=== PATIENT | female | born 1940 ===

== ENCOUNTER 2016-10-29 18:39 | Inpatient (IN) | payer MEDICARE, OTHER ==
[2016-10-29 19:03] VITALS: BMI 21.7
[2016-10-29] MEDS ORDERED: Morphine 2 mg/ml ISec IVP STA (20:56)
[2016-10-29 21:07] LABS: ADD MANUAL DIFF? NO
[2016-10-29 21:13] LABS: VENOUS BLOOD GAS BASE EXCESS 3.7 mmol/L (0.0-2.0); VENOUS BLOOD PH 7.43 (7.32-7.43)
[2016-10-29 21:19] LABS: BASO # 0.03 K/mm3 (0.0-2.0); BASO % 0.5 % (0.0-3.0); EOS % 0.5 % (1.5-5.0); GRAN # 3.93 (1.4-6.5); GRAN % 63.5 % (50.0-68.0); HEMATOCRIT 35.2 % (36.0-48.0); LYMPH # 1.3 (1.2-3.4); LYMPH % 21.4 % (22.0-35.0); MEAN CELL VOLUME 70.5 fL (80.0-105.0); MEAN CORPUSCULAR HEMOGLOBIN 21.8 pg (25.0-35.0); MONO # 0.9 (0.1-0.6); MONO % 14.1 % (1.0-6.0); PLATELET COUNT 73 10^3/uL (120.0-450.0); RED CELL DISTRIBUTION WIDTH 28.1 % (11.5-14.5); WHITE BLOOD COUNT 6.2 10^3/ul (4.5-11.0)
[2016-10-29 21:24] LABS: ALB/GLOB RATIO 0.6 (1.1-1.8); ALKALINE PHOSPHATASE 106 U/L (38-133); ALT/SGPT 28 U/L (7-56); AST/SGOT 48 U/L (15-39); BILIRUBIN,TOTAL 1.5 mg/dL (0.2-1.3); BLOOD UREA NITROGEN 19 mg/dL (7-21); CALCIUM 8.6 mg/dL (8.4-10.5); CARBON DIOXIDE 26 mmol/L (21-33); CHLORIDE 109 mmol/L (98-107); GFR AFRICAN-AMERICAN > 60; GLUCOSE,RANDOM 197 mg/dL (70-110); POTASSIUM 4.3 mmol/L (3.6-5.0); SODIUM 141 mmol/L (132-148); TOTAL PROTEIN 6.1 g/dL (5.8-8.3)
[2016-10-29 21:28] LABS: INR 1.26 (0.93-1.08)
[2016-10-29 21:39] LABS: TROPONIN I < 0.01 ng/mL
--- NOTE | 2016-10-29 23:31 | CP.PCM.HP ---
<Carey Siegel - Last Filed: 10/30/16 00:50> History of Present Illness - History of Present Illness History of Present Illness: PGY-[address] Brenda Mendoza 76yo female with PMHx of DM 2, hypertension and liver cirrhosis present with the spouse by the bedside for complaint of abdominal pain and AMS. The states she was diagnosed with cirrhosis two weeks ago at [facility] and paricentesis was done at that time. States she went back to [facility] emergency room on Saturday for abdominal pain and was DC home with pain medication. He brought her to [facility] ED today because she started complaining of abdominal pain and decreased appetite. States she was fine, ambulatory yesterday (more than 24 hours ago). According to the she have not seen a Doctor for years prior to 2weeks ago, because she have no insurance. ROS Denies nausea, vomiting, diarrhea, constipation, fever, hematemesis, melena - per family PMH DM2, HTN, Liver cirrhosis PSH Paricentesis, [facility], 2 weeks ago SH Unknown ever smoke. Denies drink/drug All NKDA Med None PMD None Present on Admission - Present on Admission Any Indicators Present on Admission: No Past Patient History - Past Social History Smoking Status: Unknown If Ever Smoked - ENDOCRINE/METABOLIC Hx Diabetes Mellitus Type 2: Yes - GASTROINTESTINAL Other/Comment: Liver Cirrhosis - PSYCHIATRIC Hx Substance Use: No - SURGICAL HISTORY Hx Surgeries: Yes Meds Allergies/Adverse Reactions: Allergies Allergy/AdvReac Type Severity Reaction Status Date / Time No Known Allergies Allergy Verified 10/29/16 19:03 Physical Exam - Constitutional Appears: Chronically Ill Additional comments: Non-communicative, R eye twitching (chronic per ED PA and RN) - Head Exam Head Exam: ATRAUMATIC, NORMOCEPHALIC - Eye Exam Eye Exam: PERRL. absent: Scleral icterus - ENT Exam ENT Exam: Mucous Membranes Moist - Neck Exam Neck exam: Negative for: Meningismus - Respiratory Exam Respiratory Exam: Clear to Auscultation Bilateral, NORMAL BREATHING PATTERN. absent: Rales, Rhonchi, Wheezes - Cardiovascular Exam Cardiovascular Exam: REGULAR RHYTHM, +S1, +S2. absent: Systolic Murmur - GI/Abdominal Exam GI & Abdominal Exam: Distended, Hypoactive Bowel Sounds Additional comments: hpertympanic percussion, fluid wave - Extremities Exam Extremities exam: Positive for: normal capillary refill, pedal pulses present. Negative for: pedal edema - Neurological Exam Additional comments: Non-communicative, open eyes spontanously, grimace to pain, non-responsive to touch or verbal stimuli R eye twitching Deepened R nasal-labial fold - Skin Skin Exam: Dry, Warm Results - Vital Signs Recent Vital Signs: Last Vital Signs Temp 97.6 F 10/29/16 19:16 Pulse 70 10/29/16 21:40 Resp 17 10/29/16 21:40 BP 140/77 10/29/16 21:40 Pulse Ox 100 10/29/16 21:40 - Labs Result Diagrams: 10/29/16 20:00 10/29/16 20:00 Assessment & Plan - Assessment and Plan (Free Text) Plan: 76 years old Nepalese speaking female baseline aaox3 with ability to walk developed a sudden lethargy, only responsive to deep pain stimuli. She was diagnosed with liver cirrhosis at [facility] for 2 weeks but pt refused treatment. Family last seen pt at baseline was more than 24 hours prior to admission. Patient received botox for R facial twitches but not recently due to insurance problem. A deepened nasal-labial fold was appreciated during physical examination. AMS - Infection - ABG lactate 2.3, no leukocytosis - Infarction - trend cardiac enzyme, CT head stat; Deepened R nasal-labial fold - Iatrogenic - blood sugar 197, POx stable - likely hepatic encephalopathy Ammonia 161 - NPO until mentation improves; swallow eval and treat - IVF @ 45 - GI consult - neuro consult - Aspiration precaution - AM ammonia level - o2 as needed Abdominal pain Cirrhosis vs bowel obstruction vs ileus vs peritonitis Liver failure, suspected SBP prophylaxis - cefotaxime 2g q12 - Ammonia 161; Total bili 1.5 - lactulose stat - pt grimace - morphine PRN - CT abdomin and pelvix stat - flat plate stat - A:G 0.6 Hx DM2 - ISSS - A1C microccytic anemia - iron study, b12, folate - stool occult Prophylaxis - protonix - SCD S/r/q/w Dr. Mendoza - Date & Time Date: 10/29/16 Time: 11:40 <Priyank Mendoza - Last Filed: 10/30/16 06:48> Results - Vital Signs Recent Vital Signs: Last Vital Signs Temp 97.6 F 10/29/16 19:16 Pulse 65 10/29/16 23:40 Resp 16 10/29/16 23:40 BP 120/63 10/29/16 23:40 Pulse Ox 99 10/29/16 23:40 - Labs Result Diagrams: 10/29/16 20:00 10/29/16 20:00 Labs: Laboratory Results - last 24 hr 10/30/16 10/30/16 10/30/16 00:44 02:00 02:15 pO2 116 H VBG pH 7.42 VBG pCO2 43.0 VBG HCO3 27.9 VBG Total CO2 29.2 H VBG O2 Sat (Calc) 99.2 H VBG Base Excess 2.9 H VBG Potassium 3.9 Sodium 143.0 Chloride 116.0 H Glucose 183 H Lactate 1.9 FiO2 21.0 Total Bilirubin 1.6 H Direct Bilirubin 0.5 H Lactate Dehydrogenase 462 Total Creatine Kinase 21 L Troponin I < 0.01 Venous Blood Potassium 3.9 Stool Occult Blood Positive H Attending/Attestation - Attestation I have personally seen and examined this patient.: Yes I have fully participated in the care of the patient.: Yes I have reviewed all pertinent clinical information: Yes Notes (Text): 10/30/16 06:46 Patient was seen when she was in [facility] 5 in the ER. Agree with history ,physical examination ,assessment and plan.
[2016-10-30] MEDS ORDERED: Lactulose 10 gm/15 ml (Rectal Use) PR STA (00:10)
--- NOTE | 2016-10-30 00:21 | ED PDOC ---
Arrival/HPI - General Chief Complaint: Altered Mental Status Time Seen by Provider: 10/29/16 19:58 Historian: Spouse - History of Present Illness Narrative History of Present Illness (Text): 10/30/16 00:21 76yo female with PMHx of hypertension and liver cirrhosis present with the spouse by the bedside for complaint of abdominal pain and AMS. The states she was diagnosed with cirrhosis two weeks ago at [facility] and paricentesis was done at that time. States she went back on Saturday and was DC home with pain medication. He brought her to ED today because she started complaining of abdominal pain and decreased appetite. States she was fine , ambulatory yesterday. According to the she have not seen a Doctor for years prior to 2weeks ago, because she have no insurance. Denies nausea, vomiting, diarrhea , constipation, fever, focal neurological weakness, hematemesis, melena, any other complaint. Past Medical History - Provider Review Nursing Documentation Reviewed: Yes - Endocrine/Metabolic Hx Diabetes Mellitus Type 2: Yes - Gastrointestinal Other/Comment: Liver Cirrhosis - Psychiatric Hx Substance Use: No Family/Social History - Physician Review Nursing Documentation Reviewed: Yes Family/Social History: Unknown Family HX Smoking Status: Unknown If Ever Smoked Hx Alcohol Use: No Hx Substance Use: No Allergies/Home Meds Allergies/Adverse Reactions: Allergies No Known Allergies Allergy (Verified 10/29/16 19:03) Review of Systems - Physician Review All systems were reviewed & negative as marked: Yes - Review of Systems Systems not reviewed;Unavailable: Altered Mental Status Constitutional: Normal Eyes: Normal ENT: Normal Respiratory: Normal Cardiovascular: Normal Gastrointestinal: Abdominal Pain. absent: Constipation, Diarrhea, Nausea, Vomiting, Hematochezia, Hematemesis Genitourinary Female: Normal Musculoskeletal: Normal Skin: Normal Neurological: Normal Endocrine: Normal Hemo/Lymphatic: Normal Psychiatric: Normal Physical Exam Vital Signs Reviewed: Yes Vital Signs Temp Pulse Resp BP Pulse Ox 10/29/16 23:40 65 16 120/63 99 10/29/16 21:40 70 17 140/77 100 10/29/16 19:16 97.6 F 65 18 136/66 99 Temperature: Afebrile Blood Pressure: Normal Pulse: Regular Respiratory Rate: Normal Appearance: Positive for: Well-Appearing, Non-Toxic, Comfortable Pain Distress: None Mental Status: Positive for: Lethargic. No: Alert and Oriented X 3 (AA x1) - Systems Exam Head: Present: Atraumatic, Normocephalic Pupils: Present: PERRL Extroacular Muscles: Present: EOMI Conjunctiva: Present: Normal Mouth: Present: Moist Mucous Membranes Neck: Present: Normal Range of Motion Respiratory/Chest: Present: Clear to Auscultation, Good Air Exchange. No: Respiratory Distress, Accessory Muscle Use, Wheezes, Decreased Breath Sounds, Rales, Retracting, Rhonchi Cardiovascular: Present: Regular Rate and Rhythm, Normal S1, S2. No: Murmurs Abdomen: Present: Tenderness (Diffuse tenderness), Distention (Prominent distention), Normal Bowel Sounds, Guarding, Other. No: Peritoneal Signs, Rebound, McBurney's Point Tender, Rovsing's Sign Present Back: Present: Normal Inspection Upper Extremity: Present: Normal Inspection. No: Cyanosis, Edema Lower Extremity: Present: Normal Inspection. No: Edema Neurological: Present: GCS=15, CN II-XII Intact, Speech Normal, Motor Func Grossly Intact, Normal Sensory Function, Normal Cerebellar Funct, Other (No focal neurological deficit ). No: Memory Normal Skin: Present: Warm, Dry, Normal Color. No: Rashes Psychiatric: Present: Alert, Oriented x 3, Normal Insight, Normal Concentration Medical Decision Making ED Course and Treatment: 10/30/16 03:44 PT with history of liver cirrhosis, presented for stated history. She had elevated Ammonia level in ED and was admitted for hepatic encephalograph. Case was DW Dr. Mendoza and pt was admitted. - Lab Interpretations Lab Results: 10/29/16 20:00 10/29/16 20:00 Lab Results 10/29/16 21:53: Ammonia 161 H* 10/29/16 20:00: WBC 6.2, RBC 4.99, Hgb 10.9 L, Hct 35.2 L, MCV 70.5 L, MCH 21.8 L, MCHC 31.0, RDW 28.1 H, Plt Count 73 L, Gran % 63.5, Lymph % (Auto) 21.4 L, [place] % (Auto) 14.1 H, Eos % (Auto) 0.5 L, Baso % (Auto) 0.5, Gran # 3.93, Lymph # 1.3, [place] # 0.9 H, Eos # 0.0, Baso # 0.03, PT 13.6 H, INR 1.26 H, APTT 25.0, pO2 110 H, VBG pH 7.43, VBG pCO2 43.0, VBG HCO3 28.5 H, VBG Total CO2 29.8 H, VBG O2 Sat (Calc) 98.6 H, VBG Base Excess 3.7 H, VBG Potassium 4.5, Glucose 214 H, Lactate 2.3 H, FiO2 21.0, Sodium 142.0, Potassium 4.3, Chloride 116.0 H, Carbon Dioxide 26, Anion Gap 10, BUN 19, Creatinine 0.6, Est GFR ( Amer) > 60, Est GFR (Non-Af Amer) > 60, Random Glucose 197 H, Calcium 8.6, Total Bilirubin 1.5 H, AST 48 H, ALT 28, Alkaline Phosphatase 106, Lactate Dehydrogenase 672, Total Creatine Kinase 41, Troponin I < 0.01, NT-Pro-B Natriuret Pep 400, Total Protein 6.1, Albumin 2.3 L, Globulin 3.8, Albumin/ Globulin Ratio 0.6 L, Venous Blood Potassium 4.5 - RAD Interpretation Radiology Orders: 10/29/16 22:48 CHEST PORTABLE [RAD] Stat - EKG Interpretation Interpreted by ED Physician: Yes (NSR @ 65bpm) - Medication Orders Current Medication Orders: Cefepime HCl (Maxipime 2gm) 100 mls @ 100 mls/hr IVPB Q12 GERALDO PRN Reason: Protocol Stop: 11/04/16 01:16 Last Admin: 10/30/16 01:48 Dose: 100 MLS/HR eMAR Start Stop Document 10/30/16 01:48 STOCP (Rec: 10/30/16 01:48 STOCP [id number]) Intravenous Solution Start Date 10/30/16 Start Time 01:48 End Date 10/30/16 End time 02:48 Total Infusion Time 60 Sodium Chloride (Sodium Chloride 0.9%) 1,000 mls @ 45 mls/hr IV .[id number] GERALDO Last Admin: 10/30/16 01:47 Dose: 45 MLS/HR eMAR Start Stop Document 10/30/16 01:47 STOCP (Rec: 10/30/16 01:47 STOCP [id number]) Intravenous Solution Start Date 10/30/16 Start Time 01:47 Insulin Human Lispro (Humalog Low) 0 units SC ACHS GERALDO PRN Reason: Protocol Pantoprazole Sodium (Protonix Inj) 40 mg IVP DAILY GERALDO Discontinued Medications Lactulose (Generlac) 200 gm MS ONCE STA Stop: 10/30/16 00:11 Last Admin: 10/30/16 01:48 Dose: 200 GM Morphine Sulfate (Morphine) 2 mg IVP STAT STA Stop: 10/29/16 20:57 Last Admin: 10/29/16 21:23 Dose: 2 MG MAR Pain Assessment Document 10/29/16 21:23 (Rec: 10/29/16 21:23 [id number] Pain Reassessment Is this a pain reassessment? Yes Sleep Is patient sleeping during reassessment? No Presence of Pain Presence of Pain Yes Pain Scale Used Pain Scale Used Numeric IVP Administration Document 10/29/16 21:23 (Rec: 10/29/16 21:23 [id number] Charges for Administration # of IVP Administrations 1 Ondansetron HCl (Zofran Inj) 4 mg IVP STAT STA Stop: 10/29/16 21:31 Disposition/Present on Arrival - Present on Arrival Any Indicators Present on Arrival: No History of DVT/PE: No History of Uncontrolled Diabetes: No Urinary Catheter: No History of Decub. Ulcer: No History Surgical Site Infection Following: None - Disposition Have Diagnosis and Disposition been Completed?: Yes Diagnosis: Cirrhosis, Hepatic encephalopathy, Altered mental status Disposition: HOSPITALIZED Disposition Time: 22:20 Patient Problems: Current Active Problems Problem Status Diagnosed Altered mental status Acute Cirrhosis Acute Condition: FAIR
[2016-10-30 01:02] LABS: VENOUS BLOOD GAS BASE EXCESS 2.9 mmol/L (0.0-2.0); VENOUS BLOOD PH 7.42 (7.32-7.43)
[2016-10-30] MEDS ORDERED: Sodium Chloride 0.9% 1,000 ML IV SCH (01:15)
[2016-10-30] MEDS: Cefepime IV 2 gm in NS 100 ML IVPB SCH ×3 (01:48→22:59)
[2016-10-30 02:22] LABS: BILIRUBIN,DIRECT 0.5 mg/dL (0.0-0.4); BILIRUBIN,TOTAL 1.6 mg/dL (0.2-1.3)
[2016-10-30 02:38] LABS: TROPONIN I < 0.01 ng/mL
[2016-10-30 07:55] LABS: ADD MANUAL DIFF? NO
[2016-10-30 08:07] LABS: BASO # 0.02 K/mm3 (0.0-2.0); BASO % 0.2 % (0.0-3.0); EOS % 0.1 % (1.5-5.0); GRAN # 8.69 (1.4-6.5); GRAN % 78.4 % (50.0-68.0); HEMATOCRIT 36.2 % (36.0-48.0); LYMPH # 0.9 (1.2-3.4); MEAN CELL VOLUME 70.4 fL (80.0-105.0); MEAN CORPUSCULAR HEMOGLOBIN 21.6 pg (25.0-35.0); MEAN CORPUSCULAR HGB CONC 30.7 g/dl (31.0-37.0); MONO # 1.5 (0.1-0.6); MONO % 13.3 % (1.0-6.0); PLATELET COUNT 82 10^3/uL (120.0-450.0); RED CELL DISTRIBUTION WIDTH 28.3 % (11.5-14.5); WHITE BLOOD COUNT 11.1 10^3/ul (4.5-11.0)
--- NOTE | 2016-10-30 08:08 | CT ---
PROCEDURE: CT HEAD WITHOUT CONTRAST. HISTORY: AMS COMPARISON: None available. TECHNIQUE: Axial computed tomography images were obtained through the head/brain without intravenous contrast. Radiation dose: Total exam DLP = 689.08 mGy-cm. FINDINGS: HEMORRHAGE: No intracranial hemorrhage. BRAIN: No mass effect or edema. No atrophy or chronic microvascular ischemic changes. VENTRICLES: There are bilateral symmetrical linear foci of high attenuation in the ventricles likely represent calcified choroid plexus. . No hydrocephalus. CALVARIUM: Unremarkable. PARANASAL SINUSES: Unremarkable as visualized. No significant inflammatory changes. MASTOID AIR CELLS: Almost complete opacification of the left sphenoid sinus is noted. OTHER FINDINGS: None. IMPRESSION: No evidence of acute intracranial hemorrhage intracranial collection territorial infarct mass effect or midline shift. Almost complete opacification of the left sphenoid sinus.
--- NOTE | 2016-10-30 08:16 | CT ---
PROCEDURE: CT Abdomen and Pelvis without intravenous contrast HISTORY: abdomen distention COMPARISON: None. TECHNIQUE: Axial and reformatted coronal and sagittal CT images of the abdomen and pelvis were obtained without IV or oral contrast administration.. Contrast Dose: 0 Radiation dose: Total exam DLP = 1063.55 mGy-cm. FINDINGS: LOWER THORAX: No evidence of acute pathology at the lung bases. LIVER: Advanced cirrhotic changes are noted in the liver. There is well defined low-attenuation lesion seen at the central portion of the right liver lobe measures 2 centimeter of uncertain etiology. The assessment of the liver and upper abdomen solid organs is limited without IV contrast administration. GALLBLADDER AND BILE DUCTS: Large gallstones seen at the gallbladder neck measures 1 centimeter. No evidence of significant biliary tree obstruction. PANCREAS: Unremarkable. No gross lesion or ductal dilatation. SPLEEN: Splenomegaly is noted measures up to 13.5 centimeter. ADRENALS: Mild enlargement of the adrenal glands noted left more than right. KIDNEYS AND URETERS: No evidence of nephrolithiasis or hydronephrosis. VASCULATURE: Unremarkable. No aortic aneurysm. BOWEL: No evidence of small bowel obstruction. Colonic diverticulosis are seen without evidence of diverticulitis. APPENDIX: No evidence of appendicitis. PERITONEUM: Moderate to large ascites in the abdomen and pelvis. No evidence of free air. LYMPH NODES: No evidence of significant retroperitoneal lymphadenopathy. BLADDER: Mildly to moderately distended urinary bladder REPRODUCTIVE: . Foci of calcification in the uterus likely represent calcified fibroid. BONES: No acute fracture. OTHER FINDINGS: None. IMPRESSION: Findings suggestive of advanced cirrhosis associated with portal hypertension. Moderate to large ascites and splenomegaly due to portal hypertension. Collateral dilated vessels in the mid and upper abdomen suggestive of portal systemic shunt/varices. Gallstone without definite CT evidence of acute cholecystitis. If clinically warranted further assessment by ultrasound or hepatobiliary scan may be obtained. Distended urinary bladder. Mild to moderate anasarca.
[2016-10-30 08:21] LABS: IRON 98 ug/dL (45-180)
[2016-10-30 08:29] LABS: ALB/GLOB RATIO 0.6 (1.1-1.8); ALKALINE PHOSPHATASE 108 U/L (38-133); ALT/SGPT 30 U/L (7-56); AST/SGOT 41 U/L (15-39); BILIRUBIN,TOTAL 1.8 mg/dL (0.2-1.3); BLOOD UREA NITROGEN 21 mg/dL (7-21); CALCIUM 8.6 mg/dL (8.4-10.5); CARBON DIOXIDE 24 mmol/L (21-33); CHLORIDE 111 mmol/L (98-107); GFR AFRICAN-AMERICAN > 60; GLUCOSE,RANDOM 167 mg/dL (70-110); POTASSIUM 4.2 mmol/L (3.6-5.0); SODIUM 144 mmol/L (132-148); TOTAL PROTEIN 5.9 g/dL (5.8-8.3)
[2016-10-30 08:38] LABS: TROPONIN I 0.01 ng/mL
[2016-10-30] MEDS: Insulin Lispro (humaLOG) LOW Coverage SC SCH ×4 (08:48→23:25)
[2016-10-30] MEDS ORDERED: Lactulose 10 gm/15 ml (Rectal Use) PR ONE (09:28)
--- NOTE | 2016-10-30 11:09 | RAD ---
HISTORY: admission COMPARISON: No prior. FINDINGS: LUNGS: No evidence of focal infiltrate or consolidation in the lungs. PLEURA: No significant pleural effusion identified, no pneumothorax apparent. CARDIOVASCULAR: Normal. OSSEOUS STRUCTURES: No significant abnormalities. VISUALIZED UPPER ABDOMEN: Normal. OTHER FINDINGS: None. IMPRESSION: No active disease.
[2016-10-30] MEDS ORDERED: Lactulose 10 gm/15 ml (Rectal Use) PR SCH ×2 (12:15→16:00)
[2016-10-30 12:44] LABS: FOLATE 12.3 ng/mL
--- NOTE | 2016-10-30 13:10 | CP.PCM.PN ---
<Darío Garcia - Last Filed: 10/30/16 13:06> Subjective - Date & Time of Evaluation Date of Evaluation: 10/30/16 Time of Evaluation: 13:07 - Subjective Subjective: Pt seen and examined at bedside. Pt unable to appropriately communicate as she is still altered at this time. Ammonia levels elevated in ED. Pt's at bedside. Pt is macedonian speaking and has not been speaking since last night. Objective - Vital Signs/Intake and Output Vital Signs (last 24 hours): Temp Pulse Resp BP Pulse Ox 97.6 F 82 18 114/50 L 100 10/30/16 07:30 10/30/16 07:30 10/30/16 07:30 10/30/16 07:30 10/30/16 07:30 Intake and Output: 10/30/16 10/30/16 06:59 18:59 Intake Total 0 Balance 0 - Medications Medications: Current Medications Cefepime HCl (Maxipime 2gm) 100 mls @ 100 mls/hr IVPB Q12 GERALDO PRN Reason: Protocol Stop: 11/04/16 01:16 Last Admin: 10/30/16 11:09 Dose: 100 mls/hr Sodium Chloride (Sodium Chloride 0.9%) 1,000 mls @ 45 mls/hr IV .[id number] GERALDO Last Admin: 10/30/16 01:47 Dose: 45 mls/hr Insulin Human Lispro (Humalog Low) 0 units SC ACHS GERALDO PRN Reason: Protocol Last Admin: 10/30/16 08:48 Dose: Not Given Lactulose (Generlac) 200 gm WI Q6H GERALDO Neomycin Sulfate (Neomycin Tab) 1,000 mg PO Q6 GERALDO Stop: 10/31/16 06:01 Pantoprazole Sodium (Protonix Inj) 40 mg IVP DAILY GERALDO Last Admin: 10/30/16 11:18 Dose: 40 mg - Labs Labs: 10/30/16 07:54 10/30/16 07:54 PT 13.6 Seconds (9.9-11.8) H 10/29/16 20:00 INR 1.26 (0.93-1.08) H 10/29/16 20:00 APTT 25.0 Seconds (23.7-30.8) 10/29/16 20:00 - Constitutional Appears: Toxic, Confused - Head Exam Head Exam: ATRAUMATIC, NORMAL INSPECTION, NORMOCEPHALIC - ENT Exam ENT Exam: Mucous Membranes Moist, Normal Exam - Respiratory Exam Respiratory Exam: Clear to Ausculation Bilateral, NORMAL BREATHING PATTERN. absent: Rhonchi, Wheezes - Cardiovascular Exam Cardiovascular Exam: RRR, +S1, +S2 - GI/Abdominal Exam GI & Abdominal Exam: Distended, Soft, Normal Bowel Sounds. absent: Guarding, Tenderness, Organomegaly - Extremities Exam Extremities Exam: Normal Inspection. absent: Calf Tenderness, Pedal Edema - Neurological Exam Neurological Exam: Awake. absent: Alert, Oriented x3 - Psychiatric Exam Additional comments: Altered. - Skin Skin Exam: Intact, Normal Color, Warm Assessment and Plan - Assessment and Plan (Free Text) Plan: 76 y/o Liberian speaking female with PMH of DM2, HTN, microcytic anemia and recently diagnosed liver cirrhosis presents with hepatic encephalopathy. Pt found to have elevated ammonia on admission and placed on rectal lactulose scheduled at this time. Pt was at baseline yesterday, but became altered last night. Abdomen CT shows advanced cirrhosis with portal HTN, moderate to large ascites, and gallstones without cholecystitis. Pt will likely have paracentesis by IR today. Pt also will go for Liver CT today. AMS - Secondary to hepatic encephalopathy - Ammonia levels elevated - Lactulose rectal at this time, pending swallow eval - Will reevaluate in afternoon - Consider adding rifaximin once able to tolerate PO - Trend Ammonia Abdominal pain - Liver cirrhosis as evident on CT - Contributing to AMS - Liver CT pending - Continue morphine for pain management Hx DM2 - ISSS - A1C microccytic anemia - Transferrin low, iron and TIBC within normal limits - Stool occult blood positive Prophylaxis - protonix - SCD Seen, reviewed, and discussed with attending. Jose, PGY-1 <Linh GÓMEZ,Jimmie - Last Filed: 10/30/16 17:13> Objective - Vital Signs/Intake and Output Vital Signs (last 24 hours): Temp Pulse Resp BP Pulse Ox 97.6 F 82 18 114/50 L 100 10/30/16 07:30 10/30/16 07:30 10/30/16 07:30 10/30/16 07:30 10/30/16 07:30 Intake and Output: 10/30/16 10/30/16 06:59 18:59 Intake Total 0 Balance 0 - Medications Medications: Current Medications Cefepime HCl (Maxipime 2gm) 100 mls @ 100 mls/hr IVPB Q12 GERALDO PRN Reason: Protocol Stop: 11/04/16 01:16 Last Admin: 10/30/16 11:09 Dose: 100 mls/hr Sodium Chloride (Sodium Chloride 0.9%) 1,000 mls @ 45 mls/hr IV .[id number] GERALDO Last Admin: 10/30/16 01:47 Dose: 45 mls/hr Insulin Human Lispro (Humalog Low) 0 units SC ACHS GERALDO PRN Reason: Protocol Last Admin: 10/30/16 16:57 Dose: 2 units Lactulose (Enulose) 30 gm PO BID GERALDO Last Admin: 10/30/16 16:56 Dose: 30 gm Neomycin Sulfate (Neomycin Tab) 1,000 mg PO Q6 GERALDO Stop: 10/31/16 06:01 Last Admin: 10/30/16 16:57 Dose: 1,000 mg - Labs Labs: 10/30/16 07:54 10/30/16 07:54 PT 13.6 Seconds (9.9-11.8) H 10/29/16 20:00 INR 1.26 (0.93-1.08) H 10/29/16 20:00 APTT 25.0 Seconds (23.7-30.8) 10/29/16 20:00 Attending/Attestation - Attestation I have personally seen and examined this patient.: Yes I have fully participated in the care of the patient.: Yes I have reviewed all pertinent clinical information, including history, physical exam and plan: Yes Notes (Text): Patient was seen and examined with coroner/medical examiner , was at bed side..Agreed with resident assessment and plan. 76 yrs old Female with change of mental status due to hepatic encephlopathy.CT head is negative. We will continue lactulose and Neomycin.We will hold Narcotic.Patient has Paracentesis today, no SBP. CT liver showed possible cecal mass, GI is following, will need Colonoscopy once stable. Patient has stool guiac positive, but no active bleeding, will continue monitoring. Prognosis is poor. Management plan was discussed in detail with patient Education was provided.
--- NOTE | 2016-10-30 13:28 | CT ---
PROCEDURE: CT Abdomen with and without intravenous contrast HISTORY: characterize liver lesion, r/o hcc COMPARISON: Comparison is made to the previous same-day noncontrast study of the abdomen and pelvis. TECHNIQUE: Axial images of the abdomen from lung bases to iliac crest with and without intravenous contrast enhancement. Coronal and sagittal reformats generated. Oral contrast also administered. Intravenous contrast Dose: 150 mL of Omnipaque 350 Radiation dose: Total exam DLP = 1900.84. MGy-cm. FINDINGS: LOWER THORAX: No evidence of acute pathology or suspicious mass in the lung bases. LIVER: Again seen is 20 pole 1 x 21 millimeter low-attenuation lesion in the central portion of of the liver. There is no significant postcontrast enhancement in this lesion. The possibility of hepatocellular carcinoma is unlikely. No CT evidence of enhancing mass lesion in the liver. Advanced cirrhotic changes are again seen associated with findings suggestive of portal hypertension. GALLBLADDER AND BILE DUCTS: Gallstone is again seen at or adjacent to gallbladder neck. Mild gallbladder wall thickening. PANCREAS: Unremarkable. No gross lesion or ductal dilatation. SPLEEN: Mild splenomegaly is also again noted. ADRENALS: No evidence of suspicious mass in the adrenal glands. KIDNEYS AND URETERS: Unremarkable. No hydronephrosis. No solid mass. VASCULATURE: . No aortic aneurysm. Again seen are large collateral vessels in the mid and upper abdomen and are around the distal esophagus suggestive of portal systemic shunt and esophageal varices. BOWEL: There is suspicious for mass lesion or focal wall thickening at the cecum demonstrate homogeneous enhancement. The possibility of cecal/ proximal ascending colon neoplasm should be excluded. APPENDIX: The appendix is not visualized in PERITONEUM: Large ascites is again noted. LYMPH NODES: Slightly prominent upper abdomen lymph nodes P BLADDER: The bladder is not included this study. REPRODUCTIVE: Not included in this study. BONES: No acute fracture. OTHER FINDINGS: None. IMPRESSION: Well defined low-attenuation lesion in the right liver lobe demonstrates no significant enhancement. No evidence of arterial enhancing mass lesion in the liver to suggest hepatocellular carcinoma. Advanced cirrhosis associated with splenomegaly and large ascites suggestive of portal hypertension. Suspicious for enhancing mass lesion at the cecum. Further assessment of the large bowel is suggested. Large collateral vessels in the mid and upper abdomen suggestive of portal systemic shunts.
--- NOTE | 2016-10-30 13:35 | RAD ---
HISTORY: abdomen distention r/o ileus COMPARISON: October 30, 2016. CT abdomen and pelvis. FINDINGS: BOWEL: Normal. No obstruction. No free air. BONES: Normal. OTHER FINDINGS: None. IMPRESSION: No acute findings related to/accounting for the clinical presentation.
--- NOTE | 2016-10-30 14:18 | CP.PCM.CON ---
<Dylan Millan - Last Filed: 10/30/16 14:18> History of Present Illness - History of Present Illness History of Present Illness: PGY4 GI Fellow Consult Note Patient is a 76yo female with PMHx significant for HTN, DM and recently diagnosed decompensated cirrhosis (2 weeks [facility]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 The patient is currently unable to provide any medical history given her mentation. A call to the patient's was unanswered and no family has been at bedside today. The patient is awake and makes eye contact, but does not speak. 24 hours prior to admission patient was in normal state of health but developed abdominal distention, pain and decrased appetite. As mentation declined, she was brought to the ED for further evaluation. Initial evaluation in the ED showed labs c/w cirrhosis and CT A/P shows large abdominal ascites and a 2cm liver lesion. PMHx: See HPI PSHx: Denied FHx: Denied Social: No prior EtOH or drug abuse, unknown tobacco status Endo: Unknown Review of Systems - Review of Systems Systems not reviewed;Unavailable: Acuity of Condition, Altered Mental Status Past Patient History - Past Social History Smoking Status: Never Smoked - CARDIAC Hx Hypertension: Yes - PULMONARY Hx Respiratory Disorders: No - NEUROLOGICAL Hx Neurological Disorder: No - HEENT Hx HEENT Problems: No - RENAL Hx Chronic Kidney Disease: No - ENDOCRINE/METABOLIC Hx Diabetes Mellitus Type 2: Yes - HEMATOLOGICAL/ONCOLOGICAL Hx Blood Disorders: No - INTEGUMENTARY Hx Dermatological Problems: No - MUSCULOSKELETAL/RHEUMATOLOGICAL Hx Falls: No - GASTROINTESTINAL Hx Gastrointestinal Disorders: No Hx Liver Failure: Yes Other/Comment: Liver Cirrhosis - GENITOURINARY/GYNECOLOGICAL Hx Genitourinary Disorders: No - PSYCHIATRIC Hx Substance Use: No - SURGICAL HISTORY Hx Surgeries: No Meds Allergies/Adverse Reactions: Allergies Allergy/AdvReac Type Severity Reaction Status Date / Time No Known Allergies Allergy Verified 10/29/16 19:03 - Medications Medications: Current Medications Cefepime HCl (Maxipime 2gm) 100 mls @ 100 mls/hr IVPB Q12 GERALDO PRN Reason: Protocol Stop: 11/04/16 01:16 Last Admin: 10/30/16 11:09 Dose: 100 mls/hr Sodium Chloride (Sodium Chloride 0.9%) 1,000 mls @ 45 mls/hr IV .[id number] [facility] Last Admin: 10/30/16 01:47 Dose: 45 mls/hr Insulin Human Lispro (Humalog Low) 0 units SC ACHS [facility] PRN Reason: Protocol Last Admin: 10/30/16 13:06 Dose: Not Given Lactulose (Generlac) 200 gm AL Q6H [facility] Lactulose (Enulose) 30 gm PO BID [facility] Neomycin Sulfate (Neomycin Tab) 1,000 mg PO Q6 [facility] Stop: 10/31/16 06:01 Pantoprazole Sodium (Protonix Inj) 40 mg IVP DAILY [facility] Last Admin: 10/30/16 11:18 Dose: 40 mg Physical Exam - Constitutional Appears: Chronically Ill Additional comments: awake, nonverbal - Eye Exam Eye Exam: PERRL - ENT Exam ENT Exam: Mucous Membranes Dry - Respiratory Exam Respiratory Exam: Clear to Auscultation Bilateral. absent: Rales, Rhonchi, Wheezes - Cardiovascular Exam Cardiovascular Exam: RRR, +S1, +S2, Systolic Murmur - GI/Abdominal Exam GI & Abdominal Exam: Distended, Firm, Normal Bowel Sounds. absent: Guarding, Organomegaly, Rigid, Soft, Tenderness - Extremities Exam Additional comments: 2+ B/L LE edema - Neurological Exam Neurological exam: Altered - Psychiatric Exam Psychiatric exam: Anxious - Skin Skin Exam: Dry, Warm Results - Vital Signs Recent Vital Signs: Last Vital Signs Temp 97.6 F 10/30/16 07:30 Pulse 82 10/30/16 07:30 Resp 18 10/30/16 07:30 BP 114/50 L 10/30/16 07:30 Pulse Ox 100 10/30/16 07:30 - Labs Result Diagrams: 10/30/16 07:54 10/30/16 07:54 Labs: Laboratory Results - last 24 hr 10/30/16 10/30/16 10/30/16 00:44 02:00 02:15 WBC RBC Hgb Hct MCV MCH MCHC RDW Plt Count Gran % Lymph % (Auto) [place] % (Auto) Eos % (Auto) Baso % (Auto) Gran # Lymph # [place] # Eos # Baso # pO2 116 H VBG pH 7.42 VBG pCO2 43.0 VBG HCO3 27.9 VBG Total CO2 29.2 H VBG O2 Sat (Calc) 99.2 H VBG Base Excess 2.9 H VBG Potassium 3.9 Sodium 143.0 Chloride 116.0 H Glucose 183 H Lactate 1.9 FiO2 21.0 Potassium Carbon Dioxide Anion Gap BUN Creatinine Est GFR ( Amer) Est GFR (Non-Af Amer) POC Glucose (mg/dL) Random Glucose Hemoglobin A1c Calcium Iron TIBC % Saturation Transferrin Total Bilirubin 1.6 H Direct Bilirubin 0.5 H AST ALT Alkaline Phosphatase Ammonia Lactate Dehydrogenase 462 Total Creatine Kinase 21 L Troponin I < 0.01 Total Protein Albumin Globulin Albumin/Globulin Ratio Vitamin B12 875 Folate 12.3 Venous Blood Potassium 3.9 Stool Occult Blood Positive H 10/30/16 10/30/16 10/30/16 05:00 07:33 07:54 WBC 11.1 H D RBC 5.14 Hgb 11.1 L Hct 36.2 MCV 70.4 L MCH 21.6 L MCHC 30.7 L RDW 28.3 H Plt Count 82 L Gran % 78.4 H Lymph % (Auto) 8.0 L [place] % (Auto) 13.3 H Eos % (Auto) 0.1 L Baso % (Auto) 0.2 Gran # 8.69 H Lymph # 0.9 L [place] # 1.5 H Eos # 0.0 Baso # 0.02 pO2 VBG pH VBG pCO2 VBG HCO3 VBG Total CO2 VBG O2 Sat (Calc) VBG Base Excess VBG Potassium Sodium 144 Chloride 111 H Glucose Lactate FiO2 Potassium 4.2 Carbon Dioxide 24 Anion Gap 13 BUN 21 Creatinine 0.6 Est GFR ( Amer) > 60 Est GFR (Non-Af Amer) > 60 POC Glucose (mg/dL) 173 H Random Glucose 167 H Hemoglobin A1c 6.7 H Calcium 8.6 Iron 98 TIBC 278 % Saturation 35 Transferrin 205.57 L Total Bilirubin 1.8 H Direct Bilirubin AST 41 H ALT 30 Alkaline Phosphatase 108 Ammonia 97 H Lactate Dehydrogenase 578 Total Creatine Kinase 21 L Troponin I 0.01 Total Protein 5.9 Albumin 2.3 L Globulin 3.7 Albumin/Globulin Ratio 0.6 L Vitamin B12 Folate Venous Blood Potassium Stool Occult Blood 10/30/16 11:18 WBC RBC Hgb Hct MCV MCH MCHC RDW Plt Count Gran % Lymph % (Auto) [place] % (Auto) Eos % (Auto) Baso % (Auto) Gran # Lymph # [place] # Eos # Baso # pO2 VBG pH VBG pCO2 VBG HCO3 VBG Total CO2 VBG O2 Sat (Calc) VBG Base Excess VBG Potassium Sodium Chloride Glucose Lactate FiO2 Potassium Carbon Dioxide Anion Gap BUN Creatinine Est GFR ( Amer) Est GFR (Non-Af Amer) POC Glucose (mg/dL) 211 H Random Glucose Hemoglobin A1c Calcium Iron TIBC % Saturation Transferrin Total Bilirubin Direct Bilirubin AST ALT Alkaline Phosphatase Ammonia Lactate Dehydrogenase Total Creatine Kinase Troponin I Total Protein Albumin Globulin Albumin/Globulin Ratio Vitamin B12 Folate Venous Blood Potassium Stool Occult Blood Assessment & Plan - Assessment and Plan (Free Text) Assessment: Patient is a 76yo female with PMHx significant for HTN, DM and recently diagnosed decompensated cirrhosis (2 weeks [facility]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 -Decompensated cirrhosis with ascites and hepatic encephalopathy -AMS 2/2 HE -Abdominal ascites -2cm liver lesion -Cecal mass noted on CT scan Plan: -Lactulose 30gm PO BID, titrate to 2-3 BM/day -If patient not tolerating PO, continue with AL Lactulose -Recommend U/S guided paracentesis; please send fluid for cell count, C&S, albumin, total protein -Will consider initiation of Lasix/Aldactone following paracentesis -No need to trend ammonia, order discontinued -Check Hepatitis panel -Check autoimmune w/u: FELICIA, AMA, SMA -Check blood and urine cx -Triple phase CT reviewed; lesion not c/w HCC -Will ultimately need EGD to screen for varices when more stable if not already performed elsewhere; colonoscopy to eval cecal mass *MELD-Na: 11 - Date & Time Date: 10/30/16 Time: 09:00 <Edgar Santiago - Last Filed: 10/30/16 21:26> Meds - Medications Medications: Current Medications Cefepime HCl (Maxipime 2gm) 100 mls @ 100 mls/hr IVPB Q12 GERALDO PRN Reason: Protocol Stop: 11/04/16 01:16 Last Admin: 10/30/16 11:09 Dose: 100 mls/hr Sodium Chloride (Sodium Chloride 0.9%) 1,000 mls @ 45 mls/hr IV .[id number] [facility]ER[facility] Last Admin: 10/30/16 01:47 Dose: 45 mls/hr Insulin Human Lispro (Humalog Low) 0 units SC ACHS [facility] PRN Reason: Protocol Last Admin: 10/30/16 16:57 Dose: 2 units Lactulose (Enulose) 30 gm PO BID [facility] Last Admin: 10/30/16 19:05 Dose: Not Given Neomycin Sulfate (Neomycin Tab) 1,000 mg PO Q6 GERALDO Stop: 10/31/16 06:01 Last Admin: 10/30/16 19:05 Dose: Not Given Results - Vital Signs Recent Vital Signs: Last Vital Signs Temp 97.8 F 10/30/16 16:30 Pulse 83 10/30/16 16:30 Resp 18 10/30/16 16:30 BP 144/75 10/30/16 16:30 Pulse Ox 97 10/30/16 16:30 - Labs Result Diagrams: 10/30/16 07:54 10/30/16 07:54 Labs: Laboratory Results - last 24 hr 10/30/16 10/30/16 10/30/16 00:44 02:00 02:15 WBC RBC Hgb Hct MCV MCH MCHC RDW Plt Count Gran % Lymph % (Auto) [place] % (Auto) Eos % (Auto) Baso % (Auto) Gran # Lymph # [place] # Eos # Baso # pO2 116 H VBG pH 7.42 VBG pCO2 43.0 VBG HCO3 27.9 VBG Total CO2 29.2 H VBG O2 Sat (Calc) 99.2 H VBG Base Excess 2.9 H VBG Potassium 3.9 Sodium 143.0 Chloride 116.0 H Glucose 183 H Lactate 1.9 FiO2 21.0 Potassium Carbon Dioxide Anion Gap BUN Creatinine Est GFR ( Amer) Est GFR (Non-Af Amer) POC Glucose (mg/dL) Random Glucose Hemoglobin A1c Calcium Iron TIBC % Saturation Transferrin Total Bilirubin 1.6 H Direct Bilirubin 0.5 H AST ALT Alkaline Phosphatase Ammonia Lactate Dehydrogenase 462 Total Creatine Kinase 21 L Troponin I < 0.01 Total Protein Albumin Globulin Albumin/Globulin Ratio Alpha Fetoprotein Vitamin B12 875 Folate 12.3 Venous Blood Potassium 3.9 Fluid Source Fluid Appearance Fluid WBC Fluid RBC Fluid Tot Cell Count Fluid Neutrophils Fluid Lymphocytes Fld Monocyte/Macrophag Fluid Comment Stool Occult Blood Positive H Hepatitis A IgM Ab Hep Bs Antigen Hep B Core IgM Ab Hepatitis C Antibody 10/30/16 10/30/16 10/30/16 05:00 07:30 07:33 WBC RBC Hgb Hct MCV MCH MCHC RDW Plt Count Gran % Lymph % (Auto) [place] % (Auto) Eos % (Auto) Baso % (Auto) Gran # Lymph # [place] # Eos # Baso # pO2 VBG pH VBG pCO2 VBG HCO3 VBG Total CO2 VBG O2 Sat (Calc) VBG Base Excess VBG Potassium Sodium Chloride Glucose Lactate FiO2 Potassium Carbon Dioxide Anion Gap BUN Creatinine Est GFR ( Amer) Est GFR (Non-Af Amer) POC Glucose (mg/dL) 173 H Random Glucose Hemoglobin A1c Calcium Iron TIBC % Saturation Transferrin Total Bilirubin Direct Bilirubin AST ALT Alkaline Phosphatase Ammonia 97 H Lactate Dehydrogenase Total Creatine Kinase Troponin I Total Protein Albumin Globulin Albumin/Globulin Ratio Alpha Fetoprotein 1.8 Vitamin B12 Folate Venous Blood Potassium Fluid Source Fluid Appearance Fluid WBC Fluid RBC Fluid Tot Cell Count Fluid Neutrophils Fluid Lymphocytes Fld Monocyte/Macrophag Fluid Comment Stool Occult Blood Hepatitis A IgM Ab Negative Hep Bs Antigen Negative Hep B Core IgM Ab Negative Hepatitis C Antibody Negative 10/30/16 10/30/16 10/30/16 07:54 11:18 14:35 WBC 11.1 H D RBC 5.14 Hgb 11.1 L Hct 36.2 MCV 70.4 L MCH 21.6 L MCHC 30.7 L RDW 28.3 H Plt Count 82 L Gran % 78.4 H Lymph % (Auto) 8.0 L [place] % (Auto) 13.3 H Eos % (Auto) 0.1 L Baso % (Auto) 0.2 Gran # 8.69 H Lymph # 0.9 L [place] # 1.5 H Eos # 0.0 Baso # 0.02 pO2 VBG pH VBG pCO2 VBG HCO3 VBG Total CO2 VBG O2 Sat (Calc) VBG Base Excess VBG Potassium Sodium 144 Chloride 111 H Glucose Lactate FiO2 Potassium 4.2 Carbon Dioxide 24 Anion Gap 13 BUN 21 Creatinine 0.6 Est GFR ( Amer) > 60 Est GFR (Non-Af Amer) > 60 POC Glucose (mg/dL) 211 H Random Glucose 167 H Hemoglobin A1c 6.7 H Calcium 8.6 Iron 98 TIBC 278 % Saturation 35 Transferrin 205.57 L Total Bilirubin 1.8 H Direct Bilirubin AST 41 H ALT 30 Alkaline Phosphatase 108 Ammonia Lactate Dehydrogenase 578 Total Creatine Kinase 21 L Troponin I 0.01 Total Protein 5.9 Albumin 2.3 L Globulin 3.7 Albumin/Globulin Ratio 0.6 L Alpha Fetoprotein Vitamin B12 Folate Venous Blood Potassium Fluid Source Peritoneal/ascites Fluid Appearance Clear Fluid WBC 130.0 Fluid RBC 0.0 Fluid Tot Cell Count 100 H Fluid Neutrophils 23.8 H Fluid Lymphocytes 76.2 H Fld Monocyte/Macrophag 0 Fluid Comment TEST NOT PERFORMED Stool Occult Blood Hepatitis A IgM Ab Hep Bs Antigen Hep B Core IgM Ab Hepatitis C Antibody 10/30/16 10/30/16 10/30/16 15:46 15:52 18:32 WBC RBC Hgb Hct MCV MCH MCHC RDW Plt Count Gran % Lymph % (Auto) [place] % (Auto) Eos % (Auto) Baso % (Auto) Gran # Lymph # [place] # Eos # Baso # pO2 VBG pH VBG pCO2 VBG HCO3 VBG Total CO2 VBG O2 Sat (Calc) VBG Base Excess VBG Potassium Sodium Chloride Glucose Lactate FiO2 Potassium Carbon Dioxide Anion Gap BUN Creatinine Est GFR ( Amer) Est GFR (Non-Af Amer) POC Glucose (mg/dL) 228 H Random Glucose Hemoglobin A1c Calcium Iron TIBC % Saturation Transferrin Total Bilirubin Direct Bilirubin AST ALT Alkaline Phosphatase Ammonia Lactate Dehydrogenase 411 Total Creatine Kinase < 20 L Troponin I < 0.01 Total Protein Albumin Globulin Albumin/Globulin Ratio Alpha Fetoprotein Vitamin B12 Folate Venous Blood Potassium Fluid Source Fluid Appearance Fluid WBC Fluid RBC Fluid Tot Cell Count Fluid Neutrophils Fluid Lymphocytes Fld Monocyte/Macrophag Fluid Comment Stool Occult Blood Positive H Hepatitis A IgM Ab Hep Bs Antigen Hep B Core IgM Ab Hepatitis C Antibody Attending/Attestation - Attestation I have personally seen and examined this patient.: Yes I have fully participated in the care of the patient.: Yes I have reviewed all pertinent clinical information: Yes Notes (Text): 10/30/16 21:22 76 year old female with h/o HTN, DM, Cirrhosis c/b ascites admitted with altered mental status. 1. Hepatic encephalopathy 2. Ascites 3. Cirrhosis 4. Abnormal CT scan of GI tract 5. Liver lesion Plan: -recommend lactulose QID and rifaxamin 550 BID -lactulose can be given by enema if she refuses by mouth -recommend US LVP as above for ascites, replace albumin 8 grams per liter removed, send fluid for analysis as above -start diuretics later after paracentesis -Will consider initiation of Lasix/Aldactone following paracentesis -eval for etiology of cirrhosis with viral/autoimmune serologies -liver lesion not consistent with HCC by CT criteria -however, colonic mass suspected on CT -needs elective EGD/Colonoscopy
[2016-10-30 14:49] LABS: BODY FLUID TYPE PERITONEAL/ASCITES
[2016-10-30 15:04] LABS: BF GROSS APPEARANCE CLEAR (CLEAR); BODY FLUID TOTAL COUNT 100 (0-0)
--- NOTE | 2016-10-30 15:19 | CON ---
DATE: 10/30/2016 REASON FOR CONSULTATION: Altered mental status. HISTORY OF PRESENT ILLNESS: The patient is a 76-year-old female who was brought in the hospital afte r the patient was complaining of abdominal pain and decreased appetite. The patient was noted to be lethargic. That is why a neurology consultation was called. The patient apparently was diagnosed wi th cirrhosis of the liver about 2 weeks ago. She also had some paracentesis done at that time. The patient is unable to give history. History is mainly from the chart. REVIEW OF SYSTEMS: Unable to obtain; however, there is no cough, no sputum production, no pyuria. PAST MEDICAL HISTORY: Includes diabetes mellitus, hypertension, and cirrhosis of the liver. MEDICATIONS AT HOME: None. CURRENT MEDICATIONS: Include lactulose, insulin, cefepime, neomycin, and Protonix. ALLERGIES: No known drug allergies. SOCIAL HISTORY: The patient is a non-smoker and non-alcoholic. FAMILY HISTORY: Noncontributory. PHYSICAL EXAMINATION: GENERAL: The patient is an elderly female lying on the bed in no acute distress. VITAL SIGNS: Her blood pressure is 114/50, heart rate is 82 per minute, breathing at a rate of 16 pe r minute, temperature is 97.6 degrees Fahrenheit. HEENT: Normocephalic, atraumatic. NECK: Supple. There are no carotid bruits. LUNGS: Clear. CARDIOVASCULAR: S1 and S2 audible. No murmurs. ABDOMEN: Soft, nontender, bowel sounds present. NEUROLOGIC EXAMINATION: MENTAL STATUS: The patient is awake and alert. She is not following commands. She is not saying mu ch. CRANIAL NERVE EXAMINATION: Pupils are 3 mm bilaterally reactive to light. Visual herrera are full. Extraocular movements are intact. There is no facial asymmetry. Palate is upgoing bilaterally and t ongue is midline. MOTOR EXAMINATION: Tone is normal. She withdraws all 4 extremities to noxious painful stimuli. REFLEXES: Are 1+ with absent ankle jerk. Plantars are downgoing bilaterally. GAIT: Deferred at the moment. LABORATORY DATA: Labs reviewed and shows WBC of 11.1, hemoglobin 11.1, hematocrit of 36.2 and platel ets of 82,000. Her sodium is 144, potassium 4.2, chloride 111, carbon dioxide of 24, BUN of 21, crea tinine 0.6, and glucose of 167. Her ammonia level on admission was 161 and this morning is 97. She had a CT scan of the head done which showed no evidence of acute intracranial hemorrhage, intracr anial collection, territorial infarct, mass effect or midline shift. IMPRESSION: Altered mental status secondary to hepatic encephalopathy. RECOMMENDATIONS: 1. The patient to have an electroencephalogram. 2. The patient to be continued on lactulose and neomycin. 3. Please continue supportive care and other treatment. 4. No further neurologic recommendations. Please call neurology on an as needed basis. Thank you for allowing us to participate in the care of this patient. Fermín Anderson MD cc: [id number] TT: 10/30/2016 15:18:48 Confirmation # [id number] Dictation # [id number]
[2016-10-30 16:26] LABS: TROPONIN I < 0.01 ng/mL
--- NOTE | 2016-10-30 18:08 | CARD ---
APPROVED REPORT EKG Measurement Heart [id number] <Conclusion> Normal sinus rhythm Normal ECG
--- NOTE | 2016-10-30 22:11 | US ---
PROCEDURE: Ultrasound guided paracentesis. HISTORY: Cirrhosis. Recurrent ascites with abdominal pain and distension. Needs paracentesis. PHYSICIAN(S): Brendon Gutierrez MD. TECHNIQUE: The relative risks and indications for the procedure were explained to the patient and her daughter and informed written consent obtained. Sonography of the abdomen was performed in a supine position. This revealed a small to moderate amount of non-loculated ascites, greatest in the right lower quadrant. A puncture site was selected and the area was prepped and draped in the usual sterile fashion. 1% Xylocaine was used to anesthetize the skin and soft tissues. A 7 [place] paracentesis catheter was trocared into the right lower quadrantand 900 cc of rodger fluid aspirated. The appropriate labs were sent. IMPRESSION: Ultrasound-guided paracentesis in the right lower quadrant. 900 cc of fluid were aspirated. Labs were sent
[2016-10-31 07:52] LABS: ADD MANUAL DIFF? NO
[2016-10-31 07:55] LABS: BASO # 0.03 K/mm3 (0.0-2.0); BASO % 0.4 % (0.0-3.0); EOS % 0.6 % (1.5-5.0); GRAN # 4.56 (1.4-6.5); GRAN % 64.9 % (50.0-68.0); LYMPH # 1.3 (1.2-3.4); LYMPH % 18.9 % (22.0-35.0); MEAN CELL VOLUME 70.4 fL (80.0-105.0); MEAN CORPUSCULAR HEMOGLOBIN 21.3 pg (25.0-35.0); MEAN CORPUSCULAR HGB CONC 30.3 g/dl (31.0-37.0); MONO # 1.1 (0.1-0.6); MONO % 15.2 % (1.0-6.0); PLATELET COUNT 65 10^3/uL (120.0-450.0); RED CELL DISTRIBUTION WIDTH 28.8 % (11.5-14.5)
[2016-10-31] MEDS: Insulin Lispro (humaLOG) LOW Coverage SC SCH ×4 (08:38→23:07)
[2016-10-31 08:40] LABS: ALB/GLOB RATIO 0.6 (1.1-1.8); ALKALINE PHOSPHATASE 107 U/L (38-133); ALT/SGPT 23 U/L (7-56); AST/SGOT 33 U/L (15-39); BILIRUBIN,TOTAL 1.7 mg/dL (0.2-1.3); BLOOD UREA NITROGEN 21 mg/dL (7-21); CALCIUM 8.5 mg/dL (8.4-10.5); CARBON DIOXIDE 24 mmol/L (21-33); CHLORIDE 112 mmol/L (98-107); GFR AFRICAN-AMERICAN > 60; GLUCOSE,RANDOM 184 mg/dL (70-110); POTASSIUM 3.6 mmol/L (3.6-5.0); SODIUM 142 mmol/L (132-148); TOTAL PROTEIN 5.8 g/dL (5.8-8.3)
--- NOTE | 2016-10-31 09:22 | CP.PCM.PN ---
<LolarachelluisDylan - Last Filed: 10/31/16 16:32> Subjective - Date & Time of Evaluation Date of Evaluation: 10/31/16 Time of Evaluation: 07:10 - Subjective Subjective: PGY4 GI Fellow Progress Note Patient seen and examined bedside this morning. The patient is more alert today , able to converse though remains confused about where she is and is unable to provide medical history. No overt signs of bleeding per nursing staff. Passed 3 liquid BM yesterday. No other events overnight. 12 system ROS performed and negative except where stated. Objective - Vital Signs/Intake and Output Vital Signs (last 24 hours): Temp Pulse Resp BP Pulse Ox 97.7 F 70 18 128/63 97 10/31/16 08:00 10/31/16 08:00 10/31/16 08:00 10/31/16 08:00 10/31/16 08:00 Intake and Output: 10/31/16 10/31/16 06:59 18:59 Intake Total 1680 Balance 1680 - Medications Medications: Current Medications Cefepime HCl (Maxipime 2gm) 100 mls @ 100 mls/hr IVPB Q12 [facility] PRN Reason: Protocol Stop: 11/04/16 01:16 Last Admin: 10/30/16 22:59 Dose: 100 mls/hr Sodium Chloride (Sodium Chloride 0.9%) 1,000 mls @ 45 mls/hr IV .[id number] [facility] Last Admin: 10/30/16 01:47 Dose: 45 mls/hr Insulin Human Lispro (Humalog Low) 0 units SC ACHS [facility] PRN Reason: Protocol Last Admin: 10/31/16 08:38 Dose: 1 units Lactulose (Enulose) 30 gm PO QID [facility] Last Admin: 10/30/16 22:57 Dose: 30 gm Rifaximin (Xifaxan) 550 mg PO BID [facility] PRN Reason: Protocol - Labs Labs: 10/31/16 07:30 10/31/16 07:30 PT 13.6 Seconds (9.9-11.8) H 10/29/16 20:00 INR 1.26 (0.93-1.08) H 10/29/16 20:00 APTT 25.0 Seconds (23.7-30.8) 10/29/16 20:00 - Constitutional Appears: Confused, Chronically Ill - Eye Exam Eye Exam: EOMI, PERRL - ENT Exam ENT Exam: Mucous Membranes Dry - Respiratory Exam Respiratory Exam: Clear to Ausculation Bilateral. absent: Rales, Rhonchi, Wheezes - Cardiovascular Exam Cardiovascular Exam: Irregular Rhythm, +S1, +S2 - GI/Abdominal Exam GI & Abdominal Exam: Distended, Soft, Normal Bowel Sounds. absent: Firm, Guarding, Rigid, Tenderness, Organomegaly - Extremities Exam Extremities Exam: Normal Inspection. 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 -Decompensated cirrhosis with ascites and hepatic encephalopathy -AMS 2/2 HE -Abdominal ascites -2cm liver lesion -Cecal mass noted on CT scan Plan: -Continue with lactulose 30gm PO QID; titrate to 2-3 BM/day -Rifaximin 550mg PO BID -S/P paracentesis with 900cc out, no evidence of SBP on cell count; awaiting remainder of analysis -Start Lasix/Aldactone 40/100mg -Hepatitis serologies negative -Autoimmune w/u pending: FELICIA, AMA, SMA -Blood and urine cx pending -Triple phase CT reviewed; lesion not c/w HCC -Will ultimately need EGD to screen for varices when clinically stable if not already performed previously; colonoscopy to eval cecal mass -Send records request to [facility] [place], awaiting reply <Marcio Wells MD - Last Filed: 10/31/16 18:10> Objective - Vital Signs/Intake and Output Vital Signs (last 24 hours): Temp Pulse Resp BP Pulse Ox 97.9 F 80 18 147/65 100 10/31/16 16:00 10/31/16 16:00 10/31/16 16:00 10/31/16 16:00 10/31/16 16:00 Intake and Output: 10/31/16 10/31/16 06:59 18:59 Intake Total 1680 260 Balance 1680 260 - Medications Medications: Current Medications Furosemide (Lasix) 40 mg PO DAILY [facility] Insulin Human Lispro (Humalog Low) 0 units SC ACHS [facility] PRN Reason: Protocol Last Admin: 10/31/16 17:51 Dose: 3 units Lactulose (Enulose) 30 gm PO QID [facility] Last Admin: 10/31/16 17:52 Dose: 30 gm Rifaximin (Xifaxan) 550 mg PO BID [facility] PRN Reason: Protocol Last Admin: 10/31/16 10:48 Dose: 550 mg Spironolactone (Aldactone) 100 mg PO DAILY [facility] - Labs Labs: 10/31/16 17:45 10/31/16 07:30 PT 13.6 Seconds (9.9-11.8) H 10/29/16 20:00 INR 1.26 (0.93-1.08) H 10/29/16 20:00 APTT 25.0 Seconds (23.7-30.8) 10/29/16 20:00 Attending/Attestation - Attestation I have personally seen and examined this patient.: Yes I have fully participated in the care of the patient.: Yes I have reviewed all pertinent clinical information, including history, physical exam and plan: Yes Notes (Text): 10/31/16 18:08 76 yo female with PMHx significant for HTN, DM and recently diagnosed decompensated cirrhosis (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 On lactulose with 2 BM/day. Needs diuretics and discontinue antibiotics as there is no SBP. Hepatitis serologies negative. Autoimmune pending. Liver leison - likley hemangioma. Needs EGd for varices screening when not encephalopathic. Cecal mass on CT scan. Obtain records from [facility] [place]. Will follow closely
[2016-10-31] MEDS ORDERED: Enoxaparin 40 mg Syringe SC SCH (10:00)
--- NOTE | 2016-10-31 14:36 | CP.PCM.PN ---
<Darío Garcia - Last Filed: 10/31/16 14:44> Subjective - Date & Time of Evaluation Date of Evaluation: 10/31/16 Time of Evaluation: 14:33 - Subjective Subjective: Pt seen and examined at bedside. Pt is more alert and able to appropriately answer questions today. Pt states she felt very confused yesterday, but feels better today. Pt states she has had multiple bowel movements and is tolerating her diet. No acute events overnight. Denies CP, SOB, N/V/D. Objective - Vital Signs/Intake and Output Vital Signs (last 24 hours): Temp Pulse Resp BP Pulse Ox 97.7 F 70 18 128/63 97 10/31/16 08:00 10/31/16 08:00 10/31/16 08:00 10/31/16 08:00 10/31/16 08:00 Intake and Output: 10/31/16 10/31/16 06:59 18:59 Intake Total 1680 260 Balance 1680 260 - Medications Medications: Current Medications Furosemide (Lasix) 20 mg IVP DAILY [facility] Insulin Human Lispro (Humalog Low) 0 units SC ACHS [facility] PRN Reason: Protocol Last Admin: 10/31/16 12:05 Dose: 3 units Lactulose (Enulose) 30 gm PO QID [facility] Last Admin: 10/31/16 10:48 Dose: 30 gm Rifaximin (Xifaxan) 550 mg PO BID [facility] PRN Reason: Protocol Last Admin: 10/31/16 10:48 Dose: 550 mg Spironolactone (Aldactone) 50 mg PO DAILY [facility] Last Admin: 10/31/16 10:51 Dose: 50 mg - Labs Labs: 10/31/16 07:30 10/31/16 07:30 PT 13.6 Seconds (9.9-11.8) H 10/29/16 20:00 INR 1.26 (0.93-1.08) H 10/29/16 20:00 APTT 25.0 Seconds (23.7-30.8) 10/29/16 20:00 - Constitutional Appears: Non-toxic, No Acute Distress - Head Exam Head Exam: ATRAUMATIC, NORMAL INSPECTION, NORMOCEPHALIC - ENT Exam ENT Exam: Mucous Membranes Moist, Normal Exam - Respiratory Exam Respiratory Exam: Clear to Ausculation Bilateral, NORMAL BREATHING PATTERN. absent: Rhonchi, Wheezes - Cardiovascular Exam Cardiovascular Exam: Irregular Rhythm, +S1, +S2 - GI/Abdominal Exam GI & Abdominal Exam: Distended, Soft, Normal Bowel Sounds. absent: Guarding, Tenderness - Extremities Exam Extremities Exam: Pedal Edema (+2 pitting edema to knees). absent: Calf Tenderness - Neurological Exam Neurological Exam: Alert, Awake, Oriented x3 - Psychiatric Exam Psychiatric exam: Normal Affect, Normal Mood - Skin Skin Exam: Intact, Normal Color, Warm Assessment and Plan - Assessment and Plan (Free Text) Plan: 76 y/o Syriac speaking female with PMH of DM2, HTN, microcytic anemia and recently diagnosed liver cirrhosis presents with hepatic encephalopathy. Pt is more alert today. Pt underwent paracentesis yesterday which yielded 900 cc of fluids. Fluid cell count does not indicate SBP. Fluid culture pending. Liver CT demonstrated well defined lesion in right liver lobe, along with advanced cirrhosis associated with splenomegaly and large ascites. There was also a suspicious enhancing mass lesion at the cecum. Pt with irregular rhythm on exam , will order EKG to assess. AMS - Secondary to hepatic encephalopathy - Ammonia levels remain elevated, will continue to trend. - Medications changed to oral, Lactulose and rifaximin as per GI. - Trend Ammonia - GI following Ascites - Liver cirrhosis as evident on CT - Lasix and aldactone added - Liver CT results as described above - Continue morphine for pain management Hx DM2 - ISSS - A1C Microccytic anemia - Hg stable, 10.3 - Transferrin low, iron and TIBC within normal limits - Stool occult blood positive Irregular rhythm - EKG ordered Prophylaxis - protonix - SCD Seen, reviewed, and discussed with attending. Jose, PGY-1 <Linh GÓMEZ,Jimmie - Last Filed: 10/31/16 16:47> Objective - Vital Signs/Intake and Output Vital Signs (last 24 hours): Temp Pulse Resp BP Pulse Ox 97.7 F 70 18 128/63 97 10/31/16 08:00 10/31/16 08:00 10/31/16 08:00 10/31/16 08:00 10/31/16 08:00 Intake and Output: 10/31/16 10/31/16 06:59 18:59 Intake Total 1680 260 Balance 1680 260 - Medications Medications: Current Medications Furosemide (Lasix) 40 mg PO DAILY [facility] Insulin Human Lispro (Humalog Low) 0 units SC ACHS [facility] PRN Reason: Protocol Last Admin: 10/31/16 12:05 Dose: 3 units Lactulose (Enulose) 30 gm PO QID [facility] Last Admin: 10/31/16 10:48 Dose: 30 gm Rifaximin (Xifaxan) 550 mg PO BID [facility] PRN Reason: Protocol Last Admin: 10/31/16 10:48 Dose: 550 mg Spironolactone (Aldactone) 100 mg PO DAILY [facility] - Labs Labs: 10/31/16 07:30 10/31/16 07:30 PT 13.6 Seconds (9.9-11.8) H 10/29/16 20:00 INR 1.26 (0.93-1.08) H 10/29/16 20:00 APTT 25.0 Seconds (23.7-30.8) 10/29/16 20:00 Attending/Attestation - Attestation I have personally seen and examined this patient.: Yes I have fully participated in the care of the patient.: Yes I have reviewed all pertinent clinical information, including history, physical exam and plan: Yes Notes (Text): Patient was seen and examined with medical detail representative .Agreed with resident assessment and plan. Patient mental status has improved, ammonia has come down to 45.There is no evidence of SBP on Ascitic fluid, antibiotics has been discontinued. Patient has significant ascites and leg edema, will start on lasix and aldactone.Patient CT showed suspicious findng in Cecum, GI is on case, will need Colonoscopy ,[place] [facility] [place]. Prognosis is guarded. Management plan was discussed in detail with patient Education was provided.
[2016-10-31 17:57] LABS: HEMATOCRIT 35.4 % (36.0-48.0)
--- NOTE | 2016-10-31 19:50 | CARD ---
APPROVED REPORT EKG Measurement Heart [id number] DC [id number] <Conclusion> Sinus rhythm with occasional premature ventricular complexes and fusion complexes Otherwise normal ECG
[2016-11-01 08:00] LABS: ADD MANUAL DIFF? NO
[2016-11-01 08:10] LABS: BASO # 0.05 K/mm3 (0.0-2.0); BASO % 0.8 % (0.0-3.0); EOS # 0.1 (0.0-0.7); EOS % 1.4 % (1.5-5.0); GRAN # 3.86 (1.4-6.5); GRAN % 60.9 % (50.0-68.0); HEMATOCRIT 33.3 % (36.0-48.0); LYMPH # 1.4 (1.2-3.4); LYMPH % 22.2 % (22.0-35.0); MEAN CELL VOLUME 71.3 fL (80.0-105.0); MEAN CORPUSCULAR HEMOGLOBIN 21.6 pg (25.0-35.0); MEAN CORPUSCULAR HGB CONC 30.3 g/dl (31.0-37.0); MONO # 0.9 (0.1-0.6); MONO % 14.7 % (1.0-6.0); PLATELET COUNT 65 10^3/uL (120.0-450.0); RED CELL DISTRIBUTION WIDTH 28.8 % (11.5-14.5); WHITE BLOOD COUNT 6.3 10^3/ul (4.5-11.0)
[2016-11-01] MEDS: Insulin Lispro (humaLOG) LOW Coverage SC SCH ×4 (08:32→22:00)
[2016-11-01 09:04] LABS: ALB/GLOB RATIO 0.6 (1.1-1.8); ALKALINE PHOSPHATASE 100 U/L (38-133); ALT/SGPT 27 U/L (7-56); AST/SGOT 42 U/L (15-39); BILIRUBIN,TOTAL 1.3 mg/dL (0.2-1.3); BLOOD UREA NITROGEN 18 mg/dL (7-21); CALCIUM 8.3 mg/dL (8.4-10.5); CARBON DIOXIDE 24 mmol/L (21-33); CHLORIDE 112 mmol/L (98-107); GFR AFRICAN-AMERICAN > 60; GLUCOSE,RANDOM 145 mg/dL (70-110); POTASSIUM 3.6 mmol/L (3.6-5.0); SODIUM 141 mmol/L (132-148); TOTAL PROTEIN 5.5 g/dL (5.8-8.3)
[2016-11-01 10:01] LABS: INR 1.36 (0.93-1.08)
[2016-11-01] MEDS ORDERED: Bisacodyl 5mg EC Tab PO ONE (13:00)
--- NOTE | 2016-11-01 13:02 | CP.PCM.PN ---
<JuanluisDylan - Last Filed: 11/01/16 13:02> Subjective - Date & Time of Evaluation Date of Evaluation: 11/01/16 Time of Evaluation: 07:35 - Subjective Subjective: PGY4 GI Fellow Progress Note Patient seen and examined bedside this morning. The patient is much more alert and denies any complaints at present. She is tolerating diet and passing BM without issue. No further episodes of bloody stool. Records from [facility] [place] reveal: EGD performed on 10/22/16 showing small superficial nonbleeding gastric ulcer, small varices and distal esophagitits; pathology showed only chronic inflammation without metaplasia noted in the esophagus. A paracentesis was performed with 4.5L removed as well, no analysis noted. 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 12 system ROS performed and negative except where stated. Objective - Vital Signs/Intake and Output Vital Signs (last 24 hours): Temp Pulse Resp BP Pulse Ox 97.9 F 84 20 137/68 99 11/01/16 09:24 11/01/16 09:24 11/01/16 09:24 11/01/16 10:16 11/01/16 09:24 Intake and Output: 11/01/16 11/01/16 06:59 18:59 Intake Total 660 160 Balance 660 160 - Medications Medications: Current Medications Bisacodyl (Dulcolax) 20 mg PO ONCE ONE Stop: 11/01/16 13:01 Furosemide (Lasix) 40 mg PO DAILY [facility] Last Admin: 11/01/16 10:16 Dose: 40 mg Insulin Human Lispro (Humalog Low) 0 units SC ACHS [facility] PRN Reason: Protocol Last Admin: 11/01/16 11:54 Dose: 3 units Lactulose (Enulose) 30 gm PO QID [facility] Last Admin: 11/01/16 10:16 Dose: 30 gm Polyethylene Glycol/Electrolytes (Golytely) 4,000 ml PO ONCE ONE Stop: 11/01/16 14:01 Rifaximin (Xifaxan) 550 mg PO BID [facility] PRN Reason: Protocol Last Admin: 11/01/16 10:16 Dose: 550 mg Spironolactone (Aldactone) 100 mg PO DAILY [facility] Last Admin: 11/01/16 10:15 Dose: 100 mg - Labs Labs: 11/01/16 07:50 11/01/16 07:50 PT 14.7 Seconds (9.9-11.8) H 11/01/16 08:46 INR 1.36 (0.93-1.08) H 11/01/16 08:46 APTT 25.0 Seconds (23.7-30.8) 10/29/16 20:00 - Constitutional Appears: Non-toxic, No Acute Distress - Eye Exam Eye Exam: EOMI, PERRL - ENT Exam ENT Exam: Mucous Membranes Moist - Respiratory Exam Respiratory Exam: Clear to Ausculation Bilateral. absent: Rales, Rhonchi, Wheezes - Cardiovascular Exam Cardiovascular Exam: RRR, +S1, +S2 - GI/Abdominal Exam GI & Abdominal Exam: Distended, Soft, Normal Bowel Sounds. 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 -Decompensated cirrhosis with ascites and hepatic encephalopathy -PUD -Small nonbleeding esophageal varices -AMS 2/2 HE -Abdominal ascites -2cm liver lesion, not c/w HCC on triple phase -Cecal mass noted on CT scan Plan: -Lactulose 30gm PO QID; titrate to 2-3 BM/day - encephalopathy improved -Rifaximin 550mg PO BID -S/P paracentesis with 900cc out, no evidence of SBP on cell count; awaiting remainder of analysis -Lasix/Aldactone 40/100mg -Hepatitis serologies negative -Autoimmune w/u pending: FELICIA, AMA, SMA -Blood and urine cx with NGTD -Triple phase CT reviewed; lesion not c/w HCC - however did reveal cecal mass -Plan for colonoscopy tomorrow; clear liquid diet today, Dulcolax 20mg PO once and GoLytely prep to be given this afternoon -Add protonix 40mg PO BIDAC given PUD and esophagitis as benefit outweigh risk currently in patient with ascites *Records from [facility] [place] reveal: EGD performed on 10/22/16 showing small superficial nonbleeding gastric ulcer, small varices and distal esophagitits; pathology showed only chronic inflammation without metaplasia noted in the esophagus. A paracentesis was performed with 4.5L removed as well, no analysis noted. 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 <Srinivasan Hirsch - Last Filed: 11/01/16 15:43> Objective - Vital Signs/Intake and Output Vital Signs (last 24 hours): Temp Pulse Resp BP Pulse Ox 97.9 F 84 20 137/68 99 11/01/16 09:24 11/01/16 09:24 11/01/16 09:24 11/01/16 10:16 11/01/16 09:24 Intake and Output: 11/01/16 11/01/16 06:59 18:59 Intake Total 660 220 Output Total 1 Balance 660 219 - Medications Medications: Current Medications Furosemide (Lasix) 40 mg PO DAILY [facility] Last Admin: 11/01/16 10:16 Dose: 40 mg Insulin Human Lispro (Humalog Low) 0 units SC ACHS [facility] PRN Reason: Protocol Last Admin: 11/01/16 11:54 Dose: 3 units Lactulose (Enulose) 30 gm PO QID [facility] Last Admin: 11/01/16 14:33 Dose: 30 gm Pantoprazole Sodium (Protonix Ec Tab) 40 mg PO 0730,1630 [facility] Rifaximin (Xifaxan) 550 mg PO BID [facility] PRN Reason: Protocol Last Admin: 11/01/16 10:16 Dose: 550 mg Spironolactone (Aldactone) 100 mg PO DAILY [facility] Last Admin: 11/01/16 10:15 Dose: 100 mg - Labs Labs: 11/01/16 07:50 11/01/16 07:50 PT 14.7 Seconds (9.9-11.8) H 11/01/16 08:46 INR 1.36 (0.93-1.08) H 11/01/16 08:46 APTT 25.0 Seconds (23.7-30.8) 10/29/16 20:00 Attending/Attestation - Attestation I have personally seen and examined this patient.: Yes I have fully participated in the care of the patient.: Yes I have reviewed all pertinent clinical information, including history, physical exam and plan: Yes Notes (Text): Patient seen and examined with GI fellow. Agree with his note as documented above with the following additions/exceptions. This is a 76yo female with PMHx significant for HTN, DM, recently diagnosed decompensated cirrhosis (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 She is currently being treated with lactulose/rifaximin with improvement in her mentation. She reportedly had a self limited episode of rectal bleeding yesterday. Ascitic fluid tap without evidence of SBP. Triple phase liver CT shows no evidence of HCC, possible cecal mass. She has recent hospitalization (records obtained from [facility] [place]) with EGD showing small varices. Continue supportive care. Monitor LFTs, follow up autoimmune serologies. Will plan for colonoscopy for further evaluation of abnormal CT and episode of rectal bleeding. Prep with Golytely, clear liquid diet today and NPO p MN. 11/01/16 15:40
--- NOTE | 2016-11-01 13:59 | CP.PCM.PN ---
<Darío Garcia - Last Filed: 11/01/16 13:47> Subjective - Date & Time of Evaluation Date of Evaluation: 11/01/16 Time of Evaluation: 13:47 - Subjective Subjective: Pt seen and examined at bedside. Pt is sitting up resting comfortably. Pt did have an episode of dark colored/ bloody bowel movement yesterday evening. Pt is tolerating diet well. Pt did not have anymore bloody bowel movements after last night. Denies CP, SOB, N/V/D, fevers. Objective - Vital Signs/Intake and Output Vital Signs (last 24 hours): Temp Pulse Resp BP Pulse Ox 97.9 F 84 20 137/68 99 11/01/16 09:24 11/01/16 09:24 11/01/16 09:24 11/01/16 10:16 11/01/16 09:24 Intake and Output: 11/01/16 11/01/16 06:59 18:59 Intake Total 660 220 Output Total 1 Balance 660 219 - Medications Medications: Current Medications Furosemide (Lasix) 40 mg PO DAILY [facility] Last Admin: 11/01/16 10:16 Dose: 40 mg Insulin Human Lispro (Humalog Low) 0 units SC ACHS [facility] PRN Reason: Protocol Last Admin: 11/01/16 11:54 Dose: 3 units Lactulose (Enulose) 30 gm PO QID [facility] Last Admin: 11/01/16 10:16 Dose: 30 gm Pantoprazole Sodium (Protonix Ec Tab) 40 mg PO 0730,1630 [facility] Polyethylene Glycol/Electrolytes (Golytely) 4,000 ml PO ONCE ONE Stop: 11/01/16 14:01 Rifaximin (Xifaxan) 550 mg PO BID [facility] PRN Reason: Protocol Last Admin: 11/01/16 10:16 Dose: 550 mg Spironolactone (Aldactone) 100 mg PO DAILY [facility] Last Admin: 11/01/16 10:15 Dose: 100 mg - Labs Labs: 11/01/16 07:50 11/01/16 07:50 PT 14.7 Seconds (9.9-11.8) H 11/01/16 08:46 INR 1.36 (0.93-1.08) H 11/01/16 08:46 APTT 25.0 Seconds (23.7-30.8) 10/29/16 20:00 - Constitutional Appears: Well, No Acute Distress - Head Exam Head Exam: ATRAUMATIC, NORMAL INSPECTION, NORMOCEPHALIC - ENT Exam ENT Exam: Mucous Membranes Moist, Normal Exam - Respiratory Exam Respiratory Exam: Clear to Ausculation Bilateral, NORMAL BREATHING PATTERN. absent: Rales, Rhonchi, Wheezes - Cardiovascular Exam Cardiovascular Exam: RRR, +S1, +S2 - GI/Abdominal Exam GI & Abdominal Exam: Distended, Soft, Normal Bowel Sounds. absent: Guarding, Tenderness - Extremities Exam Extremities Exam: Pedal Edema. absent: Calf Tenderness - Neurological Exam Neurological Exam: Alert, Awake, Oriented x3 - Psychiatric Exam Psychiatric exam: Normal Affect, Normal Mood - Skin Skin Exam: Intact, Normal Color, Warm Assessment and Plan - Assessment and Plan (Free Text) Plan: 76 y/o Ukrainian speaking female with PMH of DM2, HTN, microcytic anemia and recently diagnosed liver cirrhosis presents with hepatic encephalopathy. Pt is alert and oriented x3 today. Received medical records indicating the patient had an endoscopy which showed varices and gastritis. Pt will undergo a colonoscopy tomorrow to evaluate cecum mass. EKG from yesterday showed sinus rhythm with occasional PVC's. AMS secondary to liver cirrhosis - Resolved - Secondary to hepatic encephalopathy - Ammonia within normal limits. - Continue rifaximin and lactulose - GI following Ascites - Liver cirrhosis as evident on CT - Lasix and aldactone dosages increased. - Continue morphine for pain management Hx DM2 - ISSS - A1C Microccytic anemia - Hg stable, 10.1 - Transferrin low, iron and TIBC within normal limits - Stool occult blood positive Irregular rhythm - EKG showed sinus rhythm with occasional PVCs Prophylaxis - protonix - SCD Seen, reviewed, and discussed with attending. Jose, PGY-1 <Linh GÓMEZ,Jimmie - Last Filed: 11/01/16 15:52> Objective - Vital Signs/Intake and Output Vital Signs (last 24 hours): Temp Pulse Resp BP Pulse Ox 97.9 F 84 20 137/68 99 11/01/16 09:24 11/01/16 09:24 11/01/16 09:24 11/01/16 10:16 11/01/16 09:24 Intake and Output: 11/01/16 11/01/16 06:59 18:59 Intake Total 660 220 Output Total 1 Balance 660 219 - Medications Medications: Current Medications Furosemide (Lasix) 40 mg PO DAILY [facility] Last Admin: 11/01/16 10:16 Dose: 40 mg Insulin Human Lispro (Humalog Low) 0 units SC ACHS [facility] PRN Reason: Protocol Last Admin: 11/01/16 11:54 Dose: 3 units Lactulose (Enulose) 30 gm PO QID [facility] Last Admin: 11/01/16 14:33 Dose: 30 gm Pantoprazole Sodium (Protonix Ec Tab) 40 mg PO 0730,1630 [facility] Rifaximin (Xifaxan) 550 mg PO BID [facility] PRN Reason: Protocol Last Admin: 11/01/16 10:16 Dose: 550 mg Spironolactone (Aldactone) 100 mg PO DAILY [facility] Last Admin: 11/01/16 10:15 Dose: 100 mg - Labs Labs: 11/01/16 07:50 11/01/16 07:50 PT 14.7 Seconds (9.9-11.8) H 11/01/16 08:46 INR 1.36 (0.93-1.08) H 11/01/16 08:46 APTT 25.0 Seconds (23.7-30.8) 10/29/16 20:00 Attending/Attestation - Attestation I have personally seen and examined this patient.: Yes I have fully participated in the care of the patient.: Yes I have reviewed all pertinent clinical information, including history, physical exam and plan: Yes Notes (Text): Patient was seen and examined with medical tech .Agreed with resident assessment and plan. 76 Yrs old Female with Chronic liver disease, ascites was admitted with hepatic encephlopathy, improved with lactulose, amonia level is back to normal. Patient is found to have Cecal mass on CT abdomen and Pelvis,and is going for Colonoscopy tomorrow She has been started on Spironolactone and lasix for Ascites.. Management plan was discussed in detail with patient Education was provided.
[2016-11-01] MEDS ORDERED: Peg-Electrolyte Oral Soln 4L (Golytely) PO ONE (14:00)
[2016-11-01] MEDS: Pantoprazole 40 mg EC Tab PO SCH (16:59)
[2016-11-02 07:29] LABS: ADD MANUAL DIFF? NO
[2016-11-02 07:32] LABS: BASO # 0.04 K/mm3 (0.0-2.0); BASO % 0.7 % (0.0-3.0); EOS # 0.2 (0.0-0.7); EOS % 2.7 % (1.5-5.0); GRAN # 3.35 (1.4-6.5); GRAN % 57.2 % (50.0-68.0); HEMATOCRIT 33.6 % (36.0-48.0); LYMPH # 1.4 (1.2-3.4); LYMPH % 23.4 % (22.0-35.0); MEAN CELL VOLUME 71.3 fL (80.0-105.0); MEAN CORPUSCULAR HEMOGLOBIN 21.9 pg (25.0-35.0); MEAN CORPUSCULAR HGB CONC 30.7 g/dl (31.0-37.0); MONO # 0.9 (0.1-0.6); PLATELET COUNT 79 10^3/uL (120.0-450.0); RED CELL DISTRIBUTION WIDTH 28.3 % (11.5-14.5); WHITE BLOOD COUNT 5.9 10^3/ul (4.5-11.0)
[2016-11-02 07:43] LABS: INR 1.43 (0.93-1.08)
[2016-11-02 08:33] LABS: ALB/GLOB RATIO 0.6 (1.1-1.8); ALKALINE PHOSPHATASE 121 U/L (38-133); ALT/SGPT 30 U/L (7-56); AST/SGOT 44 U/L (15-39); BILIRUBIN,TOTAL 1.3 mg/dL (0.2-1.3); BLOOD UREA NITROGEN 15 mg/dL (7-21); CALCIUM 8.5 mg/dL (8.4-10.5); CARBON DIOXIDE 25 mmol/L (21-33); CHLORIDE 109 mmol/L (98-107); GFR AFRICAN-AMERICAN > 60; GLUCOSE,RANDOM 168 mg/dL (70-110); POTASSIUM 3.7 mmol/L (3.6-5.0); SODIUM 140 mmol/L (132-148); TOTAL PROTEIN 5.9 g/dL (5.8-8.3)
[2016-11-02] MEDS: Insulin Lispro (humaLOG) LOW Coverage SC SCH ×4 (08:48→22:30)
[2016-11-02] MEDS: Pantoprazole 40 mg EC Tab PO SCH ×2 (11:57→17:57)
[2016-11-02] MEDS ORDERED: Propofol 10 mg/ml Inj (20 ML) ONE ×2 (14:19→14:43)
[2016-11-02] MEDS ORDERED: Lactated Ringer's 1,000 ML IV SCH (15:00)
--- NOTE | 2016-11-02 15:59 | CP.PCM.PN ---
<Darío Garcia - Last Filed: 11/02/16 15:51> Subjective - Date & Time of Evaluation Date of Evaluation: 11/02/16 Time of Evaluation: 15:51 - Subjective Subjective: Pt seen and examined at bedside. Pt doing well overnight. Pt tolerated bowel prep for colonoscopy today. Pt NPO after midnight. No complaints at this time. Denies CP, SOB, N/V/D. Objective - Vital Signs/Intake and Output Vital Signs (last 24 hours): Temp Pulse Resp BP Pulse Ox 97.7 F 72 13 117/57 L 97 11/02/16 15:41 11/02/16 15:41 11/02/16 15:41 11/02/16 15:41 11/02/16 15:41 Intake and Output: 11/02/16 11/02/16 06:59 18:59 Intake Total 540 Balance 540 - Medications Medications: Current Medications Furosemide (Lasix) 40 mg PO DAILY [facility] Last Admin: 11/02/16 11:57 Dose: Not Given Lactated Ringer's (Lactated Ringer's) 1,000 mls @ 75 mls/hr IV .[id number] [facility] Stop: 11/02/16 17:01 Insulin Human Lispro (Humalog Low) 0 units SC ACHS [facility] PRN Reason: Protocol Last Admin: 11/02/16 11:57 Dose: Not Given Lactulose (Enulose) 30 gm PO QID [facility] Last Admin: 11/02/16 11:56 Dose: Not Given Pantoprazole Sodium (Protonix Ec Tab) 40 mg PO 0730,1630 [facility] Last Admin: 11/02/16 11:57 Dose: Not Given Rifaximin (Xifaxan) 550 mg PO BID [facility] PRN Reason: Protocol Last Admin: 11/02/16 11:57 Dose: Not Given Spironolactone (Aldactone) 100 mg PO DAILY [facility] Last Admin: 11/02/16 11:56 Dose: Not Given - Labs Labs: 11/02/16 07:00 11/02/16 07:00 PT 15.4 Seconds (9.9-11.8) H 11/02/16 07:00 INR 1.43 (0.93-1.08) H 11/02/16 07:00 APTT 25.0 Seconds (23.7-30.8) 10/29/16 20:00 - Constitutional Appears: Well, No Acute Distress - Head Exam Head Exam: ATRAUMATIC, NORMAL INSPECTION, NORMOCEPHALIC - ENT Exam ENT Exam: Mucous Membranes Moist, Normal Exam - Respiratory Exam Respiratory Exam: Clear to Ausculation Bilateral, NORMAL BREATHING PATTERN. absent: Rhonchi, Wheezes - Cardiovascular Exam Cardiovascular Exam: RRR, +S1, +S2 - GI/Abdominal Exam GI & Abdominal Exam: Soft, Normal Bowel Sounds. absent: Tenderness Additional comments: Surgical dressing from paracentesis soaked, not leaking. No erythema or edema. - Extremities Exam Extremities Exam: Normal Inspection, Pedal Edema. absent: Calf Tenderness - Neurological Exam Neurological Exam: Alert, Awake, Oriented x3 - Psychiatric Exam Psychiatric exam: Normal Affect, Normal Mood - Skin Skin Exam: Intact, Normal Color, Warm Assessment and Plan - Assessment and Plan (Free Text) Plan: 76 y/o Kiswahili speaking female with PMH of DM2, HTN, microcytic anemia and recently diagnosed liver cirrhosis presents with hepatic encephalopathy. Pt is alert and oriented x3 today. Pt undergoing colonoscopy today to evaluate cecal mass, awaiting results. If outpt follow up warranted, pt will be d/c today or tomorrow. AMS secondary to liver cirrhosis - Resolved - Secondary to hepatic encephalopathy - Continue rifaximin and lactulose - GI following Ascites - Liver cirrhosis as evident on CT (see report) - Lasix and aldactone dosages increased. - Continue morphine for pain management Hx DM2 - ISSS - A1C Microccytic anemia - Hg stable, 10.3 - Transferrin low, iron and TIBC within normal limits - Stool occult blood positive Irregular rhythm - EKG showed sinus rhythm with occasional PVCs Prophylaxis - protonix - SCD Seen, reviewed, and discussed with attending. Jose, PGY-1 <Linh GÓMEZ,Jimmie - Last Filed: 11/02/16 16:51> Objective - Vital Signs/Intake and Output Vital Signs (last 24 hours): Temp Pulse Resp BP Pulse Ox 97.7 F 73 13 118/60 99 11/02/16 15:56 11/02/16 15:56 11/02/16 15:56 11/02/16 15:56 11/02/16 15:56 Intake and Output: 11/02/16 11/02/16 06:59 18:59 Intake Total 540 Balance 540 - Medications Medications: Current Medications Acetaminophen (Tylenol 325mg Tab) 650 mg PO Q4H PRN PRN Reason: Fever >100.4 F Furosemide (Lasix) 40 mg PO DAILY [facility] Last Admin: 11/02/16 11:57 Dose: Not Given Lactated Ringer's (Lactated Ringer's) 1,000 mls @ 75 mls/hr IV .[id number] [facility] Stop: 11/02/16 17:01 Insulin Human Lispro (Humalog Low) 0 units SC ACHS [facility] PRN Reason: Protocol Last Admin: 11/02/16 11:57 Dose: Not Given Lactulose (Enulose) 30 gm PO QID [facility] Last Admin: 11/02/16 11:56 Dose: Not Given Pantoprazole Sodium (Protonix Ec Tab) 40 mg PO 0730,1630 [facility] Last Admin: 11/02/16 11:57 Dose: Not Given Rifaximin (Xifaxan) 550 mg PO BID [facility] PRN Reason: Protocol Last Admin: 11/02/16 11:57 Dose: Not Given Spironolactone (Aldactone) 100 mg PO DAILY [facility] Last Admin: 11/02/16 11:56 Dose: Not Given - Labs Labs: 11/02/16 07:00 11/02/16 07:00 PT 15.4 Seconds (9.9-11.8) H 11/02/16 07:00 INR 1.43 (0.93-1.08) H 11/02/16 07:00 APTT 25.0 Seconds (23.7-30.8) 10/29/16 20:00 Attending/Attestation - Attestation I have personally seen and examined this patient.: Yes I have fully participated in the care of the patient.: Yes I have reviewed all pertinent clinical information, including history, physical exam and plan: Yes Notes (Text): Patient was seen and examined with medical office coordinator .Agreed with resident assessment and plan. Patient underwent Colonoscopy today that showed fungating non obstructive mass, biopsies were taken, we will get Surgery consult. Patient is SP paracentesis, on aldactone and lasix. Patient mental status is resolved.She is back to her base line. Prognosis is guarded.
--- NOTE | 2016-11-02 20:15 | CP.PCM.CON ---
History of Present Illness - History of Present Illness History of Present Illness: General Surgery progress note for Dr. Mahmood Consult reason: Cecal mass, abdominal pain Patient is a pleasant 76 y/o F with PMH fo DM2, HTN, and newly diagnosed cirrhosis and PSH of tubal ligation and recent paracenteses for ascites presented to the ER 4 days ago with abdominal pain, decreased appetite, and altered mental status. Decreased appetite and LLQ abdominal pain worse with eating food has been present for 2-3 months and developed abdominal distention over the past few weeks. Patient also reports numerous bouts of diarrhea daily for past 2-3 months with occasional very dark stools. Went to [facility] and was diagnosed with cirrhosis and had a paracentesis performed. Patient was discharged home. She returned to the ER at [facility] 6 days ago with abdominal pain and nausea, was treated for hyperglycemia and sent home. Pain, nausea persisted and was accompanied by increasing lethargy and confusion, so she came to [facility] ER. Was found to have hyperammonemia, CT of the abdomen and pelvis revealed ascites, a hypodense central liver lesion, gall bladder stone in the neck of the gallbladder, and a mass in the cecum. Patient underwent colonoscopy today and a fungating, infiltrative, ulcerated, circumferential but non-obstructing mass was found in the cecum. Patient denies history of alcohol abuse or illicit drugs. Family reports weight loss for 20 pounds over past 4 months. Does have a long standing history of abdominal pain/nausea with fatty foods for a several years. Previous diagnosis of cholelithiasis. Currently patient and patient's family reports improvement in mental status-- she is AA&Ox3. Patient reports persistent intermittent LLQ pain and an episode of diarrhea this AM. Patient denies nausea, vomiting, fevers, dysuria, hematuria , increased urinary urgency, chest pain, SOB, headache, numbness, tingling. PMH: DM2, HTN, cirrhosis PSH: tubal ligation, R ankle surgery, paracentesis ALL: NKDA Review of Systems - Review of Systems All systems: reviewed and no additional remarkable complaints except (as per HPI ) - Constitutional Constitutional: As Per HPI - Cardiovascular Cardiovascular: As Per HPI, Edema - Respiratory Respiratory: absent: Cough, Dyspnea - Gastrointestinal Gastrointestinal: As Per HPI. absent: Constipation, Vomiting - Genitourinary Genitourinary: As Per HPI - Musculoskeletal Musculoskeletal: As Per HPI - Neurological Neurological: As Per HPI - Psychiatric Psychiatric: As Per HPI - Endocrine Endocrine: Cold Intolorance, Fatigue. absent: Palpitations Past Patient History - Past Medical History & Family History Past Medical History?: Yes Pertinent Family History: Maternal grandmother stomach cancer - Past Social History Smoking Status: Never Smoked Alcohol: Occasional Drugs: Denies Home Situation {Lives}: With Family - CARDIAC Hx Hypertension: Yes - PULMONARY Hx Respiratory Disorders: No - NEUROLOGICAL Hx Neurological Disorder: No - HEENT Hx HEENT Problems: No - RENAL Hx Chronic Kidney Disease: No - ENDOCRINE/METABOLIC Hx Diabetes Mellitus Type 2: Yes - HEMATOLOGICAL/ONCOLOGICAL Hx Anemia: Yes Hx Blood Transfusions: No Hx Blood Transfusion Reaction: No - INTEGUMENTARY Hx Dermatological Problems: No - MUSCULOSKELETAL/RHEUMATOLOGICAL Hx Falls: No - GASTROINTESTINAL Hx Gastrointestinal Disorders: No Hx Diarrhea: Yes Hx Gall Bladder Disease: Yes (cholelithiasis) Hx Liver Failure: Yes Other/Comment: Liver Cirrhosis - GENITOURINARY/GYNECOLOGICAL Hx Genitourinary Disorders: No - PSYCHIATRIC Hx Substance Use: No - SURGICAL HISTORY Hx Surgeries: Yes Hx Orthopedic Surgery: Yes Hx Tubal Ligation: Yes - ANESTHESIA Hx Anesthesia: Yes Hx Anesthesia Reactions: No Hx Malignant Hyperthermia: No Meds Allergies/Adverse Reactions: Allergies Allergy/AdvReac Type Severity Reaction Status Date / Time No Known Allergies Allergy Verified 10/29/16 19:03 - Medications Medications: Current Medications Acetaminophen (Tylenol 325mg Tab) 650 mg PO Q4H PRN PRN Reason: Fever >100.4 F Furosemide (Lasix) 40 mg PO DAILY [facility] Last Admin: 11/02/16 11:57 Dose: Not Given Insulin Human Lispro (Humalog Low) 0 units SC ACHS [facility] PRN Reason: Protocol Last Admin: 11/02/16 16:00 Dose: Not Given Lactulose (Enulose) 30 gm PO QID [facility] Last Admin: 11/02/16 17:57 Dose: 30 gm Pantoprazole Sodium (Protonix Ec Tab) 40 mg PO 0730,1630 [facility] Last Admin: 11/02/16 17:57 Dose: 40 mg Rifaximin (Xifaxan) 550 mg PO BID [facility] PRN Reason: Protocol Last Admin: 11/02/16 17:59 Dose: 550 mg Spironolactone (Aldactone) 100 mg PO DAILY [facility] Last Admin: 11/02/16 11:56 Dose: Not Given Physical Exam - Constitutional Appears: Well, Non-toxic, No Acute Distress - Head Exam Head Exam: ATRAUMATIC, NORMOCEPHALIC - Eye Exam Eye Exam: EOMI, Normal appearance. absent: Conjunctival injection, Scleral icterus Pupil Exam: PERRL - ENT Exam ENT Exam: Mucous Membranes Moist, Normal Oropharynx - Respiratory Exam Respiratory Exam: Clear to Auscultation Bilateral, NORMAL BREATHING PATTERN. absent: Accessory Muscle Use, Respiratory Distress - Cardiovascular Exam Cardiovascular Exam: RRR, +S1, +S2 - GI/Abdominal Exam GI & Abdominal Exam: Distended, Soft, Tenderness (Moderate tenderness to deep palpation LUQ>LLQ). absent: Rebound Additional comments: negative timmons's sign - Extremities Exam Extremities exam: Positive for: pedal edema (1+ pitting edema up to the distal thigh), tenderness, pedal pulses present - Neurological Exam Neurological exam: Alert, CN II-XII Intact, Oriented x3 - Psychiatric Exam Psychiatric exam: Normal Affect, Normal Mood - Skin Skin Exam: Dry, Intact, Normal Color, Warm Results - Vital Signs Recent Vital Signs: Last Vital Signs Temp 97.7 F 11/02/16 15:56 Pulse 73 11/02/16 15:56 Resp 13 11/02/16 15:56 BP 118/60 11/02/16 15:56 Pulse Ox 99 11/02/16 15:56 - Labs Result Diagrams: 11/02/16 07:00 11/02/16 07:00 Labs: Laboratory Results - last 24 hr 10/30/16 10/31/16 11/01/16 14:35 07:30 21:31 WBC RBC Hgb Hct MCV MCH MCHC RDW Plt Count Gran % Lymph % (Auto) [place] % (Auto) Eos % (Auto) Baso % (Auto) Gran # Lymph # [place] # Eos # Baso # PT INR Sodium Potassium Chloride Carbon Dioxide Anion Gap BUN Creatinine Est GFR ( Amer) Est GFR (Non-Af Amer) POC Glucose (mg/dL) 342 H Random Glucose Calcium Total Bilirubin AST ALT Alkaline Phosphatase Ammonia Total Protein Albumin Globulin Albumin/Globulin Ratio Fluid Albumin 0.6 FELICIA Screen Positive H FELICIA Titer 1:40 H FELICIA Titer 2 TEST NOT PERFORMED FELICIA Pattern Nucleolar H FELICIA Pattern 2 TEST NOT PERFORMED 11/02/16 11/02/16 11/02/16 06:30 07:00 07:28 WBC 5.9 RBC 4.71 Hgb 10.3 L Hct 33.6 L MCV 71.3 L MCH 21.9 L MCHC 30.7 L RDW 28.3 H Plt Count 79 L Gran % 57.2 Lymph % (Auto) 23.4 [place] % (Auto) 16.0 H Eos % (Auto) 2.7 Baso % (Auto) 0.7 Gran # 3.35 Lymph # 1.4 [place] # 0.9 H Eos # 0.2 Baso # 0.04 PT 15.4 H INR 1.43 H Sodium 140 Potassium 3.7 Chloride 109 H Carbon Dioxide 25 Anion Gap 10 BUN 15 Creatinine 0.6 Est GFR ( Amer) > 60 Est GFR (Non-Af Amer) > 60 POC Glucose (mg/dL) 173 H Random Glucose 168 H Calcium 8.5 Total Bilirubin 1.3 AST 44 H ALT 30 Alkaline Phosphatase 121 Ammonia 16 Total Protein 5.9 Albumin 2.1 L Globulin 3.8 Albumin/Globulin Ratio 0.6 L Fluid Albumin FELICIA Screen FELICIA Titer FELICIA Titer 2 FELICIA Pattern FELICIA Pattern 2 11/02/16 11/02/16 11:35 16:24 WBC RBC Hgb Hct MCV MCH MCHC RDW Plt Count Gran % Lymph % (Auto) [place] % (Auto) Eos % (Auto) Baso % (Auto) Gran # Lymph # [place] # Eos # Baso # PT INR Sodium Potassium Chloride Carbon Dioxide Anion Gap BUN Creatinine Est GFR ( Amer) Est GFR (Non-Af Amer) POC Glucose (mg/dL) 184 H 148 H Random Glucose Calcium Total Bilirubin AST ALT Alkaline Phosphatase Ammonia Total Protein Albumin Globulin Albumin/Globulin Ratio Fluid Albumin FELICIA Screen FELICIA Titer FELICIA Titer 2 FELICIA Pattern FELICIA Pattern 2 - Imaging and Cardiology CT scan - abdomen Status: Image reviewed by me, Report reviewed by me Assessment & Plan - Assessment and Plan (Free Text) Assessment: 76F with LLQ abdominal pain with recent diagnosis of cirrhosis with ascites found to have a cecal mass and cholelithiasis WBC: 5.9, LFTs: wnl CT of the abdomen and pelvis revealed ascites, a hypodense central liver lesion , gall bladder stone in the neck of the gallbladder, a 5cm long mass in the cecum. Colonoscopy:fungating, infiltrative, ulcerated, circumferential but non- obstructing mass in the cecum, multiple polyps, diverticulosis of the sigmoid colon PLAN: - No emergent surgical intervention necessary - serial abdominal exams - F/U labs - f/u GI recs - f/u colonoscopy pathology results - May consider repeat CT with PO contrast to evaluate mass further - continue low sodium diet - continue medical management per primary team - Further recs per Dr. Mahmood Discussed with Dr. Timoteo Campa, PGY1
--- NOTE | 2016-11-03 00:50 | CP.PCM.PN ---
Subjective - Date & Time of Evaluation Date of Evaluation: 11/03/16 Time of Evaluation: 06:45 - Subjective Subjective: General Surgery progress note for Dr. Mahmood Pt s/e at bedside this AM. NAEO. Pt complains of diarrhea but denies pain, nausea, vomiting, and is tolerating low sodium diet. Also complaining of left calf pain and swelling slightly worse than yesterday. Objective - Vital Signs/Intake and Output Vital Signs (last 24 hours): Temp Pulse Resp BP Pulse Ox 97.7 F 73 13 118/60 99 11/02/16 15:56 11/02/16 15:56 11/02/16 15:56 11/02/16 15:56 11/02/16 15:56 Intake and Output: 11/02/16 11/03/16 18:59 06:59 Intake Total 480 Balance 480 - Medications Medications: Current Medications Acetaminophen (Tylenol 325mg Tab) 650 mg PO Q4H PRN PRN Reason: Fever >100.4 F Furosemide (Lasix) 40 mg PO DAILY [facility] Last Admin: 11/02/16 11:57 Dose: Not Given Insulin Human Lispro (Humalog Low) 0 units SC ACHS [facility] PRN Reason: Protocol Last Admin: 11/02/16 16:00 Dose: Not Given Lactulose (Enulose) 30 gm PO QID [facility] Last Admin: 11/02/16 22:03 Dose: 30 gm Pantoprazole Sodium (Protonix Ec Tab) 40 mg PO 0730,1630 [facility] Last Admin: 11/02/16 17:57 Dose: 40 mg Rifaximin (Xifaxan) 550 mg PO BID [facility] PRN Reason: Protocol Last Admin: 11/02/16 17:59 Dose: 550 mg Spironolactone (Aldactone) 100 mg PO DAILY [facility] Last Admin: 11/02/16 11:56 Dose: Not Given - Labs Labs: 11/02/16 07:00 11/02/16 07:00 PT 15.4 Seconds (9.9-11.8) H 11/02/16 07:00 INR 1.43 (0.93-1.08) H 11/02/16 07:00 APTT 25.0 Seconds (23.7-30.8) 10/29/16 20:00 - Constitutional Appears: Well, Non-toxic, No Acute Distress - Head Exam Head Exam: ATRAUMATIC, NORMOCEPHALIC - Eye Exam Eye Exam: Normal appearance. absent: Conjunctival injection, Scleral icterus - ENT Exam ENT Exam: Mucous Membranes Moist, Normal Oropharynx - Respiratory Exam Respiratory Exam: NORMAL BREATHING PATTERN. absent: Accessory Muscle Use, Respiratory Distress - GI/Abdominal Exam GI & Abdominal Exam: Distended, Soft, Tenderness (mild TTP in the LUQ) - Extremities Exam Extremities Exam: Calf Tenderness (L>R), Pedal Edema, Tenderness - Neurological Exam Neurological Exam: Alert, Awake, Oriented x3 - Psychiatric Exam Psychiatric exam: Normal Affect, Normal Mood - Skin Skin Exam: Dry, Intact, Normal Color, Warm Assessment and Plan - Assessment and Plan (Free Text) Assessment: 76F with LLQ abdominal pain with recent diagnosis of cirrhosis with ascites found to have a cecal mass and cholelithiasis PLAN: - No emergent surgical intervention necessary at this time - serial abdominal exams - US BL LE to rule out DVT - F/U labs - f/u GI recs - f/u colonoscopy pathology results - continue low sodium diet - continue medical management per primary team - Further recs per Dr. Mahmood Discussed with Dr. Timoteo Campa, PGY1
[2016-11-03] MEDS: Pantoprazole 40 mg EC Tab PO SCH ×2 (07:10→17:42)
[2016-11-03] MEDS: Insulin Lispro (humaLOG) LOW Coverage SC SCH ×4 (08:34→22:31)
[2016-11-03 08:36] LABS: ADD MANUAL DIFF? NO
[2016-11-03 08:39] LABS: BASO # 0.03 K/mm3 (0.0-2.0); BASO % 0.4 % (0.0-3.0); EOS # 0.1 (0.0-0.7); EOS % 1.3 % (1.5-5.0); GRAN # 4.62 (1.4-6.5); GRAN % 66.7 % (50.0-68.0); HEMATOCRIT 30.1 % (36.0-48.0); LYMPH # 1.2 (1.2-3.4); LYMPH % 17.9 % (22.0-35.0); MEAN CELL VOLUME 72.2 fL (80.0-105.0); MEAN CORPUSCULAR HEMOGLOBIN 22.3 pg (25.0-35.0); MEAN CORPUSCULAR HGB CONC 30.9 g/dl (31.0-37.0); MONO % 13.7 % (1.0-6.0); PLATELET COUNT 81 10^3/uL (120.0-450.0); RED CELL DISTRIBUTION WIDTH 28.6 % (11.5-14.5); WHITE BLOOD COUNT 6.9 10^3/ul (4.5-11.0)
[2016-11-03 08:50] LABS: ALB/GLOB RATIO 0.6 (1.1-1.8); ALKALINE PHOSPHATASE 130 U/L (38-133); ALT/SGPT 26 U/L (7-56); AST/SGOT 46 U/L (15-39); BILIRUBIN,TOTAL 1.3 mg/dL (0.2-1.3); BLOOD UREA NITROGEN 16 mg/dL (7-21); CALCIUM 7.9 mg/dL (8.4-10.5); CARBON DIOXIDE 22 mmol/L (21-33); CHLORIDE 108 mmol/L (98-107); GFR AFRICAN-AMERICAN > 60; GLUCOSE,RANDOM 234 mg/dL (70-110); POTASSIUM 3.5 mmol/L (3.6-5.0); SODIUM 137 mmol/L (132-148); TOTAL PROTEIN 5.4 g/dL (5.8-8.3)
[2016-11-03] MEDS ORDERED: Potassium Chloride 40 mEq/30 ml LIQ UD PO ONE (09:42)
--- NOTE | 2016-11-03 13:11 | CP.PCM.PN ---
Subjective - Date & Time of Evaluation Date of Evaluation: 11/03/16 Time of Evaluation: 09:00 - Subjective Subjective: Patient is feeling better, denies chest pain , palpitation or dyspnea Objective - Vital Signs/Intake and Output Vital Signs (last 24 hours): Temp Pulse Resp BP Pulse Ox 98.7 F 86 20 143/63 98 11/03/16 07:54 11/03/16 07:54 11/03/16 07:54 11/03/16 07:54 11/03/16 07:54 Intake and Output: 11/03/16 11/03/16 06:59 18:59 Intake Total 830 Balance 830 - Medications Medications: Current Medications Acetaminophen (Tylenol 325mg Tab) 650 mg PO Q4H PRN PRN Reason: Fever >100.4 F Furosemide (Lasix) 40 mg PO DAILY [facility] Last Admin: 11/02/16 11:57 Dose: Not Given Heparin Sodium/Sodium Chloride (Heparin 34370 Units/250ml 1/2 Normal Saline) 250 mls @ 9.389 mls/hr IV .Q24H PRN; Protocol; 18 UNITS/KG/HR PRN Reason: ADJUST RATE PER PROTOCOL Insulin Human Lispro (Humalog Low) 0 units SC ACHS [facility] PRN Reason: Protocol Last Admin: 11/03/16 08:34 Dose: 1 units Lactulose (Enulose) 30 gm PO QID [facility] Last Admin: 11/02/16 22:03 Dose: 30 gm Pantoprazole Sodium (Protonix Ec Tab) 40 mg PO 0730,1630 [facility] Last Admin: 11/02/16 17:57 Dose: 40 mg Rifaximin (Xifaxan) 550 mg PO BID [facility] PRN Reason: Protocol Last Admin: 11/02/16 17:59 Dose: 550 mg Spironolactone (Aldactone) 100 mg PO DAILY [facility] Last Admin: 11/02/16 11:56 Dose: Not Given - Labs Labs: 11/03/16 08:30 11/03/16 08:30 PT 15.4 Seconds (9.9-11.8) H 11/02/16 07:00 INR 1.43 (0.93-1.08) H 11/02/16 07:00 APTT 25.0 Seconds (23.7-30.8) 10/29/16 20:00 - Constitutional Appears: Non-toxic, No Acute Distress - Eye Exam Eye Exam: Normal appearance, PERRL Pupil Exam: NORMAL ACCOMODATION - Neck Exam Neck Exam: Normal Inspection - Respiratory Exam Respiratory Exam: Clear to Ausculation Bilateral - Cardiovascular Exam Cardiovascular Exam: REGULAR RHYTHM - GI/Abdominal Exam Additional comments: Distended, no tenderness, - Exam Additional comments: Edema positive - Neurological Exam Neurological Exam: Alert, Awake, CN II-XII Intact Additional comments: no focal deficit Assessment and Plan - Assessment and Plan (Free Text) Plan: 76 y/o Mauritanian speaking female with PMH of DM2, HTN, microcytic anemia and recently diagnosed liver cirrhosis presents with hepatic encephalopathy. Patient was treated with Lactulose.Mental status is back to normal. Patient was found to have Cecal mass, underwent Colonoscopy 11/02/16 showed fungated non obstructing mass, biopsies were taken, Venous Doppler today showed left Popliteal and Posterior tibial DVT. Change of Mental status secondary to Hepatic Encephalopathy -back to base line, - Continue rifaximin and lactulose - GI following Ascites - due to chronic liver disease,SP Paracentesis, no SBP - continue Lasix and aldactone Colon Mass, SP colonoscopy and biopsies of cecal mass, Likely malignant, will order CT chest for staging, Does not has any PCP, surgery is on case, will get hematology Oncology consult DVT of leg Will start on IV heparin Poor candidate for oral anticoagulation due to history of chronic liver disease and esophageal varices ? We will monitor hemoglobin and hematocrit, Prophylaxis GI Prophylaxis with PPI Prognosis is guarded. Management plan was discussed in detail with patient, need reinforcement. Education was provided.
--- NOTE | 2016-11-03 15:32 | CP.PCM.PN ---
Subjective - Date & Time of Evaluation Date of Evaluation: 11/03/16 Time of Evaluation: 09:30 - Subjective Subjective: Patient seen and examined this AM. No new complaints. She is tolerating diet. More oriented. s/p colonoscopy yesterday with numerous polyps removed, colon mass biopsied and tattooed. ROS otherwise negative in detail Objective - Vital Signs/Intake and Output Vital Signs (last 24 hours): Temp Pulse Resp BP Pulse Ox 98.7 F 86 20 143/63 98 11/03/16 07:54 11/03/16 07:54 11/03/16 07:54 11/03/16 07:54 11/03/16 07:54 Intake and Output: 11/03/16 11/03/16 06:59 18:59 Intake Total 830 Balance 830 - Medications Medications: Current Medications Acetaminophen (Tylenol 325mg Tab) 650 mg PO Q4H PRN PRN Reason: Fever >100.4 F Furosemide (Lasix) 40 mg PO DAILY [facility] Last Admin: 11/02/16 11:57 Dose: Not Given Heparin Sodium/Sodium Chloride (Heparin 61440 Units/250ml 1/2 Normal Saline) 250 mls @ 9.389 mls/hr IV .Q24H PRN; Protocol; 18 UNITS/KG/HR PRN Reason: ADJUST RATE PER PROTOCOL Insulin Human Lispro (Humalog Low) 0 units SC ACHS [facility] PRN Reason: Protocol Last Admin: 11/03/16 08:34 Dose: 1 units Lactulose (Enulose) 30 gm PO QID [facility] Last Admin: 11/02/16 22:03 Dose: 30 gm Pantoprazole Sodium (Protonix Ec Tab) 40 mg PO 0730,1630 [facility] Last Admin: 11/02/16 17:57 Dose: 40 mg Rifaximin (Xifaxan) 550 mg PO BID [facility] PRN Reason: Protocol Last Admin: 11/02/16 17:59 Dose: 550 mg Spironolactone (Aldactone) 100 mg PO DAILY [facility] Last Admin: 11/02/16 11:56 Dose: Not Given - Labs Labs: 11/03/16 08:30 11/03/16 08:30 PT 15.4 Seconds (9.9-11.8) H 11/02/16 07:00 INR 1.43 (0.93-1.08) H 11/02/16 07:00 APTT 25.0 Seconds (23.7-30.8) 10/29/16 20:00 - Constitutional Appears: No Acute Distress - Eye Exam Eye Exam: Scleral icterus - ENT Exam ENT Exam: Mucous Membranes Dry - Respiratory Exam Respiratory Exam: Clear to Ausculation Bilateral - Cardiovascular Exam Cardiovascular Exam: +S1, +S2 - GI/Abdominal Exam Additional comments: abdomen soft, non tender to palpation, no rebound or guarding, bowel sounds present - Neurological Exam Neurological Exam: Alert Additional comments: no asterixis - Skin Skin Exam: Dry Assessment and Plan - Assessment and Plan (Free Text) Assessment: This is a 76yo female with PMHx significant for HTN, DM, recently diagnosed decompensated cirrhosis (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 She underwent colonoscopy yesterday and was found to have cecal mass and numerous colon polyps. Plan: Continue supportive care Await biopsies from colonoscopy Continue xifaxin/lactulose for HE; titrate lactulose to 2-3BM/day, mental status currently improved Continue aldactone/lasix for ascites; s/p paracentesis no SBP Follow up surgery/oncology recommendations Obtain CT chest for staging Low salt diet as tolerated Daily MELD labs Discussed with primary team
[2016-11-03] MEDS: Heparin25000 units/250ml 1/2NS 250 ML IV PRN (15:42)
[2016-11-03 15:49] LABS: INR 1.45 (0.93-1.08); PARTIAL THROMBOPLASTIN TIME 30.9 Seconds (23.7-30.8)
--- NOTE | 2016-11-03 16:40 | US ---
HISTORY: Leg pain and swelling. Evaluate for DVT PHYSICIAN(S): Brendon Gutierrez MD. TECHNIQUE: Duplex sonography and color-flow Doppler with graded compression were used to evaluate the deep venous systems of both lower extremities. FINDINGS: The exam is limited by body habitus and edema. There is acute occlusive thrombus in the left popliteal and tibial veins. There is no sonographic evidence of DVT in the right LE. IMPRESSION: Acute left popliteal and tibial DVT.
[2016-11-03 22:32] LABS: HEMATOCRIT 32.3 % (36.0-48.0)
[2016-11-04] MEDS: Heparin25000 units/250ml 1/2NS 250 ML IV PRN ×2 (00:32→20:52)
[2016-11-04 02:24] LABS: BLOOD UREA NITROGEN 13 mg/dL (7-21); CALCIUM 7.9 mg/dL (8.4-10.5); CARBON DIOXIDE 23 mmol/L (21-33); CHLORIDE 105 mmol/L (98-107); GFR AFRICAN-AMERICAN > 60; GLUCOSE,RANDOM 240 mg/dL (70-110); POTASSIUM 4.1 mmol/L (3.6-5.0); SODIUM 134 mmol/L (132-148)
[2016-11-04 07:00] LABS: HEMATOCRIT 29.8 % (36.0-48.0); MEAN CELL VOLUME 71.5 fL (80.0-105.0); MEAN CORPUSCULAR HEMOGLOBIN 21.8 pg (25.0-35.0); MEAN CORPUSCULAR HGB CONC 30.5 g/dl (31.0-37.0); PLATELET COUNT 87 10^3/uL (120.0-450.0); RED CELL DISTRIBUTION WIDTH 29.1 % (11.5-14.5); WHITE BLOOD COUNT 10.1 10^3/ul (4.5-11.0)
[2016-11-04 07:22] LABS: ALB/GLOB RATIO 0.5 (1.1-1.8); ALKALINE PHOSPHATASE 136 U/L (38-133); ALT/SGPT 32 U/L (7-56); AST/SGOT 48 U/L (15-39); BILIRUBIN,TOTAL 1.4 mg/dL (0.2-1.3); BLOOD UREA NITROGEN 13 mg/dL (7-21); CALCIUM 7.9 mg/dL (8.4-10.5); CARBON DIOXIDE 23 mmol/L (21-33); CHLORIDE 105 mmol/L (98-107); GFR AFRICAN-AMERICAN > 60; GLUCOSE,RANDOM 216 mg/dL (70-110); POTASSIUM 3.9 mmol/L (3.6-5.0); SODIUM 134 mmol/L (132-148); TOTAL PROTEIN 5.4 g/dL (5.8-8.3)
[2016-11-04 07:41] LABS: ADD MANUAL DIFF? NO; BASO % 0.3 % (0.0-3.0); EOS % 0.3 % (1.5-5.0); GRAN # 7.04 (1.4-6.5); GRAN % 70.1 % (50.0-68.0); LYMPH # 1.5 (1.2-3.4); LYMPH % 14.4 % (22.0-35.0); MONO % 14.9 % (1.0-6.0)
[2016-11-04 07:42] LABS: BASO # 0.03 K/mm3 (0.0-2.0); MONO # 1.5 (0.1-0.6)
[2016-11-04] MEDS: Insulin Lispro (humaLOG) LOW Coverage SC SCH ×4 (08:59→21:57)
[2016-11-04] MEDS: Pantoprazole 40 mg EC Tab PO SCH ×2 (09:01→17:25)
--- NOTE | 2016-11-04 13:34 | CP.PCM.PN ---
<Darío Garcia - Last Filed: 11/04/16 13:26> Subjective - Date & Time of Evaluation Date of Evaluation: 11/04/16 Time of Evaluation: 13:27 - Subjective Subjective: Pt seen and examined at bedside. Pt with no complaints at this time. Pt had 1 BM with small amount of pain in it earlier this morning. Pt is on heparin drip for left leg DVT. Pt tolerating diet well. Denies CP, SON, nausea, vomiting, fever. Objective - Vital Signs/Intake and Output Vital Signs (last 24 hours): Temp Pulse Resp BP Pulse Ox 98.6 F 98 H 20 141/67 98 11/04/16 07:54 11/04/16 07:54 11/04/16 07:54 11/04/16 09:00 11/04/16 07:54 Intake and Output: 11/04/16 11/04/16 06:59 18:59 Intake Total 600 Balance 600 - Medications Medications: Current Medications Acetaminophen (Tylenol 325mg Tab) 650 mg PO Q4H PRN PRN Reason: Fever >100.4 F Furosemide (Lasix) 40 mg PO DAILY [facility] Last Admin: 11/04/16 09:00 Dose: 40 mg Heparin Sodium/Sodium Chloride (Heparin 95559 Units/250ml 1/2 Normal Saline) 250 mls @ 9.389 mls/hr IV .Q24H PRN; Protocol; 18 UNITS/KG/HR PRN Reason: ADJUST RATE PER PROTOCOL Last Titration: 11/04/16 07:41 Dose: 13.22 units/kg/hr Insulin Human Lispro (Humalog Low) 0 units SC ACHS [facility] PRN Reason: Protocol Last Admin: 11/04/16 12:48 Dose: 2 units Lactulose (Enulose) 30 gm PO QID [facility] Last Admin: 11/04/16 13:02 Dose: 30 gm Pantoprazole Sodium (Protonix Ec Tab) 40 mg PO 0730,1630 [facility] Last Admin: 11/04/16 09:01 Dose: 40 mg Rifaximin (Xifaxan) 550 mg PO BID [facility] PRN Reason: Protocol Last Admin: 11/04/16 09:00 Dose: 550 mg Spironolactone (Aldactone) 100 mg PO DAILY [facility] Last Admin: 11/04/16 09:00 Dose: 100 mg - Labs Labs: 11/04/16 06:30 11/04/16 06:30 PT 15.7 Seconds (9.9-11.8) H 11/03/16 15:20 INR 1.45 (0.93-1.08) H 11/03/16 15:20 APTT 64.7 Seconds (23.7-30.8) H 11/04/16 12:00 - Constitutional Appears: Well, No Acute Distress - Head Exam Head Exam: ATRAUMATIC, NORMAL INSPECTION, NORMOCEPHALIC - ENT Exam ENT Exam: Mucous Membranes Moist, Normal Exam - Respiratory Exam Respiratory Exam: Clear to Ausculation Bilateral, NORMAL BREATHING PATTERN. absent: Rhonchi, Wheezes - Cardiovascular Exam Cardiovascular Exam: RRR, +S1, +S2 - GI/Abdominal Exam GI & Abdominal Exam: Soft, Normal Bowel Sounds. absent: Tenderness - Extremities Exam Extremities Exam: absent: Calf Tenderness Additional comments: Left leg 2+ edema - Neurological Exam Neurological Exam: Alert, Awake, Oriented x3 - Psychiatric Exam Psychiatric exam: Normal Affect, Normal Mood - Skin Skin Exam: Intact, Normal Color, Warm Assessment and Plan - Assessment and Plan (Free Text) Plan: 76 y/o Prydeinig speaking female with PMH of DM2, HTN, microcytic anemia and recently diagnosed liver cirrhosis presents with hepatic encephalopathy. Pt is alert and oriented x3. Pt underwent colonoscopy which showed fungating, nonobstructive mass in the cecum, biopsies were taken. Pt also found to have left popliteal and tibial DVT, heparing drip started. Pt not a good candidate for anticoagulation due to extensive liver disease and esophageal varices. Pt also a poor surgical candidate at this time. Will obtain vascular and oncology consult. Liver cirrhosis - Continue rifaximin and lactulose - GI following Left leg DVT - Continue heparin drip - Vascular consulted Cecal Mass - Surgery consulted, no emergent surgery necessary - Oncology consulted - Will obtain CT chest for staging Ascites - Liver cirrhosis as evident on CT (see report) - Lasix and aldactone dosages increased. - Continue morphine for pain management Hx DM2 - ISS - A1C Microccytic anemia - Hg stable Prophylaxis - protonix - SCD Seen, reviewed, and discussed with attending. Jose, PGY-1 <Linh GÓMEZ,Jimmie - Last Filed: 11/04/16 16:10> Objective - Vital Signs/Intake and Output Vital Signs (last 24 hours): Temp Pulse Resp BP Pulse Ox 98.6 F 98 H 20 141/67 98 11/04/16 07:54 11/04/16 07:54 11/04/16 07:54 11/04/16 09:00 11/04/16 07:54 Intake and Output: 11/04/16 11/04/16 06:59 18:59 Intake Total 600 Balance 600 - Medications Medications: Current Medications Acetaminophen (Tylenol 325mg Tab) 650 mg PO Q4H PRN PRN Reason: Fever >100.4 F Furosemide (Lasix) 40 mg PO DAILY [facility] Last Admin: 11/04/16 09:00 Dose: 40 mg Heparin Sodium/Sodium Chloride (Heparin 29510 Units/250ml 1/2 Normal Saline) 250 mls @ 9.389 mls/hr IV .Q24H PRN; Protocol; 18 UNITS/KG/HR PRN Reason: ADJUST RATE PER PROTOCOL Last Titration: 11/04/16 07:41 Dose: 13.22 units/kg/hr Insulin Human Lispro (Humalog Low) 0 units SC ACHS [facility] PRN Reason: Protocol Last Admin: 11/04/16 12:48 Dose: 2 units Lactulose (Enulose) 30 gm PO QID [facility] Last Admin: 11/04/16 13:02 Dose: 30 gm Pantoprazole Sodium (Protonix Ec Tab) 40 mg PO 0730,1630 [facility] Last Admin: 11/04/16 09:01 Dose: 40 mg Rifaximin (Xifaxan) 550 mg PO BID [facility] PRN Reason: Protocol Last Admin: 11/04/16 09:00 Dose: 550 mg Spironolactone (Aldactone) 100 mg PO DAILY [facility] Last Admin: 11/04/16 09:00 Dose: 100 mg - Labs Labs: 11/04/16 06:30 11/04/16 06:30 PT 15.7 Seconds (9.9-11.8) H 11/03/16 15:20 INR 1.45 (0.93-1.08) H 11/03/16 15:20 APTT 64.7 Seconds (23.7-30.8) H 11/04/16 12:00 Attending/Attestation - Attestation I have personally seen and examined this patient.: Yes I have fully participated in the care of the patient.: Yes I have reviewed all pertinent clinical information, including history, physical exam and plan: Yes Notes (Text): Patient was seen and examined with medical transcription supervisor .Agreed with resident assessment and plan. 76 y/o Prydeinig speaking female with PMH of DM2, HTN, microcytic anemia and recently diagnosed liver cirrhosis presents with hepatic encephalopathy. Patient was treated with Lactulose.Mental status is back to normal. Patient was found to have Cecal mass, underwent Colonoscopy 11/02/16 showed fungated non obstructing mass, biopsies were taken,result pending Venous Doppler today showed left Popliteal and Posterior tibial DVT on IV heparin drip, not candidate for terminal system operator anticoagulation, will consult IR/Vascular in the morning for IVC filter, CT chest pending to complete staging, oncology consulted,GI and surgery on case. Management plan was discussed in detail with patient and family. Prognosis is guarded. Education was provided.
--- NOTE | 2016-11-04 13:55 | CP.PCM.PN ---
<Dylan Millan - Last Filed: 11/04/16 13:55> Subjective - Date & Time of Evaluation Date of Evaluation: 11/04/16 Time of Evaluation: 07:45 - Subjective Subjective: PGY4 GI Fellow Progress Note Patient seen and examined bedside this morning. The patient denies any complaints today but does admit that her appetite is poor today. Denies any issues overnight. 12 system ROS performed and negative except where stated. Objective - Vital Signs/Intake and Output Vital Signs (last 24 hours): Temp Pulse Resp BP Pulse Ox 98.6 F 98 H 20 141/67 98 11/04/16 07:54 11/04/16 07:54 11/04/16 07:54 11/04/16 09:00 11/04/16 07:54 Intake and Output: 11/04/16 11/04/16 06:59 18:59 Intake Total 600 Balance 600 - Medications Medications: Current Medications Acetaminophen (Tylenol 325mg Tab) 650 mg PO Q4H PRN PRN Reason: Fever >100.4 F Furosemide (Lasix) 40 mg PO DAILY [facility] Last Admin: 11/04/16 09:00 Dose: 40 mg Heparin Sodium/Sodium Chloride (Heparin 59318 Units/250ml 1/2 Normal Saline) 250 mls @ 9.389 mls/hr IV .Q24H PRN; Protocol; 18 UNITS/KG/HR PRN Reason: ADJUST RATE PER PROTOCOL Last Titration: 11/04/16 07:41 Dose: 13.22 units/kg/hr Insulin Human Lispro (Humalog Low) 0 units SC ACHS [facility] PRN Reason: Protocol Last Admin: 11/04/16 12:48 Dose: 2 units Lactulose (Enulose) 30 gm PO QID [facility] Last Admin: 11/04/16 13:02 Dose: 30 gm Pantoprazole Sodium (Protonix Ec Tab) 40 mg PO 0730,1630 [facility] Last Admin: 11/04/16 09:01 Dose: 40 mg Rifaximin (Xifaxan) 550 mg PO BID [facility] PRN Reason: Protocol Last Admin: 11/04/16 09:00 Dose: 550 mg Spironolactone (Aldactone) 100 mg PO DAILY [facility] Last Admin: 11/04/16 09:00 Dose: 100 mg - Labs Labs: 11/04/16 06:30 11/04/16 06:30 PT 15.7 Seconds (9.9-11.8) H 11/03/16 15:20 INR 1.45 (0.93-1.08) H 11/03/16 15:20 APTT 64.7 Seconds (23.7-30.8) H 11/04/16 12:00 - Constitutional Appears: Non-toxic, No Acute Distress - Eye Exam Eye Exam: EOMI, PERRL - ENT Exam ENT Exam: Mucous Membranes Moist - Respiratory Exam Respiratory Exam: Clear to Ausculation Bilateral. absent: Rales, Rhonchi, Wheezes - Cardiovascular Exam Cardiovascular Exam: RRR, +S1, +S2 - GI/Abdominal Exam GI & Abdominal Exam: Distended, Firm, Guarding, Rigid, Soft, Normal Bowel Sounds. absent: Tenderness, Organomegaly - Extremities Exam Additional comments: LE edema, L>R - Neurological Exam Neurological Exam: Alert, Awake, Oriented x3 - Psychiatric Exam Psychiatric exam: Normal Affect, Normal Mood - Skin Skin Exam: Dry, Warm Assessment and Plan - Assessment and Plan (Free Text) Assessment: Patient is a 76yo female with PMHx significant for HTN, DM and recently diagnosed decompensated cirrhosis (2 weeks [employer] at [facility]) who presented to the ED , brought in by her , for abdominal pain and altered mentation. -Decompensated cirrhosis with ascites and hepatic encephalopathy -Cecal mass -LLE DVT -PUD -Small nonbleeding esophageal varices -AMS 2/2 HE, resolved -Abdominal ascites -2cm liver lesion, not c/w HCC on triple phase Plan: -Lactulose 30gm PO QID; titrate to 2-3 BM/day - encephalopathy improved -Rifaximin 550mg PO BID -Lasix/Aldactone 40/100mg, can consider increasing dose if needed -Cecal mass noted on colonoscopy/CT - awaiting pathology results -Surgical/Oncology consults -On heparin for LE DVT, primary service considering IVC filter placement -Hepatitis serologies negative -Autoimmune w/u: FELICAI+ 1:40; AMA, SMA negative - unclear significance -Protonix 40mg PO BIDAC given PUD and esophagitis as benefit outweigh risk currently in patient with ascites *Records from [facility] reveal: EGD performed on 10/22/16 showing small superficial nonbleeding gastric ulcer, small varices and distal esophagitits; pathology showed only chronic inflammation without metaplasia noted in the esophagus. A paracentesis was performed with 4.5L removed as well, no analysis noted. 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 <Srinivasan Hirsch - Last Filed: 11/04/16 14:12> Objective - Vital Signs/Intake and Output Vital Signs (last 24 hours): Temp Pulse Resp BP Pulse Ox 98.6 F 98 H 20 141/67 98 11/04/16 07:54 11/04/16 07:54 11/04/16 07:54 11/04/16 09:00 11/04/16 07:54 Intake and Output: 11/04/16 11/04/16 06:59 18:59 Intake Total 600 Balance 600 - Medications Medications: Current Medications Acetaminophen (Tylenol 325mg Tab) 650 mg PO Q4H PRN PRN Reason: Fever >100.4 F Furosemide (Lasix) 40 mg PO DAILY [facility] Last Admin: 11/04/16 09:00 Dose: 40 mg Heparin Sodium/Sodium Chloride (Heparin 90111 Units/250ml 1/2 Normal Saline) 250 mls @ 9.389 mls/hr IV .Q24H PRN; Protocol; 18 UNITS/KG/HR PRN Reason: ADJUST RATE PER PROTOCOL Last Titration: 11/04/16 07:41 Dose: 13.22 units/kg/hr Insulin Human Lispro (Humalog Low) 0 units SC ACHS [facility] PRN Reason: Protocol Last Admin: 11/04/16 12:48 Dose: 2 units Lactulose (Enulose) 30 gm PO QID [facility] Last Admin: 11/04/16 13:02 Dose: 30 gm Pantoprazole Sodium (Protonix Ec Tab) 40 mg PO 0730,1630 [facility] Last Admin: 11/04/16 09:01 Dose: 40 mg Rifaximin (Xifaxan) 550 mg PO BID [facility] PRN Reason: Protocol Last Admin: 11/04/16 09:00 Dose: 550 mg Spironolactone (Aldactone) 100 mg PO DAILY [facility] Last Admin: 11/04/16 09:00 Dose: 100 mg - Labs Labs: 11/04/16 06:30 11/04/16 06:30 PT 15.7 Seconds (9.9-11.8) H 11/03/16 15:20 INR 1.45 (0.93-1.08) H 11/03/16 15:20 APTT 64.7 Seconds (23.7-30.8) H 11/04/16 12:00 Attending/Attestation - Attestation I have personally seen and examined this patient.: Yes I have fully participated in the care of the patient.: Yes I have reviewed all pertinent clinical information, including history, physical exam and plan: Yes Notes (Text): Patient seen and examined with GI fellow. Agree with his note as documented above with the following additions/exceptions. This is a 76yo female with PMHx significant for HTN, DM, recently diagnosed decompensated cirrhosis (possibly GANDHI/NAFLD related, Child's B/MELD=15) who presents with abdominal pain and hepatic encephalopathy. Colonoscopy showed cecal mass. She was found to have LE DVT, started on heparin gtt. Low appetite today. No nausea or vomiting. No rectal bleeding. Continue supportive care. Follow up colonoscopy pathology. Complete staging evaluation. Follow up surgery/oncology recommendations. Continue rifaximin/ lactulose. Continue lasix/aldactone. 11/04/16 14:06
--- NOTE | 2016-11-04 15:44 | CP.PCM.PN ---
Subjective - Date & Time of Evaluation Date of Evaluation: 11/04/16 Time of Evaluation: 15:43 - Subjective Subjective: Surgery: Dr. Mahmood Pt seen and examined. Family at bedside. Pt is resting comfortably in bed. No complaints of pain. Tolerating diet. No N/V. +Flatus/BM. Objective - Vital Signs/Intake and Output Vital Signs (last 24 hours): Temp Pulse Resp BP Pulse Ox 98.6 F 98 H 20 141/67 98 11/04/16 07:54 11/04/16 07:54 11/04/16 07:54 11/04/16 09:00 11/04/16 07:54 Intake and Output: 11/04/16 11/04/16 06:59 18:59 Intake Total 600 Balance 600 - Medications Medications: Current Medications Acetaminophen (Tylenol 325mg Tab) 650 mg PO Q4H PRN PRN Reason: Fever >100.4 F Furosemide (Lasix) 40 mg PO DAILY [facility] Last Admin: 11/04/16 09:00 Dose: 40 mg Heparin Sodium/Sodium Chloride (Heparin 11897 Units/250ml 1/2 Normal Saline) 250 mls @ 9.389 mls/hr IV .Q24H PRN; Protocol; 18 UNITS/KG/HR PRN Reason: ADJUST RATE PER PROTOCOL Last Titration: 11/04/16 07:41 Dose: 13.22 units/kg/hr Insulin Human Lispro (Humalog Low) 0 units SC ACHS [facility] PRN Reason: Protocol Last Admin: 11/04/16 12:48 Dose: 2 units Lactulose (Enulose) 30 gm PO QID [facility] Last Admin: 11/04/16 13:02 Dose: 30 gm Pantoprazole Sodium (Protonix Ec Tab) 40 mg PO 0730,1630 [facility] Last Admin: 11/04/16 09:01 Dose: 40 mg Rifaximin (Xifaxan) 550 mg PO BID [facility] PRN Reason: Protocol Last Admin: 11/04/16 09:00 Dose: 550 mg Spironolactone (Aldactone) 100 mg PO DAILY [facility] Last Admin: 11/04/16 09:00 Dose: 100 mg - Labs Labs: 11/04/16 06:30 11/04/16 06:30 PT 15.7 Seconds (9.9-11.8) H 11/03/16 15:20 INR 1.45 (0.93-1.08) H 11/03/16 15:20 APTT 64.7 Seconds (23.7-30.8) H 11/04/16 12:00 - Constitutional Appears: Non-toxic, No Acute Distress - Head Exam Head Exam: ATRAUMATIC, NORMOCEPHALIC - Eye Exam Eye Exam: EOMI - ENT Exam ENT Exam: Mucous Membranes Moist - Neck Exam Neck Exam: Full ROM - Respiratory Exam Respiratory Exam: NORMAL BREATHING PATTERN. absent: Accessory Muscle Use, Respiratory Distress - GI/Abdominal Exam GI & Abdominal Exam: Soft. absent: Distended, Firm, Guarding, Rigid, Tenderness , Rebound - Neurological Exam Neurological Exam: Alert, Awake Assessment and Plan - Assessment and Plan (Free Text) Assessment: 76F w. cecal mass and LLE DVT -s/p colonoscopy w. bx, f/u path results -heparin for DVT, possible IVC filter placement -c/w current medical management -will d/w attending Zemaitis PGY2
[2016-11-05] MEDS ORDERED: Insulin Lispro 1 UNITS/0.01 ML SC STA (02:04)
--- NOTE | 2016-11-05 07:27 | CP.PCM.PN ---
<JuanluisDylan - Last Filed: 11/05/16 08:57> Subjective - Date & Time of Evaluation Date of Evaluation: 11/05/16 Time of Evaluation: 07:45 - Subjective Subjective: PGY4 GI Fellow Progress Note Patient seen and examined bedside this morning. She is eating breakfast without issue. Does admit to some discomfort in the LLE where she has a DVT. No other issues at present. 12 system ROS performed and negative except where stated. Objective - Vital Signs/Intake and Output Vital Signs (last 24 hours): Temp Pulse Resp BP Pulse Ox 98 F 101 H 20 138/54 L 98 11/04/16 16:42 11/04/16 16:42 11/04/16 16:42 11/04/16 16:42 11/04/16 16:42 Intake and Output: 11/05/16 11/05/16 06:59 18:59 Intake Total 408 Balance 408 - Medications Medications: Current Medications Acetaminophen (Tylenol 325mg Tab) 650 mg PO Q4H PRN PRN Reason: Fever >100.4 F Furosemide (Lasix) 40 mg PO DAILY [facility] Last Admin: 11/04/16 09:00 Dose: 40 mg Heparin Sodium/Sodium Chloride (Heparin 50861 Units/250ml 1/2 Normal Saline) 250 mls @ 9.389 mls/hr IV .Q24H PRN; Protocol; 18 UNITS/KG/HR PRN Reason: ADJUST RATE PER PROTOCOL Last Admin: 11/04/16 20:52 Dose: 6.9 mls/hr Insulin Human Lispro (Humalog Low) 0 units SC ACHS [facility] PRN Reason: Protocol Last Admin: 11/04/16 21:57 Dose: 2 units Lactulose (Enulose) 30 gm PO QID [facility] Last Admin: 11/04/16 21:40 Dose: 30 gm Pantoprazole Sodium (Protonix Ec Tab) 40 mg PO 0730,1630 [facility] Last Admin: 11/04/16 17:25 Dose: 40 mg Rifaximin (Xifaxan) 550 mg PO BID [facility] PRN Reason: Protocol Last Admin: 11/04/16 17:25 Dose: 550 mg Spironolactone (Aldactone) 100 mg PO DAILY [facility] Last Admin: 11/04/16 09:00 Dose: 100 mg - Labs Labs: 11/04/16 06:30 11/04/16 06:30 PT 15.7 Seconds (9.9-11.8) H 11/03/16 15:20 INR 1.45 (0.93-1.08) H 11/03/16 15:20 APTT 69.5 Seconds (23.7-30.8) H 11/04/16 18:30 - Constitutional Appears: Non-toxic, No Acute Distress - Eye Exam Eye Exam: EOMI, PERRL - ENT Exam ENT Exam: Mucous Membranes Moist - Respiratory Exam Respiratory Exam: Clear to Ausculation Bilateral. absent: Rales, Rhonchi, Wheezes - Cardiovascular Exam Cardiovascular Exam: RRR, +S1, +S2 - GI/Abdominal Exam GI & Abdominal Exam: Soft, Normal Bowel Sounds. absent: Distended, Firm, Guarding, Rigid, Tenderness, Organomegaly - Extremities Exam Additional comments: LLE edematous - Neurological Exam Neurological Exam: Alert, Awake, Oriented x3 - Psychiatric Exam Psychiatric exam: Normal Affect, Normal Mood - Skin Skin Exam: Dry, Warm Assessment and Plan - Assessment and Plan (Free Text) Assessment: Patient is a 76yo female with PMHx significant for HTN, DM and recently diagnosed decompensated cirrhosis (2 weeks [employer] at [facility] [place]) who presented to the ED , brought in by her , for abdominal pain and altered mentation. -Decompensated cirrhosis with ascites and hepatic encephalopathy -Cecal mass -LLE DVT -PUD -Small nonbleeding esophageal varices -AMS 2/2 HE, resolved -Abdominal ascites -2cm liver lesion, not c/w HCC on triple phase Plan: -Lactulose 30gm PO QID; titrate to 2-3 BM/day - encephalopathy improved -Rifaximin 550mg PO BID -Lasix/Aldactone 40/100mg -Cecal mass noted on colonoscopy/CT - awaiting pathology results -Recommend IR guided biopsy of the patient's liver lesion -Surgical/Oncology consults appreciated -On heparin for LE DVT, primary service considering IVC filter placement -Hepatitis serologies negative -Autoimmune w/u: FELICIA+ 1:40; AMA, SMA negative - unclear significance -Protonix 40mg PO BIDAC given PUD and esophagitis as benefit outweigh risk currently in patient with ascites -CT chest was cancelled yesterday, unclear reason - discussed with nursing; need for staging purposes *Records from [facility] [place] reveal: EGD performed on 10/22/16 showing small superficial nonbleeding gastric ulcer, small varices and distal esophagitits; pathology showed only chronic inflammation without metaplasia noted in the esophagus. A paracentesis was performed with 4.5L removed as well, no analysis noted. 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 <JonyJuan Shaniqua - Last Filed: 11/05/16 10:04> Objective - Vital Signs/Intake and Output Vital Signs (last 24 hours): Temp Pulse Resp BP Pulse Ox 98.8 F 83 20 111/61 98 11/05/16 07:30 11/05/16 07:30 11/05/16 07:30 11/05/16 07:30 11/05/16 07:30 Intake and Output: 11/05/16 11/05/16 06:59 18:59 Intake Total 408 Balance 408 - Medications Medications: Current Medications Acetaminophen (Tylenol 325mg Tab) 650 mg PO Q4H PRN PRN Reason: Fever >100.4 F Furosemide (Lasix) 40 mg PO DAILY [facility] Last Admin: 11/04/16 09:00 Dose: 40 mg Heparin Sodium/Sodium Chloride (Heparin 02006 Units/250ml 1/2 Normal Saline) 250 mls @ 9.389 mls/hr IV .Q24H PRN; Protocol; 18 UNITS/KG/HR PRN Reason: ADJUST RATE PER PROTOCOL Last Admin: 11/04/16 20:52 Dose: 6.9 mls/hr Insulin Human Lispro (Humalog Low) 0 units SC ACHS [facility] PRN Reason: Protocol Last Admin: 11/04/16 21:57 Dose: 2 units Lactulose (Enulose) 30 gm PO QID [facility] Last Admin: 11/04/16 21:40 Dose: 30 gm Pantoprazole Sodium (Protonix Ec Tab) 40 mg PO 0730,1630 [facility] Last Admin: 11/04/16 17:25 Dose: 40 mg Rifaximin (Xifaxan) 550 mg PO BID [facility] PRN Reason: Protocol Last Admin: 11/04/16 17:25 Dose: 550 mg Spironolactone (Aldactone) 100 mg PO DAILY [facility] Last Admin: 11/04/16 09:00 Dose: 100 mg - Labs Labs: 11/05/16 07:30 11/05/16 07:30 PT 14.8 Seconds (9.9-11.8) H 11/05/16 07:30 INR 1.37 (0.93-1.08) H 11/05/16 07:30 APTT 76.5 Seconds (23.7-30.8) H* 11/05/16 07:30 Attending/Attestation - Attestation I have personally seen and examined this patient.: Yes I have fully participated in the care of the patient.: Yes I have reviewed all pertinent clinical information, including history, physical exam and plan: Yes Notes (Text): 11/05/16 09:50 I have seen and examined patient with GI fellow. She is seen sitting in bed eating breakfast, appears quite comfortable. No acute events overnight, she mainly complains of left lower extremity pain but otherwise denies abdominal pain, nausea, vomiting, fever/chills. Having adequate bowel movements on lactulose and tolerating PO diet without difficulty. Decompensated cirrhosis, etiology unclear Liver lesion - HCC vs metastatic disease, AFP is normal and no typical HCC enhancement on triple phase imaging Cecal mass suggestive of malignancy LLE DVT - Continue with lactulose, titrated so that patient has 2-3 bowel movements daily - Follow up colonoscopy biopsy results - Low sodium diet as tolerated - Continue with diuretic therapy, monitor electrolytes - Follow up oncology and surgical recommendations - Awaiting chest CT for complete staging workup - Suggest possible IR guided biopsy of liver lesion given non HCC characteristic appearance on imaging. Also, patient with +FELICIA, liver biopsy will also help clarify etiology of cirrhosis. - No further planned GI intervention, will sign off case. Patient should be referred for ongoing outpatient management, please reconsult as necessary, thank you.
[2016-11-05 07:56] LABS: ADD MANUAL DIFF? NO
[2016-11-05 07:57] LABS: BASO # 0.04 K/mm3 (0.0-2.0); BASO % 0.3 % (0.0-3.0); EOS # 0.1 (0.0-0.7); EOS % 0.8 % (1.5-5.0); GRAN # 7.31 (1.4-6.5); GRAN % 63.7 % (50.0-68.0); HEMATOCRIT 27.4 % (36.0-48.0); LYMPH # 1.9 (1.2-3.4); LYMPH % 16.6 % (22.0-35.0); MEAN CELL VOLUME 71.2 fL (80.0-105.0); MEAN CORPUSCULAR HEMOGLOBIN 22.6 pg (25.0-35.0); MEAN CORPUSCULAR HGB CONC 31.8 g/dl (31.0-37.0); MONO # 2.1 (0.1-0.6); MONO % 18.6 % (1.0-6.0); PLATELET COUNT 108 10^3/uL (120.0-450.0); RED CELL DISTRIBUTION WIDTH 29.2 % (11.5-14.5); WHITE BLOOD COUNT 11.5 10^3/ul (4.5-11.0)
[2016-11-05] MEDS: Insulin Lispro (humaLOG) LOW Coverage SC SCH ×4 (08:17→22:11)
[2016-11-05 08:29] LABS: INR 1.37 (0.93-1.08)
[2016-11-05 08:33] LABS: PARTIAL THROMBOPLASTIN TIME 76.5 Seconds (23.7-30.8)
[2016-11-05 08:49] LABS: ALB/GLOB RATIO 0.5 (1.1-1.8); ALKALINE PHOSPHATASE 127 U/L (38-133); ALT/SGPT 29 U/L (7-56); AST/SGOT 44 U/L (15-39); BILIRUBIN,TOTAL 1.2 mg/dL (0.2-1.3); BLOOD UREA NITROGEN 14 mg/dL (7-21); CALCIUM 7.8 mg/dL (8.4-10.5); CARBON DIOXIDE 24 mmol/L (21-33); CHLORIDE 104 mmol/L (95-110); GFR AFRICAN-AMERICAN > 60; GLUCOSE,RANDOM 137 mg/dL (70-110); POTASSIUM 3.7 mmol/L (3.6-5.0); SODIUM 132 mmol/L (132-148); TOTAL PROTEIN 5.1 g/dL (5.8-8.3)
--- NOTE | 2016-11-05 09:16 | CP.PCM.PN ---
Subjective - Date & Time of Evaluation Date of Evaluation: 11/05/16 Time of Evaluation: 09:09 - Subjective Subjective: SURGICAL PROGRESS NOTE FOR DR. BUTLER Patient is seen and examined at bedside. No acute events overnight. Pt states pain is improving. Patient is tolerating a liquid diet. She denies having any N/V, fevers, chills. Patient had one loose BM yesterday. Objective - Vital Signs/Intake and Output Vital Signs (last 24 hours): Temp Pulse Resp BP Pulse Ox 98.8 F 83 20 111/61 98 11/05/16 07:30 11/05/16 07:30 11/05/16 07:30 11/05/16 07:30 11/05/16 07:30 Intake and Output: 11/05/16 11/05/16 06:59 18:59 Intake Total 408 Balance 408 - Medications Medications: Current Medications Acetaminophen (Tylenol 325mg Tab) 650 mg PO Q4H PRN PRN Reason: Fever >100.4 F Furosemide (Lasix) 40 mg PO DAILY [facility] Last Admin: 11/04/16 09:00 Dose: 40 mg Heparin Sodium/Sodium Chloride (Heparin 05175 Units/250ml 1/2 Normal Saline) 250 mls @ 9.389 mls/hr IV .Q24H PRN; Protocol; 18 UNITS/KG/HR PRN Reason: ADJUST RATE PER PROTOCOL Last Admin: 11/04/16 20:52 Dose: 6.9 mls/hr Insulin Human Lispro (Humalog Low) 0 units SC ACHS [facility] PRN Reason: Protocol Last Admin: 11/04/16 21:57 Dose: 2 units Lactulose (Enulose) 30 gm PO QID [facility] Last Admin: 11/04/16 21:40 Dose: 30 gm Pantoprazole Sodium (Protonix Ec Tab) 40 mg PO 0730,1630 [facility] Last Admin: 11/04/16 17:25 Dose: 40 mg Rifaximin (Xifaxan) 550 mg PO BID [facility] PRN Reason: Protocol Last Admin: 11/04/16 17:25 Dose: 550 mg Spironolactone (Aldactone) 100 mg PO DAILY [facility] Last Admin: 11/04/16 09:00 Dose: 100 mg - Labs Labs: 11/05/16 07:30 11/05/16 07:30 PT 14.8 Seconds (9.9-11.8) H 11/05/16 07:30 INR 1.37 (0.93-1.08) H 11/05/16 07:30 APTT 76.5 Seconds (23.7-30.8) H* 11/05/16 07:30 - Constitutional Appears: Non-toxic, No Acute Distress - Head Exam Head Exam: ATRAUMATIC - ENT Exam ENT Exam: Mucous Membranes Moist - Respiratory Exam Respiratory Exam: absent: Accessory Muscle Use, Respiratory Distress - GI/Abdominal Exam GI & Abdominal Exam: Soft. absent: Firm, Guarding, Rigid, Tenderness - Neurological Exam Neurological Exam: Alert, Awake, Oriented x3 - Psychiatric Exam Psychiatric exam: Normal Affect, Normal Mood - Skin Skin Exam: Dry, Intact, Normal Color, Warm Assessment and Plan - Assessment and Plan (Free Text) Assessment: 76F w. cecal mass and LLE DVT -s/p colonoscopy w. bx, f/u path results -heparin for DVT, possible IVC filter placement -c/w current medical management -Plan to take pt to OR for right hemicolectomy. -Will need cardiac clearance. - Will check AFP and CEA Will d/w attending Dr. Timoteo Garay PGY1
[2016-11-05] MEDS: Pantoprazole 40 mg EC Tab PO SCH ×2 (10:28→18:06)
--- NOTE | 2016-11-05 10:29 | CT ---
PROCEDURE: CT Chest without contrast HISTORY: Cecal mass, staging COMPARISON: CT of the abdomen 10/30/2016 TECHNIQUE: Contiguous axial images were obtained through the chest without intravenous contrast enhancement. Sagittal and coronal reconstructions were performed. Radiation dose (DLP): 291 mGy-cm. FINDINGS: LUNGS: Clear lungs. Visualized airway clear. MEDIASTINUM: Unremarkable thoracic aorta. No aneurysm. Normal sized heart. Main pulmonary artery unremarkable. No vascular congestion. No lymphadenopathy. PLEURA: No pleural fluid. No pneumothorax. BONES: No fracture. No destructive lesion. UPPER ABDOMEN: As noted previously the liver has an irregular contour consistent with cirrhosis. There is a cyst in the liver measuring 5 Hounsfield units. There is moderate to severe ascites. Gallstone OTHER FINDINGS: None. IMPRESSION: Unremarkable non-contrast enhanced CT of the chest.
--- NOTE | 2016-11-05 11:59 | CP.PCM.PN ---
<Darío Garcia - Last Filed: 11/05/16 11:52> Subjective - Date & Time of Evaluation Date of Evaluation: 11/05/16 Time of Evaluation: 11:52 - Subjective Subjective: Pt seen and examined at bedside. Pt states she is doing well today with her only complaint of left leg pain, which is tolerable. No acute events overnight. Pt tolerating diet and no recent bloody bowel movements. Denies CP, SOB, N/V/D, fevers. Objective - Vital Signs/Intake and Output Vital Signs (last 24 hours): Temp Pulse Resp BP Pulse Ox 98.8 F 83 20 111/61 98 11/05/16 07:30 11/05/16 07:30 11/05/16 07:30 11/05/16 10:23 11/05/16 07:30 Intake and Output: 11/05/16 11/05/16 06:59 18:59 Intake Total 408 Balance 408 - Medications Medications: Current Medications Acetaminophen (Tylenol 325mg Tab) 650 mg PO Q4H PRN PRN Reason: Fever >100.4 F Furosemide (Lasix) 40 mg PO DAILY [facility] Last Admin: 11/05/16 10:23 Dose: 40 mg Heparin Sodium/Sodium Chloride (Heparin 11267 Units/250ml 1/2 Normal Saline) 250 mls @ 9.389 mls/hr IV .Q24H PRN; Protocol; 18 UNITS/KG/HR PRN Reason: ADJUST RATE PER PROTOCOL Last Admin: 11/04/16 20:52 Dose: 6.9 mls/hr Insulin Human Lispro (Humalog Low) 0 units SC ACHS [facility] PRN Reason: Protocol Last Admin: 11/05/16 08:17 Dose: Not Given Lactulose (Enulose) 30 gm PO QID [facility] Last Admin: 11/05/16 10:23 Dose: 30 gm Pantoprazole Sodium (Protonix Ec Tab) 40 mg PO 0730,1630 [facility] Last Admin: 11/05/16 10:28 Dose: 40 mg Rifaximin (Xifaxan) 550 mg PO BID [facility] PRN Reason: Protocol Last Admin: 11/05/16 10:23 Dose: 550 mg Spironolactone (Aldactone) 100 mg PO DAILY [facility] Last Admin: 11/05/16 10:28 Dose: 100 mg - Labs Labs: 11/05/16 07:30 11/05/16 07:30 PT 14.8 Seconds (9.9-11.8) H 11/05/16 07:30 INR 1.37 (0.93-1.08) H 11/05/16 07:30 APTT 76.5 Seconds (23.7-30.8) H* 11/05/16 07:30 - Constitutional Appears: Well, No Acute Distress - Head Exam Head Exam: ATRAUMATIC, NORMOCEPHALIC - ENT Exam ENT Exam: Mucous Membranes Moist, Normal Exam - Respiratory Exam Respiratory Exam: Clear to Ausculation Bilateral, NORMAL BREATHING PATTERN. absent: Rhonchi, Wheezes - Cardiovascular Exam Cardiovascular Exam: +S1, +S2 - GI/Abdominal Exam GI & Abdominal Exam: Distended, Soft, Normal Bowel Sounds. absent: Guarding, Tenderness - Extremities Exam Additional comments: Left leg edema +2. - Neurological Exam Neurological Exam: Alert, Awake, Oriented x3 - Psychiatric Exam Psychiatric exam: Normal Affect, Normal Mood - Skin Skin Exam: Intact, Normal Color, Warm Assessment and Plan - Assessment and Plan (Free Text) Plan: 76 y/o Latvian speaking female with PMH of DM2, HTN, microcytic anemia and recently diagnosed liver cirrhosis presents with hepatic encephalopathy, now resolved and found to have a cecal mass on CT. Pt underwent follow up CT to evaluate cecal mass, which showed fungating, nonobstructive mass in the cecum, biopsies were taken. Pt also found to have left popliteal and tibial DVT, heparing drip started. Pt not a good candidate for anticoagulation due to extensive liver disease and esophageal varices. Pt will have IVC filter placed by IR. Pt is also scheduled to have right hemicolectomy to remove cecal mass on 11/08. Liver cirrhosis - Continue rifaximin and lactulose - Liver lesion to be biopsied during IVC filter placement - GI following Left leg DVT - Continue heparin drip - IVC filter to be placed - Vascular consulted Cecal Mass - Surgery consulted, surgery scheduled for 11/08 - Oncology consulted - Will obtain CT chest for staging Ascites - Liver cirrhosis as evident on CT (see report) - Lasix and aldactone dosages increased. - Continue morphine for pain management Hx DM2 - ISS - A1C Microccytic anemia - Hg stable Prophylaxis - protonix - SCD Seen, reviewed, and discussed with attending. Jose, PGY-1 <Seema Yanez - Last Filed: 11/05/16 12:32> Objective - Vital Signs/Intake and Output Vital Signs (last 24 hours): Temp Pulse Resp BP Pulse Ox 98.8 F 83 20 111/61 98 11/05/16 07:30 11/05/16 07:30 11/05/16 07:30 11/05/16 10:23 11/05/16 07:30 Intake and Output: 11/05/16 11/05/16 06:59 18:59 Intake Total 408 Balance 408 - Medications Medications: Current Medications Acetaminophen (Tylenol 325mg Tab) 650 mg PO Q4H PRN PRN Reason: Fever >100.4 F Furosemide (Lasix) 40 mg PO DAILY [facility] Last Admin: 11/05/16 10:23 Dose: 40 mg Heparin Sodium/Sodium Chloride (Heparin 55332 Units/250ml 1/2 Normal Saline) 250 mls @ 9.389 mls/hr IV .Q24H PRN; Protocol; 18 UNITS/KG/HR PRN Reason: ADJUST RATE PER PROTOCOL Last Admin: 11/04/16 20:52 Dose: 6.9 mls/hr Insulin Human Lispro (Humalog Low) 0 units SC ACHS [facility] PRN Reason: Protocol Last Admin: 11/05/16 08:17 Dose: Not Given Lactulose (Enulose) 30 gm PO QID [facility] Last Admin: 11/05/16 10:23 Dose: 30 gm Pantoprazole Sodium (Protonix Ec Tab) 40 mg PO 0730,1630 [facility] Last Admin: 11/05/16 10:28 Dose: 40 mg Rifaximin (Xifaxan) 550 mg PO BID [facility] PRN Reason: Protocol Last Admin: 11/05/16 10:23 Dose: 550 mg Spironolactone (Aldactone) 100 mg PO DAILY [facility] Last Admin: 11/05/16 10:28 Dose: 100 mg - Labs Labs: 11/05/16 07:30 11/05/16 07:30 PT 14.8 Seconds (9.9-11.8) H 11/05/16 07:30 INR 1.37 (0.93-1.08) H 11/05/16 07:30 APTT 76.5 Seconds (23.7-30.8) H* 11/05/16 07:30 Attending/Attestation - Attestation I have personally seen and examined this patient.: Yes I have fully participated in the care of the patient.: Yes I have reviewed all pertinent clinical information, including history, physical exam and plan: Yes Notes (Text): 11/05/16 12:24 76 year old female with past medical history of diabetes, hypertension, anemia and recently diagnosed liver cirrhosis presented with altered mental status secondary to hepatic encephalopathy which improved. She is on lactulose and rifaximin. She is also on lasix and spironalactone. She is being followed by GI for recommended for possible liver biopsy. She was also found to have cecal mass. S/p colonoscopy showed the mass which biopsy taken. Surgery is following and plans to do surgery later this week. CT chest was ordered for staging. Oncology evaluation is pending. LE dopplers showed left popliteal and posterior tibial DVT and is on iv heparin for anticoagulation. IR evaluation was requested for IVC filter evaluation. Seema Yanez MD Hospitalist.
[2016-11-05] MEDS ORDERED: Gadodiamide 287 MG/ML VIAL (15ML) IV ONE (15:28)
--- NOTE | 2016-11-05 15:40 | CON ---
DATE: 11/05/2016 HISTORY OF PRESENT ILLNESS: The patient is a 76-year-old female who has a history of liver cirrhosis with history of abdominal paracenteses in the past. The patient also was found to have a c ecal mass; carcinoma had to be ruled out. The patient also was recently diagnosed with acute DVT of the left popliteal and tibial veins. Surgical clearance was requested. The patient denies any chest pain and is unaware of any history of heart attack in the past. MEDICATIONS: Aldactone 100 mg once a day, heparin infusion in a therapeutic regimen, Lasix 40 mg p.o . once a day, Protonix 40 mg p.o. twice a day. PHYSICAL EXAMINATION: GENERAL: The patient is an elderly female who does not appear to be in any acute distress. VITAL SIGNS: Blood pressure 111/61, heart rate 83, temperature 98.8, respiration 20. HEENT: Pale conjunctivae. NECK: No JVD. CHEST: Absent breath sounds over the bases. HEART: S1, S2 irregular. ABDOMEN: Mild ascites. EXTREMITIES: Trace pedal edema. EKG reveals sinus rhythm with PVCs. Chest x-ray revealed no active disease. LABORATORY DATA: Hemoglobin and hematocrit 8.7 and 27.4, white count 11.5, platelet count 108,000. Today's SMA-7 is within normal limits except for glucose of 137 and BUN of 8. PTT 76.5 on intravenou s heparin. FELICIA screen is positive and FELICIA titer is 1:40; the pattern is nucleolar. Chest CT scan without contrast done today was unremarkable except for the findings of cirrhosis and m oderate to severe ascites and gallstones. ASSESSMENT: 1. Acute deep venous thrombosis. 2. Liver cirrhosis. 3. Cecal mass. 4. Anemia. RECOMMENDATIONS: Continue current Aldactone, intravenous heparin infusion and oral Lasix. Obtain an echocardiogram. Alex Garcia MD cc: [id number] TT: 11/05/2016 15:39:45 Confirmation # [id number] Dictation # [id number] mn
[2016-11-06 07:49] LABS: MEAN CELL VOLUME 71.6 fL (80.0-105.0); MEAN CORPUSCULAR HEMOGLOBIN 22.5 pg (25.0-35.0); MEAN CORPUSCULAR HGB CONC 31.5 g/dl (31.0-37.0); PLATELET COUNT 105 10^3/uL (120.0-450.0); WHITE BLOOD COUNT 8.4 10^3/ul (4.5-11.0)
[2016-11-06 07:59] LABS: INR 1.28 (0.93-1.08); PARTIAL THROMBOPLASTIN TIME 33.6 Seconds (23.7-30.8)
[2016-11-06] MEDS: Pantoprazole 40 mg EC Tab PO SCH ×2 (08:00→17:22)
[2016-11-06] MEDS: Insulin Lispro (humaLOG) LOW Coverage SC SCH ×4 (08:00→22:45)
[2016-11-06 08:02] LABS: ALB/GLOB RATIO 0.5 (1.1-1.8); ALKALINE PHOSPHATASE 116 U/L (38-133); ALT/SGPT 27 U/L (7-56); AST/SGOT 40 U/L (15-39); BILIRUBIN,TOTAL 1.2 mg/dL (0.2-1.3); BLOOD UREA NITROGEN 15 mg/dL (7-21); CARBON DIOXIDE 25 mmol/L (21-33); CHLORIDE 103 mmol/L (95-110); GFR AFRICAN-AMERICAN > 60; GLUCOSE,RANDOM 182 mg/dL (70-110); POTASSIUM 4.1 mmol/L (3.6-5.0); SODIUM 132 mmol/L (132-148); TOTAL PROTEIN 5.1 g/dL (5.8-8.3)
--- NOTE | 2016-11-06 10:19 | MRI ---
PROCEDURE: MRI Abdomen with and without contrast HISTORY: Cecal mass. Evaluate solitary liver lesion COMPARISON: CT 10/30/2016. TECHNIQUE: Multisequence, multiplanar MR images of the abdomen with and without gadolinium contrast enhancement. FINDINGS: LIVER: As seen on the CT study there is a 8 cystic lesion in the anterior segment of the right lobe of the liver. This measures 2 cm in diameter. This does not show any enhancement. There are no septations. This is a simple cyst. There are no other lesions in the liver to suggest metastatic disease or primary neoplasm. The liver has an irregular contour consistent with cirrhosis. There is also atrophy. There is a large amount of ascites surrounding the liver. GALLBLADDER: A stone is seen in the region of the neck of the gallbladder. There is no evidence of cholecystitis. The stone measures 6 mm as seen on axial image 15 series 3. SPLEEN: Unremarkable. PANCREAS: Unremarkable. ADRENALS: Unremarkable. KIDNEYS: Unremarkable. AORTA: No aneurysm. ASCITES: None. PERITONEUM: Unremarkable. LYMPH NODES: Unremarkable. OTHER FINDINGS: None. IMPRESSION: Cirrhosis with severe ascites. 2 cm simple cyst in the liver. Gallstone
--- NOTE | 2016-11-06 11:55 | PN ---
DATE: 11/06/2016 The patient denies any chest pain or abdominal pain. PHYSICAL EXAMINATION: VITAL SIGNS: Blood pressure 101/____4, heart rate 87, temperature 97.9, respirations 18. HEENT: Pale conjunctivae. CHEST: Diminished breath sounds over the bases. HEART: S1, S2 regular. ABDOMEN: Mild sinus. EXTREMITIES: 1+ pitting edema. LABORATORIES: Hemoglobin and hematocrit 8.5 and 27.0. White count and platelet count are 8.4 and 10 5,000. Today's SMA-7 is within normal limits except for glucose of 182 and anion gap of 8. ASSESSMENT: 1. Acute deep venous thrombosis, status post inferior vena cava filter placement. 2. Cecal mass. 3. Liver cirrhosis. 4. Anemia. RECOMMENDATIONS: Continue current Aldactone, intravenous heparin infusion, and oral Lasix. I discus sed the case with Dr. Yanez, and I am awaiting echocardiograph study to be performed. Alex Garcia MD cc: [id number] TT: 11/06/2016 11:54:24 Confirmation # [id number] Dictation # [id number] shakira
[2016-11-06] MEDS ORDERED: Lidocaine 2% Inj (20ml) ONE (13:35)
[2016-11-06] MEDS ORDERED: Iodixanol 320 mg/ml 150 ml Bottle IV ONE (13:36)
--- NOTE | 2016-11-06 13:51 | CP.PCM.PN ---
<Darío Garcia - Last Filed: 11/06/16 13:48> Subjective - Date & Time of Evaluation Date of Evaluation: 11/06/16 Time of Evaluation: 13:48 - Subjective Subjective: Pt seen and examined at bedside. Pt doing well with no complaints. No acute events overnight. Pt states she no longer has pain in her left leg. Pt tolerating diet well. No bloody bowel movements. Denies CP, SOB, N/V/D. Objective - Vital Signs/Intake and Output Vital Signs (last 24 hours): Temp Pulse Resp BP Pulse Ox 97.9 F 87 18 101/54 L 97 11/06/16 07:30 11/06/16 07:30 11/06/16 07:30 11/06/16 09:24 11/06/16 07:30 Intake and Output: 11/06/16 11/06/16 06:59 18:59 Intake Total 241 Balance 241 - Medications Medications: Current Medications Acetaminophen (Tylenol 325mg Tab) 650 mg PO Q4H PRN PRN Reason: Fever >100.4 F Furosemide (Lasix) 40 mg PO DAILY [facility] Last Admin: 11/06/16 09:24 Dose: Not Given Heparin Sodium/Sodium Chloride (Heparin 63197 Units/250ml 1/2 Normal Saline) 250 mls @ 9.389 mls/hr IV .Q24H PRN; Protocol; 18 UNITS/KG/HR PRN Reason: ADJUST RATE PER PROTOCOL Last Admin: 11/04/16 20:52 Dose: 6.9 mls/hr Insulin Human Lispro (Humalog Low) 0 units SC ACHS [facility] PRN Reason: Protocol Last Admin: 11/06/16 11:30 Dose: Not Given Lactulose (Enulose) 30 gm PO QID [facility] Last Admin: 11/06/16 13:39 Dose: Not Given Pantoprazole Sodium (Protonix Ec Tab) 40 mg PO 0730,1630 [facility] Last Admin: 11/06/16 08:00 Dose: 40 mg Rifaximin (Xifaxan) 550 mg PO BID [facility] PRN Reason: Protocol Last Admin: 11/06/16 09:22 Dose: 550 mg Spironolactone (Aldactone) 100 mg PO DAILY [facility] Last Admin: 11/06/16 09:22 Dose: 100 mg - Labs Labs: 11/06/16 06:45 11/06/16 06:45 PT 13.8 Seconds (9.9-11.8) H 11/06/16 06:45 INR 1.28 (0.93-1.08) H 11/06/16 06:45 APTT 33.6 Seconds (23.7-30.8) H 11/06/16 06:45 - Constitutional Appears: Well, No Acute Distress - Head Exam Head Exam: ATRAUMATIC, NORMAL INSPECTION, NORMOCEPHALIC - ENT Exam ENT Exam: Mucous Membranes Moist, Normal Exam - Respiratory Exam Respiratory Exam: Clear to Ausculation Bilateral, NORMAL BREATHING PATTERN. absent: Rhonchi, Wheezes - Cardiovascular Exam Cardiovascular Exam: RRR, +S1, +S2 - GI/Abdominal Exam GI & Abdominal Exam: Soft, Normal Bowel Sounds. absent: Tenderness - Extremities Exam Extremities Exam: Normal Inspection. absent: Calf Tenderness Additional comments: Left leg edema, 2+ - Neurological Exam Neurological Exam: Alert, Awake, Oriented x3 - Psychiatric Exam Psychiatric exam: Normal Affect, Normal Mood - Skin Skin Exam: Intact, Normal Color, Warm Assessment and Plan - Assessment and Plan (Free Text) Plan: 76 y/o Armenian speaking female with PMH of DM2, HTN, microcytic anemia and recently diagnosed liver cirrhosis presents with hepatic encephalopathy, now resolved and found to have a cecal mass on CT. Pt underwent follow up CT to evaluate cecal mass, which showed fungating, nonobstructive mass in the cecum, biopsies were taken. Pt also found to have left popliteal and tibial DVT, heparing drip started. Pt underwent Abdomen MRI which showed a liver lesion, will be biopsied by IR today. In addition, pt will have IVC filter placed. Pt scheduled for right hemicholectomy on 11/08. Liver cirrhosis - Continue rifaximin and lactulose - Liver lesion to be biopsied during IVC filter placement - GI signed off at this time Left leg DVT - Heparin stopped for IVC filter placement - IVC filter to be placed today Cecal Mass - Surgery consulted, surgery scheduled for 11/08 - Oncology consulted, Dr. Ray - Chest CT unremarkable Ascites - Liver cirrhosis as evident on CT (see report) - Continue Lasix and aldactone - Continue morphine for pain management Hx of DM2 - ISS - A1C Prophylaxis - protonix - SCD Seen, reviewed, and discussed with attending. Jose, PGY-1 <Seema Yanez - Last Filed: 11/06/16 14:46> Objective - Vital Signs/Intake and Output Vital Signs (last 24 hours): Temp Pulse Resp BP Pulse Ox 97.9 F 87 18 101/54 L 97 11/06/16 07:30 11/06/16 07:30 11/06/16 07:30 11/06/16 09:24 11/06/16 07:30 Intake and Output: 11/06/16 11/06/16 06:59 18:59 Intake Total 241 Balance 241 - Medications Medications: Current Medications Acetaminophen (Tylenol 325mg Tab) 650 mg PO Q4H PRN PRN Reason: Fever >100.4 F Furosemide (Lasix) 40 mg PO DAILY [facility] Last Admin: 11/06/16 09:24 Dose: Not Given Heparin Sodium/Sodium Chloride (Heparin 80341 Units/250ml 1/2 Normal Saline) 250 mls @ 9.389 mls/hr IV .Q24H PRN; Protocol; 18 UNITS/KG/HR PRN Reason: ADJUST RATE PER PROTOCOL Last Admin: 11/04/16 20:52 Dose: 6.9 mls/hr Insulin Human Lispro (Humalog Low) 0 units SC ACHS [facility] PRN Reason: Protocol Last Admin: 11/06/16 11:30 Dose: Not Given Lactulose (Enulose) 30 gm PO QID [facility] Last Admin: 11/06/16 13:39 Dose: Not Given Pantoprazole Sodium (Protonix Ec Tab) 40 mg PO 0730,1630 [facility] Last Admin: 11/06/16 08:00 Dose: 40 mg Rifaximin (Xifaxan) 550 mg PO BID [facility] PRN Reason: Protocol Last Admin: 11/06/16 09:22 Dose: 550 mg Spironolactone (Aldactone) 100 mg PO DAILY [facility] Last Admin: 11/06/16 09:22 Dose: 100 mg - Labs Labs: 11/06/16 06:45 11/06/16 06:45 PT 13.8 Seconds (9.9-11.8) H 11/06/16 06:45 INR 1.28 (0.93-1.08) H 11/06/16 06:45 APTT 33.6 Seconds (23.7-30.8) H 11/06/16 06:45 Attending/Attestation - Attestation I have personally seen and examined this patient.: Yes I have fully participated in the care of the patient.: Yes I have reviewed all pertinent clinical information, including history, physical exam and plan: Yes Notes (Text): 11/06/16 14:42 76 year old female with past medical history of diabetes, hypertension, anemia and recently diagnosed liver cirrhosis presented with altered mental status secondary to hepatic encephalopathy which has resolved. She is on lactulose, rifaximin, lasix and spironalactone. She was also found to have liver lesion for which she is going for liver biopsy today. She was also found to have cecal mass. She is s/p colonoscopy showed the mass which biopsy taken. 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 CEA is elevated. AFP is pending. Surgery is following and plans to do surgery early next week. CT chest was done for staging which was unremarkable. Cardiology is following for cardiac clearance and is awaiting echocardiogram. Oncology evaluations is pending. LE dopplers showed left popliteal and posterior tibial DVT and is on iv heparin for anticoagulation. Plan is for IVC filter insertion today. Hematology evaluation is pending. Seema Yanez MD Hospitalist.
--- NOTE | 2016-11-06 14:16 | CP.PCM.PN ---
Subjective - Date & Time of Evaluation Date of Evaluation: 11/06/16 Time of Evaluation: 14:13 - Subjective Subjective: Surgery: Dr. Mahmood Pt seen and examined. Resting comfortably in bed. No complaints of pain. Pt states that they are tolerating diet. No N/V. +Flatus / BM. Objective - Vital Signs/Intake and Output Vital Signs (last 24 hours): Temp Pulse Resp BP Pulse Ox 97.9 F 87 18 101/54 L 97 11/06/16 07:30 11/06/16 07:30 11/06/16 07:30 11/06/16 09:24 11/06/16 07:30 Intake and Output: 11/06/16 11/06/16 06:59 18:59 Intake Total 241 Balance 241 - Medications Medications: Current Medications Acetaminophen (Tylenol 325mg Tab) 650 mg PO Q4H PRN PRN Reason: Fever >100.4 F Furosemide (Lasix) 40 mg PO DAILY [facility] Last Admin: 11/06/16 09:24 Dose: Not Given Heparin Sodium/Sodium Chloride (Heparin 40150 Units/250ml 1/2 Normal Saline) 250 mls @ 9.389 mls/hr IV .Q24H PRN; Protocol; 18 UNITS/KG/HR PRN Reason: ADJUST RATE PER PROTOCOL Last Admin: 11/04/16 20:52 Dose: 6.9 mls/hr Insulin Human Lispro (Humalog Low) 0 units SC ACHS [facility] PRN Reason: Protocol Last Admin: 11/06/16 11:30 Dose: Not Given Lactulose (Enulose) 30 gm PO QID [facility] Last Admin: 11/06/16 13:39 Dose: Not Given Pantoprazole Sodium (Protonix Ec Tab) 40 mg PO 0730,1630 [facility] Last Admin: 11/06/16 08:00 Dose: 40 mg Rifaximin (Xifaxan) 550 mg PO BID [facility] PRN Reason: Protocol Last Admin: 11/06/16 09:22 Dose: 550 mg Spironolactone (Aldactone) 100 mg PO DAILY [facility] Last Admin: 11/06/16 09:22 Dose: 100 mg - Labs Labs: 11/06/16 06:45 11/06/16 06:45 PT 13.8 Seconds (9.9-11.8) H 11/06/16 06:45 INR 1.28 (0.93-1.08) H 11/06/16 06:45 APTT 33.6 Seconds (23.7-30.8) H 11/06/16 06:45 - Constitutional Appears: Non-toxic, No Acute Distress - Head Exam Head Exam: ATRAUMATIC, NORMOCEPHALIC - Eye Exam Eye Exam: EOMI. absent: Scleral icterus - ENT Exam ENT Exam: Mucous Membranes Moist - Neck Exam Neck Exam: Full ROM - Respiratory Exam Respiratory Exam: NORMAL BREATHING PATTERN. absent: Accessory Muscle Use, Respiratory Distress - GI/Abdominal Exam GI & Abdominal Exam: Soft. absent: Distended, Firm, Guarding, Rigid, Tenderness , Rebound - Extremities Exam Extremities Exam: Calf Tenderness (Left), Pedal Edema (Left) - Neurological Exam Neurological Exam: Alert, Awake - Psychiatric Exam Psychiatric exam: Normal Affect, Normal Mood Assessment and Plan - Assessment and Plan (Free Text) Assessment: 76F w. cecal mass and LLE DVT -For IR bx of liver today -F/u path results from colonoscopy -will tentatively plan for OR on Saturday for colectomy -will continue to follow -d/w attending Sofía PGY2
[2016-11-06] MEDS ORDERED: Midazolam 2 MG/2 ML VIAL ONE (14:44)
[2016-11-06] MEDS ORDERED: Sodium Chloride 0.45% 1,000 ML IV SCH (15:30)
--- NOTE | 2016-11-06 15:40 | CARD ---
APPROVED REPORT EXAM: Two-dimensional and M-mode echocardiogram with Doppler and color Doppler. INDICATION Pre-Op 2D DIMENSIONS Left Atrium (2D)3.3 (1.6-4.0cm)IVSd1.0 (0.7-1.1cm) LVDd4.4 (3.9-5.9cm)PWd0.9 (0.7-1.1cm) LVDs2.5 (2.5-4.0cm)FS (%) 42.2 % LVEF (%)73.4 (>50%) M-Mode DIMENSIONS Aortic Root2.40 (2.2-3.7cm)Aortic Cusp Exc.1.40 (1.5-2.0cm) Aortic Valve AoV Peak Quqptgly111.0cm/Sparkle Peak GR.18mmHg Mitral Valve MV E Nwmvflgq68.5cm/sMV A Vtywakoj243.0cm/sE/A ratio0.6 TDI E/Lateral E'0.0E/Medial E'0.0 Tricuspid Valve TR Peak Pivhpzaj881am/sRAP [id number] Peak Gr.23mmHg [id number] LEFT VENTRICLE The left ventricle is normal size. There is normal left ventricular wall thickness. The left ventricular function is normal. The left ventricular ejection fraction is within the normal range. Transmitral Doppler flow pattern is Grade I-abnormal relaxation pattern. RIGHT VENTRICLE The right ventricle is normal size. There is normal right ventricular wall thickness. The right ventricular systolic function is normal. ATRIA The left atrium size is normal. The right atrium size is normal. AORTIC VALVE The aortic valve is mildly sclerotic. MITRAL VALVE The mitral valve is mildly thickened. There is no mitral valve regurgitation noted. TRICUSPID VALVE There is trace tricuspid regurgitation. GREAT VESSELS The aortic root is normal in size. PERICARDIAL EFFUSION There is a trace loculated anterior pericardial effusion. <Conclusion> The left ventricle is normal size. There is normal left ventricular wall thickness. The left ventricular function is normal. The left ventricular ejection fraction is within the normal range. Transmitral Doppler flow pattern is Grade I-abnormal relaxation pattern.
--- NOTE | 2016-11-06 17:11 | VASCULAR ---
PROCEDURE: IVC Filter placement HISTORY: DVT. Cecal carcinoma. Needs surgery. Cirrhosis. Poor candidate for anticoagulation. PHYSICIAN(S): Brendon Gutierrez MD. TECHNIQUE: The relative risks and indications of the procedure were explained to the patient and her and consent obtained. The patient was placed supine on the arteriogram table the right groin prepped and draped usual sterile fashion. Conscious sedation and monitoring were provided throughout the procedure by a nurse. Via a right common femoral vein approach, a 5 Kazakh sheath was placed. The guidewire and flush catheter were advanced over the IVC bifurcation and placed in the left iliac venous system. A PA DSA IVC gram was performed with emphasis on the renal veins. Exchange was made for a support wire placed in the right atrium. The 6.5 Kazakh sheath was advanced to the level of the renal veins. Next a argon retrievable filter was deployed in the infrarenal IVC at the level of L1-L2. A post deployment cavagram was performed through the introducer sheath. The sheath was removed and hemostasis obtained. Patient tolerated the procedure well. FINDINGS: The visualized iliac veins and IVC are normal. No evidence of IVC thrombus or anomaly is seen. The renal veins are easily identified. The argon retrievable filter was deployed and is in good position at the level of L1-L2. IMPRESSION: 1. No evidence of IVC anomaly or thrombus. 2. Successful deployment of a argon retrievable filter in the infrarenal IVC at the level of L1-L2.
[2016-11-06] MEDS: Heparin25000 units/250ml 1/2NS 250 ML IV PRN (20:33)
[2016-11-07 07:42] LABS: HEMATOCRIT 27.5 % (36.0-48.0); MEAN CORPUSCULAR HEMOGLOBIN 22.5 pg (25.0-35.0); MEAN CORPUSCULAR HGB CONC 31.3 g/dl (31.0-37.0); PLATELET COUNT 120 10^3/uL (120.0-450.0); RED CELL DISTRIBUTION WIDTH 30.2 % (11.5-14.5); WHITE BLOOD COUNT 6.6 10^3/ul (4.5-11.0)
[2016-11-07 07:53] LABS: INR 1.25 (0.93-1.08); PARTIAL THROMBOPLASTIN TIME 62.8 Seconds (23.7-30.8)
[2016-11-07 08:03] LABS: ALB/GLOB RATIO 0.5 (1.1-1.8); ALKALINE PHOSPHATASE 122 U/L (38-133); ALT/SGPT 25 U/L (7-56); AST/SGOT 31 U/L (15-39); BILIRUBIN,TOTAL 1.3 mg/dL (0.2-1.3); BLOOD UREA NITROGEN 15 mg/dL (7-21); CALCIUM 8.1 mg/dL (8.4-10.5); CARBON DIOXIDE 25 mmol/L (21-33); CHLORIDE 102 mmol/L (95-110); GFR AFRICAN-AMERICAN > 60; GLUCOSE,RANDOM 144 mg/dL (70-110); POTASSIUM 4.3 mmol/L (3.6-5.0); SODIUM 132 mmol/L (132-148); TOTAL PROTEIN 5.1 g/dL (5.8-8.3)
[2016-11-07] MEDS: Pantoprazole 40 mg EC Tab PO SCH ×2 (09:18→17:25)
[2016-11-07] MEDS: Insulin Lispro (humaLOG) LOW Coverage SC SCH ×4 (09:19→22:09)
--- NOTE | 2016-11-07 12:27 | CP.PCM.PN ---
Subjective - Date & Time of Evaluation Date of Evaluation: 11/07/16 Time of Evaluation: 12:25 - Subjective Subjective: Surgery: Dr. Mahmood Pt seen and examined. Resting comfortably in bed. No complaints of pain. Tolerating diet. No N/V. +Flatus/BM Objective - Vital Signs/Intake and Output Vital Signs (last 24 hours): Temp Pulse Resp BP Pulse Ox 98.1 F 87 20 129/71 98 11/07/16 07:30 11/07/16 07:30 11/07/16 07:30 11/07/16 09:18 11/07/16 07:30 Intake and Output: 11/07/16 11/07/16 06:59 18:59 Intake Total 240 Balance 240 - Medications Medications: Current Medications Acetaminophen (Tylenol 325mg Tab) 650 mg PO Q4H PRN PRN Reason: Fever >100.4 F Furosemide (Lasix) 40 mg PO DAILY [facility] Last Admin: 11/07/16 09:18 Dose: 40 mg Heparin Sodium/Sodium Chloride (Heparin 71273 Units/250ml 1/2 Normal Saline) 250 mls @ 9.389 mls/hr IV .Q24H PRN; Protocol; 18 UNITS/KG/HR PRN Reason: ADJUST RATE PER PROTOCOL Last Admin: 11/06/16 20:33 Dose: 6.9 mls/hr Insulin Human Lispro (Humalog Low) 0 units SC ACHS [facility] PRN Reason: Protocol Last Admin: 11/07/16 12:01 Dose: 1 units Lactulose (Enulose) 30 gm PO QID [facility] Last Admin: 11/07/16 09:12 Dose: 30 gm Pantoprazole Sodium (Protonix Ec Tab) 40 mg PO 0730,1630 [facility] Last Admin: 11/07/16 09:18 Dose: 40 mg Rifaximin (Xifaxan) 550 mg PO BID [facility] PRN Reason: Protocol Last Admin: 11/07/16 09:18 Dose: 550 mg Spironolactone (Aldactone) 100 mg PO DAILY [facility] Last Admin: 11/07/16 09:18 Dose: 100 mg - Labs Labs: 11/07/16 07:20 11/07/16 07:20 PT 13.5 Seconds (9.9-11.8) H 11/07/16 07:20 INR 1.25 (0.93-1.08) H 11/07/16 07:20 APTT 62.8 Seconds (23.7-30.8) H 11/07/16 07:20 - Constitutional Appears: Non-toxic, No Acute Distress - Head Exam Head Exam: ATRAUMATIC, NORMOCEPHALIC - Eye Exam Eye Exam: EOMI. absent: Scleral icterus - ENT Exam ENT Exam: Mucous Membranes Moist, Normal External Ear Exam - Respiratory Exam Respiratory Exam: NORMAL BREATHING PATTERN. absent: Accessory Muscle Use, Respiratory Distress - GI/Abdominal Exam GI & Abdominal Exam: Soft. absent: Distended, Firm, Guarding, Rigid, Tenderness , Rebound - Extremities Exam Extremities Exam: Calf Tenderness (Left), Pedal Edema (Left) - Neurological Exam Neurological Exam: Alert, Awake Assessment and Plan - Assessment and Plan (Free Text) Plan: 76F w. cecal mass and LLE DVT s/p IVC -Path from colonoscopy: +adenocarcinoma -IR bx of liver? -will tentatively plan for OR on Saturday for colectomy -will continue to follow -d/w attending Sofía PGY2
--- NOTE | 2016-11-07 14:45 | CON ---
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 In my mind, it is unclear why s he came to the hospital, was it weakness or was it pain or a change in bowel habits. I am not clear. ____ complaint of any change in bowel habits now. She basically said she was weak for the last 2-3 months, [facility] was [facility] and came to [facility]. PHYSICAL EXAMINATION: SKIN: No petechiae, no bruises. HEENT: Anicteric. NODES: None palpable in the axillary, cervical, supraclavicular or inguinal regions. LUNGS: Clear at present. No vertebral tenderness. The patient is able to lie flat in bed. HEART: S1, S2. BREAST: No mass, discharge. ABDOMEN: Shows ascites and this is after she had the paracentesis. I cannot feel an omental lesion, omental masses. There is no tenderness, no rebound, no liver, no spleen. EXTREMITIES: Show bilateral edema, but the left leg has increased edema as opposed to the right. My understanding she has a DVT found in that area. So she has, on MRI, cirrhotic liver with ascites. She has a DVT that is new for which she was placed a filter and she has a colon cancer. On x-ray, there is a cystic lesion about 2 cm in the liver. No actual masses. The first question is what are the risks of doing a colon cancer operation. This lady has a recent DVT and cirrhosis, but clearly h er medical risks are much greater than average. Second issue is when is the best time to do the surg estefania, is it now or is it later and let her go home as an outpatient, see how she does nutritionally, s ee how she does with the leg and how quickly she builds up with the ascites. Ultimate prognosis of h er situation is markedly improved by operating on her cancer and having the liver deteriorate. We do not really know the timeline of that liver. She really has not been to a doctor in a long time. IN SUMMARY: Therefore: 1. To help assess the liver abnormalities, I ordered a fibrinogen, haptoglobin and an ammonia level to get some kind of a better picture of the liver function. 2. I will try to give a call to Dr. Mahmood and go over the case with him in terms of what kind of o peration timing and whether doing a liver biopsy will be of any help in terms of making decisions wha t kind of surgery to be done. Ronny Jane GÓMEZ cc: [id number] TT: 11/07/2016 14:44:08 Confirmation # [id number] Dictation # [id number]
--- NOTE | 2016-11-07 15:06 | CP.PCM.PN ---
<Darío Garcia - Last Filed: 11/07/16 15:03> Subjective - Date & Time of Evaluation Date of Evaluation: 11/07/16 Time of Evaluation: 15:03 - Subjective Subjective: Pt seen and examined at bedside. Pt had IVC filter placed yesterday with no complications. Pt has no complaints this morning. No acute events overnight. Denies CP, SOB, N/V/D. Objective - Vital Signs/Intake and Output Vital Signs (last 24 hours): Temp Pulse Resp BP Pulse Ox 98.1 F 87 20 129/71 98 11/07/16 07:30 11/07/16 07:30 11/07/16 07:30 11/07/16 09:18 11/07/16 07:30 Intake and Output: 11/07/16 11/07/16 06:59 18:59 Intake Total 240 Balance 240 - Medications Medications: Current Medications Acetaminophen (Tylenol 325mg Tab) 650 mg PO Q4H PRN PRN Reason: Fever >100.4 F Furosemide (Lasix) 40 mg PO DAILY [facility] Last Admin: 11/07/16 09:18 Dose: 40 mg Heparin Sodium/Sodium Chloride (Heparin 53305 Units/250ml 1/2 Normal Saline) 250 mls @ 9.389 mls/hr IV .Q24H PRN; Protocol; 18 UNITS/KG/HR PRN Reason: ADJUST RATE PER PROTOCOL Last Admin: 11/06/16 20:33 Dose: 6.9 mls/hr Insulin Human Lispro (Humalog Low) 0 units SC ACHS [facility] PRN Reason: Protocol Last Admin: 11/07/16 12:01 Dose: 1 units Lactulose (Enulose) 30 gm PO QID [facility] Last Admin: 11/07/16 13:58 Dose: 30 gm Pantoprazole Sodium (Protonix Ec Tab) 40 mg PO 0730,1630 [facility] Last Admin: 11/07/16 09:18 Dose: 40 mg Rifaximin (Xifaxan) 550 mg PO BID [facility] PRN Reason: Protocol Last Admin: 11/07/16 09:18 Dose: 550 mg Spironolactone (Aldactone) 100 mg PO DAILY [facility] Last Admin: 11/07/16 09:18 Dose: 100 mg - Labs Labs: 11/07/16 07:20 11/07/16 07:20 PT 13.5 Seconds (9.9-11.8) H 11/07/16 07:20 INR 1.25 (0.93-1.08) H 11/07/16 07:20 APTT 62.8 Seconds (23.7-30.8) H 11/07/16 07:20 - Constitutional Appears: Well, No Acute Distress - Head Exam Head Exam: ATRAUMATIC, NORMAL INSPECTION, NORMOCEPHALIC - ENT Exam ENT Exam: Mucous Membranes Moist, Normal Exam - Respiratory Exam Respiratory Exam: Clear to Ausculation Bilateral, NORMAL BREATHING PATTERN. absent: Rhonchi, Wheezes - Cardiovascular Exam Cardiovascular Exam: RRR, +S1, +S2 - GI/Abdominal Exam GI & Abdominal Exam: Distended, Soft, Normal Bowel Sounds. absent: Tenderness - Extremities Exam Extremities Exam: Normal Inspection, Pedal Edema. absent: Calf Tenderness - Neurological Exam Neurological Exam: Alert, Awake, Oriented x3 - Psychiatric Exam Psychiatric exam: Normal Affect, Normal Mood - Skin Skin Exam: Intact, Normal Color, Warm Assessment and Plan - Assessment and Plan (Free Text) Plan: 76 y/o Turkmen speaking female with PMH of DM2, HTN, microcytic anemia and recently diagnosed liver cirrhosis presents with hepatic encephalopathy, now resolved and found to have a cecal mass on CT. Pt underwent follow up CT to evaluate cecal mass, which showed fungating, nonobstructive mass in the cecum, biopsies were taken. Pt also found to have left popliteal and tibial DVT, heparing drip started. Pt had IVC filter placed yesterday by IR. Pt is tentatively scheduled for 11/12/16. Surgery is weighing risks and benefits of surgery at this time and will make definitive decision on timetable of hemicholectomy. Liver cirrhosis - Continue rifaximin and lactulose - Liver lesion noted to be simple cyst on MRI, no biopsy Left leg DVT - Heparin restarted s/p IVC filter placement - Continue to monitor Cecal Mass - Surgery consulted, surgery scheduled for 11/12 - Oncology ordered fibrinogen, haptoglobin, and ammonia to assess liver function. They will also discuss best options with surgery. - Oncology consulted, Dr. Lara - Chest CT unremarkable Ascites - Liver cirrhosis as evident on CT (see report) - Continue Lasix and aldactone - Continue morphine for pain management Hx of DM2 - ISS - A1C Prophylaxis - protonix - SCD Seen, reviewed, and discussed with attending. Jose, PGY-1 <Seema Yanez - Last Filed: 11/07/16 15:41> Objective - Vital Signs/Intake and Output Vital Signs (last 24 hours): Temp Pulse Resp BP Pulse Ox 98.1 F 87 20 129/71 98 11/07/16 07:30 11/07/16 07:30 11/07/16 07:30 11/07/16 09:18 11/07/16 07:30 Intake and Output: 11/07/16 11/07/16 06:59 18:59 Intake Total 240 Balance 240 - Medications Medications: Current Medications Acetaminophen (Tylenol 325mg Tab) 650 mg PO Q4H PRN PRN Reason: Fever >100.4 F Furosemide (Lasix) 40 mg PO DAILY [facility] Last Admin: 11/07/16 09:18 Dose: 40 mg Heparin Sodium/Sodium Chloride (Heparin 53023 Units/250ml 1/2 Normal Saline) 250 mls @ 9.389 mls/hr IV .Q24H PRN; Protocol; 18 UNITS/KG/HR PRN Reason: ADJUST RATE PER PROTOCOL Last Admin: 11/06/16 20:33 Dose: 6.9 mls/hr Insulin Human Lispro (Humalog Low) 0 units SC ACHS [facility] PRN Reason: Protocol Last Admin: 11/07/16 12:01 Dose: 1 units Lactulose (Enulose) 30 gm PO QID [facility] Last Admin: 11/07/16 13:58 Dose: 30 gm Pantoprazole Sodium (Protonix Ec Tab) 40 mg PO 0730,1630 [facility] Last Admin: 11/07/16 09:18 Dose: 40 mg Rifaximin (Xifaxan) 550 mg PO BID [facility] PRN Reason: Protocol Last Admin: 11/07/16 09:18 Dose: 550 mg Spironolactone (Aldactone) 100 mg PO DAILY [facility] Last Admin: 11/07/16 09:18 Dose: 100 mg - Labs Labs: 11/07/16 07:20 11/07/16 07:20 PT 13.5 Seconds (9.9-11.8) H 11/07/16 07:20 INR 1.25 (0.93-1.08) H 11/07/16 07:20 APTT 62.8 Seconds (23.7-30.8) H 11/07/16 07:20 Attending/Attestation - Attestation I have personally seen and examined this patient.: Yes I have fully participated in the care of the patient.: Yes I have reviewed all pertinent clinical information, including history, physical exam and plan: Yes Notes (Text): 11/07/16 15:36 76 year old female with past medical history of diabetes, hypertension, anemia and recently diagnosed liver cirrhosis presented with altered mental status secondary to hepatic encephalopathy which has resolved. She is on lactulose, rifaximin, lasix and spironalactone. She was also found to have liver lesion. MRI showed simple cyst and liver biopsy was not done. She was also found to have cecal mass. 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 CEA is elevated. AFP is normal. Surgery is following and plan is for possible surgery early next week. Oncology evaluation was also requested; will follow up with recommendations. CT chest was done for staging which was unremarkable. LE dopplers showed left popliteal and posterior tibial DVT and is on iv heparin for anticoagulation. She is s/p IVC filter placement yesterday. Will follow up with hematology recommendations. Seema Yanez MD Hospitalist.
[2016-11-08] MEDS: Heparin25000 units/250ml 1/2NS 250 ML IV PRN (04:14)
[2016-11-08] MEDS: Pantoprazole 40 mg EC Tab PO SCH ×2 (06:44→17:47)
[2016-11-08 07:13] LABS: HEMATOCRIT 25.6 % (36.0-48.0); MEAN CELL VOLUME 72.1 fL (80.0-105.0); MEAN CORPUSCULAR HEMOGLOBIN 22.8 pg (25.0-35.0); MEAN CORPUSCULAR HGB CONC 31.6 g/dl (31.0-37.0); PLATELET COUNT 121 10^3/uL (120.0-450.0); RED CELL DISTRIBUTION WIDTH 30.3 % (11.5-14.5); WHITE BLOOD COUNT 5.2 10^3/ul (4.5-11.0)
[2016-11-08 07:23] LABS: ALB/GLOB RATIO 0.5 (1.1-1.8); ALKALINE PHOSPHATASE 114 U/L (38-133); ALT/SGPT 36 U/L (7-56); AST/SGOT 30 U/L (15-39); BILIRUBIN,TOTAL 1.1 mg/dL (0.2-1.3); BLOOD UREA NITROGEN 16 mg/dL (7-21); CALCIUM 8.3 mg/dL (8.4-10.5); CARBON DIOXIDE 26 mmol/L (21-33); CHLORIDE 104 mmol/L (95-110); GFR AFRICAN-AMERICAN > 60; GLUCOSE,RANDOM 126 mg/dL (70-110); POTASSIUM 4.3 mmol/L (3.6-5.0); SODIUM 134 mmol/L (132-148)
[2016-11-08 07:28] LABS: INR 1.26 (0.93-1.08)
[2016-11-08] MEDS: Insulin Lispro (humaLOG) LOW Coverage SC SCH ×4 (07:55→22:53)
--- NOTE | 2016-11-08 08:14 | CP.PCM.PN ---
Subjective - Date & Time of Evaluation Date of Evaluation: 11/08/16 Time of Evaluation: 08:08 - Subjective Subjective: SURGICAL PROGRESS NOTE FOR DR. BUTLER Patient is seen and examined at bedside. No acute events overnight. Denies having any pain. Patient is having BM and passing gas. Patient is tolerating diet. Objective - Vital Signs/Intake and Output Vital Signs (last 24 hours): Temp Pulse Resp BP Pulse Ox 97.9 F 90 20 119/52 L 98 11/07/16 16:00 11/07/16 16:00 11/07/16 16:00 11/07/16 16:00 11/07/16 16:00 Intake and Output: 11/08/16 11/08/16 06:59 18:59 Intake Total 416 Balance 416 - Medications Medications: Current Medications Acetaminophen (Tylenol 325mg Tab) 650 mg PO Q4H PRN PRN Reason: Fever >100.4 F Ferric Sodium Gluconate Complex (Ferrlecit) 125 mg IVPB DAILY [facility] Stop: 11/16/16 10:01 Furosemide (Lasix) 40 mg PO DAILY [facility] Last Admin: 11/07/16 09:18 Dose: 40 mg Heparin Sodium/Sodium Chloride (Heparin 00311 Units/250ml 1/2 Normal Saline) 250 mls @ 9.389 mls/hr IV .Q24H PRN; Protocol; 18 UNITS/KG/HR PRN Reason: ADJUST RATE PER PROTOCOL Last Admin: 11/08/16 04:14 Dose: 6.9 mls/hr Insulin Human Lispro (Humalog Low) 0 units SC ACHS [facility] PRN Reason: Protocol Last Admin: 11/08/16 07:55 Dose: Not Given Lactulose (Enulose) 30 gm PO QID [facility] Last Admin: 11/07/16 22:11 Dose: 30 gm Pantoprazole Sodium (Protonix Ec Tab) 40 mg PO 0730,1630 [facility] Last Admin: 11/08/16 06:44 Dose: 40 mg Rifaximin (Xifaxan) 550 mg PO BID [facility] PRN Reason: Protocol Last Admin: 11/07/16 17:25 Dose: 550 mg Spironolactone (Aldactone) 100 mg PO DAILY [facility] Last Admin: 11/07/16 09:18 Dose: 100 mg - Labs Labs: 11/08/16 06:40 11/08/16 06:40 PT 13.6 Seconds (9.9-11.8) H 11/08/16 06:40 INR 1.26 (0.93-1.08) H 11/08/16 06:40 APTT 77.0 Seconds (23.7-30.8) H* 11/08/16 06:40 - Constitutional Appears: Non-toxic, No Acute Distress - Head Exam Head Exam: ATRAUMATIC - ENT Exam ENT Exam: Mucous Membranes Moist - Respiratory Exam Respiratory Exam: absent: Accessory Muscle Use, Respiratory Distress - GI/Abdominal Exam GI & Abdominal Exam: Soft. absent: Firm, Guarding, Rigid, Tenderness - Neurological Exam Neurological Exam: Alert, Awake, Oriented x3 - Psychiatric Exam Psychiatric exam: Normal Affect, Normal Mood - Skin Skin Exam: Dry, Intact, Normal Color, Warm Assessment and Plan - Assessment and Plan (Free Text) Assessment: 76F w. cecal mass and LLE DVT s/p IVC -Path from colonoscopy: +adenocarcinoma -simple cyst noted on liver on MRI- no biopsy scheduled - CEA elevated, AFP WNL -will tentatively plan for OR on Saturday for colectomy -will continue to follow Will discuss with attending Dr. Timoteo Garay PG1
--- NOTE | 2016-11-08 08:40 | CON ---
DATE: 11/08/2016 Her hemoglobin is 8.1 with an MCV of 72. I am going to start her on daily Ferrlecit for the next few days to try and bring up her blood counts prior to any surgery. The second issue is her fibrinogen is 184, which again is very low, consistent with severe hepatic insufficiency and confirms our suspic ions that her liver functions are not optimum, even though her AST, ALT and levels are all in t he normal range. It has to be factored into her increased risk of surgery. However, she may still n eed that surgery. There is no liver metastases. The cancer seems to be isolated to the colon at thi s point. Ronny Lara MD cc: [id number] TT: 11/08/2016 08:40:09 Confirmation # [id number] Dictation # [id number]
[2016-11-08] MEDS ORDERED: Ferric Sodium Gluconat Complex 62.5 mg/5 ml Vial IVPB SCH (10:00)
[2016-11-08] MEDS: Ferric Sodium Gluconat Complex 125 MG in Sodium Chloride 0.9% 100 ML IVPB SCH (10:05)
--- NOTE | 2016-11-08 14:05 | CP.PCM.PN ---
<Darío Garcia - Last Filed: 11/08/16 14:11> Subjective - Date & Time of Evaluation Date of Evaluation: 11/08/16 Time of Evaluation: 14:02 - Subjective Subjective: Pt seen and examined at bedside. No acute events overnight as per nursing. The patient has improvement of her left leg pain at this time. Pt tolerating diet well and having BM. Denies CP, SOB, N/V/D. Objective - Vital Signs/Intake and Output Vital Signs (last 24 hours): Temp Pulse Resp BP Pulse Ox 97.6 F 83 18 112/58 L 97 11/08/16 07:30 11/08/16 07:30 11/08/16 07:30 11/08/16 10:04 11/08/16 07:30 Intake and Output: 11/08/16 11/08/16 06:59 18:59 Intake Total 416 Balance 416 - Medications Medications: Current Medications Acetaminophen (Tylenol 325mg Tab) 650 mg PO Q4H PRN PRN Reason: Fever >100.4 F Furosemide (Lasix) 40 mg PO DAILY [facility] Last Admin: 11/08/16 10:04 Dose: 40 mg Heparin Sodium/Sodium Chloride (Heparin 97696 Units/250ml 1/2 Normal Saline) 250 mls @ 9.389 mls/hr IV .Q24H PRN; Protocol; 18 UNITS/KG/HR PRN Reason: ADJUST RATE PER PROTOCOL Last Admin: 11/08/16 04:14 Dose: 6.9 mls/hr Ferric Sodium Gluconate Complex 125 mg/ Sodium Chloride 110 mls @ 110 mls/hr IVPB DAILY [facility] Stop: 11/09/16 10:01 Last Admin: 11/08/16 10:05 Dose: 110 mls/hr Iron Sucrose 200 mg/ Sodium (Chloride) 110 mls @ 110 mls/hr IVPB DAILY [facility] Stop: 11/12/16 10:59 Last Admin: 11/08/16 10:05 Dose: 110 mls/hr Insulin Human Lispro (Humalog Low) 0 units SC ACHS [facility] PRN Reason: Protocol Last Admin: 11/08/16 12:05 Dose: 2 units Lactulose (Enulose) 30 gm PO QID [facility] Last Admin: 11/08/16 10:04 Dose: 30 gm Pantoprazole Sodium (Protonix Ec Tab) 40 mg PO 0730,1630 [facility] Last Admin: 11/08/16 06:44 Dose: 40 mg Rifaximin (Xifaxan) 550 mg PO BID [facility] PRN Reason: Protocol Last Admin: 11/08/16 10:04 Dose: 550 mg Spironolactone (Aldactone) 100 mg PO DAILY [facility] Last Admin: 11/08/16 10:04 Dose: 100 mg - Labs Labs: 11/08/16 06:40 11/08/16 06:40 PT 13.6 Seconds (9.9-11.8) H 11/08/16 06:40 INR 1.26 (0.93-1.08) H 11/08/16 06:40 APTT 77.0 Seconds (23.7-30.8) H* 11/08/16 06:40 - Constitutional Appears: Well, No Acute Distress - Head Exam Head Exam: ATRAUMATIC, NORMAL INSPECTION, NORMOCEPHALIC - Eye Exam Additional comments: Left eyelid spasm - ENT Exam ENT Exam: Mucous Membranes Moist, Normal Exam - Respiratory Exam Respiratory Exam: Clear to Ausculation Bilateral, NORMAL BREATHING PATTERN. absent: Rhonchi, Wheezes - Cardiovascular Exam Cardiovascular Exam: RRR, +S1, +S2 - GI/Abdominal Exam GI & Abdominal Exam: Distended, Soft, Normal Bowel Sounds. absent: Tenderness - Extremities Exam Extremities Exam: Pedal Edema (Left leg). absent: Calf Tenderness - Neurological Exam Neurological Exam: Alert, Awake, Oriented x3 - Psychiatric Exam Psychiatric exam: Normal Affect, Normal Mood - Skin Skin Exam: Intact, Normal Color, Warm Assessment and Plan - Assessment and Plan (Free Text) Plan: 76 y/o Italian speaking female with PMH of DM2, HTN, microcytic anemia and recently diagnosed liver cirrhosis presents with hepatic encephalopathy, now resolved and found to have a cecal mass on CT. 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 Pt on heparin drip for popliteal and tibial DVT. IVC filter placed. Pt is tentatively scheduled for 11/12/16. Pt started on IV iron by heme/onc in an effort to increase hg before surgery. Liver cirrhosis - Continue rifaximin and lactulose - Fibrinogen low, indicating poor liver function. 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 Lara - Chest CT unremarkable Microcytic anemia - IV iron started - Monitor hg in AM Prophylaxis - protonix - SCD Seen, reviewed, and discussed with attending. Jose, PGY-1 <Seema Yanez - Last Filed: 11/08/16 14:27> Objective - Vital Signs/Intake and Output Vital Signs (last 24 hours): Temp Pulse Resp BP Pulse Ox 97.6 F 83 18 112/58 L 97 11/08/16 07:30 11/08/16 07:30 11/08/16 07:30 11/08/16 10:04 11/08/16 07:30 Intake and Output: 11/08/16 11/08/16 06:59 18:59 Intake Total 416 Balance 416 - Medications Medications: Current Medications Acetaminophen (Tylenol 325mg Tab) 650 mg PO Q4H PRN PRN Reason: Fever >100.4 F Furosemide (Lasix) 40 mg PO DAILY [facility] Last Admin: 11/08/16 10:04 Dose: 40 mg Heparin Sodium/Sodium Chloride (Heparin 81227 Units/250ml 1/2 Normal Saline) 250 mls @ 9.389 mls/hr IV .Q24H PRN; Protocol; 18 UNITS/KG/HR PRN Reason: ADJUST RATE PER PROTOCOL Last Admin: 11/08/16 04:14 Dose: 6.9 mls/hr Ferric Sodium Gluconate Complex 125 mg/ Sodium Chloride 110 mls @ 110 mls/hr IVPB DAILY [facility] Stop: 11/09/16 10:01 Last Admin: 11/08/16 10:05 Dose: 110 mls/hr Iron Sucrose 200 mg/ Sodium (Chloride) 110 mls @ 110 mls/hr IVPB DAILY [facility] Stop: 11/12/16 10:59 Last Admin: 11/08/16 10:05 Dose: 110 mls/hr Insulin Human Lispro (Humalog Low) 0 units SC ACHS [facility] PRN Reason: Protocol Last Admin: 11/08/16 12:05 Dose: 2 units Lactulose (Enulose) 30 gm PO QID [facility] Last Admin: 11/08/16 10:04 Dose: 30 gm Pantoprazole Sodium (Protonix Ec Tab) 40 mg PO 0730,1630 [facility] Last Admin: 11/08/16 06:44 Dose: 40 mg Rifaximin (Xifaxan) 550 mg PO BID [facility] PRN Reason: Protocol Last Admin: 11/08/16 10:04 Dose: 550 mg Spironolactone (Aldactone) 100 mg PO DAILY [facility] Last Admin: 11/08/16 10:04 Dose: 100 mg - Labs Labs: 11/08/16 06:40 11/08/16 06:40 PT 13.6 Seconds (9.9-11.8) H 11/08/16 06:40 INR 1.26 (0.93-1.08) H 11/08/16 06:40 APTT 77.0 Seconds (23.7-30.8) H* 11/08/16 06:40 Attending/Attestation - Attestation I have personally seen and examined this patient.: Yes I have fully participated in the care of the patient.: Yes I have reviewed all pertinent clinical information, including history, physical exam and plan: Yes Notes (Text): 11/08/16 14:24 76 year old female with past medical history of diabetes, hypertension, anemia and recently diagnosed liver cirrhosis presented with altered mental status secondary to hepatic encephalopathy which has resolved. She is on lactulose, rifaximin, lasix and spironalactone. She was also found to have liver lesion. MRI showed simple cyst. She was also found to have cecal mass on imaging. She was seen by GI and is s/ p colonoscopy. She had biopsy which showed poorly differentiated adenocarcinoma with fragments of tubulovillous adenoma / tubular adenoma. CEA is elevated. AFP is normal. Surgery and oncology are following the patient. Plan is for possible surgery early next week. She is on iv heparin drip for left popliteal and posterior tibial DVT. She is s /p IVC filter placement earlier this week. Will follow up with hematology recommendations. She is started on iv iron for anemia. Will continue to monitor cbc closely and follow up with hematology recommendations. Seema Yanez MD Hospitalist.
[2016-11-09 07:12] LABS: HEMATOCRIT 25.5 % (36.0-48.0); MEAN CELL VOLUME 72.2 fL (80.0-105.0); MEAN CORPUSCULAR HEMOGLOBIN 22.7 pg (25.0-35.0); MEAN CORPUSCULAR HGB CONC 31.4 g/dl (31.0-37.0); MEAN PLATELET VOLUME 8.7 fl (7.0-11.0); RED CELL DISTRIBUTION WIDTH 30.2 % (11.5-14.5); WHITE BLOOD COUNT 6.6 10^3/ul (4.5-11.0)
[2016-11-09 07:28] LABS: ALB/GLOB RATIO 0.5 (1.1-1.8); ALKALINE PHOSPHATASE 110 U/L (38-133); ALT/SGPT 25 U/L (7-56); AST/SGOT 28 U/L (15-39); BLOOD UREA NITROGEN 14 mg/dL (7-21); CALCIUM 8.1 mg/dL (8.4-10.5); CARBON DIOXIDE 25 mmol/L (21-33); CHLORIDE 104 mmol/L (95-110); GFR AFRICAN-AMERICAN > 60; GLUCOSE,RANDOM 96 mg/dL (70-110); POTASSIUM 3.5 mmol/L (3.6-5.0); SODIUM 135 mmol/L (132-148); TOTAL PROTEIN 4.8 g/dL (5.8-8.3)
[2016-11-09 07:37] LABS: INR 1.32 (0.93-1.08)
[2016-11-09 07:39] LABS: PARTIAL THROMBOPLASTIN TIME 155.7 Seconds (23.7-30.8)
[2016-11-09] MEDS ORDERED: Potassium Chloride 20 mEq ER Tab PO ONE (07:42)
[2016-11-09] MEDS: Insulin Lispro (humaLOG) LOW Coverage SC SCH ×4 (08:00→23:13)
--- NOTE | 2016-11-09 08:40 | CP.PCM.PN ---
Subjective - Date & Time of Evaluation Date of Evaluation: 11/09/16 Time of Evaluation: 08:37 - Subjective Subjective: SURGICAL PROGRESS NOTE FOR DR. BUTLER Patient seen and examined at bedside. No acute events overnight. Denies fevers , chills, N/V/D/C, abd pain. Patient is having regular BMs and is tolerating diet. Objective - Vital Signs/Intake and Output Vital Signs (last 24 hours): Temp Pulse Resp BP Pulse Ox 98.8 F 85 18 110/62 98 11/09/16 08:00 11/09/16 08:00 11/09/16 08:00 11/09/16 08:00 11/09/16 08:00 Intake and Output: 11/09/16 11/09/16 06:59 18:59 Intake Total 780 Balance 780 - Medications Medications: Current Medications Acetaminophen (Tylenol 325mg Tab) 650 mg PO Q4H PRN PRN Reason: Fever >100.4 F Furosemide (Lasix) 40 mg PO DAILY [facility] Last Admin: 11/08/16 10:04 Dose: 40 mg Heparin Sodium/Sodium Chloride (Heparin 84025 Units/250ml 1/2 Normal Saline) 250 mls @ 9.389 mls/hr IV .Q24H PRN; Protocol; 18 UNITS/KG/HR PRN Reason: ADJUST RATE PER PROTOCOL Last Admin: 11/08/16 04:14 Dose: 6.9 mls/hr Ferric Sodium Gluconate Complex 125 mg/ Sodium Chloride 110 mls @ 110 mls/hr IVPB DAILY [facility] Stop: 11/09/16 10:01 Last Admin: 11/08/16 10:05 Dose: 110 mls/hr Iron Sucrose 200 mg/ Sodium (Chloride) 110 mls @ 110 mls/hr IVPB DAILY [facility] Stop: 11/12/16 10:59 Last Admin: 11/08/16 10:05 Dose: 110 mls/hr Insulin Human Lispro (Humalog Low) 0 units SC ACHS [facility] PRN Reason: Protocol Last Admin: 11/08/16 22:53 Dose: Not Given Lactulose (Enulose) 30 gm PO QID [facility] Last Admin: 11/08/16 21:28 Dose: 30 gm Pantoprazole Sodium (Protonix Ec Tab) 40 mg PO 0730,1630 [facility] Last Admin: 11/08/16 17:47 Dose: 40 mg Rifaximin (Xifaxan) 550 mg PO BID [facility] PRN Reason: Protocol Last Admin: 11/08/16 17:48 Dose: 550 mg Spironolactone (Aldactone) 100 mg PO DAILY [facility] Last Admin: 11/08/16 10:04 Dose: 100 mg - Labs Labs: 11/09/16 06:50 11/09/16 06:50 PT 14.3 Seconds (9.9-11.8) H 11/09/16 06:50 INR 1.32 (0.93-1.08) H 11/09/16 06:50 APTT 155.7 Seconds (23.7-30.8) H* 11/09/16 06:50 - Constitutional Appears: Non-toxic, No Acute Distress - Head Exam Head Exam: ATRAUMATIC - ENT Exam ENT Exam: Mucous Membranes Moist - Respiratory Exam Respiratory Exam: absent: Accessory Muscle Use, Respiratory Distress - GI/Abdominal Exam GI & Abdominal Exam: Soft. absent: Distended, Firm, Guarding, Rigid, Tenderness - Neurological Exam Neurological Exam: Alert, Awake, Oriented x3 - Psychiatric Exam Psychiatric exam: Normal Affect, Normal Mood - Skin Skin Exam: Dry, Intact, Normal Color, Warm Assessment and Plan - Assessment and Plan (Free Text) Assessment: 76F w. cecal mass and LLE DVT s/p IVC -Path from colonoscopy: +adenocarcinoma with fragments of tubulovillous adenoma / tubular adenoma -Will take pt to OR tentatively on Saturday for colectomy -will continue to follow - Continue current medical management Will discuss with attending Dr. Timoteo Garay PG1
[2016-11-09] MEDS: Pantoprazole 40 mg EC Tab PO SCH ×2 (10:32→17:19)
[2016-11-09] MEDS: Ferric Sodium Gluconat Complex 125 MG in Sodium Chloride 0.9% 100 ML IVPB SCH (10:32)
--- NOTE | 2016-11-09 15:04 | CP.PCM.PN ---
<Darío Garcia - Last Filed: 11/09/16 15:00> Subjective - Date & Time of Evaluation Date of Evaluation: 11/09/16 Time of Evaluation: 15:00 - Subjective Subjective: Pt seen and examined at bedside. Pt states she is doing well at this time. No acute events overnight. Pt complains of mild left leg pain. Pt tolerating diet well and having 3-4 BM's per day. Denies CP, SOB, N/V/D. Objective - Vital Signs/Intake and Output Vital Signs (last 24 hours): Temp Pulse Resp BP Pulse Ox 98.8 F 85 18 110/62 98 11/09/16 08:00 11/09/16 08:00 11/09/16 08:00 11/09/16 10:33 11/09/16 08:00 Intake and Output: 11/09/16 11/09/16 06:59 18:59 Intake Total 780 Balance 780 - Medications Medications: Current Medications Acetaminophen (Tylenol 325mg Tab) 650 mg PO Q4H PRN PRN Reason: Fever >100.4 F Furosemide (Lasix) 40 mg PO DAILY [facility] Last Admin: 11/09/16 10:33 Dose: 40 mg Heparin Sodium/Sodium Chloride (Heparin 61025 Units/250ml 1/2 Normal Saline) 250 mls @ 9.389 mls/hr IV .Q24H PRN; Protocol; 18 UNITS/KG/HR PRN Reason: ADJUST RATE PER PROTOCOL Last Titration: 11/09/16 09:00 Dose: 11.31 units/kg/hr Iron Sucrose 200 mg/ Sodium (Chloride) 110 mls @ 110 mls/hr IVPB DAILY [facility] Stop: 11/14/16 10:59 Insulin Human Lispro (Humalog Low) 0 units SC ACHS [facility] PRN Reason: Protocol Last Admin: 11/09/16 12:00 Dose: Not Given Lactulose (Enulose) 30 gm PO BID [facility] Pantoprazole Sodium (Protonix Ec Tab) 40 mg PO 0730,1630 [facility] Last Admin: 11/09/16 10:32 Dose: 40 mg Rifaximin (Xifaxan) 550 mg PO BID [facility] PRN Reason: Protocol Last Admin: 11/09/16 10:32 Dose: 550 mg Spironolactone (Aldactone) 100 mg PO DAILY [facility] Last Admin: 11/09/16 10:33 Dose: 100 mg - Labs Labs: 11/09/16 06:50 11/09/16 06:50 PT 14.3 Seconds (9.9-11.8) H 11/09/16 06:50 INR 1.32 (0.93-1.08) H 11/09/16 06:50 APTT 155.7 Seconds (23.7-30.8) H* 11/09/16 06:50 - Constitutional Appears: Well, No Acute Distress - Head Exam Head Exam: ATRAUMATIC, NORMAL INSPECTION, NORMOCEPHALIC - ENT Exam ENT Exam: Mucous Membranes Moist, Normal Exam - Respiratory Exam Respiratory Exam: Clear to Ausculation Bilateral, NORMAL BREATHING PATTERN. absent: Rhonchi, Wheezes - Cardiovascular Exam Cardiovascular Exam: RRR, +S1, +S2 - GI/Abdominal Exam GI & Abdominal Exam: Soft, Normal Bowel Sounds - Extremities Exam Extremities Exam: absent: Tenderness Additional comments: Left leg edema +2 - Neurological Exam Neurological Exam: Alert, Awake, Oriented x3 - Psychiatric Exam Psychiatric exam: Normal Affect, Normal Mood - Skin Skin Exam: Intact, Normal Color, Warm Assessment and Plan - Assessment and Plan (Free Text) Plan: 76 y/o F with PMH of DM, microcytic anemia and recently diagnosed liver cirrhosis presents with hepatic encephalopathy, now resolved and found to have a cecal mass on CT. Pt underwent follow up colonoscopy to evaluate cecal mass which shows fungating, nonobstructive mass in the cecum. 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 Pt on heparin drip for popliteal and tibial DVT, IVC filter in place. Pt scheduled for surgery on 11/12/16. Pt on IV iron by heme/onc for anemia. Liver cirrhosis - Continue rifaximin. 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 Lara Microcytic anemia - IV iron started by Dr. Lara - Monitor hg in AM Prophylaxis - protonix - SCD Bhagwandin, PGY-1 <Seema Yanez A - Last Filed: 11/09/16 15:21> Objective - Vital Signs/Intake and Output Vital Signs (last 24 hours): Temp Pulse Resp BP Pulse Ox 98.8 F 85 18 110/62 98 11/09/16 08:00 11/09/16 08:00 11/09/16 08:00 11/09/16 10:33 11/09/16 08:00 Intake and Output: 11/09/16 11/09/16 06:59 18:59 Intake Total 780 Balance 780 - Medications Medications: Current Medications Acetaminophen (Tylenol 325mg Tab) 650 mg PO Q4H PRN PRN Reason: Fever >100.4 F Furosemide (Lasix) 40 mg PO DAILY [facility] Last Admin: 11/09/16 10:33 Dose: 40 mg Heparin Sodium/Sodium Chloride (Heparin 16252 Units/250ml 1/2 Normal Saline) 250 mls @ 9.389 mls/hr IV .Q24H PRN; Protocol; 18 UNITS/KG/HR PRN Reason: ADJUST RATE PER PROTOCOL Last Titration: 11/09/16 09:00 Dose: 11.31 units/kg/hr Iron Sucrose 200 mg/ Sodium (Chloride) 110 mls @ 110 mls/hr IVPB DAILY [facility] Stop: 11/14/16 10:59 Insulin Human Lispro (Humalog Low) 0 units SC ACHS [facility] PRN Reason: Protocol Last Admin: 11/09/16 12:00 Dose: Not Given Lactulose (Enulose) 30 gm PO BID [facility] Pantoprazole Sodium (Protonix Ec Tab) 40 mg PO 0730,1630 [facility] Last Admin: 11/09/16 10:32 Dose: 40 mg Rifaximin (Xifaxan) 550 mg PO BID [facility] PRN Reason: Protocol Last Admin: 11/09/16 10:32 Dose: 550 mg Spironolactone (Aldactone) 100 mg PO DAILY [facility] Last Admin: 11/09/16 10:33 Dose: 100 mg - Labs Labs: 11/09/16 06:50 11/09/16 06:50 PT 14.3 Seconds (9.9-11.8) H 11/09/16 06:50 INR 1.32 (0.93-1.08) H 11/09/16 06:50 APTT 155.7 Seconds (23.7-30.8) H* 11/09/16 06:50 Attending/Attestation - Attestation I have personally seen and examined this patient.: Yes I have fully participated in the care of the patient.: Yes I have reviewed all pertinent clinical information, including history, physical exam and plan: Yes Notes (Text): 11/09/16 15:19 76 year old female with past medical history of diabetes, hypertension, anemia and recently diagnosed liver cirrhosis presented with altered mental status secondary to hepatic encephalopathy which has resolved. She is on lactulose, rifaximin, lasix and spironalactone. Will titrate lactulose as per BMs. She was also found to have liver lesion. MRI showed simple cyst. She was also found to have cecal mass on imaging. This was biopsied during colonoscopy which showed poorly differentiated adenocarcinoma with fragments of tubulovillous adenoma / tubular adenoma. CEA is elevated and AFP is normal. Surgery and oncology are following the patient. She is tentatively planned for surgery early next week. She is on iv heparin drip for left popliteal and posterior tibial DVT. She is s /p IVC filter placement earlier this week. She is also on IV iron for anemia. Will continue to monitor her cbc closely and follow up with hematology/oncology recommendations. Seema Yanez MD Hospitalist.
[2016-11-09] MEDS: Heparin25000 units/250ml 1/2NS 250 ML IV PRN (18:20)
[2016-11-10] MEDS: Heparin25000 units/250ml 1/2NS 250 ML IV PRN ×2 (01:45→09:29)
[2016-11-10] MEDS: Insulin Lispro (humaLOG) LOW Coverage SC SCH ×4 (07:57→22:36)
[2016-11-10 08:04] LABS: HEMATOCRIT 26.5 % (36.0-48.0); MEAN CELL VOLUME 73.4 fL (80.0-105.0); MEAN CORPUSCULAR HEMOGLOBIN 22.4 pg (25.0-35.0); MEAN CORPUSCULAR HGB CONC 30.6 g/dl (31.0-37.0); MEAN PLATELET VOLUME 9.1 fl (7.0-11.0); RED CELL DISTRIBUTION WIDTH 30.6 % (11.5-14.5); WHITE BLOOD COUNT 5.2 10^3/ul (4.5-11.0)
[2016-11-10 08:07] LABS: INR 1.33 (0.93-1.08); PARTIAL THROMBOPLASTIN TIME 59.4 Seconds (23.7-30.8)
[2016-11-10 08:08] LABS: ALB/GLOB RATIO 0.5 (1.1-1.8); ALKALINE PHOSPHATASE 111 U/L (38-133); ALT/SGPT 21 U/L (7-56); AST/SGOT 28 U/L (15-39); BLOOD UREA NITROGEN 13 mg/dL (7-21); CALCIUM 7.9 mg/dL (8.4-10.5); CARBON DIOXIDE 26 mmol/L (21-33); CHLORIDE 105 mmol/L (98-107); GFR AFRICAN-AMERICAN > 60; GLUCOSE,RANDOM 92 mg/dL (70-110); POTASSIUM 3.8 mmol/L (3.6-5.0); SODIUM 135 mmol/L (132-148)
[2016-11-10] MEDS: Pantoprazole 40 mg EC Tab PO SCH ×2 (09:31→17:35)
--- NOTE | 2016-11-10 13:14 | CP.PCM.PN ---
Subjective - Date & Time of Evaluation Date of Evaluation: 11/10/16 Time of Evaluation: 08:50 - Subjective Subjective: General Surgery Dr. Mahmood Pt S&E @bedside. NAEO. no complaints. denies F/C, N/V, abd pain. tolerating diet. Objective - Vital Signs/Intake and Output Vital Signs (last 24 hours): Temp Pulse Resp BP Pulse Ox 98.4 F 64 18 112/62 96 11/10/16 07:30 11/10/16 07:30 11/10/16 07:30 11/10/16 09:31 11/10/16 07:30 Intake and Output: 11/10/16 11/10/16 06:59 18:59 Intake Total 720 Balance 720 - Medications Medications: Current Medications Acetaminophen (Tylenol 325mg Tab) 650 mg PO Q4H PRN PRN Reason: Fever >100.4 F Furosemide (Lasix) 40 mg PO DAILY [facility] Last Admin: 11/10/16 09:31 Dose: 40 mg Heparin Sodium/Sodium Chloride (Heparin 03882 Units/250ml 1/2 Normal Saline) 250 mls @ 9.389 mls/hr IV .Q24H PRN; Protocol; 18 UNITS/KG/HR PRN Reason: ADJUST RATE PER PROTOCOL Last Admin: 11/10/16 09:29 Dose: 3.9 mls/hr Iron Sucrose 200 mg/ Sodium (Chloride) 110 mls @ 110 mls/hr IVPB DAILY [facility] Stop: 11/14/16 10:59 Last Admin: 11/10/16 09:28 Dose: 110 mls/hr Insulin Human Lispro (Humalog Low) 0 units SC ACHS [facility] PRN Reason: Protocol Last Admin: 11/10/16 11:44 Dose: Not Given Lactulose (Enulose) 30 gm PO BID [facility] Last Admin: 11/10/16 09:28 Dose: 30 gm Pantoprazole Sodium (Protonix Ec Tab) 40 mg PO 0730,1630 [facility] Last Admin: 11/10/16 09:31 Dose: Not Given Rifaximin (Xifaxan) 550 mg PO BID [facility] PRN Reason: Protocol Last Admin: 11/10/16 09:28 Dose: 550 mg Spironolactone (Aldactone) 100 mg PO DAILY [facility] Last Admin: 11/10/16 09:28 Dose: 100 mg - Labs Labs: 11/10/16 07:35 11/10/16 07:20 PT 14.4 Seconds (9.9-11.8) H 11/10/16 07:35 INR 1.33 (0.93-1.08) H 11/10/16 07:35 APTT 59.4 Seconds (23.7-30.8) H 11/10/16 07:35 Laboratory Tests 11/10/16 07:20 Calcium 7.9 L Total Bilirubin 1.0 AST 28 ALT 21 Alkaline Phosphatase 111 Total Protein 5.0 L Albumin 1.7 L - Constitutional Appears: Non-toxic, No Acute Distress - Head Exam Head Exam: NORMAL INSPECTION - Eye Exam Eye Exam: Normal appearance - ENT Exam ENT Exam: Mucous Membranes Moist - Respiratory Exam Respiratory Exam: NORMAL BREATHING PATTERN. absent: Accessory Muscle Use, Respiratory Distress - GI/Abdominal Exam GI & Abdominal Exam: Soft. absent: Distended, Guarding, Tenderness, Rebound - Neurological Exam Neurological Exam: Alert, Awake, Oriented x3 - Psychiatric Exam Psychiatric exam: Normal Affect, Normal Mood - Skin Skin Exam: Dry, Intact, Normal Color, Warm Assessment and Plan - Assessment and Plan (Free Text) Assessment: 76 y/o F w/ cecal mass and LLE DVT s/p IVC Path: +adenocarcinoma w/ fragments of tubulovillous adenoma/ tubular adenoma - Cont current medical management - spoke w/ Dr. Johnston, recommend against surgical intervention considering pt' s liver disease w/ cirrhosis and ascitic risk. will only operate in emergency setting. - please reconsult if needed. Pt discussed w/ Dr. Timoteo Ha DO PGy1
--- NOTE | 2016-11-10 17:10 | CP.PCM.PN ---
<Laura Hartley - Last Filed: 11/11/16 00:35> Subjective - Date & Time of Evaluation Date of Evaluation: 11/10/16 Time of Evaluation: 08:40 - Subjective Subjective: Patient was seen and examined at bedside. No acute events overnight. Patient was resting comfortably in bed at the time of examination. Tolerating diet well. Denies headache, fever, chills, shortness of breath, chest pain, nausea, vomiting, abdominal pain. Objective - Vital Signs/Intake and Output Vital Signs (last 24 hours): Temp Pulse Resp BP Pulse Ox 98.4 F 64 18 112/62 96 11/10/16 07:30 11/10/16 07:30 11/10/16 07:30 11/10/16 09:31 11/10/16 07:30 Intake and Output: 11/10/16 11/10/16 06:59 18:59 Intake Total 720 660 Balance 720 660 - Medications Medications: Current Medications Acetaminophen (Tylenol 325mg Tab) 650 mg PO Q4H PRN PRN Reason: Fever >100.4 F Furosemide (Lasix) 40 mg PO DAILY [facility] Last Admin: 11/10/16 09:31 Dose: 40 mg Heparin Sodium/Sodium Chloride (Heparin 09032 Units/250ml 1/2 Normal Saline) 250 mls @ 9.389 mls/hr IV .Q24H PRN; Protocol; 18 UNITS/KG/HR PRN Reason: ADJUST RATE PER PROTOCOL Last Admin: 11/10/16 09:29 Dose: 3.9 mls/hr Iron Sucrose 200 mg/ Sodium (Chloride) 110 mls @ 110 mls/hr IVPB DAILY [facility] Stop: 11/14/16 10:59 Last Admin: 11/10/16 09:28 Dose: 110 mls/hr Insulin Human Lispro (Humalog Low) 0 units SC ACHS [facility] PRN Reason: Protocol Last Admin: 11/10/16 16:15 Dose: Not Given Lactulose (Enulose) 30 gm PO BID [facility] Last Admin: 11/10/16 09:28 Dose: 30 gm Pantoprazole Sodium (Protonix Ec Tab) 40 mg PO 0730,1630 [facility] Last Admin: 11/10/16 09:31 Dose: Not Given Rifaximin (Xifaxan) 550 mg PO BID [facility] PRN Reason: Protocol Last Admin: 11/10/16 09:28 Dose: 550 mg Spironolactone (Aldactone) 100 mg PO DAILY [facility] Last Admin: 11/10/16 09:28 Dose: 100 mg - Labs Labs: 11/10/16 07:35 11/10/16 07:20 PT 14.4 Seconds (9.9-11.8) H 11/10/16 07:35 INR 1.33 (0.93-1.08) H 11/10/16 07:35 APTT 70.7 Seconds (23.7-30.8) H* 11/10/16 13:20 - Constitutional Appears: Non-toxic, No Acute Distress - Head Exam Head Exam: ATRAUMATIC, NORMOCEPHALIC - ENT Exam ENT Exam: Mucous Membranes Moist - Neck Exam Neck Exam: Normal Inspection - Respiratory Exam Respiratory Exam: Clear to Ausculation Bilateral, NORMAL BREATHING PATTERN. absent: Respiratory Distress - Cardiovascular Exam Cardiovascular Exam: REGULAR RHYTHM, +S1, +S2. absent: Murmur - GI/Abdominal Exam GI & Abdominal Exam: Soft, Normal Bowel Sounds. absent: Tenderness - Extremities Exam Extremities Exam: Pedal Edema (Left LE edema) - Neurological Exam Neurological Exam: Alert, Awake, Oriented x3 - Psychiatric Exam Psychiatric exam: Normal Affect, Normal Mood - Skin Skin Exam: Intact, Normal Color, Warm Assessment and Plan - Assessment and Plan (Free Text) Assessment: 76 year old female with past medical history of DM, microcytic anemia and recently diagnosed liver cirrhosis presents with hepatic encephalopathy, now resolved and found to have a cecal mass on CT. Pt underwent follow up colonoscopy to evaluate cecal mass which shows fungating, nonobstructive mass in the cecum. 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 Pt on heparin drip for popliteal and tibial DVT, IVC filter in place. Pt on IV iron by heme/onc for anemia. Liver cirrhosis - Continue rifaximin. - Lactulose changed to BID Left leg DVT - Heparin drip - s/p IVC filter placement Cecal Mass - Surgery consulted, surgery Dr. Johnston, recommend against surgical intervention considering pt's liver disease - Advanced diet - Pathology shows poorly differentiated adenocarcinoma and tubulovillous adenoma - Oncology consulted, Dr. Lara Microcytic anemia - hgb 8.1 today - Continue IV iron started by Dr. Lara - Monitor hg in AM Prophylaxis - protonix - SCD <Beau,Anwar A - Last Filed: 11/11/16 06:47> Objective - Vital Signs/Intake and Output Vital Signs (last 24 hours): Temp Pulse Resp BP Pulse Ox 98.4 F 60 18 106/49 L 96 11/10/16 16:00 11/10/16 16:00 11/10/16 16:00 11/10/16 16:00 11/10/16 16:00 Intake and Output: 11/10/16 11/11/16 18:59 06:59 Intake Total 660 300 Balance 660 300 - Medications Medications: Current Medications Acetaminophen (Tylenol 325mg Tab) 650 mg PO Q4H PRN PRN Reason: Fever >100.4 F Furosemide (Lasix) 40 mg PO DAILY [facility] Last Admin: 11/10/16 09:31 Dose: 40 mg Heparin Sodium/Sodium Chloride (Heparin 33787 Units/250ml 1/2 Normal Saline) 250 mls @ 9.389 mls/hr IV .Q24H PRN; Protocol; 18 UNITS/KG/HR PRN Reason: ADJUST RATE PER PROTOCOL Last Admin: 11/10/16 09:29 Dose: 3.9 mls/hr Iron Sucrose 200 mg/ Sodium (Chloride) 110 mls @ 110 mls/hr IVPB DAILY [facility] Stop: 11/14/16 10:59 Last Admin: 11/10/16 09:28 Dose: 110 mls/hr Insulin Human Lispro (Humalog Low) 0 units SC ACHS [facility] PRN Reason: Protocol Last Admin: 11/10/16 22:36 Dose: Not Given Lactulose (Enulose) 30 gm PO BID [facility] Last Admin: 11/10/16 17:35 Dose: 30 gm Pantoprazole Sodium (Protonix Ec Tab) 40 mg PO 0730,1630 [facility] Last Admin: 11/10/16 17:35 Dose: 40 mg Rifaximin (Xifaxan) 550 mg PO BID [facility] PRN Reason: Protocol Last Admin: 11/10/16 17:35 Dose: 550 mg Spironolactone (Aldactone) 100 mg PO DAILY [facility] Last Admin: 11/10/16 09:28 Dose: 100 mg - Labs Labs: 11/10/16 07:35 11/10/16 07:20 PT 14.4 Seconds (9.9-11.8) H 11/10/16 07:35 INR 1.33 (0.93-1.08) H 11/10/16 07:35 APTT 70.7 Seconds (23.7-30.8) H* 11/10/16 13:20 Attending/Attestation - Attestation I have personally seen and examined this patient.: Yes I have fully participated in the care of the patient.: Yes I have reviewed all pertinent clinical information, including history, physical exam and plan: Yes Notes (Text): 11/10/16 76 year old female with past medical history of diabetes, hypertension, anemia and recently diagnosed liver cirrhosis presented with altered mental status secondary to hepatic encephalopathy which has resolved. She is on lactulose, rifaximin, lasix and spironalactone. She also has a simple cyst liver lesion on MRI. She was also found to have cecal mass on imaging which was biopsy during colonoscopy. This showed poorly differentiated adenocarcinoma with fragments of tubulovillous adenoma / tubular adenoma. CEA is elevated and AFP is normal. Surgery and oncology are following the patient. Surgery has decided against any surgical intervention at this point given her liver disease with cirrhosis and ascites. Will discuss with family and oncologist. She is on iv heparin drip for left popliteal and posterior tibial DVT. She is s /p IVC filter placement earlier this week. She is also on IV iron for anemia. Will continue to monitor her cbc closely and follow up with hematology/oncology recommendations. Seema Yanez MD Hospitalist.
[2016-11-11] MEDS: Insulin Lispro (humaLOG) LOW Coverage SC SCH ×4 (07:58→23:40)
[2016-11-11 08:06] LABS: ADD MANUAL DIFF? NO
[2016-11-11 08:18] LABS: BASO # 0.02 K/mm3 (0.0-2.0); BASO % 0.3 % (0.0-3.0); EOS # 0.1 (0.0-0.7); EOS % 1.2 % (1.5-5.0); GRAN # 4.09 (1.4-6.5); HEMATOCRIT 26.4 % (36.0-48.0); LYMPH # 1.1 (1.2-3.4); MEAN CELL VOLUME 73.9 fL (80.0-105.0); MEAN CORPUSCULAR HEMOGLOBIN 22.7 pg (25.0-35.0); MEAN CORPUSCULAR HGB CONC 30.7 g/dl (31.0-37.0); MEAN PLATELET VOLUME 9.1 fl (7.0-11.0); MONO # 0.7 (0.1-0.6); MONO % 11.5 % (1.0-6.0); PLATELET COUNT 105 10^3/uL (120.0-450.0); RED CELL DISTRIBUTION WIDTH 30.6 % (11.5-14.5)
[2016-11-11 08:24] LABS: ALB/GLOB RATIO 0.5 (1.1-1.8); ALKALINE PHOSPHATASE 121 U/L (38-133); ALT/SGPT 19 U/L (7-56); AST/SGOT 29 U/L (15-39); BILIRUBIN,TOTAL 0.8 mg/dL (0.2-1.3); BLOOD UREA NITROGEN 13 mg/dL (7-21); CARBON DIOXIDE 25 mmol/L (21-33); CHLORIDE 103 mmol/L (95-110); GFR AFRICAN-AMERICAN > 60; GLUCOSE,RANDOM 127 mg/dL (70-110); POTASSIUM 3.6 mmol/L (3.6-5.0); SODIUM 136 mmol/L (132-148)
[2016-11-11] MEDS: Pantoprazole 40 mg EC Tab PO SCH ×2 (09:42→17:12)
[2016-11-11] MEDS: Heparin25000 units/250ml 1/2NS 250 ML IV PRN (14:40)
--- NOTE | 2016-11-11 16:45 | CP.PCM.PN ---
<Darío Garcia - Last Filed: 11/11/16 16:40> Subjective - Date & Time of Evaluation Date of Evaluation: 11/11/16 Time of Evaluation: 16:40 - Subjective Subjective: Pt seen and examined at bedside. Pt with no new complaints at this time. Pt complaining of mild left leg pain. Pt tolerating diet well. Pt with 2-3 BM per day. No acute events overnight. Denies CP, SOB, N/V/D. Objective - Vital Signs/Intake and Output Vital Signs (last 24 hours): Temp Pulse Resp BP Pulse Ox 98.9 F 93 H 16 121/65 98 11/11/16 16:00 11/11/16 16:00 11/11/16 16:00 11/11/16 16:00 11/11/16 16:00 Intake and Output: 11/11/16 11/11/16 06:59 18:59 Intake Total 394 600 Balance 394 600 - Medications Medications: Current Medications Acetaminophen (Tylenol 325mg Tab) 650 mg PO Q4H PRN PRN Reason: Fever >100.4 F Furosemide (Lasix) 40 mg PO DAILY [facility] Last Admin: 11/11/16 09:42 Dose: 40 mg Heparin Sodium/Sodium Chloride (Heparin 16769 Units/250ml 1/2 Normal Saline) 250 mls @ 9.389 mls/hr IV .Q24H PRN; Protocol; 18 UNITS/KG/HR PRN Reason: ADJUST RATE PER PROTOCOL Last Admin: 11/11/16 14:40 Dose: 2.9 mls/hr Iron Sucrose 200 mg/ Sodium (Chloride) 110 mls @ 110 mls/hr IVPB DAILY [facility] Stop: 11/14/16 10:59 Last Admin: 11/11/16 09:41 Dose: 110 mls/hr Insulin Human Lispro (Humalog Low) 0 units SC ACHS [facility] PRN Reason: Protocol Last Admin: 11/11/16 11:42 Dose: Not Given Lactulose (Enulose) 30 gm PO BID [facility] Last Admin: 11/11/16 09:41 Dose: 30 gm Pantoprazole Sodium (Protonix Ec Tab) 40 mg PO 0730,1630 [facility] Last Admin: 11/11/16 09:42 Dose: 40 mg Rifaximin (Xifaxan) 550 mg PO BID [facility] PRN Reason: Protocol Last Admin: 11/11/16 09:41 Dose: 550 mg Spironolactone (Aldactone) 100 mg PO DAILY [facility] Last Admin: 11/11/16 09:42 Dose: 100 mg - Labs Labs: 11/11/16 08:03 11/11/16 08:03 PT 14.4 Seconds (9.9-11.8) H 11/10/16 07:35 INR 1.33 (0.93-1.08) H 11/10/16 07:35 APTT 90.5 Seconds (23.7-30.8) H* 11/11/16 13:56 - Constitutional Appears: Well, No Acute Distress - Head Exam Head Exam: ATRAUMATIC, NORMAL INSPECTION, NORMOCEPHALIC - ENT Exam ENT Exam: Mucous Membranes Moist, Normal Exam - Respiratory Exam Respiratory Exam: Clear to Ausculation Bilateral, NORMAL BREATHING PATTERN. absent: Rales, Rhonchi, Wheezes - Cardiovascular Exam Cardiovascular Exam: RRR, +S1, +S2 - GI/Abdominal Exam GI & Abdominal Exam: Soft, Normal Bowel Sounds. absent: Tenderness - Extremities Exam Additional comments: Left leg edema, +2 - Neurological Exam Neurological Exam: Alert, Awake, Oriented x3 - Psychiatric Exam Psychiatric exam: Normal Affect, Normal Mood - Skin Skin Exam: Intact, Normal Color, Warm Assessment and Plan - Assessment and Plan (Free Text) Plan: 76 y/o F with PMH of DM, microcytic anemia and recently diagnosed liver cirrhosis presents with hepatic encephalopathy, now resolved and found to have a cecal mass on CT. Pt underwent follow up colonoscopy to evaluate cecal mass which shows fungating, nonobstructive mass in the cecum. 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 Pt on heparin drip for popliteal and tibial DVT, IVC filter in place. Pt is no longer being considered for right colectomy due to increased surgical risk. Pt will possibly be transitioned to oral anticoagulant and prepared for discharge. 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 Lara Microcytic anemia - hgb stable at 8.1 - Continue IV iron - Monitor hg Prophylaxis - protonix - SCD Seen, reviewed, and discussed with attending. Jose, PGY-1 <Seema Yanez - Last Filed: 11/11/16 17:00> Objective - Vital Signs/Intake and Output Vital Signs (last 24 hours): Temp Pulse Resp BP Pulse Ox 98.9 F 93 H 16 121/65 98 11/11/16 16:00 11/11/16 16:00 11/11/16 16:00 11/11/16 16:00 11/11/16 16:00 Intake and Output: 11/11/16 11/11/16 06:59 18:59 Intake Total 394 600 Balance 394 600 - Medications Medications: Current Medications Acetaminophen (Tylenol 325mg Tab) 650 mg PO Q4H PRN PRN Reason: Fever >100.4 F Furosemide (Lasix) 40 mg PO DAILY [facility] Last Admin: 11/11/16 09:42 Dose: 40 mg Heparin Sodium/Sodium Chloride (Heparin 29187 Units/250ml 1/2 Normal Saline) 250 mls @ 9.389 mls/hr IV .Q24H PRN; Protocol; 18 UNITS/KG/HR PRN Reason: ADJUST RATE PER PROTOCOL Last Admin: 11/11/16 14:40 Dose: 2.9 mls/hr Iron Sucrose 200 mg/ Sodium (Chloride) 110 mls @ 110 mls/hr IVPB DAILY [facility] Stop: 11/14/16 10:59 Last Admin: 11/11/16 09:41 Dose: 110 mls/hr Insulin Human Lispro (Humalog Low) 0 units SC ACHS [facility] PRN Reason: Protocol Last Admin: 11/11/16 11:42 Dose: Not Given Lactulose (Enulose) 30 gm PO BID [facility] Last Admin: 11/11/16 09:41 Dose: 30 gm Pantoprazole Sodium (Protonix Ec Tab) 40 mg PO 0730,1630 [facility] Last Admin: 11/11/16 09:42 Dose: 40 mg Rifaximin (Xifaxan) 550 mg PO BID [facility] PRN Reason: Protocol Last Admin: 11/11/16 09:41 Dose: 550 mg Spironolactone (Aldactone) 100 mg PO DAILY [facility] Last Admin: 11/11/16 09:42 Dose: 100 mg - Labs Labs: 11/11/16 08:03 11/11/16 08:03 PT 14.4 Seconds (9.9-11.8) H 11/10/16 07:35 INR 1.33 (0.93-1.08) H 11/10/16 07:35 APTT 90.5 Seconds (23.7-30.8) H* 11/11/16 13:56 Attending/Attestation - Attestation I have personally seen and examined this patient.: Yes I have fully participated in the care of the patient.: Yes I have reviewed all pertinent clinical information, including history, physical exam and plan: Yes Notes (Text): 11/11/16 16:57 76 year old female with past medical history of diabetes, hypertension, anemia and recently diagnosed liver cirrhosis presented with altered mental status secondary to hepatic encephalopathy which has resolved. She is on lactulose, rifaximin, lasix and spironalactone. She also has a simple cyst liver lesion on MRI. She was also found to have cecal mass. She is s/p colonoscopy with biopsy which showed poorly differentiated adenocarcinoma with fragments of tubulovillous adenoma / tubular adenoma. CEA is elevated and AFP is normal. At this time no plan for surgical intervention given her liver disease with cirrhosis and ascites. She is on iv heparin drip for left popliteal and posterior tibial DVT. She is s /p IVC filter placement last week. She is also on IV iron for anemia. Will continue to monitor her cbc closely. Will discuss with straight edger regarding possibly bridging to coumadin vs transition to lovenox for d/c planning if no further plan for procedures. PT initially recommended TCU vs [facility]. Will request PT follow up. Seema Yanez MD Hospitalist.
[2016-11-12 08:00] LABS: HEMATOCRIT 27.9 % (36.0-48.0); MEAN CORPUSCULAR HEMOGLOBIN 22.8 pg (25.0-35.0); MEAN CORPUSCULAR HGB CONC 30.5 g/dl (31.0-37.0); MEAN PLATELET VOLUME 8.5 fl (7.0-11.0); WHITE BLOOD COUNT 6.2 10^3/ul (4.5-11.0)
[2016-11-12 08:20] LABS: BLOOD UREA NITROGEN 10 mg/dL (7-21); CALCIUM 8.1 mg/dL (8.4-10.5); CARBON DIOXIDE 28 mmol/L (21-33); CHLORIDE 104 mmol/L (98-107); GFR AFRICAN-AMERICAN > 60; GLUCOSE,RANDOM 147 mg/dL (70-110); SODIUM 136 mmol/L (132-148)
[2016-11-12] MEDS: Pantoprazole 40 mg EC Tab PO SCH ×2 (08:30→17:30)
[2016-11-12] MEDS: Insulin Lispro (humaLOG) LOW Coverage SC SCH ×4 (08:30→21:47)
--- NOTE | 2016-11-12 12:31 | CP.PCM.PN ---
<Darío Garcia - Last Filed: 11/12/16 12:26> Subjective - Date & Time of Evaluation Date of Evaluation: 11/12/16 Time of Evaluation: 12:26 - Subjective Subjective: Pt seen and examined at bedside. Pt with no acute events overnight. No complaints at this time. Tolerating diet well and pt having 2-3 BM's per day. Denies CP, SOB, N/V/D. Objective - Vital Signs/Intake and Output Vital Signs (last 24 hours): Temp Pulse Resp BP Pulse Ox 98.5 F 87 16 114/54 L 95 11/12/16 08:00 11/12/16 08:00 11/12/16 08:00 11/12/16 10:48 11/12/16 08:00 Intake and Output: 11/12/16 11/12/16 06:59 18:59 Intake Total 309 Output Total 1 Balance 308 - Medications Medications: Current Medications Acetaminophen (Tylenol 325mg Tab) 650 mg PO Q4H PRN PRN Reason: Fever >100.4 F Furosemide (Lasix) 40 mg PO DAILY [facility] Last Admin: 11/12/16 10:48 Dose: 40 mg Heparin Sodium/Sodium Chloride (Heparin 40275 Units/250ml 1/2 Normal Saline) 250 mls @ 9.389 mls/hr IV .Q24H PRN; Protocol; 18 UNITS/KG/HR PRN Reason: ADJUST RATE PER PROTOCOL Last Titration: 11/12/16 08:55 Dose: 6.55 units/kg/hr Iron Sucrose 200 mg/ Sodium (Chloride) 110 mls @ 110 mls/hr IVPB DAILY [facility] Stop: 11/14/16 10:59 Last Admin: 11/12/16 10:50 Dose: 110 mls/hr Insulin Human Lispro (Humalog Low) 0 units SC ACHS [facility] PRN Reason: Protocol Last Admin: 11/12/16 08:30 Dose: Not Given Lactulose (Enulose) 30 gm PO BID [facility] Last Admin: 11/12/16 10:49 Dose: 30 gm Pantoprazole Sodium (Protonix Ec Tab) 40 mg PO 0730,1630 [facility] Last Admin: 11/12/16 08:30 Dose: 40 mg Rifaximin (Xifaxan) 550 mg PO BID [facility] PRN Reason: Protocol Last Admin: 11/12/16 10:49 Dose: 550 mg Spironolactone (Aldactone) 100 mg PO DAILY [facility] Last Admin: 11/12/16 10:49 Dose: 100 mg - Labs Labs: 11/12/16 05:00 11/12/16 05:00 PT 14.4 Seconds (9.9-11.8) H 11/10/16 07:35 INR 1.33 (0.93-1.08) H 11/10/16 07:35 APTT 43.0 Seconds (23.7-30.8) H 11/12/16 08:00 - Constitutional Appears: Well, No Acute Distress - Head Exam Head Exam: ATRAUMATIC, NORMAL INSPECTION, NORMOCEPHALIC - ENT Exam ENT Exam: Mucous Membranes Moist, Normal Exam - Respiratory Exam Respiratory Exam: Clear to Ausculation Bilateral, NORMAL BREATHING PATTERN. absent: Rhonchi, Wheezes - Cardiovascular Exam Cardiovascular Exam: RRR, +S1, +S2 - GI/Abdominal Exam GI & Abdominal Exam: Distended, Soft, Normal Bowel Sounds. absent: Firm, Guarding, Tenderness - Extremities Exam Extremities Exam: Normal Inspection, Pedal Edema (Left leg). absent: Calf Tenderness - Neurological Exam Neurological Exam: Alert, Awake, Oriented x3 - Psychiatric Exam Psychiatric exam: Normal Affect, Normal Mood - Skin Skin Exam: Intact, Normal Color, Warm Assessment and Plan - Assessment and Plan (Free Text) Plan: 76 y/o F with PMH of DM, microcytic anemia and recently diagnosed liver cirrhosis presents with hepatic encephalopathy, now resolved and found to have a cecal mass on CT. Pt underwent follow up colonoscopy to evaluate cecal mass which shows fungating, nonobstructive mass in the cecum. 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 Pt remains on heparin drip for popliteal and tibial DVT, IVC filter in place. Pt is no longer being considered for right colectomy due to increased surgical risk. Pt will possibly be transitioned to oral anticoagulant or taken off anticoagulation all together as pt has IVC filter in place. Liver cirrhosis - Continue rifaximin and lactulose - Will consider paracentesis before DC as abdomen continues to accumulate ascites Left leg DVT - Continue Heparin drip - Will transition to oral anticoagulant or stop anticoagulation, awaiting Heme/ onc recs - s/p IVC filter placement Cecal Mass - No surgery at this time - Advance diet as tolerated - Pathology shows poorly differentiated adenocarcinoma and tubulovillous adenoma - Oncology consulted, Dr. Lara. Awaiting recs Microcytic anemia - hgb stable at 8.51 - Continue IV iron as anemia is improving - Monitor hg Prophylaxis - protonix - SCD Seen, reviewed, and discussed with attending. Jose, PGY-1 <Linh GÓMEZ,Jimmie - Last Filed: 11/12/16 16:12> Objective - Vital Signs/Intake and Output Vital Signs (last 24 hours): Temp Pulse Resp BP Pulse Ox 98.5 F 87 16 114/54 L 95 11/12/16 08:00 11/12/16 08:00 11/12/16 08:00 11/12/16 10:48 11/12/16 08:00 Intake and Output: 11/12/16 11/12/16 06:59 18:59 Intake Total 309 480 Output Total 1 Balance 308 480 - Medications Medications: Current Medications Acetaminophen (Tylenol 325mg Tab) 650 mg PO Q4H PRN PRN Reason: Fever >100.4 F Furosemide (Lasix) 40 mg PO DAILY [facility] Last Admin: 11/12/16 10:48 Dose: 40 mg Heparin Sodium/Sodium Chloride (Heparin 24865 Units/250ml 1/2 Normal Saline) 250 mls @ 9.389 mls/hr IV .Q24H PRN; Protocol; 18 UNITS/KG/HR PRN Reason: ADJUST RATE PER PROTOCOL Last Titration: 11/12/16 08:55 Dose: 6.55 units/kg/hr Iron Sucrose 200 mg/ Sodium (Chloride) 110 mls @ 110 mls/hr IVPB DAILY [facility] Stop: 11/14/16 10:59 Last Admin: 11/12/16 10:50 Dose: 110 mls/hr Insulin Human Lispro (Humalog Low) 0 units SC ACHS [facility] PRN Reason: Protocol Last Admin: 11/12/16 12:50 Dose: 1 units Lactulose (Enulose) 30 gm PO BID [facility] Last Admin: 11/12/16 10:49 Dose: 30 gm Pantoprazole Sodium (Protonix Ec Tab) 40 mg PO 0730,1630 [facility] Last Admin: 11/12/16 08:30 Dose: 40 mg Rifaximin (Xifaxan) 550 mg PO BID [facility] PRN Reason: Protocol Last Admin: 11/12/16 10:49 Dose: 550 mg Spironolactone (Aldactone) 100 mg PO DAILY [facility] Last Admin: 11/12/16 10:49 Dose: 100 mg - Labs Labs: 11/12/16 05:00 11/12/16 05:00 PT 14.4 Seconds (9.9-11.8) H 11/10/16 07:35 INR 1.33 (0.93-1.08) H 11/10/16 07:35 APTT 43.0 Seconds (23.7-30.8) H 11/12/16 08:00 Attending/Attestation - Attestation I have personally seen and examined this patient.: Yes I have fully participated in the care of the patient.: Yes I have reviewed all pertinent clinical information, including history, physical exam and plan: Yes Notes (Text): Patient was seen and examined with medical billing manager .Agreed with resident assessment and plan. 76 year old female with past medical history of diabetes, hypertension, anemia and recently diagnosed liver cirrhosis presented with altered mental status secondary to hepatic encephalopathy which has resolved. She is on lactulose, rifaximin, lasix and spironalactone. She also has a simple cyst liver lesion on MRI.She was also found to have cecal mass. She is s/p colonoscopy with biopsy which showed poorly differentiated adenocarcinoma with fragments of tubulovillous adenoma / tubular adenoma. CEA is elevated and AFP is normal. At this time no plan for surgical intervention given her liver disease with cirrhosis and ascites. She is on iv heparin drip for left popliteal and posterior tibial DVT. She is s/p IVC filter placement last week. She is also on IV iron for anemia.IV heparin can be discontinued after consultation with hematology as risk of anticoagulation is high compared to the benefit due to history of chronic liver disease, guiac positive stools and esophageal varices.We will also get Palliative care consult. Management plan was discussed in detail with patient Education was provided. Prognosis is guarded.
[2016-11-12] MEDS: Heparin25000 units/250ml 1/2NS 250 ML IV PRN (23:50)
[2016-11-13 08:15] LABS: HEMATOCRIT 27.6 % (36.0-48.0); MEAN CELL VOLUME 75.2 fL (80.0-105.0); MEAN CORPUSCULAR HEMOGLOBIN 23.2 pg (25.0-35.0); MEAN CORPUSCULAR HGB CONC 30.8 g/dl (31.0-37.0); MEAN PLATELET VOLUME 8.9 fl (7.0-11.0); RED CELL DISTRIBUTION WIDTH 31.6 % (11.5-14.5); WHITE BLOOD COUNT 6.2 10^3/ul (4.5-11.0)
[2016-11-13 08:27] LABS: ALB/GLOB RATIO 0.5 (1.1-1.8); ALKALINE PHOSPHATASE 131 U/L (38-133); ALT/SGPT 37 U/L (7-56); AST/SGOT 40 U/L (15-39); BILIRUBIN,TOTAL 0.9 mg/dL (0.2-1.3); BLOOD UREA NITROGEN 10 mg/dL (7-21); CALCIUM 7.9 mg/dL (8.4-10.5); CARBON DIOXIDE 26 mmol/L (21-33); CHLORIDE 101 mmol/L (95-110); GFR AFRICAN-AMERICAN > 60; GLUCOSE,RANDOM 144 mg/dL (70-110); POTASSIUM 3.2 mmol/L (3.6-5.0); SODIUM 134 mmol/L (132-148); TOTAL PROTEIN 5.3 g/dL (5.8-8.3)
--- NOTE | 2016-11-13 09:59 | CON ---
DATE: 11/13/2016 The events over the last couple of days are noted. The patient has colon carcinoma. CAT scans do no t show any obvious metastases. However, the patient has underlying severe medical problems attribute d to the cirrhosis with severe liver dysfunction causing ascites, causing decreased fibrinogen and __ ___ of which will possibly make surgery not possible for medical reasons. At this point, therefore, she is not obstructing in terms of the colon cancer and not bleeding from the colon cancer and, if at sometime medically she is improved enough that she can get clearance for surgery, then that would be the approach. Otherwise, the approach has to be symptom control and right now she has no symptoms attributed to the colon cancer. She will be followed by her stockroom supervisor for this as an outpatient. Th ere is no role for chemotherapy and no role for radiation therapy at this point. Ronny Lara MD cc: [id number] TT: 11/13/2016 09:58:44 Confirmation # [id number] Dictation # [id number] catie
[2016-11-13] MEDS: Insulin Lispro (humaLOG) LOW Coverage SC SCH ×4 (10:05→22:00)
[2016-11-13] MEDS: Pantoprazole 40 mg EC Tab PO SCH ×2 (10:05→17:43)
--- NOTE | 2016-11-13 12:41 | CP.PCM.PN ---
Subjective - Date & Time of Evaluation Date of Evaluation: 11/13/16 Time of Evaluation: 07:00 - Subjective Subjective: Pt is seen and evaluated at the bedside. Pt reports passing gas, tolerating food w/o N and V. Afebrile overnight. Objective - Vital Signs/Intake and Output Vital Signs (last 24 hours): Temp Pulse Resp BP Pulse Ox 97.8 F 78 18 111/54 L 97 11/13/16 09:00 11/13/16 09:00 11/13/16 09:00 11/13/16 10:06 11/13/16 09:00 Intake and Output: 11/13/16 11/13/16 06:59 18:59 Intake Total 840 Balance 840 - Medications Medications: Current Medications Acetaminophen (Tylenol 325mg Tab) 650 mg PO Q4H PRN PRN Reason: Fever >100.4 F Furosemide (Lasix) 40 mg PO DAILY [facility] Last Admin: 11/13/16 10:06 Dose: 40 mg Iron Sucrose 200 mg/ Sodium (Chloride) 110 mls @ 110 mls/hr IVPB DAILY [facility] Stop: 11/14/16 10:59 Last Admin: 11/13/16 10:06 Dose: 110 mls/hr Insulin Human Lispro (Humalog Low) 0 units SC ACHS [facility] PRN Reason: Protocol Last Admin: 11/13/16 10:05 Dose: 1 units Lactulose (Enulose) 30 gm PO BID [facility] Last Admin: 11/13/16 10:05 Dose: 30 gm Pantoprazole Sodium (Protonix Ec Tab) 40 mg PO 0730,1630 [facility] Last Admin: 11/13/16 10:05 Dose: 40 mg Rifaximin (Xifaxan) 550 mg PO BID [facility] PRN Reason: Protocol Last Admin: 11/13/16 10:06 Dose: 550 mg Spironolactone (Aldactone) 100 mg PO DAILY [facility] Last Admin: 11/13/16 10:05 Dose: 100 mg - Labs Labs: 11/13/16 08:00 11/13/16 08:00 PT 14.4 Seconds (9.9-11.8) H 11/10/16 07:35 INR 1.33 (0.93-1.08) H 11/10/16 07:35 APTT 51.2 Seconds (23.7-30.8) H 11/13/16 08:00 - Additional Findings Additional findings: - Constitutional Appears: Well, No Acute Distress - Head Exam Head Exam: ATRAUMATIC, NORMAL INSPECTION, NORMOCEPHALIC - ENT Exam ENT Exam: Mucous Membranes Moist - Respiratory Exam Respiratory Exam: NORMAL BREATHING PATTERN - Cardiovascular Exam Cardiovascular Exam: RRR - GI/Abdominal Exam GI & Abdominal Exam: Distended, Soft - Neurological Exam Neurological Exam: Alert, Awake - Skin Skin Exam: Normal Color, Warm Assessment and Plan - Assessment and Plan (Free Text) Plan: 76 y/o F w/ cecal mass and LLE DVT s/p IVC 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 Timoteo Sauer PGY-1
[2016-11-13] MEDS ORDERED: Potassium Chloride 20 mEq ER Tab PO ONE (15:09)
--- NOTE | 2016-11-13 15:25 | PN ---
DATE: 11/13/2016 Case was discussed with the WANDY Villalba regarding the clearance. The patient was already cleared cardi ac dinero for the surgery. However, upon the review of the labs today, the patient was found to have p otassium of 3.2. I do recommend correcting electrolytes, especially potassium prior to any surgical intervention, as well as postoperative telemetry monitoring. Alex Garcia MD cc: [id number] TT: 11/13/2016 15:24:17 Confirmation # [id number] Dictation # [id number] sn
--- NOTE | 2016-11-13 16:02 | CP.PCM.PN ---
<Darío Garcia - Last Filed: 11/13/16 16:03> Subjective - Date & Time of Evaluation Date of Evaluation: 11/13/16 Time of Evaluation: 16:00 - Subjective Subjective: Pt seen and examined at bedside. No acute events overnight. Pt with no complaints at this time. Tolerating diet well, having 2-3 bowel movements per day. Denies CP, SOB, N/V/D. Objective - Vital Signs/Intake and Output Vital Signs (last 24 hours): Temp Pulse Resp BP Pulse Ox 97.8 F 78 18 111/54 L 97 11/13/16 09:00 11/13/16 09:00 11/13/16 09:00 11/13/16 10:06 11/13/16 09:00 Intake and Output: 11/13/16 11/13/16 06:59 18:59 Intake Total 840 400 Balance 840 400 - Medications Medications: Current Medications Acetaminophen (Tylenol 325mg Tab) 650 mg PO Q4H PRN PRN Reason: Fever >100.4 F Furosemide (Lasix) 40 mg PO DAILY [facility] Last Admin: 11/13/16 10:06 Dose: 40 mg Iron Sucrose 200 mg/ Sodium (Chloride) 110 mls @ 110 mls/hr IVPB DAILY [facility] Stop: 11/14/16 10:59 Last Admin: 11/13/16 10:06 Dose: 110 mls/hr Insulin Human Lispro (Humalog Low) 0 units SC ACHS [facility] PRN Reason: Protocol Last Admin: 11/13/16 12:40 Dose: 3 units Lactulose (Enulose) 30 gm PO BID [facility] Last Admin: 11/13/16 10:05 Dose: 30 gm Pantoprazole Sodium (Protonix Ec Tab) 40 mg PO 0730,1630 [facility] Last Admin: 11/13/16 10:05 Dose: 40 mg Rifaximin (Xifaxan) 550 mg PO BID [facility] PRN Reason: Protocol Last Admin: 11/13/16 10:06 Dose: 550 mg Spironolactone (Aldactone) 100 mg PO DAILY [facility] Last Admin: 11/13/16 10:05 Dose: 100 mg - Labs Labs: 11/13/16 08:00 11/13/16 08:00 PT 14.4 Seconds (9.9-11.8) H 11/10/16 07:35 INR 1.33 (0.93-1.08) H 11/10/16 07:35 APTT 51.2 Seconds (23.7-30.8) H 11/13/16 08:00 - Constitutional Appears: Well, No Acute Distress - Head Exam Head Exam: ATRAUMATIC, NORMAL INSPECTION, NORMOCEPHALIC - ENT Exam ENT Exam: Mucous Membranes Moist, Normal Exam - Respiratory Exam Respiratory Exam: Clear to Ausculation Bilateral, NORMAL BREATHING PATTERN. absent: Rhonchi, Wheezes - Cardiovascular Exam Cardiovascular Exam: RRR, +S1, +S2, Murmur - GI/Abdominal Exam GI & Abdominal Exam: Distended, Soft, Normal Bowel Sounds. absent: Guarding, Rigid, Tenderness - Extremities Exam Extremities Exam: Pedal Edema (B/L +2) - Neurological Exam Neurological Exam: Alert, Awake, Oriented x3 - Psychiatric Exam Psychiatric exam: Normal Affect, Normal Mood - Skin Skin Exam: Intact, Normal Color, Warm Assessment and Plan - Assessment and Plan (Free Text) Plan: 76 y/o F with PMH of DM, microcytic anemia and recently diagnosed liver cirrhosis presents with hepatic encephalopathy, now resolved and found to have a cecal mass on CT. Pt underwent follow up colonoscopy to evaluate cecal mass which shows fungating, nonobstructive mass in the cecum. 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 Pt has IVC filter in place, heparin drip stopped today. Although high surgical risk, surgery has asked for anesthesiology evaluation of patient for possible attempt to go to surgery. Pt has localized tumor and would benefit from removal. Liver cirrhosis - Continue rifaximin and lactulose - Will consider paracentesis before DC if no surgery. 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 Lara. Awaiting recs Microcytic anemia - Hg stable at 8.5 - Continue IV iron - Monitor hg Prophylaxis - protonix - SCD Seen, reviewed, and discussed with attending. Jose, PGY-1 <Linh GÓMEZ,Jimmie - Last Filed: 11/13/16 17:16> Objective - Vital Signs/Intake and Output Vital Signs (last 24 hours): Temp Pulse Resp BP Pulse Ox 97.8 F 78 18 111/54 L 97 11/13/16 09:00 11/13/16 09:00 11/13/16 09:00 11/13/16 10:06 11/13/16 09:00 Intake and Output: 11/13/16 11/13/16 06:59 18:59 Intake Total 840 400 Balance 840 400 - Medications Medications: Current Medications Acetaminophen (Tylenol 325mg Tab) 650 mg PO Q4H PRN PRN Reason: Fever >100.4 F Furosemide (Lasix) 40 mg PO DAILY [facility] Last Admin: 11/13/16 10:06 Dose: 40 mg Iron Sucrose 200 mg/ Sodium (Chloride) 110 mls @ 110 mls/hr IVPB DAILY [facility] Stop: 11/14/16 10:59 Last Admin: 11/13/16 10:06 Dose: 110 mls/hr Insulin Human Lispro (Humalog Low) 0 units SC ACHS [facility] PRN Reason: Protocol Last Admin: 11/13/16 12:40 Dose: 3 units Lactulose (Enulose) 30 gm PO BID [facility] Last Admin: 11/13/16 10:05 Dose: 30 gm Pantoprazole Sodium (Protonix Ec Tab) 40 mg PO 0730,1630 [facility] Last Admin: 11/13/16 10:05 Dose: 40 mg Rifaximin (Xifaxan) 550 mg PO BID [facility] PRN Reason: Protocol Last Admin: 11/13/16 10:06 Dose: 550 mg Spironolactone (Aldactone) 100 mg PO DAILY [facility] Last Admin: 11/13/16 10:05 Dose: 100 mg - Labs Labs: 11/13/16 08:00 11/13/16 08:00 PT 14.4 Seconds (9.9-11.8) H 11/10/16 07:35 INR 1.33 (0.93-1.08) H 11/10/16 07:35 APTT 51.2 Seconds (23.7-30.8) H 11/13/16 08:00 Attending/Attestation - Attestation I have personally seen and examined this patient.: Yes I have fully participated in the care of the patient.: Yes I have reviewed all pertinent clinical information, including history, physical exam and plan: Yes Notes (Text): Patient was seen and examined with medical malpractice paralegal .Agreed with resident assessment and plan. Management plan was discussed in detail with patient Education was provided.
[2016-11-14 07:27] LABS: HEMATOCRIT 26.2 % (36.0-48.0); MEAN CELL VOLUME 76.2 fL (80.0-105.0); MEAN CORPUSCULAR HEMOGLOBIN 23.5 pg (25.0-35.0); MEAN CORPUSCULAR HGB CONC 30.9 g/dl (31.0-37.0); PLATELET COUNT 82 10^3/uL (120.0-450.0); RED CELL DISTRIBUTION WIDTH 32.2 % (11.5-14.5); WHITE BLOOD COUNT 6.4 10^3/ul (4.5-11.0)
[2016-11-14 07:51] LABS: ALB/GLOB RATIO 0.5 (1.1-1.8); ALKALINE PHOSPHATASE 131 U/L (38-133); ALT/SGPT 38 U/L (7-56); AST/SGOT 40 U/L (15-39); BLOOD UREA NITROGEN 12 mg/dL (7-21); CALCIUM 7.9 mg/dL (8.4-10.5); CARBON DIOXIDE 27 mmol/L (21-33); CHLORIDE 102 mmol/L (98-107); GFR AFRICAN-AMERICAN > 60; GLUCOSE,RANDOM 142 mg/dL (70-110); MAGNESIUM 1.5 mg/dL (1.7-2.2); POTASSIUM 3.9 mmol/L (3.6-5.0); SODIUM 133 mmol/L (132-148); TOTAL PROTEIN 5.1 g/dL (5.8-8.3)
[2016-11-14] MEDS: Insulin Lispro (humaLOG) LOW Coverage SC SCH ×3 (08:23→17:11)
[2016-11-14] MEDS: Pantoprazole 40 mg EC Tab PO SCH ×2 (08:24→17:12)
[2016-11-14 08:54] VITALS: RESP 20
--- NOTE | 2016-11-14 09:02 | CP.PCM.PN ---
Subjective - Date & Time of Evaluation Date of Evaluation: 11/14/16 Time of Evaluation: 07:40 - Subjective Subjective: SURGERY NOTE FOR DR. BUTLER Pt seen and evaluated at the bedside. Pt is claiming to be eating, and reports liquid BM this AM. Denies abdominal pain and N/V. Objective - Vital Signs/Intake and Output Vital Signs (last 24 hours): Temp Pulse Resp BP Pulse Ox 98 F 90 20 97/48 L 96 11/14/16 08:53 11/14/16 08:53 11/14/16 08:53 11/14/16 08:53 11/14/16 08:53 Intake and Output: 11/14/16 11/14/16 06:59 18:59 Intake Total 780 Balance 780 - Medications Medications: Current Medications Acetaminophen (Tylenol 325mg Tab) 650 mg PO Q4H PRN PRN Reason: Fever >100.4 F Furosemide (Lasix) 40 mg PO DAILY [facility] Last Admin: 11/13/16 10:06 Dose: 40 mg Iron Sucrose 200 mg/ Sodium (Chloride) 110 mls @ 110 mls/hr IVPB DAILY [facility] Stop: 11/14/16 10:59 Last Admin: 11/13/16 10:06 Dose: 110 mls/hr Insulin Human Lispro (Humalog Low) 0 units SC ACHS [facility] PRN Reason: Protocol Last Admin: 11/14/16 08:23 Dose: 1 units Lactulose (Enulose) 30 gm PO BID [facility] Last Admin: 11/13/16 17:42 Dose: 30 gm Pantoprazole Sodium (Protonix Ec Tab) 40 mg PO 0730,1630 [facility] Last Admin: 11/14/16 08:24 Dose: 40 mg Rifaximin (Xifaxan) 550 mg PO BID [facility] PRN Reason: Protocol Last Admin: 11/13/16 17:43 Dose: 550 mg Spironolactone (Aldactone) 100 mg PO DAILY [facility] Last Admin: 11/13/16 10:05 Dose: 100 mg - Labs Labs: 11/14/16 05:30 11/14/16 05:30 PT 14.4 Seconds (9.9-11.8) H 11/10/16 07:35 INR 1.33 (0.93-1.08) H 11/10/16 07:35 APTT 51.2 Seconds (23.7-30.8) H 11/13/16 08:00 - Additional Findings Additional findings: - Constitutional Appears: Well, No Acute Distress - Head Exam Head Exam: ATRAUMATIC, NORMAL INSPECTION, NORMOCEPHALIC - ENT Exam ENT Exam: Mucous Membranes Moist - Respiratory Exam Respiratory Exam: NORMAL BREATHING PATTERN - Cardiovascular Exam Cardiovascular Exam: RRR - GI/Abdominal Exam GI & Abdominal Exam: Soft, non-tender - Neurological Exam Neurological Exam: Alert, Awake - Skin Skin Exam: Normal Color, Warm Assessment and Plan - Assessment and Plan (Free Text) Plan: 76 y/o F w/ cecal mass and LLE DVT s/p IVC 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 Timoteo Sauer PGY-1
--- NOTE | 2016-11-14 13:37 | CP.PCM.PN ---
<Darío Garcia - Last Filed: 11/14/16 13:34> Subjective - Date & Time of Evaluation Date of Evaluation: 11/14/16 Time of Evaluation: 13:34 - Subjective Subjective: Pt seen and examined at bedside. Pt is comfortable with no complaints. No acute events overnight. Pt is tolerating diet well and having 2-3 bowel movements per day. Denies CP, SOB, N/V/D. Objective - Vital Signs/Intake and Output Vital Signs (last 24 hours): Temp Pulse Resp BP Pulse Ox 98 F 90 20 95/47 L 96 11/14/16 08:53 11/14/16 08:53 11/14/16 08:53 11/14/16 10:29 11/14/16 08:53 Intake and Output: 11/14/16 11/14/16 06:59 18:59 Intake Total 780 Balance 780 - Medications Medications: Current Medications Acetaminophen (Tylenol 325mg Tab) 650 mg PO Q4H PRN PRN Reason: Fever >100.4 F Furosemide (Lasix) 40 mg PO DAILY [facility] Last Admin: 11/14/16 10:29 Dose: Not Given Insulin Human Lispro (Humalog Low) 0 units SC ACHS [facility] PRN Reason: Protocol Last Admin: 11/14/16 12:10 Dose: 2 units Lactulose (Enulose) 30 gm PO BID [facility] Last Admin: 11/14/16 10:29 Dose: 30 gm Pantoprazole Sodium (Protonix Ec Tab) 40 mg PO 0730,1630 [facility] Last Admin: 11/14/16 08:24 Dose: 40 mg Rifaximin (Xifaxan) 550 mg PO BID [facility] PRN Reason: Protocol Last Admin: 11/14/16 10:30 Dose: 550 mg Spironolactone (Aldactone) 100 mg PO DAILY [facility] Last Admin: 11/14/16 11:06 Dose: 100 mg - Labs Labs: 11/14/16 05:30 11/14/16 05:30 PT 14.4 Seconds (9.9-11.8) H 11/10/16 07:35 INR 1.33 (0.93-1.08) H 11/10/16 07:35 APTT 51.2 Seconds (23.7-30.8) H 11/13/16 08:00 - Constitutional Appears: Well, No Acute Distress - Head Exam Head Exam: ATRAUMATIC, NORMAL INSPECTION, NORMOCEPHALIC - ENT Exam ENT Exam: Mucous Membranes Moist, Normal Exam - Respiratory Exam Respiratory Exam: Clear to Ausculation Bilateral, NORMAL BREATHING PATTERN. absent: Rhonchi, Wheezes - Cardiovascular Exam Cardiovascular Exam: RRR, +S1, +S2 - GI/Abdominal Exam GI & Abdominal Exam: Distended, Soft, Normal Bowel Sounds. absent: Guarding, Rigid, Tenderness - Extremities Exam Extremities Exam: Normal Inspection, Pedal Edema. absent: Calf Tenderness Additional comments: +2 b/l edema - Neurological Exam Neurological Exam: Alert, Awake, Oriented x3 - Psychiatric Exam Psychiatric exam: Normal Affect, Normal Mood - Skin Skin Exam: Intact, Normal Color, Warm Assessment and Plan - Assessment and Plan (Free Text) Plan: 76 y/o F with PMH of DM, microcytic anemia and recently diagnosed liver cirrhosis presents with hepatic encephalopathy, now resolved and incidentally found to have a cecal mass on CT. Pt underwent follow up colonoscopy to evaluate cecal mass which shows fungating, nonobstructive mass in the cecum. 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 Although high surgical risk, surgery has asked for anesthesiology evaluation of patient. Surgical options will also be discussed with patient's family later today. Liver cirrhosis/Ascites - Continue rifaximin and lactulose for 2-3 BM's per day. - Dr. 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 Lara Microcytic anemia - Hg stable at 8.1 - IV iron stopped - Monitor hg Prophylaxis - protonix - SCD Seen, reviewed, and discussed with attending. Jose, PGY-1 <Linh GÓMEZ,Jimmie - Last Filed: 11/14/16 15:05> Objective - Vital Signs/Intake and Output Vital Signs (last 24 hours): Temp Pulse Resp BP Pulse Ox 98 F 90 20 95/47 L 96 11/14/16 08:53 11/14/16 08:53 11/14/16 08:53 11/14/16 10:29 11/14/16 08:53 Intake and Output: 11/14/16 11/14/16 06:59 18:59 Intake Total 780 Balance 780 - Medications Medications: Current Medications Acetaminophen (Tylenol 325mg Tab) 650 mg PO Q4H PRN PRN Reason: Fever >100.4 F Furosemide (Lasix) 40 mg PO DAILY [facility] Last Admin: 11/14/16 10:29 Dose: Not Given Insulin Human Lispro (Humalog Low) 0 units SC ACHS [facility] PRN Reason: Protocol Last Admin: 11/14/16 12:10 Dose: 2 units Lactulose (Enulose) 30 gm PO BID [facility] Last Admin: 11/14/16 10:29 Dose: 30 gm Pantoprazole Sodium (Protonix Ec Tab) 40 mg PO 0730,1630 [facility] Last Admin: 11/14/16 08:24 Dose: 40 mg Rifaximin (Xifaxan) 550 mg PO BID [facility] PRN Reason: Protocol Last Admin: 11/14/16 10:30 Dose: 550 mg Spironolactone (Aldactone) 100 mg PO DAILY [facility] Last Admin: 11/14/16 11:06 Dose: 100 mg - Labs Labs: 11/14/16 05:30 11/14/16 05:30 PT 14.4 Seconds (9.9-11.8) H 11/10/16 07:35 INR 1.33 (0.93-1.08) H 11/10/16 07:35 APTT 51.2 Seconds (23.7-30.8) H 11/13/16 08:00 Attending/Attestation - Attestation I have personally seen and examined this patient.: Yes I have fully participated in the care of the patient.: Yes I have reviewed all pertinent clinical information, including history, physical exam and plan: Yes Notes (Text): Patient was seen and examined with medical dosimetrist .Agreed with resident assessment and plan. 76 year old female with past medical history of diabetes, hypertension, anemia and recently diagnosed liver cirrhosis presented with altered mental status secondary to hepatic encephalopathy which has resolved. She is on lactulose, rifaximin, lasix and spironolactone. She also has a simple cyst liver lesion on MRI.She was also found to have cecal mass. She is s/p colonoscopy with biopsy which showed poorly differentiated adenocarcinoma with fragments of tubulovillous adenoma / tubular adenoma. CEA is elevated and AFP is normal. She is SP IVC filter for left popliteal and posterior tibial DVT. She is high risk for anticoagulation due to history of chronic liver disease, guiac positive stools and esophageal varices. Patient has not made any decision regarding surgery.His daughter is coming to the hospital today, if no plan for surgery, she could be discharged home with home services. Prognosis is guarded. Management plan was discussed in detail with patient Education was provided.
--- NOTE | 2016-11-14 15:58 | CP.PCM.CON ---
History of Present Illness - History of Present Illness History of Present Illness: Palliative consult requested by Dr Alia Melton Reason: Goals of care HPI:76 year old female presented to ED with lethargy,altered mental status, abdominal pain and decreased appetite. She was recently diagnosed with liver cirrhosis. Work up during this admission revealed acute DVT of the left popliteal and tibial veins. Also, a new cecal mass was found on CT. Cecal mass was biopsy revealed of poorly differentiated adenocarcinoma. PMHx: liver cirrhosis non alcohol related, HTN, anemia,DM. Social History: Non smoker, no alcohol or drug abuse. Lives with spouse. Family History: non contributory. Advance Care Planning: The patient does not have an Advance Directive.. Past Patient History - Past Medical History & Family History Past Medical History?: Yes - Past Social History Smoking Status: Never Smoked Alcohol: Occasional Drugs: Denies Home Situation {Lives}: With Family - CARDIAC Hx Hypertension: Yes - PULMONARY Hx Respiratory Disorders: No - NEUROLOGICAL Hx Neurological Disorder: No - HEENT Hx HEENT Problems: No - RENAL Hx Chronic Kidney Disease: No - ENDOCRINE/METABOLIC Hx Diabetes Mellitus Type 2: Yes - HEMATOLOGICAL/ONCOLOGICAL Hx Anemia: Yes Hx Blood Transfusions: No Hx Blood Transfusion Reaction: No - INTEGUMENTARY Hx Dermatological Problems: No - MUSCULOSKELETAL/RHEUMATOLOGICAL Hx Falls: No - GASTROINTESTINAL Hx Gastrointestinal Disorders: No Hx Diarrhea: Yes Hx Gall Bladder Disease: Yes (cholelithiasis) Hx Liver Failure: Yes Other/Comment: Liver Cirrhosis - GENITOURINARY/GYNECOLOGICAL Hx Genitourinary Disorders: No - PSYCHIATRIC Hx Substance Use: No - SURGICAL HISTORY Hx Surgeries: Yes Hx Orthopedic Surgery: Yes Hx Tubal Ligation: Yes - ANESTHESIA Hx Anesthesia: Yes Hx Anesthesia Reactions: No Hx Malignant Hyperthermia: No Meds Allergies/Adverse Reactions: Allergies Allergy/AdvReac Type Severity Reaction Status Date / Time No Known Allergies Allergy Verified 10/29/16 19:03 - Medications Medications: Current Medications Acetaminophen (Tylenol 325mg Tab) 650 mg PO Q4H PRN PRN Reason: Fever >100.4 F Furosemide (Lasix) 40 mg PO DAILY [facility] Last Admin: 11/14/16 10:29 Dose: Not Given Insulin Human Lispro (Humalog Low) 0 units SC ACHS [facility] PRN Reason: Protocol Last Admin: 11/14/16 12:10 Dose: 2 units Lactulose (Enulose) 30 gm PO BID [facility] Last Admin: 11/14/16 10:29 Dose: 30 gm Pantoprazole Sodium (Protonix Ec Tab) 40 mg PO 0730,1630 [facility] Last Admin: 11/14/16 08:24 Dose: 40 mg Rifaximin (Xifaxan) 550 mg PO BID [facility] PRN Reason: Protocol Last Admin: 11/14/16 10:30 Dose: 550 mg Spironolactone (Aldactone) 100 mg PO DAILY [facility] Last Admin: 11/14/16 11:06 Dose: 100 mg Physical Exam - Constitutional Appears: Chronically Ill - Eye Exam Eye Exam: Normal appearance, PERRL - ENT Exam ENT Exam: Mucous Membranes Moist, Normal Oropharynx - Neck Exam Neck exam: Positive for: Normal Inspection - Respiratory Exam Respiratory Exam: Clear to Auscultation Bilateral, NORMAL BREATHING PATTERN - Cardiovascular Exam Cardiovascular Exam: REGULAR RHYTHM, +S1, +S2 - GI/Abdominal Exam GI & Abdominal Exam: Distended, Normal Bowel Sounds, Soft - Extremities Exam Extremities exam: Positive for: pedal pulses present Additional comments: edema of both lower extremities - Back Exam Back exam: NORMAL INSPECTION - Neurological Exam Neurological exam: Alert, Oriented x3 - Skin Skin Exam: Dry, Pallor - Additional Findings Additional findings: Palliative performance scale rating 50% Results - Vital Signs Recent Vital Signs: Last Vital Signs Temp 98 F 11/14/16 08:53 Pulse 90 11/14/16 08:53 Resp 20 11/14/16 08:53 BP 95/47 L 11/14/16 10:29 Pulse Ox 96 11/14/16 08:53 - Labs Result Diagrams: 11/14/16 05:30 11/14/16 05:30 Labs: Laboratory Results - last 24 hr 11/13/16 11/13/16 11/14/16 16:07 21:28 05:30 WBC 6.4 RBC 3.44 L Hgb 8.1 L Hct 26.2 L MCV 76.2 L MCH 23.5 L MCHC 30.9 L RDW 32.2 H Plt Count 82 L Sodium 133 Potassium 3.9 Chloride 102 Carbon Dioxide 27 Anion Gap 8 L BUN 12 Creatinine 0.7 Est GFR ( Amer) > 60 Est GFR (Non-Af Amer) > 60 POC Glucose (mg/dL) 237 H 316 H Random Glucose 142 H Calcium 7.9 L Magnesium 1.5 L Total Bilirubin 1.0 AST 40 H ALT 38 Alkaline Phosphatase 131 Total Protein 5.1 L Albumin 1.8 L Globulin 3.3 Albumin/Globulin Ratio 0.5 L 11/14/16 11/14/16 07:51 11:30 WBC RBC Hgb Hct MCV MCH MCHC RDW Plt Count Sodium Potassium Chloride Carbon Dioxide Anion Gap BUN Creatinine Est GFR ( Amer) Est GFR (Non-Af Amer) POC Glucose (mg/dL) 170 H 231 H Random Glucose Calcium Magnesium Total Bilirubin AST ALT Alkaline Phosphatase Total Protein Albumin Globulin Albumin/Globulin Ratio Assessment & Plan - Assessment and Plan (Free Text) Assessment: 76 year old female admitted with hepatic encephalopathy, cirrhosis, anemia, DVT, cecal mass. The patient is alert and oriented. She speaks German but prefers to communicate in Swedish. SW, Trudy Baig was present and spoke to her in Swedish. The patient is aware that she has cancer of the colon. She also knows that the liver disorder is unrelated. She understands that while surgery will prevent obstruction of the colon, it will not prevent progression of liver disease. Patient remains undecided as to whether to pursue surgery. When asked if she has discussed with her family she indicates that she has, but does not elaborate on conversation. I asked if she had ever discussed her wishes regarding resuscitation with family. Patient states that she has not. Patient indicated that she talks with her daughter about medical issues. I offered to speak with both her and her daughter to help establish goals of care. Patient states her daughter does not visit until after 5 PM. I left my contact information for her to give to her daughter. Plan: Will follow and assist with advance care planning. - Date & Time Date: 11/14/16 Time: 16:00
[2016-11-14 16:33] VITALS: O2SAT 98
--- NOTE | 2016-11-14 18:25 | US ---
PROCEDURE: Ultrasound guided paracentesis. HISTORY: Cirrhosis. Recurrent ascites with abdominal pain and distension. Needs paracentesis. PHYSICIAN(S): Brendon Gutierrez MD. TECHNIQUE: The relative risks and indications for the procedure were explained to the patient's family and informed written consent obtained. Sonography of the abdomen was performed in a supine position. This revealed a small to moderate amount of non-loculated ascites, greatest in the right lower quadrant. A puncture site was selected and the area was prepped and draped in the usual sterile fashion. 1% Xylocaine was used to anesthetize the skin and soft tissues. A 7 English paracentesis catheter was trocared into the right lower quadrantand 2100 cc of clear, straw-colored fluid aspirated. No labs were sent IMPRESSION: Ultrasound-guided paracentesis in the right lower quadrant. 2100 cc of clear, straw-colored fluid were aspirated.
[2016-11-15 07:22] LABS: HEMATOCRIT 28.5 % (36.0-48.0); MEAN CELL VOLUME 77.4 fL (80.0-105.0); MEAN CORPUSCULAR HEMOGLOBIN 23.6 pg (25.0-35.0); MEAN CORPUSCULAR HGB CONC 30.5 g/dl (31.0-37.0); PLATELET COUNT 79 10^3/uL (120.0-450.0)
[2016-11-15 07:39] LABS: ALB/GLOB RATIO 0.5 (1.1-1.8); ALKALINE PHOSPHATASE 156 U/L (38-133); ALT/SGPT 41 U/L (7-56); AST/SGOT 41 U/L (15-39); BILIRUBIN,TOTAL 1.1 mg/dL (0.2-1.3); BLOOD UREA NITROGEN 12 mg/dL (7-21); CALCIUM 8.1 mg/dL (8.4-10.5); CARBON DIOXIDE 28 mmol/L (21-33); CHLORIDE 104 mmol/L (98-107); GFR AFRICAN-AMERICAN > 60; GLUCOSE,RANDOM 112 mg/dL (70-110); POTASSIUM 3.9 mmol/L (3.6-5.0); SODIUM 134 mmol/L (132-148); TOTAL PROTEIN 5.3 g/dL (5.8-8.3)
[2016-11-15] MEDS: Insulin Lispro (humaLOG) LOW Coverage SC SCH ×3 (08:30→17:09)
[2016-11-15] MEDS: Pantoprazole 40 mg EC Tab PO SCH ×2 (08:30→17:09)
[2016-11-15 08:55] VITALS: PULSE 75; TEMP 98.9
--- NOTE | 2016-11-15 09:45 | CP.PCM.PN ---
Subjective - Date & Time of Evaluation Date of Evaluation: 11/15/16 Time of Evaluation: 09:00 - Subjective Subjective: Alert. Offers no complaints. Objective - Vital Signs/Intake and Output Vital Signs (last 24 hours): Temp Pulse Resp BP Pulse Ox 98.9 F 75 20 101/52 L 98 11/15/16 08:54 11/15/16 08:54 11/15/16 08:54 11/15/16 08:54 11/15/16 08:54 Intake and Output: 11/15/16 11/15/16 06:59 18:59 Intake Total 480 Balance 480 - Medications Medications: Current Medications Acetaminophen (Tylenol 325mg Tab) 650 mg PO Q4H PRN PRN Reason: Fever >100.4 F Furosemide (Lasix) 40 mg PO DAILY [facility] Last Admin: 11/14/16 10:29 Dose: Not Given Insulin Human Lispro (Humalog Low) 0 units SC ACHS [facility] PRN Reason: Protocol Last Admin: 11/15/16 08:30 Dose: Not Given Lactulose (Enulose) 30 gm PO BID [facility] Last Admin: 11/14/16 17:11 Dose: 30 gm Pantoprazole Sodium (Protonix Ec Tab) 40 mg PO 0730,1630 [facility] Last Admin: 11/15/16 08:30 Dose: 40 mg Rifaximin (Xifaxan) 550 mg PO BID [facility] PRN Reason: Protocol Last Admin: 11/14/16 17:12 Dose: 550 mg Spironolactone (Aldactone) 100 mg PO DAILY [facility] Last Admin: 11/14/16 11:06 Dose: 100 mg - Labs Labs: 11/15/16 06:15 11/15/16 06:15 PT 14.4 Seconds (9.9-11.8) H 11/10/16 07:35 INR 1.33 (0.93-1.08) H 11/10/16 07:35 APTT 51.2 Seconds (23.7-30.8) H 11/13/16 08:00 - Constitutional Appears: No Acute Distress, Chronically Ill - Eye Exam Eye Exam: Normal appearance, PERRL - ENT Exam ENT Exam: Mucous Membranes Moist - Respiratory Exam Respiratory Exam: Decreased Breath Sounds, NORMAL BREATHING PATTERN - Cardiovascular Exam Cardiovascular Exam: REGULAR RHYTHM, +S1 - GI/Abdominal Exam GI & Abdominal Exam: Distended, Soft, Normal Bowel Sounds - Extremities Exam Extremities Exam: Full ROM Additional comments: 2+ edema lower extremities - Skin Skin Exam: Dry, Warm Assessment and Plan - Assessment and Plan (Free Text) Assessment: 76 year old female admitted with DVT cirrhosis, ascites, cecal mass. Patient had paracentisis yesterday, 2100cc straw colored fluid removed. Her appetite is good. She is ambulating independently. She has no complaints. Patient states she has talked with her family and has decided that she wants to proceed with surgery to remove cecal mass. Psychosocial support given. Plan: No new recommendations. Will follow and assist with advance care planning
[2016-11-15 10:11] VITALS: BP 113/56
--- NOTE | 2016-11-15 12:40 | CP.PCM.PN ---
Subjective - Date & Time of Evaluation Date of Evaluation: 11/15/16 Time of Evaluation: 10:45 - Subjective Subjective: SURGERY NOTE FOR DR. BUTLER Pt seen and evaluated in pt room. Pt observed sitting comfortably in chair. Pt denies complaints, has good appetite, and denies N/V. Afebrile overnight. Objective - Vital Signs/Intake and Output Vital Signs (last 24 hours): Temp Pulse Resp BP Pulse Ox 98.9 F 75 20 113/56 L 98 11/15/16 08:54 11/15/16 08:54 11/15/16 08:54 11/15/16 10:10 11/15/16 08:54 Intake and Output: 11/15/16 11/15/16 06:59 18:59 Intake Total 480 Balance 480 - Medications Medications: Current Medications Acetaminophen (Tylenol 325mg Tab) 650 mg PO Q4H PRN PRN Reason: Fever >100.4 F Furosemide (Lasix) 40 mg PO DAILY [facility] Last Admin: 11/15/16 10:10 Dose: 40 mg Insulin Human Lispro (Humalog Low) 0 units SC ACHS [facility] PRN Reason: Protocol Last Admin: 11/15/16 11:49 Dose: 3 units Lactulose (Enulose) 30 gm PO BID [facility] Last Admin: 11/15/16 10:09 Dose: 30 gm Pantoprazole Sodium (Protonix Ec Tab) 40 mg PO 0730,1630 [facility] Last Admin: 11/15/16 08:30 Dose: 40 mg Rifaximin (Xifaxan) 550 mg PO BID [facility] PRN Reason: Protocol Last Admin: 11/15/16 10:10 Dose: 550 mg Spironolactone (Aldactone) 100 mg PO DAILY [facility] Last Admin: 11/15/16 10:09 Dose: 100 mg - Labs Labs: 11/15/16 06:15 11/15/16 06:15 PT 14.4 Seconds (9.9-11.8) H 11/10/16 07:35 INR 1.33 (0.93-1.08) H 11/10/16 07:35 APTT 51.2 Seconds (23.7-30.8) H 11/13/16 08:00 - Additional Findings Additional findings: - Constitutional Appears: Well, No Acute Distress - Head Exam Head Exam: ATRAUMATIC, NORMOCEPHALIC - ENT Exam ENT Exam: Mucous Membranes Moist - Respiratory Exam Respiratory Exam: NORMAL BREATHING PATTERN - Cardiovascular Exam Cardiovascular Exam: RRR - GI/Abdominal Exam GI & Abdominal Exam: Soft, non-tender - Neurological Exam Neurological Exam: Alert, Awake - Extremities Exam Extremities Exam: +1 edema of LE B/L - Skin Skin Exam: Normal Color, Warm Assessment and Plan - Assessment and Plan (Free Text) Assessment: 76 y/o F w/ cecal mass and LLE DVT s/p IVC. 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 Surgical procedure has consent, tentatively for Saturday Pt clear for D/C Pt to go home with [facility], and to be NPO the midnight before procedure Pt to return for colectomy on Saturday Pt to be discussed w/ Dr. Timoteo Sauer PGY-1
--- NOTE | 2016-11-15 13:39 | CP.PCM.DIS ---
Provider - Provider Date of Admission: 10/29/16 22:54 Attending physician: Seema Yanez MD Hospital Course - Lab Results Lab Results: Micro Results 10/30/16 14:35 Ascitic Fluid Anaerobic Culture - Final NO ANAEROBES ISOLATED. 10/30/16 14:35 Ascitic Fluid Fungal Culture - Preliminary NO FUNGUS GROWTH IN 1 WEEK. 10/30/16 16:50 Blood-Venous Blood Culture - Final NO GROWTH AFTER 5 DAYS 10/30/16 16:50 Blood-Venous Gram Stain - Final TEST NOT PERFORMED 10/30/16 16:30 Blood-Venous Blood Culture - Final NO GROWTH AFTER 5 DAYS 10/30/16 16:30 Blood-Venous Gram Stain - Final TEST NOT PERFORMED 10/30/16 14:35 Ascitic Fluid Gram Stain - Final 10/30/16 14:35 Ascitic Fluid Body Fluid Culture - Final No growth. Most Recent Lab Values WBC 6.0 10^3/ul (4.5-11.0) 11/15/16 06:15 RBC 3.68 10^6/uL (3.5-6.1) 11/15/16 06:15 Hgb 8.7 gm/dL (12.0-16.0) L 11/15/16 06:15 Hct 28.5 % (36.0-48.0) L 11/15/16 06:15 MCV 77.4 fL (80.0-105.0) L 11/15/16 06:15 MCH 23.6 pg (25.0-35.0) L 11/15/16 06:15 MCHC 30.5 g/dl (31.0-37.0) L 11/15/16 06:15 RDW 33.0 % (11.5-14.5) H 11/15/16 06:15 Plt Count 79 10^3/uL (120.0-450.0) L 11/15/16 06:15 MPV 8.9 fl (7.0-11.0) 11/13/16 08:00 Gran % 68.0 % (50.0-68.0) 11/11/16 08:03 Lymph % (Auto) 19.0 % (22.0-35.0) L 11/11/16 08:03 [place] % (Auto) 11.5 % (1.0-6.0) H 11/11/16 08:03 Eos % (Auto) 1.2 % (1.5-5.0) L 11/11/16 08:03 Baso % (Auto) 0.3 % (0.0-3.0) 11/11/16 08:03 Gran # 4.09 (1.4-6.5) 11/11/16 08:03 Lymph # 1.1 (1.2-3.4) L 11/11/16 08:03 [place] # 0.7 (0.1-0.6) H 11/11/16 08:03 Eos # 0.1 (0.0-0.7) 11/11/16 08:03 Baso # 0.02 K/mm3 (0.0-2.0) 11/11/16 08:03 Neutrophils % (Manual) TEST NOT PERFORMED 11/04/16 06:30 Lymphocytes % (Manual) TEST NOT PERFORMED 11/04/16 06:30 Monocytes % (Manual) TEST NOT PERFORMED 11/04/16 06:30 Haptoglobin 75 mg/dL (43-212) 11/07/16 15:45 PT 14.4 Seconds (9.9-11.8) H 11/10/16 07:35 INR 1.33 (0.93-1.08) H 11/10/16 07:35 APTT 51.2 Seconds (23.7-30.8) H 11/13/16 08:00 Fibrinogen 184.8 mg/dL (187-400) L 11/07/16 15:45 pO2 116 mm/Hg (30-55) H 10/30/16 00:44 VBG pH 7.42 (7.32-7.43) 10/30/16 00:44 VBG pCO2 43.0 (40-60) 10/30/16 00:44 VBG HCO3 27.9 mmol/l (21-28) 10/30/16 00:44 VBG Total CO2 29.2 mmol.L (22-28) H 10/30/16 00:44 VBG O2 Sat (Calc) 99.2 % (40-65) H 10/30/16 00:44 VBG Base Excess 2.9 mmol/L (0.0-2.0) H 10/30/16 00:44 VBG Potassium 3.9 mmol/L (3.6-5.2) 10/30/16 00:44 Sodium 143.0 mmol/L (132-148) 10/30/16 00:44 Chloride 116.0 mmol/L (98-107) H 10/30/16 00:44 Glucose 183 mg/dl (65-105) H 10/30/16 00:44 Lactate 1.9 mmol/L (0.7-2.1) 10/30/16 00:44 FiO2 21.0 % 10/30/16 00:44 Sodium 134 mmol/L (132-148) 11/15/16 06:15 Potassium 3.9 mmol/L (3.6-5.0) 11/15/16 06:15 Chloride 104 mmol/L (98-107) 11/15/16 06:15 Carbon Dioxide 28 mmol/L (21-33) 11/15/16 06:15 Anion Gap 6 (10-20) L 11/15/16 06:15 BUN 12 mg/dL (7-21) 11/15/16 06:15 Creatinine 0.7 mg/dL (0.5-1.4) 11/15/16 06:15 Est GFR ( Amer) > 60 11/15/16 06:15 Est GFR (Non-Af Amer) > 60 11/15/16 06:15 POC Glucose (mg/dL) 278 mg/dL (65-110) H 11/15/16 11:09 Random Glucose 112 mg/dL (70-110) H 11/15/16 06:15 Hemoglobin A1c 6.7 % (4.2-6.5) H 10/30/16 07:54 Calcium 8.1 mg/dL (8.4-10.5) L 11/15/16 06:15 Magnesium 1.5 mg/dL (1.7-2.2) L 11/14/16 05:30 Iron 98 ug/dL (45-180) 10/30/16 07:54 TIBC 278 ug/dL (265-497) 10/30/16 07:54 % Saturation 35 % (20-55) 10/30/16 07:54 Transferrin 205.57 mg/dL (206-381) L 10/30/16 07:54 Total Bilirubin 1.1 mg/dL (0.2-1.3) 11/15/16 06:15 Direct Bilirubin 0.5 mg/dL (0.0-0.4) H 10/30/16 02:00 AST 41 U/L (15-39) H 11/15/16 06:15 ALT 41 U/L (7-56) 11/15/16 06:15 Alkaline Phosphatase 156 U/L (38-133) H 11/15/16 06:15 Ammonia 14 umol/L (9-33) 11/07/16 15:45 Lactate Dehydrogenase 411 U/L (333-699) 10/30/16 15:52 Total Creatine Kinase < 20 U/L (35-230) L 10/30/16 15:52 Troponin I < 0.01 ng/mL 10/30/16 15:52 NT-Pro-B Natriuret Pep 400 pg/mL (0-450) 10/29/16 20:00 Total Protein 5.3 g/dL (5.8-8.3) L 11/15/16 06:15 Albumin 1.8 g/dL (3.0-4.8) L 11/15/16 06:15 Globulin 3.5 gm/dL 11/15/16 06:15 Albumin/Globulin Ratio 0.5 (1.1-1.8) L 11/15/16 06:15 Alpha Fetoprotein 1.1 ng/mL (0.0-7.5) 11/06/16 06:45 Carcinoembryonic Ag 11.9 ng/mL (0.0-3.0) H 11/06/16 08:20 Vitamin B12 875 pg/mL (239-931) 10/30/16 02:00 Folate 12.3 ng/mL 10/30/16 02:00 Venous Blood Potassium 3.9 mmol/L (3.6-5.2) 10/30/16 00:44 Fluid Source Peritoneal/ascites 10/30/16 14:35 Fluid Appearance Clear (CLEAR) 10/30/16 14:35 Fluid WBC 130.0 /uL (0.0-300.0) 10/30/16 14:35 Fluid RBC 0.0 /uL (0.0-0.0) 10/30/16 14:35 Fluid Tot Cell Count 100 (0-0) H 10/30/16 14:35 Fluid Neutrophils 23.8 % (0-0) H 10/30/16 14:35 Fluid Lymphocytes 76.2 % (0-0) H 10/30/16 14:35 Fld Monocyte/Macrophag 0 % (0-0) 10/30/16 14:35 Fluid Albumin 0.6 g/dL (()) 10/30/16 14:35 Fluid Comment TEST NOT PERFORMED 10/30/16 14:35 Peritoneal Lipase 13.0 U/L (<10) H 10/30/16 14:36 Stool Occult Blood Positive (NEGATIVE) H 10/30/16 18:32 FELICIA Screen Positive (Negative) H 10/31/16 07:30 FELICIA Titer 1:40 Titer (<1:40) H 10/31/16 07:30 FELICIA Titer 2 TEST NOT PERFORMED 10/31/16 07:30 FELICIA Pattern Nucleolar (()) H 10/31/16 07:30 FELICIA Pattern 2 TEST NOT PERFORMED 10/31/16 07:30 Anti-Mitochondrial Ab Negative (Negative) 10/31/16 07:30 Anti-Smooth Muscle Ab Negative (Negative) 10/31/16 07:30 Hepatitis A IgM Ab Negative (NEGATIVE) 10/30/16 07:30 Hep Bs Antigen Negative (NEGATIVE) 10/30/16 07:30 Hep B Core IgM Ab Negative (NEGATIVE) 10/30/16 07:30 Hepatitis C Antibody Negative (NEGATIVE) 10/30/16 07:30 Discharge Exam - Head Exam Head Exam: ATRAUMATIC, NORMAL INSPECTION, NORMOCEPHALIC Discharge Plan - Discharge Medications Prescriptions: Spironolactone [Aldactone] 100 mg PO DAILY #7 tab Lactulose [Enulose] 30 gm PO BID #14 udc Furosemide [Lasix] 40 mg PO DAILY #7 tab rifAXIMin [Xifaxan] 550 mg PO BID #14 tab metFORMIN [glucOPHAGE] 500 mg PO DAILY #7 tab - Follow Up Plan Condition: FAIR Disposition: HOME/ ROUTINE Instructions: Cirrhosis (DC), Pneumococcal Vaccine for Adults (DC), Deep Venous Thrombosis (DC), Diabetes Mellitus Type 2 in Adults (DC), Inferior Vena Cava Filter Placement (DC), Anemia (DC), Fall Prevention (DC) Additional Instructions: Return to Hospital on 11/19/16 at 7 a.m for surgery. Patient is to drink half the bottle of GoLytely on 11/18/16. Patient is not to eat anything after midnight prior to surgery. If symptoms worsen by that time, please return to hospital prior to then. Referrals: [facility], [Non-Staff] - Beto Mahmood MD [Staff Provider] -
== END 2016-11-15 19:29 | disposition home or self-care (01) | DRG 357 ==
LOC: ED 18:39 → ERH 22:54 → 5RSO 10-30 01:14
PROVIDERS: ADMIT Internal Medicine; ATTEND Internal Medicine
PROC: 0W9G3ZZ Drainage of Peritoneal Cavity, Percutaneous Approach (ICD-10-PCS; 2016-10-30)
PROC: 0DBM8ZZ Excision of Descending Colon, Via Natural or Artificial Opening Endoscopic (ICD-10-PCS; 2016-11-02)
PROC: 0DBN8ZZ Excision of Sigmoid Colon, Via Natural or Artificial Opening Endoscopic (ICD-10-PCS; 2016-11-02)
PROC: 0DBH8ZX Excision of Cecum, Via Natural or Artificial Opening Endoscopic, Diagnostic (ICD-10-PCS; principal; 2016-11-02 14:30)
PROC: 06H03DZ Insertion of Intraluminal Device into Inferior Vena Cava, Percutaneous Approach (ICD-10-PCS; 2016-11-06)
PROC: 0W9G3ZZ Drainage of Peritoneal Cavity, Percutaneous Approach (ICD-10-PCS; 2016-11-14)
DX: C18.0 Malignant neoplasm of cecum (principal); K74.60 Unspecified cirrhosis of liver; K72.90 Hepatic failure, unspecified without coma; R18.8 Other ascites; I82.432 Acute embolism and thrombosis of left popliteal vein; I82.442 Acute embolism and thrombosis of left tibial vein; I85.00 Esophageal varices without bleeding; I10 Essential (primary) hypertension; E11.9 Type 2 diabetes mellitus without complications; D50.9 Iron deficiency anemia, unspecified; K25.9 Gastric ulcer, unspecified as acute or chronic, without hemorrhage or perforation; D12.5 Benign neoplasm of sigmoid colon; K63.5 Polyp of colon; R60.0 Localized edema; D18.03 Hemangioma of intra-abdominal structures; K80.20 Calculus of gallbladder without cholecystitis without obstruction; K64.8 Other hemorrhoids; Z79.84 Long term (current) use of oral hypoglycemic drugs; Z98.51 Tubal ligation status; Z80.0 Family history of malignant neoplasm of digestive organs

== ENCOUNTER 2016-11-20 06:06 | Inpatient (IN) | payer MEDICARE, OTHER ==
[2016-11-16 11:01] VITALS: BMI 26.0
[2016-11-20] MEDS ORDERED: Albumin Human 5% (12.5 gm/250 ml) IV ONE (07:26)
[2016-11-20] MEDS ORDERED: Propofol 10 mg/ml Inj (20 ML) ONE (07:41)
[2016-11-20] MEDS ORDERED: Succinylcholine 200 mg/10 ml Inj IV ONE (07:41)
[2016-11-20] MEDS ORDERED: ePHEDrine 50 mg/ml Inj ONE (07:42)
[2016-11-20] MEDS ORDERED: Phenylephrine 10 mg/ml Inj ONE (07:42)
[2016-11-20] MEDS ORDERED: Lidocaine 1% Inj (20ml) ONE (07:49)
[2016-11-20] MEDS ORDERED: metroNIDAZOLE IV 500 mg/100 ml 100 ML ONE (08:09)
[2016-11-20] MEDS ORDERED: Sevoflurane - Inhalation Anesthetic Liq (250 ml) ONE (08:35)
[2016-11-20] MEDS ORDERED: Bupivacaine 0.5% Inj(30mL) ONE (10:27)
[2016-11-20] MEDS ORDERED: Neostigmine Methylsulfate 3mg/3ml Syringe IV ONE (10:29)
[2016-11-20] MEDS ORDERED: Esmolol 100 mg/10ml Inj IV ONE (10:39)
--- NOTE | 2016-11-20 11:10 | PCM.SURG1 ---
Surgeon's Initial Post Op Note - Surgeon's Notes Surgeon: Dr. Mahmood Acidity Tester: Dr. Collazo PGY-2, Dr. Lindo PGY-1, Dr. Carpenter PGY-1 Type of Anesthesia: General Endo Anesthesia Administered By: Dr. Penny Pre-Operative Diagnosis: Colon cancer Operative Findings: See operative report Post-Operative Diagnosis: Same Operation Performed: Right hemicolectomy with side to side anastomosis Specimen/Specimens Removed: Right colon & terminal ileum Estimated Blood Loss: EBL {In ML}: 300 Blood Products Given: PRBC (2 units), FFP (2 units) Drains Used: Deny Post-Op Condition: Fair Date of Surgery/Procedure: 11/20/16 Time of Surgery/Procedure: 11:11
[2016-11-20] MEDS ORDERED: metroNIDAZOLE IV 500 mg/100 ml 100 ML IVPB SCH (11:15)
[2016-11-20] MEDS ORDERED: HYDROmorphone 0.5 mg/0.5 ml ISec IVP PRN ×2 (11:21→11:24)
[2016-11-20] MEDS ORDERED: Sodium Chloride 0.9% 500 ML IV STA ×3 (11:27→23:56)
[2016-11-20] MEDS ORDERED: Sodium Chloride 0.9% 1,000 ML IV SCH (11:30)
[2016-11-20 11:36] LABS: ADD MANUAL DIFF? NO
[2016-11-20 11:45] LABS: BASO # 0.01 K/mm3 (0.0-2.0); BASO % 0.1 % (0.0-3.0); EOS % 0.2 % (1.5-5.0); GRAN # 8.27 (1.4-6.5); GRAN % 78.2 % (50.0-68.0); HEMATOCRIT 36.5 % (36.0-48.0); LYMPH # 1.5 (1.2-3.4); LYMPH % 14.5 % (22.0-35.0); MEAN CELL VOLUME 84.3 fL (80.0-105.0); MEAN CORPUSCULAR HEMOGLOBIN 26.3 pg (25.0-35.0); MEAN CORPUSCULAR HGB CONC 31.2 g/dl (31.0-37.0); MONO # 0.7 (0.1-0.6); PLATELET COUNT 72 10^3/uL (120.0-450.0); RED CELL DISTRIBUTION WIDTH 26.5 % (11.5-14.5); WHITE BLOOD COUNT 10.6 10^3/ul (4.5-11.0)
[2016-11-20 11:48] LABS: ALKALINE PHOSPHATASE 109 U/L (38-133); ALT/SGPT 28 U/L (7-56); AST/SGOT 35 U/L (15-39); BLOOD UREA NITROGEN 14 mg/dL (7-21); CALCIUM 8.1 mg/dL (8.4-10.5); CARBON DIOXIDE 24 mmol/L (21-33); CHLORIDE 102 mmol/L (95-110); GFR AFRICAN-AMERICAN > 60; GLUCOSE,RANDOM 138 mg/dL (70-110); POTASSIUM 4.3 mmol/L (3.6-5.0); SODIUM 136 mmol/L (132-148); TOTAL PROTEIN 5.7 g/dL (5.8-8.3)
[2016-11-20 11:49] LABS: ALB/GLOB RATIO 0.8 (1.1-1.8)
[2016-11-20] MEDS ORDERED: HYDROmorphone 1 mg/ml ISec ONE (12:26)
[2016-11-20] MEDS: HYDROmorphone 0.5 mg/0.5 ml ISec IVP PRN ×2 (12:28→12:43)
--- NOTE | 2016-11-20 12:59 | CP.PCM.HP ---
<Glynn Melo - Last Filed: 11/20/16 14:47> History of Present Illness - History of Present Illness History of Present Illness: CC: Abdominal pain s/p surgery HPI: Patient is a 76 y/o F with PMH of DVT, HTN, DM2, and liver cirrhosis who presents s/p right hemicolectomy with side to side anastamosis. Recently she was hospitalized for altered mental status and was admitted for hepatic encephalopathy. 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 Today she was scheduled for an elective right hemicolectomy with side to side anastamosis which was completed. She was seen and evaluated in the PACU. She was somnolent but able to answer some questions. She reported diffuse abdominal pain. A thorough review of systems could not be performed due to somnolence. PMD: None Past Med Hx: DM2, HTN, Liver cirrhosis Past Surg Hx: Paricentesis, IVC filter placement, right hemicolectomy with side to side anastamosis Social Hx: Denies alcohol, tobacco, or drug use Allergies: NKDA Present on Admission - Present on Admission Any Indicators Present on Admission: Yes History of DVT/PE: Yes History of Uncontrolled Diabetes: No Urinary Catheter: Yes Decubitus Ulcer Present: No Review of Systems - Review of Systems Systems not reviewed;Unavailable: Acuity of Condition Past Patient History - Infectious Disease Hx of Infectious Diseases: None - Tetanus Immunizations Tetanus Immunization: Unknown - Past Medical History & Family History Past Medical History?: Yes - Past Social History Smoking Status: Never Smoked Chewing Tobacco Use: No Cigar Use: No Alcohol: None Drugs: Denies Home Situation {Lives}: With Family - CARDIAC Hx Pacemaker: No - PULMONARY Hx Respiratory Disorders: No - NEUROLOGICAL Hx Paralysis: No - HEENT Hx HEENT Problems: No - RENAL Hx Chronic Kidney Disease: No - ENDOCRINE/METABOLIC Hx Diabetes Mellitus Type 2: Yes - HEMATOLOGICAL/ONCOLOGICAL Hx Blood Transfusions: No Hx Blood Transfusion Reaction: No - INTEGUMENTARY Hx Dermatological Problems: No - MUSCULOSKELETAL/RHEUMATOLOGICAL Hx Musculoskeletal Disorders: Yes - GASTROINTESTINAL Hx Gastrointestinal Disorders: No Hx Diarrhea: Yes Hx Gall Bladder Disease: Yes (cholelithiasis) Hx Liver Failure: Yes Other/Comment: Liver Cirrhosis - GENITOURINARY/GYNECOLOGICAL Hx Genitourinary Disorders: No - PSYCHIATRIC Hx Emotional Abuse: No Hx Physical Abuse: No Hx Substance Use: No - SURGICAL HISTORY Hx Surgeries: Yes - ANESTHESIA Hx Anesthesia Reactions: No Hx Malignant Hyperthermia: No Meds Allergies/Adverse Reactions: Allergies Allergy/AdvReac Type Severity Reaction Status Date / Time No Known Allergies Allergy Verified 10/29/16 19:03 Physical Exam - Constitutional Appears: No Acute Distress, Older Than Stated Age - Head Exam Head Exam: ATRAUMATIC, NORMOCEPHALIC - Eye Exam Eye Exam: EOMI, Normal appearance, PERRL, Scleral icterus Pupil Exam: NORMAL ACCOMODATION, PERRL - ENT Exam ENT Exam: Mucous Membranes Moist, Normal Oropharynx. absent: Normal Exam (NG tube in place) - Neck Exam Neck exam: Positive for: Normal Inspection. Negative for: Tenderness, Thyromegaly - Respiratory Exam Respiratory Exam: Clear to Auscultation Bilateral, NORMAL BREATHING PATTERN. absent: Rales, Rhonchi, Wheezes - Cardiovascular Exam Cardiovascular Exam: Tachycardia, +S1, +S2, Systolic Murmur (systolic murmur grade 2 ) - GI/Abdominal Exam GI & Abdominal Exam: Guarding, Tenderness Additional comments: Abdominal binder in place. JEANIE drain with serosanguinous fluid - Extremities Exam Extremities exam: Positive for: normal inspection. Negative for: pedal edema, tenderness - Neurological Exam Neurological exam: Altered (somnolent) - Psychiatric Exam Psychiatric exam: Normal Affect, Normal Mood - Skin Skin Exam: Dry, Intact, Warm Results - Vital Signs Recent Vital Signs: Last Vital Signs Temp 98.1 F 11/20/16 12:40 Pulse 102 H 11/20/16 12:40 Resp 16 11/20/16 12:40 BP 151/70 H 11/20/16 12:40 Pulse Ox 100 11/20/16 12:40 - Labs Result Diagrams: 11/20/16 11:30 11/20/16 11:30 Labs: Laboratory Results - last 24 hr 11/20/16 11/20/16 11/20/16 06:30 06:50 07:31 WBC RBC Hgb Hct MCV MCH MCHC RDW Plt Count Gran % Lymph % (Auto) [place] % (Auto) Eos % (Auto) Baso % (Auto) Gran # Lymph # [place] # Eos # Baso # Sodium Potassium Chloride Carbon Dioxide Anion Gap BUN Creatinine Est GFR ( Amer) Est GFR (Non-Af Amer) POC Glucose (mg/dL) 76 Random Glucose Calcium Total Bilirubin AST ALT Alkaline Phosphatase Total Protein Albumin Globulin Albumin/Globulin Ratio Blood Type O POSITIVE Blood Type Confirm O POSITIVE Antibody Screen Negative Crossmatch See Detail BBK History Checked No verified bt 11/20/16 11:30 WBC 10.6 D RBC 4.33 Hgb 11.4 L Hct 36.5 MCV 84.3 MCH 26.3 MCHC 31.2 RDW 26.5 H Plt Count 72 L Gran % 78.2 H Lymph % (Auto) 14.5 L [place] % (Auto) 7.0 H Eos % (Auto) 0.2 L Baso % (Auto) 0.1 Gran # 8.27 H Lymph # 1.5 [place] # 0.7 H Eos # 0.0 Baso # 0.01 Sodium 136 Potassium 4.3 Chloride 102 Carbon Dioxide 24 Anion Gap 14 BUN 14 Creatinine 0.8 Est GFR ( Amer) > 60 Est GFR (Non-Af Amer) > 60 POC Glucose (mg/dL) Random Glucose 138 H Calcium 8.1 L Total Bilirubin 2.0 H AST 35 ALT 28 Alkaline Phosphatase 109 Total Protein 5.7 L Albumin 2.4 L Globulin 3.2 Albumin/Globulin Ratio 0.8 L Blood Type Blood Type Confirm Antibody Screen Crossmatch BBK History Checked Assessment & Plan - Assessment and Plan (Free Text) Assessment: 76 y/o F with DVT, HTN, DM2, and liver cirrhosis recently diagnosed with adenocarcinoma and tubulovillous adenoma who presents s/p right hemicolectomy with side to side anastamosis. Patient was admitted to ICU for close monitoring. Plan: 1) s/p Hemicolectomy with anastomosis * Surgery consulted * Patient admitted to ICU * Pain management as per surgery recs * Keep NPO * Advance diet as per surgical recs * continue Cefazolin and Flagyl * NG tube in place * JEANIE drain in place * abdominal binder * hold laxatives for bowel rest 2) Liver cirrhosis * Hep panel on previous admission negative * Paracentesis performed prevous admission on 11/14/16 * Hold Lasix and Spironalatone to prevent hypotension * JEANIE drain in place * monitor mental status 3) HTN * BP wnl * monitor for hypotension due to pain medication and volume loss 4) DM * A1C of 6.7 on previous admission * insulin sliding scale * regular accuchecks * hold hypoglycemic medications * target euglycemia 140-180 5) Thrombocytopenia * platelet count of 72 on admission * given 2 units of FFP ordered * recheck in AM 6) PPX * scd's * anticoagulation contraindicated due to abdominal surgery * protonix Assessment and plan discussed with attending physician. <Seema Yanez - Last Filed: 11/20/16 15:30> Results - Vital Signs Recent Vital Signs: Last Vital Signs Temp 97.1 F L 11/20/16 13:08 Pulse 124 H 11/20/16 13:08 Resp 12 11/20/16 13:00 BP 151/70 H 11/20/16 12:40 Pulse Ox 100 11/20/16 13:00 - Labs Result Diagrams: 11/20/16 11:30 11/20/16 11:30 Labs: Laboratory Results - last 24 hr 11/20/16 11/20/16 11/20/16 06:30 06:50 07:31 WBC RBC Hgb Hct MCV MCH MCHC RDW Plt Count Gran % Lymph % (Auto) [place] % (Auto) Eos % (Auto) Baso % (Auto) Gran # Lymph # [place] # Eos # Baso # PT INR APTT Sodium Potassium Chloride Carbon Dioxide Anion Gap BUN Creatinine Est GFR ( Amer) Est GFR (Non-Af Amer) POC Glucose (mg/dL) 76 Random Glucose Calcium Phosphorus Magnesium Total Bilirubin AST ALT Alkaline Phosphatase Total Protein Albumin Globulin Albumin/Globulin Ratio Blood Type O POSITIVE Blood Type Confirm O POSITIVE Antibody Screen Negative Crossmatch See Detail BBK History Checked No verified bt 11/20/16 11/20/16 11:30 14:12 WBC 10.6 D RBC 4.33 Hgb 11.4 L Hct 36.5 MCV 84.3 MCH 26.3 MCHC 31.2 RDW 26.5 H Plt Count 72 L Gran % 78.2 H Lymph % (Auto) 14.5 L [place] % (Auto) 7.0 H Eos % (Auto) 0.2 L Baso % (Auto) 0.1 Gran # 8.27 H Lymph # 1.5 [place] # 0.7 H Eos # 0.0 Baso # 0.01 PT 14.8 H INR 1.37 H APTT 28.2 Sodium 136 Potassium 4.3 Chloride 102 Carbon Dioxide 24 Anion Gap 14 BUN 14 Creatinine 0.8 Est GFR ( Amer) > 60 Est GFR (Non-Af Amer) > 60 POC Glucose (mg/dL) Random Glucose 138 H Calcium 8.1 L Phosphorus 3.1 Magnesium 1.8 Total Bilirubin 2.0 H AST 35 ALT 28 Alkaline Phosphatase 109 Total Protein 5.7 L Albumin 2.4 L Globulin 3.2 Albumin/Globulin Ratio 0.8 L Blood Type Blood Type Confirm Antibody Screen Crossmatch BBK History Checked Attending/Attestation - Attestation I have personally seen and examined this patient.: Yes I have fully participated in the care of the patient.: Yes I have reviewed all pertinent clinical information: Yes Notes (Text): 11/20/16 15:26 76 year old female with past medical history of DVT s/p IVC filter, hypertension , diabetes, liver cirrhosis and recently diagnosed colon adenocarcinoma who is s /p right hemicolectomy with side to side anastamosis. She is NPO on iv fluids and antibiotics. NGT and JEANIE drain are in place. Surgery is following the patient. Will follow up with recommendations. Lasix, spironalactone and metformin are on hold for now. Continue with insulin ss for now. Repeat labs in AM. Seema Yanez MD Hospitalist.
[2016-11-20] MEDS: Sodium Chloride 0.9% 1,000 ML IV SCH (13:12)
--- NOTE | 2016-11-20 13:31 | CP.PCM.CON ---
<Darío Garcia - Last Filed: 11/20/16 15:33> History of Present Illness - History of Present Illness History of Present Illness: ICU Consult Note for Dr. Andreson 76 y/o F with PMH of HTN, DM2, liver cirrhosis, cecal mass, and left lower extremity DVT presents to the hospital for right hemicolectomy. Pt was recently admitted for hepatic encephalopathy and incidentally found to have cecal mass on abdomen/pelvis CT. 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 Surgery was initially withheld due to high surgical risk, but eventually family members and surgery team came to a consensus for surgery. Today, pt returned to the hospital for a scheduled right hemicolectomy. Prior to surgery pt was found to have a hg of 8 and was transfused 2 units of PRBCs and 2 units of FFP during surgery. Pt was given 2.5 liters of fluids during surgery. Post-op patient was noted to be tachycardic with a heart rate in the 110s and BP of 156/72. There was moderate blood loss of 300 ml. Pt was alert after surgery and pain was controlled. Pt denied CP, SOB, N/V/D, headaches, dizziness, fever. PMH: HTN, DM2, liver cirrhosis, cecal mass, and left lower extremity DVT Surgical Hx: Right hemicolectomy, IVC filter placement, Paracentesis Social Hx: Denies alcohol, tobacco, or illicit drug use. Lives at home with family. Medications: Lasix, rifaximin, aldactone, lactulose, metformin Allergies: NKDA Review of Systems - Constitutional Constitutional: Fatigue. absent: Fever - EENT Eyes: absent: Blurred Vision, Change in Vision Nose/Mouth/Throat: absent: Nasal Congestion, Nasal Discharge - Cardiovascular Cardiovascular: absent: Chest Pain, Irregular Heart Rhythm - Respiratory Respiratory: absent: Cough, Dyspnea - Gastrointestinal Gastrointestinal: absent: Abdominal Pain, Constipation, Diarrhea - Genitourinary Genitourinary: absent: Dysuria, Hematuria - Integumentary Integumentary: absent: New Lesions, Skin Ulcer - Neurological Neurological: absent: Numbness, Tingling - Hematologic/Lymphatic Hematologic: absent: Easy Bleeding, Easy Bruising Past Patient History - Past Medical History & Family History Past Medical History?: Yes - Past Social History Smoking Status: Never Smoked - CARDIAC Hx Pacemaker: No - PULMONARY Hx Respiratory Disorders: No - NEUROLOGICAL Hx Paralysis: No - HEENT Hx HEENT Problems: No - RENAL Hx Chronic Kidney Disease: No - ENDOCRINE/METABOLIC Hx Diabetes Mellitus Type 2: Yes - HEMATOLOGICAL/ONCOLOGICAL Hx Blood Transfusions: No Hx Blood Transfusion Reaction: No - INTEGUMENTARY Hx Dermatological Problems: No - MUSCULOSKELETAL/RHEUMATOLOGICAL Hx Musculoskeletal Disorders: Yes - GASTROINTESTINAL Hx Gastrointestinal Disorders: No Hx Diarrhea: Yes Hx Gall Bladder Disease: Yes (cholelithiasis) Hx Liver Failure: Yes Other/Comment: Liver Cirrhosis - GENITOURINARY/GYNECOLOGICAL Hx Genitourinary Disorders: No - PSYCHIATRIC Hx Emotional Abuse: No Hx Physical Abuse: No Hx Substance Use: No - SURGICAL HISTORY Hx Surgeries: Yes - ANESTHESIA Hx Anesthesia Reactions: No Hx Malignant Hyperthermia: No Meds Allergies/Adverse Reactions: Allergies Allergy/AdvReac Type Severity Reaction Status Date / Time No Known Allergies Allergy Verified 10/29/16 19:03 - Medications Medications: Current Medications Hydromorphone HCl (Dilaudid) 0.5 mg IVP Q4H PRN PRN Reason: Pain, severe (8-10) Last Admin: 11/20/16 12:43 Dose: 0.5 mg Cefazolin Sodium 1 gm/ Sodium (Chloride) 50 mls @ 100 mls/hr IVPB Q8 [facility] PRN Reason: Protocol Stop: 11/20/16 22:29 Metronidazole (Flagyl) 100 mls @ 100 mls/hr IVPB Q6H [facility] PRN Reason: Protocol Stop: 11/20/16 18:14 Sodium Chloride (Sodium Chloride 0.9%) 1,000 mls @ 125 mls/hr IV .Q8H [facility] Sodium Chloride (Sodium Chloride 0.9%) 1,000 mls @ 75 mls/hr IV .[id number] [facility] Stop: 11/20/16 13:31 Ondansetron HCl (Zofran Inj) 4 mg IVP Q4H PRN PRN Reason: Nausea/Vomiting Pantoprazole Sodium (Protonix Inj) 40 mg IVP DAILY [facility] Physical Exam - Constitutional Appears: Non-toxic, No Acute Distress - Head Exam Head Exam: ATRAUMATIC, NORMAL INSPECTION, NORMOCEPHALIC - Eye Exam Eye Exam: EOMI, Normal appearance - ENT Exam ENT Exam: Mucous Membranes Dry, Normal Exam - Neck Exam Neck exam: Positive for: Normal Inspection. Negative for: Lymphadenopathy - Respiratory Exam Respiratory Exam: Clear to Auscultation Bilateral, NORMAL BREATHING PATTERN. absent: Rales, Rhonchi, Wheezes - Cardiovascular Exam Cardiovascular Exam: Tachycardia, +S1, +S2, Systolic Murmur - GI/Abdominal Exam GI & Abdominal Exam: Normal Bowel Sounds, Soft Additional comments: In abdominal binder. - Extremities Exam Extremities exam: Negative for: calf tenderness Additional comments: b/l +2 pitting edema - Neurological Exam Neurological exam: Alert, Oriented x3 - Psychiatric Exam Psychiatric exam: Normal Affect, Normal Mood - Skin Skin Exam: Intact, Normal Color, Warm Results - Vital Signs Recent Vital Signs: Last Vital Signs Temp 98.1 F 11/20/16 12:40 Pulse 102 H 11/20/16 12:40 Resp 16 11/20/16 12:40 BP 151/70 H 11/20/16 12:40 Pulse Ox 100 11/20/16 12:40 - Labs Result Diagrams: 11/20/16 11:30 11/20/16 11:30 Labs: Laboratory Results - last 24 hr 11/20/16 11/20/16 11/20/16 06:30 06:50 07:31 WBC RBC Hgb Hct MCV MCH MCHC RDW Plt Count Gran % Lymph % (Auto) [place] % (Auto) Eos % (Auto) Baso % (Auto) Gran # Lymph # [place]duffie # Eos # Baso # Sodium Potassium Chloride Carbon Dioxide Anion Gap BUN Creatinine Est GFR ( Amer) Est GFR (Non-Af Amer) POC Glucose (mg/dL) 76 Random Glucose Calcium Total Bilirubin AST ALT Alkaline Phosphatase Total Protein Albumin Globulin Albumin/Globulin Ratio Blood Type O POSITIVE Blood Type Confirm O POSITIVE Antibody Screen Negative Crossmatch See Detail BBK History Checked No verified bt 11/20/16 11:30 WBC 10.6 D RBC 4.33 Hgb 11.4 L Hct 36.5 MCV 84.3 MCH 26.3 MCHC 31.2 RDW 26.5 H Plt Count 72 L Gran % 78.2 H Lymph % (Auto) 14.5 L [place] % (Auto) 7.0 H Eos % (Auto) 0.2 L Baso % (Auto) 0.1 Gran # 8.27 H Lymph # 1.5 Mcduffie # 0.7 H Eos # 0.0 Baso # 0.01 Sodium 136 Potassium 4.3 Chloride 102 Carbon Dioxide 24 Anion Gap 14 BUN 14 Creatinine 0.8 Est GFR ( Amer) > 60 Est GFR (Non-Af Amer) > 60 POC Glucose (mg/dL) Random Glucose 138 H Calcium 8.1 L Total Bilirubin 2.0 H AST 35 ALT 28 Alkaline Phosphatase 109 Total Protein 5.7 L Albumin 2.4 L Globulin 3.2 Albumin/Globulin Ratio 0.8 L Blood Type Blood Type Confirm Antibody Screen Crossmatch BBK History Checked Assessment & Plan - Assessment and Plan (Free Text) Plan: 76 y/o F with PMH of HTN, DM2, liver cirrhosis, cecal mass, and left lower extremity DVT presents s/p right hemicolectomy. Pt is stable after surgery with no complications at this time. GI will be consulted. Pt will be monitored in the ICU. Neuro: AAOx3 Monitor for acute change in mental status as pt has hx of hepatic encephalopathy Will consider lactulose rectally if mental status deteriorates Cardio: Tachycardic, given fluid bolus after surgery. Will monitor Hemodynamically stable Continue to keep MAP >65 Pulm: Maintain O2 sat >90% Monitor for respiratory distress GI: S/P right hemicolectomy Monitor NG tube and JEANIE drain for output CXR to evaluate NG tube placement NPO diet GI consulted, Dr. Borges Will follow surgery recommendations Nephro: NS @ 125 cc/hr Albumin to assist Replenish electrolytes as needed Decreased urine output after surgery, continue to monitor Maintain euvolemia Heme/Onc: Afebrile, no leukocytosis Maintain normothermia Endo: ISS Hold home metformin PPX: Zofran Protonix SCDs Seen, reviewed, and discussed with attending. Jose, PGY-1 <Justin GÓMEZ,Maddy H - Last Filed: 11/20/16 16:29> Meds - Medications Medications: Current Medications Albumin Human (Albumin Human 5% (12.5 Gm/250 Ml)) 12.5 gm IV Q6H [facility] Hydromorphone HCl (Dilaudid) 0.5 mg IVP Q4H PRN PRN Reason: Pain, severe (8-10) Last Admin: 11/20/16 12:43 Dose: 0.5 mg Sodium Chloride (Sodium Chloride 0.9%) 1,000 mls @ 125 mls/hr IV .Q8H [facility] Last Admin: 11/20/16 13:12 Dose: 125 mls/hr Cefazolin Sodium 1 gm/ Sodium (Chloride) 50 mls @ 100 mls/hr IVPB 0000,1600 [facility] PRN Reason: Protocol Stop: 11/21/16 00:29 Last Admin: 11/20/16 15:52 Dose: 100 mls/hr Metronidazole (Flagyl) 100 mls @ 100 mls/hr IVPB 1420,2020 [facility] PRN Reason: Protocol Stop: 11/20/16 21:19 Last Admin: 11/20/16 14:23 Dose: 100 mls/hr Insulin Human Lispro (Humalog Low) 0 units SC ACHS [facility] PRN Reason: Protocol Ondansetron HCl (Zofran Inj) 4 mg IVP Q4H PRN PRN Reason: Nausea/Vomiting Pantoprazole Sodium (Protonix Inj) 40 mg IVP DAILY [facility] Results - Vital Signs Recent Vital Signs: Last Vital Signs Temp 97.1 F L 11/20/16 13:08 Pulse 124 H 11/20/16 13:08 Resp 12 11/20/16 13:00 BP 151/70 H 11/20/16 12:40 Pulse Ox 100 11/20/16 13:00 - Labs Result Diagrams: 11/20/16 11:30 11/20/16 11:30 Labs: Laboratory Results - last 24 hr 11/20/16 11/20/16 11/20/16 06:30 06:50 07:31 WBC RBC Hgb Hct MCV MCH MCHC RDW Plt Count Gran % Lymph % (Auto) [place] % (Auto) Eos % (Auto) Baso % (Auto) Gran # Lymph # [place]ffie # Eos # Baso # PT INR APTT Sodium Potassium Chloride Carbon Dioxide Anion Gap BUN Creatinine Est GFR ( Amer) Est GFR (Non-Af Amer) POC Glucose (mg/dL) 76 Random Glucose Calcium Phosphorus Magnesium Total Bilirubin AST ALT Alkaline Phosphatase Total Protein Albumin Globulin Albumin/Globulin Ratio Blood Type O POSITIVE Blood Type Confirm O POSITIVE Antibody Screen Negative Crossmatch See Detail BBK History Checked No verified bt 11/20/16 11/20/16 11:30 14:12 WBC 10.6 D RBC 4.33 Hgb 11.4 L Hct 36.5 MCV 84.3 MCH 26.3 MCHC 31.2 RDW 26.5 H Plt Count 72 L Gran % 78.2 H Lymph % (Auto) 14.5 L [place] % (Auto) 7.0 H Eos % (Auto) 0.2 L Baso % (Auto) 0.1 Gran # 8.27 H Lymph # 1.5 [place]duffie # 0.7 H Eos # 0.0 Baso # 0.01 PT 14.8 H INR 1.37 H APTT 28.2 Sodium 136 Potassium 4.3 Chloride 102 Carbon Dioxide 24 Anion Gap 14 BUN 14 Creatinine 0.8 Est GFR ( Amer) > 60 Est GFR (Non-Af Amer) > 60 POC Glucose (mg/dL) Random Glucose 138 H Calcium 8.1 L Phosphorus 3.1 Magnesium 1.8 Total Bilirubin 2.0 H AST 35 ALT 28 Alkaline Phosphatase 109 Total Protein 5.7 L Albumin 2.4 L Globulin 3.2 Albumin/Globulin Ratio 0.8 L Blood Type Blood Type Confirm Antibody Screen Crossmatch BBK History Checked Attending/Attestation - Attestation I have personally seen and examined this patient.: Yes I have fully participated in the care of the patient.: Yes I have reviewed all pertinent clinical information: Yes Notes (Text): 11/20/16 16:21 76 y/o F s/p R Hemicolectomy for adeno CA of the Colon. Intra -op received 2 units prbc and 2 FFP. 350cc EBL Post -op seen to be tachycardic with some pain. aao x 3. Not encephalopathic. Liver Cirrosis cryptogenic ? GI consulted. If encephalopathic can use rectal lactulose if needed. Empiric abx per ID and surgery. No SBP currently. If intravascular volume is low , would use Albumin q4hrs prn. Pain management . JEANIE drain output , surgery f/u. DVT with IVC filter, previous GI bleed in the setting of liver failure, not a candidate for anticoagulation. cc time 65 min
[2016-11-20] MEDS ORDERED: ceFAZolin 1 GM in Sodium Chloride 0.9% 50 ML IVPB SCH (14:00)
[2016-11-20 14:05] LABS: MAGNESIUM 1.8 mg/dL (1.7-2.2); PHOSPHOROUS 3.1 mg/dL (2.5-4.5)
[2016-11-20] MEDS: metroNIDAZOLE IV 500 mg/100 ml 100 ML IVPB SCH ×2 (14:23→19:56)
[2016-11-20 14:26] LABS: INR 1.37 (0.93-1.08); PARTIAL THROMBOPLASTIN TIME 28.2 Seconds (23.7-30.8)
[2016-11-20] MEDS ORDERED: Albumin Human 5% (12.5 gm/250 ml) IV SCH (15:30)
[2016-11-20] MEDS: ceFAZolin 1 GM in Sodium Chloride 0.9% 50 ML IVPB SCH (15:52)
--- NOTE | 2016-11-20 16:04 | RAD ---
HISTORY: NG tube placement COMPARISON: No prior. FINDINGS: LUNGS: No active pulmonary disease. PLEURA: No significant pleural effusion identified, no pneumothorax apparent. CARDIOVASCULAR: Normal. OSSEOUS STRUCTURES: No significant abnormalities. VISUALIZED UPPER ABDOMEN: Nasogastric tube in satisfactory position OTHER FINDINGS: Surgical drain a right upper quadrant IMPRESSION: Nasogastric tube in satisfactory position
[2016-11-20] MEDS: Insulin Lispro (humaLOG) LOW Coverage SC SCH ×2 (16:40→22:00)
[2016-11-20] MEDS: Albumin Human 5% (12.5 gm/250 ml) IV SCH ×2 (16:52→21:16)
--- NOTE | 2016-11-20 17:27 | CP.PCM.CON ---
<Abimbola Potts - Last Filed: 11/20/16 17:20> History of Present Illness - History of Present Illness History of Present Illness: Gastroenterology Fellow/PGY4 Consult Note 76 year old female with history of Hypertension, Diabetes, recently diagnosed recent diagnosis of recurrent decompensated cirrhosis 2/2 hepatic encephalopathy ([facility] [place] 3 weeks prior) and ascites (10/30), poorly differentiated colonic adenocarcinoma, left leg DVT s/p IVC filter presenting for scheduling hemicolectomy. Decision was made with family, patient, and surgery to proceed with hemicolectomy. Patient received 2 units pRBCs and 2FFP today prior to right hemicolectomy with side to side anastamosis. Currently, patient feels okay. Family at beside note she is oriented with appropriate response to questioning. Daughter states no history of alcohol abuse or Hepatitis exposure. Patient recently discharge 11/15/16 after cecal mass showing poorly differentiated adenocarcinoma in background of tubulovillous adenoma on colonoscopy, paracentesis without SBP on fluid analysis 10/30, repeat therapeutic paracentesis 11/14, 2cm simple liver cyst, and IVC filter placement for left leg DVT on 11/06. Family-denies colon cancer Social-denies tobacco, alcohol, illicit drug use Surgery- IVC filter 11/06, paracentesis- 10/30, 11/14, right hemicolectomy 11/20 Review of Systems - Review of Systems Review of Systems: A 12-point review of systems negative except for as above Past Patient History - Infectious Disease Hx of Infectious Diseases: None - Tetanus Immunizations Tetanus Immunization: Unknown - Past Medical History & Family History Past Medical History?: Yes - Past Social History Smoking Status: Never Smoked - CARDIAC Hx Pacemaker: No - PULMONARY Hx Respiratory Disorders: No - NEUROLOGICAL Hx Paralysis: No - HEENT Hx HEENT Problems: No - RENAL Hx Chronic Kidney Disease: No - ENDOCRINE/METABOLIC Hx Diabetes Mellitus Type 2: Yes - HEMATOLOGICAL/ONCOLOGICAL Hx Blood Transfusions: No Hx Blood Transfusion Reaction: No - INTEGUMENTARY Hx Dermatological Problems: No - MUSCULOSKELETAL/RHEUMATOLOGICAL Hx Musculoskeletal Disorders: Yes - GASTROINTESTINAL Hx Gastrointestinal Disorders: No Hx Diarrhea: Yes Hx Gall Bladder Disease: Yes (cholelithiasis) Hx Liver Failure: Yes Other/Comment: Liver Cirrhosis - GENITOURINARY/GYNECOLOGICAL Hx Genitourinary Disorders: No - PSYCHIATRIC Hx Emotional Abuse: No Hx Physical Abuse: No Hx Substance Use: No - SURGICAL HISTORY Hx Surgeries: Yes - ANESTHESIA Hx Anesthesia Reactions: No Hx Malignant Hyperthermia: No Meds Allergies/Adverse Reactions: Allergies Allergy/AdvReac Type Severity Reaction Status Date / Time No Known Allergies Allergy Verified 10/29/16 19:03 - Medications Medications: Current Medications Albumin Human (Albumin Human 5% (12.5 Gm/250 Ml)) 12.5 gm IV Q6H [facility] Last Admin: 11/20/16 16:52 Dose: 12.5 gm Hydromorphone HCl (Dilaudid) 0.5 mg IVP Q4H PRN PRN Reason: Pain, severe (8-10) Last Admin: 11/20/16 12:43 Dose: 0.5 mg Sodium Chloride (Sodium Chloride 0.9%) 1,000 mls @ 125 mls/hr IV .Q8H [facility] Last Admin: 11/20/16 13:12 Dose: 125 mls/hr Cefazolin Sodium 1 gm/ Sodium (Chloride) 50 mls @ 100 mls/hr IVPB 0000,1600 [facility] PRN Reason: Protocol Stop: 11/21/16 00:29 Last Admin: 11/20/16 15:52 Dose: 100 mls/hr Metronidazole (Flagyl) 100 mls @ 100 mls/hr IVPB 1420,2020 [facility] PRN Reason: Protocol Stop: 11/20/16 21:19 Last Admin: 11/20/16 14:23 Dose: 100 mls/hr Insulin Human Lispro (Humalog Low) 0 units SC ACHS [facility] PRN Reason: Protocol Last Admin: 11/20/16 16:40 Dose: Not Given Ondansetron HCl (Zofran Inj) 4 mg IVP Q4H PRN PRN Reason: Nausea/Vomiting Pantoprazole Sodium (Protonix Inj) 40 mg IVP DAILY [facility] Physical Exam - Constitutional Appears: Non-toxic, No Acute Distress - Head Exam Head Exam: ATRAUMATIC, NORMOCEPHALIC - Eye Exam Eye Exam: EOMI, PERRL Pupil Exam: PERRL. absent: Miosis, Mydriatic - ENT Exam ENT Exam: Mucous Membranes Moist, Normal Oropharynx - Neck Exam Neck exam: Positive for: Full Rom, Normal Inspection - Respiratory Exam Respiratory Exam: Clear to Auscultation Bilateral. absent: Rales, Rhonchi, Wheezes - Cardiovascular Exam Cardiovascular Exam: RRR, +S1, +S2. absent: Gallop, Rubs - GI/Abdominal Exam GI & Abdominal Exam: Normal Bowel Sounds, Soft, Tenderness. absent: Distended, Firm, Guarding, Mass, Organomegaly, Rebound, Rigid Additional comments: abdominal binder in place, tenderness to palpation - Extremities Exam Extremities exam: Positive for: normal inspection. Negative for: pedal edema - Neurological Exam Neurological exam: Alert - Psychiatric Exam Psychiatric exam: Normal Affect, Normal Mood - Skin Skin Exam: Dry, Intact, Normal Color, Warm Results - Vital Signs Recent Vital Signs: Last Vital Signs Temp 97.1 F L 11/20/16 13:08 Pulse 124 H 11/20/16 13:08 Resp 12 11/20/16 13:00 BP 151/70 H 11/20/16 12:40 Pulse Ox 100 11/20/16 13:00 - Labs Result Diagrams: 11/20/16 11:30 11/20/16 11:30 Labs: Laboratory Results - last 24 hr 11/20/16 11/20/16 11/20/16 06:30 06:50 07:31 WBC RBC Hgb Hct MCV MCH MCHC RDW Plt Count Gran % Lymph % (Auto) [place] % (Auto) Eos % (Auto) Baso % (Auto) Gran # Lymph # [place] # Eos # Baso # PT INR APTT Sodium Potassium Chloride Carbon Dioxide Anion Gap BUN Creatinine Est GFR ( Amer) Est GFR (Non-Af Amer) POC Glucose (mg/dL) 76 Random Glucose Calcium Phosphorus Magnesium Total Bilirubin AST ALT Alkaline Phosphatase Total Protein Albumin Globulin Albumin/Globulin Ratio Blood Type O POSITIVE Blood Type Confirm O POSITIVE Antibody Screen Negative Crossmatch See Detail BBK History Checked No verified bt 11/20/16 11/20/16 11:30 14:12 WBC 10.6 D RBC 4.33 Hgb 11.4 L Hct 36.5 MCV 84.3 MCH 26.3 MCHC 31.2 RDW 26.5 H Plt Count 72 L Gran % 78.2 H Lymph % (Auto) 14.5 L [place] % (Auto) 7.0 H Eos % (Auto) 0.2 L Baso % (Auto) 0.1 Gran # 8.27 H Lymph # 1.5 [place] # 0.7 H Eos # 0.0 Baso # 0.01 PT 14.8 H INR 1.37 H APTT 28.2 Sodium 136 Potassium 4.3 Chloride 102 Carbon Dioxide 24 Anion Gap 14 BUN 14 Creatinine 0.8 Est GFR ( Amer) > 60 Est GFR (Non-Af Amer) > 60 POC Glucose (mg/dL) Random Glucose 138 H Calcium 8.1 L Phosphorus 3.1 Magnesium 1.8 Total Bilirubin 2.0 H AST 35 ALT 28 Alkaline Phosphatase 109 Total Protein 5.7 L Albumin 2.4 L Globulin 3.2 Albumin/Globulin Ratio 0.8 L Blood Type Blood Type Confirm Antibody Screen Crossmatch BBK History Checked Assessment & Plan - Assessment and Plan (Free Text) Assessment: 76 year old female with history of Hypertension, Diabetes, recently diagnosed recent diagnosis of recurrent decompensated cirrhosis 2/2 hepatic encephalopathy ([facility] [place] 3 weeks prior) and ascites (10/30), 2cm simple liver cyst, left leg DVT s/p IVC filter presenting for scheduling hemicolectomy after cecal mass showing 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 Received 2 units pRBCs and 2FFP prior to right hemicolectomy with side to side anastamosis. Plan: >MELD 13 >strict I&Os >daily PT/INR, LFTs >negative hepatitis panel, AMA, ASMA; FELICIA 1:40 >ordered LKM, lipid panel >diuretics and Lactulose being held >will re-assess tomorrow for timing of restarting medications >follow up hemicolectomy pathology >will require outpatient colonoscopy surveillance in 6-12 months <Edgar Santiago - Last Filed: 11/20/16 18:12> Meds - Medications Medications: Current Medications Albumin Human (Albumin Human 5% (12.5 Gm/250 Ml)) 12.5 gm IV Q6H [facility] Last Admin: 11/20/16 16:52 Dose: 12.5 gm Hydromorphone HCl (Dilaudid) 0.5 mg IVP Q4H PRN PRN Reason: Pain, severe (8-10) Last Admin: 11/20/16 12:43 Dose: 0.5 mg Sodium Chloride (Sodium Chloride 0.9%) 1,000 mls @ 125 mls/hr IV .Q8H [facility] Last Admin: 11/20/16 13:12 Dose: 125 mls/hr Cefazolin Sodium 1 gm/ Sodium (Chloride) 50 mls @ 100 mls/hr IVPB 0000,1600 [facility] PRN Reason: Protocol Stop: 11/21/16 00:29 Last Admin: 11/20/16 15:52 Dose: 100 mls/hr Metronidazole (Flagyl) 100 mls @ 100 mls/hr IVPB 1420,2020 [facility] PRN Reason: Protocol Stop: 11/20/16 21:19 Last Admin: 11/20/16 14:23 Dose: 100 mls/hr Insulin Human Lispro (Humalog Low) 0 units SC ACHS [facility] PRN Reason: Protocol Last Admin: 11/20/16 16:40 Dose: Not Given Ondansetron HCl (Zofran Inj) 4 mg IVP Q4H PRN PRN Reason: Nausea/Vomiting Pantoprazole Sodium (Protonix Inj) 40 mg IVP DAILY [facility] Results - Vital Signs Recent Vital Signs: Last Vital Signs Temp 97.1 F L 11/20/16 13:08 Pulse 124 H 11/20/16 13:08 Resp 12 11/20/16 13:00 BP 151/70 H 11/20/16 12:40 Pulse Ox 100 11/20/16 13:00 - Labs Result Diagrams: 11/20/16 11:30 11/20/16 11:30 Labs: Laboratory Results - last 24 hr 11/20/16 11/20/16 11/20/16 06:30 06:50 07:31 WBC RBC Hgb Hct MCV MCH MCHC RDW Plt Count Gran % Lymph % (Auto) [place] % (Auto) Eos % (Auto) Baso % (Auto) Gran # Lymph # [place] # Eos # Baso # PT INR APTT Sodium Potassium Chloride Carbon Dioxide Anion Gap BUN Creatinine Est GFR ( Amer) Est GFR (Non-Af Amer) POC Glucose (mg/dL) 76 Random Glucose Calcium Phosphorus Magnesium Total Bilirubin AST ALT Alkaline Phosphatase Total Protein Albumin Globulin Albumin/Globulin Ratio Blood Type O POSITIVE Blood Type Confirm O POSITIVE Antibody Screen Negative Crossmatch See Detail BBK History Checked No verified bt 11/20/16 11/20/16 11:30 14:12 WBC 10.6 D RBC 4.33 Hgb 11.4 L Hct 36.5 MCV 84.3 MCH 26.3 MCHC 31.2 RDW 26.5 H Plt Count 72 L Gran % 78.2 H Lymph % (Auto) 14.5 L [place] % (Auto) 7.0 H Eos % (Auto) 0.2 L Baso % (Auto) 0.1 Gran # 8.27 H Lymph # 1.5 [place] # 0.7 H Eos # 0.0 Baso # 0.01 PT 14.8 H INR 1.37 H APTT 28.2 Sodium 136 Potassium 4.3 Chloride 102 Carbon Dioxide 24 Anion Gap 14 BUN 14 Creatinine 0.8 Est GFR ( Amer) > 60 Est GFR (Non-Af Amer) > 60 POC Glucose (mg/dL) Random Glucose 138 H Calcium 8.1 L Phosphorus 3.1 Magnesium 1.8 Total Bilirubin 2.0 H AST 35 ALT 28 Alkaline Phosphatase 109 Total Protein 5.7 L Albumin 2.4 L Globulin 3.2 Albumin/Globulin Ratio 0.8 L Blood Type Blood Type Confirm Antibody Screen Crossmatch BBK History Checked Attending/Attestation - Attestation I have personally seen and examined this patient.: Yes I have fully participated in the care of the patient.: Yes I have reviewed all pertinent clinical information: Yes Notes (Text): 11/20/16 18:09 76 year old female with history of HTN, DM, decompensated cirrhosis c/b hepatic encephalopathy and ascites, left leg DVT s/p IVC filter, colon cancer now s/p R hemicolectomy. 1. Cirrhosis 2. Colon cancer Plan: -previously reported etoh abuse, denied by family -uncertain cause for cirrhosis -hepatitis serologies negative -FELICIA was positive, but rest of autoimmune serologies is negative -DDx includes GANDHI, cryptogenic -consider liver biopsy -s/p R hemicolectomy for CRC -await pathology/final staging -recommend starting lactulose and rifaxamin when able to take PO considering h/ o encephalopathy -patient is high risk for post operative decompensation of liver disease
[2016-11-20] MEDS ORDERED: Pneumococcal 23-Valent Vaccine IM ONE (21:17)
[2016-11-21] MEDS: ceFAZolin 1 GM in Sodium Chloride 0.9% 50 ML IVPB SCH (00:05)
[2016-11-21] MEDS: Sodium Chloride 0.9% 1,000 ML IV SCH ×3 (00:10→23:11)
[2016-11-21] MEDS: HYDROmorphone 0.5 mg/0.5 ml ISec IVP PRN (02:36)
[2016-11-21] MEDS: Albumin Human 5% (12.5 gm/250 ml) IV SCH (04:28)
[2016-11-21 05:23] LABS: MEAN CELL VOLUME 84.1 fL (80.0-105.0); MEAN CORPUSCULAR HEMOGLOBIN 26.8 pg (25.0-35.0); MEAN CORPUSCULAR HGB CONC 31.9 g/dl (31.0-37.0); MEAN PLATELET VOLUME 9.4 fl (7.0-11.0); PLATELET COUNT 61 10^3/uL (120.0-450.0); RED CELL DISTRIBUTION WIDTH 26.9 % (11.5-14.5); WHITE BLOOD COUNT 11.2 10^3/ul (4.5-11.0)
[2016-11-21 05:34] LABS: ADD MANUAL DIFF? YES
[2016-11-21 05:59] LABS: INR 1.56 (0.93-1.08); PARTIAL THROMBOPLASTIN TIME 39.3 Seconds (23.7-30.8)
[2016-11-21 06:20] LABS: BAND 9 % (0-2); NEUTROPHIL 83 % (50.0-70.0)
[2016-11-21 06:21] LABS: ANISOCYTOSIS 1+; HYPOCHROMIA 1+; PLATELET ESTIMATE LOW (NORMAL); POIKILOCYTOSIS SLIGHT
[2016-11-21 06:48] LABS: ALKALINE PHOSPHATASE 75 U/L (38-133); ALT/SGPT 30 U/L (7-56); AST/SGOT 26 U/L (15-39); BILIRUBIN,TOTAL 1.6 mg/dL (0.2-1.3); BLOOD UREA NITROGEN 17 mg/dL (7-21); CALCIUM 7.2 mg/dL (8.4-10.5); CARBON DIOXIDE 24 mmol/L (21-33); CHLORIDE 106 mmol/L (95-110); CHOLESTEROL < 50 mg/dL (130-200); GFR AFRICAN-AMERICAN > 60; GLUCOSE,RANDOM 171 mg/dL (70-110); POTASSIUM 3.8 mmol/L (3.6-5.0); SODIUM 140 mmol/L (132-148)
[2016-11-21 07:00] LABS: ALB/GLOB RATIO 0.9 (1.1-1.8)
[2016-11-21] MEDS: Insulin Lispro (humaLOG) LOW Coverage SC SCH ×4 (07:30→22:06)
--- NOTE | 2016-11-21 09:36 | CP.PCM.PN ---
<Abimbola Potts - Last Filed: 11/21/16 12:02> Subjective - Date & Time of Evaluation Date of Evaluation: 11/21/16 Time of Evaluation: 09:32 - Subjective Subjective: Gastroenterology Fellow/PGY4 Progress Note Patient notes abdominal discomfort. Abdominal binder in place. Nursing notes Lasix given overnight with fluid resuscitation post- procedure due to rales on exam. 200cc of brown NG output. No acute events overnight. A 12-point review of system s negative except for as above. Objective - Vital Signs/Intake and Output Vital Signs (last 24 hours): Temp Pulse Resp BP Pulse Ox 98 F 98 H 15 114/51 L 94 L 11/21/16 04:00 11/21/16 06:00 11/21/16 06:00 11/21/16 06:00 11/21/16 06:00 Intake and Output: 11/21/16 11/21/16 06:59 18:59 Intake Total 3050 Output Total 1310 Balance 1740 - Medications Medications: Current Medications Albumin Human (Albumin Human 5% (12.5 Gm/250 Ml)) 12.5 gm IV Q6H [facility] Last Admin: 11/21/16 04:28 Dose: 12.5 gm Hydromorphone HCl (Dilaudid) 0.5 mg IVP Q4H PRN PRN Reason: Pain, severe (8-10) Last Admin: 11/21/16 02:36 Dose: 0.5 mg Sodium Chloride (Sodium Chloride 0.9%) 1,000 mls @ 125 mls/hr IV .Q8H [facility] Last Admin: 11/21/16 00:10 Dose: 125 mls/hr Insulin Human Lispro (Humalog Low) 0 units SC ACHS [facility] PRN Reason: Protocol Last Admin: 11/21/16 07:30 Dose: Not Given Ondansetron HCl (Zofran Inj) 4 mg IVP Q4H PRN PRN Reason: Nausea/Vomiting Pantoprazole Sodium (Protonix Inj) 40 mg IVP DAILY [facility] Last Admin: 11/21/16 09:29 Dose: 40 mg - Labs Labs: 11/21/16 05:00 11/21/16 05:00 PT 16.9 Seconds (9.9-11.8) H 11/21/16 05:00 INR 1.56 (0.93-1.08) H 11/21/16 05:00 APTT 39.3 Seconds (23.7-30.8) H 11/21/16 05:00 - Constitutional Appears: Non-toxic, No Acute Distress - Head Exam Head Exam: ATRAUMATIC, NORMOCEPHALIC - Eye Exam Eye Exam: EOMI, PERRL Pupil Exam: PERRL. absent: Miosis, Mydriatic - ENT Exam ENT Exam: Mucous Membranes Moist, Normal Oropharynx - Neck Exam Neck Exam: Full ROM, Normal Inspection - Respiratory Exam Respiratory Exam: Clear to Ausculation Bilateral. absent: Rales, Rhonchi, Wheezes - Cardiovascular Exam Cardiovascular Exam: RRR, +S1, +S2. absent: Gallop, Rubs - GI/Abdominal Exam GI & Abdominal Exam: Soft, Tenderness, Normal Bowel Sounds. absent: Distended, Firm, Guarding, Rigid, Organomegaly, Rebound - Extremities Exam Extremities Exam: Normal Inspection. absent: Pedal Edema - Neurological Exam Neurological Exam: Alert, Awake - Psychiatric Exam Psychiatric exam: Normal Affect, Normal Mood - Skin Skin Exam: Dry, Intact, Normal Color, Warm Assessment and Plan - Assessment and Plan (Free Text) Assessment: 76 year old female with history of Hypertension, Diabetes, recently diagnosed recent diagnosis of recurrent decompensated cirrhosis 2/2 hepatic encephalopathy ([facility] 3 weeks prior) and ascites (10/30), 2cm simple liver cyst, left leg DVT s/p IVC filter presenting for scheduling hemicolectomy after cecal mass showing 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 Received 2 units pRBCs and 2FFP prior to right hemicolectomy with side to side anastamosis. Plan: >MELD 13 >strict I&Os >daily PT/INR, LFTs >negative hepatitis panel, AMA, ASMA; FELICIA 1:40 >pending LKM, lipid panel >family denies alcohol abuse >diuretics and Lactulose being held >restart lactulose and rifaximin once tolerate PO >follow up hemicolectomy pathology >monitor NG output >monitor H/H >continue PPI >will require outpatient colonoscopy surveillance in 6-12 months <Marcio Wells MD - Last Filed: 11/21/16 12:20> Objective - Vital Signs/Intake and Output Vital Signs (last 24 hours): Temp Pulse Resp BP Pulse Ox 98 F 94 H 15 114/51 L 94 L 11/21/16 04:00 11/21/16 08:00 11/21/16 06:00 11/21/16 06:00 11/21/16 06:00 Intake and Output: 11/21/16 11/21/16 06:59 18:59 Intake Total 3050 Output Total 1310 Balance 1740 - Medications Medications: Current Medications Hydromorphone HCl (Dilaudid) 0.5 mg IVP Q4H PRN PRN Reason: Pain, severe (8-10) Last Admin: 11/21/16 02:36 Dose: 0.5 mg Sodium Chloride (Sodium Chloride 0.9%) 1,000 mls @ 125 mls/hr IV .Q8H [facility] Last Admin: 11/21/16 10:43 Dose: 125 mls/hr Albumin Human (Albumin Human 25% (12.5 Gm/50 Ml)) 50 mls @ 1 mls/min IVPB Q6H [facility] Last Admin: 11/21/16 10:41 Dose: 1 mls/min Insulin Human Lispro (Humalog Low) 0 units SC ACHS [facility] PRN Reason: Protocol Last Admin: 11/21/16 07:30 Dose: Not Given Ondansetron HCl (Zofran Inj) 4 mg IVP Q4H PRN PRN Reason: Nausea/Vomiting Pantoprazole Sodium (Protonix Inj) 40 mg IVP DAILY [facility] Last Admin: 11/21/16 09:29 Dose: 40 mg - Labs Labs: 11/21/16 05:00 11/21/16 05:00 PT 16.9 Seconds (9.9-11.8) H 11/21/16 05:00 INR 1.56 (0.93-1.08) H 11/21/16 05:00 APTT 39.3 Seconds (23.7-30.8) H 11/21/16 05:00 Attending/Attestation - Attestation I have personally seen and examined this patient.: Yes I have fully participated in the care of the patient.: Yes I have reviewed all pertinent clinical information, including history, physical exam and plan: Yes Notes (Text): 11/21/16 12:12 This is a 76 year old female with history of HTN, DM, decompensated cirrhosis c/ b hepatic encephalopathy and ascites, left leg DVT s/p IVC filter, colon cancer now s/p R hemicolectomy. Cirrhosis likely GANDHI. Hepatitis and autoimmune serologies negative. Follow final pathology. Continue lactulose and rifaxamin when able to take PO considering h/o encephalopathy. 13%-27% mortality risk in cirrhosis patients who undergo abdominal surgery in setting of portal hypertension. Please keep close watch for HE, coagulopathy, ascites and worsening jaundice or renal decompenstaion. Will follow. Daily labs
[2016-11-21] MEDS ORDERED: Albumin Human 25% (12.5gm/50 ML) IVPB SCH (10:00)
--- NOTE | 2016-11-21 10:49 | OP ---
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 The patient was in the hospital for a long time to maximize the liver function as much as possible. Consultation was made with hepatobiliary surgeon, Dr. Johnston. Quite frankly, his advice was not to operate. However, clearly this is an obstructing lesion that will soon obstruct. The family, after a long discussion over many days, discussion was to go forward with this operation with the markedly increased risk. ESTIMATED BLOOD LOSS: About 500 mL. DESCRIPTION OF PROCEDURE: In the operating room, the patient was identified by name, number, procedu re, laterality, my frances, the consent. I had interviewed the family immediately prior myself. The ab domen was prepped and draped, with a Blanton and NG tube. Perioperative FFP and blood was given. A mi dline incision was made through the skin and subcutaneous tissue and the abdomen entered. There was a considerable amount of free peritoneal fluid. The abdomen was explored. The liver was hobnail, cl early cirrhotic without a mass. The mass was easily palpable in the cecum. Appendix was dilated. T he line of Toldt was taken down, and the mass which was very vascular was rolled forward. The line o f Toldt was taken down. This was taken up towards the liver which was hypervascular. It could have been from the cirrhosis, but I really think it is from the tumor. The transverse colon was identifie d. The omentum was pulled up and the LigaSure was used to separate the omentum from the colon. The colon was rolled anteriorly, pushing back on the posterior structures. There was a considerable amou nt of bleeding. The area was packed. Duodenum was identified clearly several times and the transver se colon rolled up inferiorly; the dissection was a little bit more difficult. The appendix was brou ght up and the mass was rolled forward. Distal ileum was freed up and at a point of election, the di stal ileum was divided as was the proximal transverse colon. The mesentery was taken out serially wi th the LigaSure. No attempt was made to make a wide radical dissection. This was a segmental resect ion because of her cirrhosis. Eventually, the tumor was removed, opened, and it was an obstructing l esion. The mesentery was lined up, closed with Vicryl, silks were placed. Nips were taken out of th e colon and distal ileum. After re-resection of the transverse colon because it looked a little isch emic on the edge, the result was excellent. GARY was run in and fired. It was closed with a TA-60 us ing Allis clamps, protected with a silk and covered with the omentum. The packs were removed. There was some bleeding; some in the right upper quadrant that was cauterized easily. In the right lower quadrant, there was a pumping artery. The lateral wall was closed with Vicryl to good effect without occluding the lumen. Hemostasis in the end was excellent. A Deny was placed. The abdomen was irr igated and dried. The wounds were injected with Marcaine 30 mL 0.5. Deny was placed in the right u pper quadrant. Incision was closed with running #1 PDS above and below, tied in the middle. Subcuta neous tissue was closed with Vicryl and carmita. The patient taken to recovery room in good conditio n after sponge and needle counts were declared correct. Beto Mahmood MD cc: [id number] TT: 11/21/2016 10:48:32 catie
--- NOTE | 2016-11-21 15:50 | CP.CCUPN ---
<Darío Garcia - Last Filed: 11/21/16 15:46> CCU Subjective - Physician Review Subjective (Free Text): Pt seen and examined at bedside. Pt is POD #1 right hemicolectomy. Pt is doing well at this time with no complaints. Pt is NPO at this time with NG tube in place. NG tube had an output of 100 cc of brown liquid. JEANIE drained 800 cc of serosanguinous fluid. Denies CP, SOB, N/V/D, fever, chills. CCU Objective - Vital Signs / Intake & Output Intake and Output (Last 8hrs): Intake & Output 11/21/16 11/21/16 11/21/16 06:59 14:59 22:59 Intake Total 2825 Output Total 1160 Balance 1665 Weight 129 lb 8 oz Intake: IV 2325 Left External Jugular 2325 Albumin 500 Output: Gastric Amount 100 Right Nares 100 Drainage 730 Lower Abdomen 730 Urine 330 Urethral (Blanton) 330 - Physical Exam Head: Positive for: Atraumatic, Normocephalic Mouth: Positive for: Moist Mucous Membranes Respiratory/Chest: Positive for: Clear to Auscultation, Good Air Exchange, Rhonchi (Mild rhonchi b/l ). Negative for: Respiratory Distress, Wheezes Cardiovascular: Positive for: Regular Rate and Rhythm, Normal S1, S2 Abdomen: Positive for: Normal Bowel Sounds, Other (Abdominal binder and JEANIE drain in place). Negative for: Tenderness, Distention Upper Extremity: Positive for: Normal Inspection, NORMAL PULSES. Negative for: Cyanosis, Edema Lower Extremity: Positive for: Normal Inspection. Negative for: Edema, CALF TENDERNESS Neurological: Positive for: CN II-XII Intact, Speech Normal, Motor Func Grossly Intact Skin: Positive for: Warm, Normal Color Psychiatric: Positive for: Alert, Oriented x 3, Normal Concentration, Normal Affect - Medications Active Medications: Active Medications Generic Name Dose Route Start Last Admin Trade Name Freq PRN Reason Stop Dose Admin Hydromorphone HCl 0.5 mg 11/20/16 11:17 11/21/16 02:36 Dilaudid IVP 0.5 mg Q4H PRN Administration Pain, severe (8-10) Sodium Chloride 1,000 mls @ 125 mls/hr 11/20/16 11:15 11/21/16 10:43 Sodium Chloride 0.9% IV 125 mls/hr .Q8H [facility] Administration Insulin Human Lispro 0 units 11/20/16 16:30 11/21/16 07:30 Humalog Low SC Not Given ACHS [facility] Protocol Ondansetron HCl 4 mg 11/20/16 11:17 Zofran Inj IVP Q4H PRN Nausea/Vomiting Pantoprazole Sodium 40 mg 11/21/16 10:00 11/21/16 09:29 Protonix Inj IVP 40 mg DAILY [facility] Administration - Patient Studies Lab Studies: Lab Studies 11/21/16 11/20/16 Range/Units 05:00 21:36 WBC 11.2 H (4.5-11.0) 10^3/ul RBC 3.21 L (3.5-6.1) 10^6/uL Hgb 8.6 L (12.0-16.0) gm/dL Hct 27.0 L (36.0-48.0) % MCV 84.1 (80.0-105.0) fL MCH 26.8 (25.0-35.0) pg MCHC 31.9 (31.0-37.0) g/dl RDW 26.9 H (11.5-14.5) % Plt Count 61 L (120.0-450.0) 10^3/uL MPV 9.4 (7.0-11.0) fl Neutrophils % (Manual) 83 H (50.0-70.0) % Band Neutrophils % 9 H (0-2) % Lymphocytes % (Manual) 3 L (22.0-35.0) % Monocytes % (Manual) 5 (1.0-6.0) % Platelet Evaluation Low (NORMAL) Hypochromasia 1+ Poikilocytosis (manual Slight Anisocytosis (manual) 1+ PT 16.9 H (9.9-11.8) Seconds INR 1.56 H (0.93-1.08) APTT 39.3 H (23.7-30.8) Seconds Sodium 140 (132-148) mmol/L Potassium 3.8 (3.6-5.0) mmol/L Chloride 106 (95-110) mmol/L Carbon Dioxide 24 (21-33) mmol/L Anion Gap 14 (10-20) BUN 17 (7-21) mg/dL Creatinine 1.0 (0.5-1.4) mg/dL Est GFR ( Amer) > 60 Est GFR (Non-Af Amer) 54 POC Glucose (mg/dL) 207 H (65-110) mg/dL Random Glucose 171 H (70-110) mg/dL Calcium 7.2 L (8.4-10.5) mg/dL Total Bilirubin 1.6 H (0.2-1.3) mg/dL AST 26 (15-39) U/L ALT 30 (7-56) U/L Alkaline Phosphatase 75 (38-133) U/L Total Protein 5.0 L (5.8-8.3) g/dL Albumin 2.3 L (3.0-4.8) g/dL Globulin 2.7 gm/dL Albumin/Globulin Ratio 0.9 L (1.1-1.8) Triglycerides 49 (35-160) mg/dL Cholesterol < 50 L (130-200) mg/dL LDL Cholesterol Direct < 30 (0-129) mg/dL HDL Cholesterol 17 L (29-60) mg/dL Laboratory Results - last 24 hr 11/20/16 11/21/16 21:36 05:00 WBC 11.2 H RBC 3.21 L Hgb 8.6 L Hct 27.0 L MCV 84.1 MCH 26.8 MCHC 31.9 RDW 26.9 H Plt Count 61 L MPV 9.4 Neutrophils % (Manual) 83 H Band Neutrophils % 9 H Lymphocytes % (Manual) 3 L Monocytes % (Manual) 5 Platelet Evaluation Low Hypochromasia 1+ Poikilocytosis (manual Slight Anisocytosis (manual) 1+ PT 16.9 H INR 1.56 H APTT 39.3 H Sodium 140 Potassium 3.8 Chloride 106 Carbon Dioxide 24 Anion Gap 14 BUN 17 Creatinine 1.0 Est GFR ( Amer) > 60 Est GFR (Non-Af Amer) 54 POC Glucose (mg/dL) 207 H Random Glucose 171 H Calcium 7.2 L Total Bilirubin 1.6 H AST 26 ALT 30 Alkaline Phosphatase 75 Total Protein 5.0 L Albumin 2.3 L Globulin 2.7 Albumin/Globulin Ratio 0.9 L Triglycerides 49 Cholesterol < 50 L LDL Cholesterol Direct < 30 HDL Cholesterol 17 L Fingerstick Blood Sugar Results: 197 Critical Care Progress Note - Nutrition Nutrition: Nutrition Category Date Time Status NPO Diet [DIET] Diets 11/20/16 Breakfast Ordered Assessment/Plan - Assessment and Plan (Free Text) Plan: 76 y/o F with PMH of HTN, DM2, liver cirrhosis, cecal mass, and left lower extremity DVT presents s/p right hemicolectomy. POD #1, no complications overnight. Heart rate returned to normal range and hg drop this morning is back to pt's baseline. Pt doing well and will likely be transferred to med surg for further care and management. Neuro: AAOx3 Monitor for acute change in mental status as pt has hx of hepatic encephalopathy Will consider lactulose rectally if mental status deteriorates Cardio: Tachycardia resolved Hemodynamically stable Continue to keep MAP >65 Pulm: Maintain O2 sat >90% Monitor for respiratory distress GI: S/P right hemicolectomy Monitor NG tube and JENAIE drain for output NPO diet GI recommends restarting rifaximin and lactulose once pt is able to tolerate PO GI consulted, Dr. Borges Will follow surgery recommendations Nephro: NS @ 125 cc/hr Continue Albumin Replenish electrolytes as needed Urine output improved, continue to monitor closely Maintain euvolemia Heme/Onc: Afebrile, Mild leukocytosis, likely secondary to surgery Maintain normothermia Endo: ISS Maintain euglycemia PPX: Zofran Protonix SCDs Seen, reviewed, and discussed with attending. Jose, PGY-1 <Justin GÓMEZ,Maddy H - Last Filed: 11/21/16 19:02> CCU Objective - Vital Signs / Intake & Output Vital Signs (Last 4 hours): Vital Signs Pulse Resp BP Pulse Ox 11/21/16 17:33 90 18 143/61 100 11/21/16 16:00 89 11/21/16 15:00 89 16 120/52 L 99 Intake and Output (Last 8hrs): Intake & Output 11/21/16 11/21/16 11/21/16 06:59 14:59 22:59 Intake Total 2825 1550 Output Total 1160 550 Balance 1665 1000 Weight 129 lb 8 oz Intake: IV 2325 1550 Left External Jugular 2325 1550 Albumin 500 Output: Gastric Amount 100 50 Right Nares 100 50 Drainage 730 300 Lower Abdomen 730 300 Urine 330 200 Urethral (Blanton) 330 200 Other: Voiding Method Indwelling Catheter - Medications Active Medications: Active Medications Generic Name Dose Route Start Last Admin Trade Name Freq PRN Reason Stop Dose Admin Hydromorphone HCl 0.5 mg 11/20/16 11:17 11/21/16 02:36 Dilaudid IVP 0.5 mg Q4H PRN Administration Pain, severe (8-10) Sodium Chloride 1,000 mls @ 125 mls/hr 11/20/16 11:15 11/21/16 10:43 Sodium Chloride 0.9% IV 125 mls/hr .Q8H [facility] Administration Insulin Human Lispro 0 units 11/20/16 16:30 11/21/16 17:28 Humalog Low SC Not Given ACHS [facility] Protocol Ondansetron HCl 4 mg 11/20/16 11:17 Zofran Inj IVP Q4H PRN Nausea/Vomiting Pantoprazole Sodium 40 mg 11/21/16 10:00 11/21/16 09:29 Protonix Inj IVP 40 mg DAILY [facility] Administration - Patient Studies Lab Studies: Lab Studies 11/21/16 11/20/16 Range/Units 05:00 21:36 WBC 11.2 H (4.5-11.0) 10^3/ul RBC 3.21 L (3.5-6.1) 10^6/uL Hgb 8.6 L (12.0-16.0) gm/dL Hct 27.0 L (36.0-48.0) % MCV 84.1 (80.0-105.0) fL MCH 26.8 (25.0-35.0) pg MCHC 31.9 (31.0-37.0) g/dl RDW 26.9 H (11.5-14.5) % Plt Count 61 L (120.0-450.0) 10^3/uL MPV 9.4 (7.0-11.0) fl Neutrophils % (Manual) 83 H (50.0-70.0) % Band Neutrophils % 9 H (0-2) % Lymphocytes % (Manual) 3 L (22.0-35.0) % Monocytes % (Manual) 5 (1.0-6.0) % Platelet Evaluation Low (NORMAL) Hypochromasia 1+ Poikilocytosis (manual Slight Anisocytosis (manual) 1+ PT 16.9 H (9.9-11.8) Seconds INR 1.56 H (0.93-1.08) APTT 39.3 H (23.7-30.8) Seconds Sodium 140 (132-148) mmol/L Potassium 3.8 (3.6-5.0) mmol/L Chloride 106 (95-110) mmol/L Carbon Dioxide 24 (21-33) mmol/L Anion Gap 14 (10-20) BUN 17 (7-21) mg/dL Creatinine 1.0 (0.5-1.4) mg/dL Est GFR ( Amer) > 60 Est GFR (Non-Af Amer) 54 POC Glucose (mg/dL) 207 H (65-110) mg/dL Random Glucose 171 H (70-110) mg/dL Calcium 7.2 L (8.4-10.5) mg/dL Total Bilirubin 1.6 H (0.2-1.3) mg/dL AST 26 (15-39) U/L ALT 30 (7-56) U/L Alkaline Phosphatase 75 (38-133) U/L Total Protein 5.0 L (5.8-8.3) g/dL Albumin 2.3 L (3.0-4.8) g/dL Globulin 2.7 gm/dL Albumin/Globulin Ratio 0.9 L (1.1-1.8) Triglycerides 49 (35-160) mg/dL Cholesterol < 50 L (130-200) mg/dL LDL Cholesterol Direct < 30 (0-129) mg/dL HDL Cholesterol 17 L (29-60) mg/dL Laboratory Results - last 24 hr 11/20/16 11/21/16 21:36 05:00 WBC 11.2 H RBC 3.21 L Hgb 8.6 L Hct 27.0 L MCV 84.1 MCH 26.8 MCHC 31.9 RDW 26.9 H Plt Count 61 L MPV 9.4 Neutrophils % (Manual) 83 H Band Neutrophils % 9 H Lymphocytes % (Manual) 3 L Monocytes % (Manual) 5 Platelet Evaluation Low Hypochromasia 1+ Poikilocytosis (manual Slight Anisocytosis (manual) 1+ PT 16.9 H INR 1.56 H APTT 39.3 H Sodium 140 Potassium 3.8 Chloride 106 Carbon Dioxide 24 Anion Gap 14 BUN 17 Creatinine 1.0 Est GFR ( Amer) > 60 Est GFR (Non-Af Amer) 54 POC Glucose (mg/dL) 207 H Random Glucose 171 H Calcium 7.2 L Total Bilirubin 1.6 H AST 26 ALT 30 Alkaline Phosphatase 75 Total Protein 5.0 L Albumin 2.3 L Globulin 2.7 Albumin/Globulin Ratio 0.9 L Triglycerides 49 Cholesterol < 50 L LDL Cholesterol Direct < 30 HDL Cholesterol 17 L Critical Care Progress Note - Nutrition Nutrition: Nutrition Category Date Time Status NPO Diet [DIET] Diets 11/20/16 Breakfast Ordered Attending/Attestation - Attestation I have personally seen and examined this patient.: Yes I have fully participated in the care of the patient.: Yes I have reviewed all pertinent clinical information: Yes Notes (Text): 11/21/16 18:58 76 y/o F S/P R hemicolectomy [place] CA colon Cryptogenic Liver C SBP improved after 4 bottles of Albumin Out of bed to Chair JEANIE output appropriate Empiric abx finished per Surgical team No signs of Encephalopathy NGT to suction. PT/OT DVT hx w/ IVC filter due to previous G.I bleed. Surgical team transfer to Med-Surg cc time 45 min
--- NOTE | 2016-11-21 17:10 | CP.PCM.PN ---
<Glynn Melo - Last Filed: 11/21/16 17:06> Subjective - Date & Time of Evaluation Date of Evaluation: 11/21/16 Time of Evaluation: 09:00 - Subjective Subjective: Dr. Melo PGY 1 Hospitalist Note Patient seen and evaluated at bedside in ICU. She currently denies any pain. She is resting comfortably in bed with abdominal binder and JEANIE drain in place. She notes the NG tube uncomfortable and wants to know when it can be removed. She notes she feels thirsty. She denies any nausea, fever,chills, vomiting, flatus, or diarrhea. Objective - Vital Signs/Intake and Output Vital Signs (last 24 hours): Temp Pulse Resp BP Pulse Ox 98 F 94 H 15 114/51 L 94 L 11/21/16 04:00 11/21/16 08:00 11/21/16 06:00 11/21/16 06:00 11/21/16 06:00 Intake and Output: 11/21/16 11/21/16 06:59 18:59 Intake Total 3050 Output Total 1310 Balance 1740 - Medications Medications: Current Medications Hydromorphone HCl (Dilaudid) 0.5 mg IVP Q4H PRN PRN Reason: Pain, severe (8-10) Last Admin: 11/21/16 02:36 Dose: 0.5 mg Sodium Chloride (Sodium Chloride 0.9%) 1,000 mls @ 125 mls/hr IV .Q8H [facility] Last Admin: 11/21/16 10:43 Dose: 125 mls/hr Insulin Human Lispro (Humalog Low) 0 units SC ACHS [facility] PRN Reason: Protocol Last Admin: 11/21/16 07:30 Dose: Not Given Ondansetron HCl (Zofran Inj) 4 mg IVP Q4H PRN PRN Reason: Nausea/Vomiting Pantoprazole Sodium (Protonix Inj) 40 mg IVP DAILY [facility] Last Admin: 11/21/16 09:29 Dose: 40 mg - Labs Labs: 11/21/16 05:00 11/21/16 05:00 PT 16.9 Seconds (9.9-11.8) H 11/21/16 05:00 INR 1.56 (0.93-1.08) H 11/21/16 05:00 APTT 39.3 Seconds (23.7-30.8) H 11/21/16 05:00 - Head Exam Head Exam: ATRAUMATIC, NORMOCEPHALIC - Eye Exam Eye Exam: EOMI, Normal appearance, PERRL Pupil Exam: NORMAL ACCOMODATION, PERRL - ENT Exam ENT Exam: Mucous Membranes Moist. absent: Normal Exam (NG tube in place ) - Respiratory Exam Respiratory Exam: Rales, NORMAL BREATHING PATTERN. absent: Wheezes - Cardiovascular Exam Cardiovascular Exam: Tachycardia, +S1, +S2, Murmur. absent: Gallop, Rubs - GI/Abdominal Exam GI & Abdominal Exam: Tenderness Additional comments: abdominal binder JEANIE drain in place - Extremities Exam Extremities Exam: Normal Inspection. absent: Pedal Edema, Tenderness - Neurological Exam Neurological Exam: Alert, Awake, CN II-XII Intact, Oriented x3 - Psychiatric Exam Psychiatric exam: Normal Affect, Normal Mood - Skin Skin Exam: Dry, Warm Assessment and Plan - Assessment and Plan (Free Text) Assessment: 76 y/o F with DVT, HTN, DM2, and liver cirrhosis recently diagnosed with adenocarcinoma and tubulovillous adenoma who presents s/p right hemicolectomy with side to side anastamosis. Patient is stable after surgery and admitted to ICU for close monitoring. Plan: 1) s/p Hemicolectomy with anastomosis * Surgery consulted * Patient admitted to ICU * Pain management as per surgery recs * Keep NPO * Advance diet as per surgical recs * continue Cefazolin and Flagyl for today * NG tube in place drained 100mls * JEANIE drain in place drained 1060 mls * abdominal binder in place * hold laxatives for bowel rest 2) Liver cirrhosis * GI consulted, help appreciated * Hep panel on previous admission negative * Paracentesis performed previous admission on 11/14/16 * Hold Lasix and Spironalatone to prevent hypotension * JEANIE drain in place draining ascities * will restart restart lactulose and rifaximin once tolerating PO meds * monitor mental status 3) HTN * BP wnl * monitor for hypotension due to pain medication and volume loss 4) DM * A1C of 6.7 on previous admission * insulin sliding scale * regular accuchecks * hold hypoglycemic medications * target euglycemia 140-180 5) Thrombocytopenia * platelet count of 72 on admission today was 61 * given 2 units of FFP and PRBC * recheck in AM * consider transfusing 2 more units if continues to trend down 6) PPX * scd's * anticoagulation contraindicated due to abdominal surgery * protonix Assessment and plan discussed with attending physician. <Seema Yanez - Last Filed: 11/21/16 17:30> Objective - Vital Signs/Intake and Output Vital Signs (last 24 hours): Temp Pulse Resp BP Pulse Ox 98.7 F 89 16 120/52 L 99 11/21/16 12:00 11/21/16 16:00 11/21/16 15:00 11/21/16 15:00 11/21/16 15:00 Intake and Output: 11/21/16 11/21/16 06:59 18:59 Intake Total 3050 1550 Output Total 1310 550 Balance 1740 1000 - Medications Medications: Current Medications Hydromorphone HCl (Dilaudid) 0.5 mg IVP Q4H PRN PRN Reason: Pain, severe (8-10) Last Admin: 11/21/16 02:36 Dose: 0.5 mg Sodium Chloride (Sodium Chloride 0.9%) 1,000 mls @ 125 mls/hr IV .Q8H [facility] Last Admin: 11/21/16 10:43 Dose: 125 mls/hr Insulin Human Lispro (Humalog Low) 0 units SC ACHS [facility] PRN Reason: Protocol Last Admin: 11/21/16 11:30 Dose: Not Given Ondansetron HCl (Zofran Inj) 4 mg IVP Q4H PRN PRN Reason: Nausea/Vomiting Pantoprazole Sodium (Protonix Inj) 40 mg IVP DAILY [facility] Last Admin: 11/21/16 09:29 Dose: 40 mg - Labs Labs: 11/21/16 05:00 11/21/16 05:00 PT 16.9 Seconds (9.9-11.8) H 11/21/16 05:00 INR 1.56 (0.93-1.08) H 11/21/16 05:00 APTT 39.3 Seconds (23.7-30.8) H 11/21/16 05:00 Attending/Attestation - Attestation I have personally seen and examined this patient.: Yes I have fully participated in the care of the patient.: Yes I have reviewed all pertinent clinical information, including history, physical exam and plan: Yes Notes (Text): 11/21/16 17:28 76 year old female with past medical history of DVT s/p IVC filter, hypertension , diabetes, liver cirrhosis and recently diagnosed colon adenocarcinoma who is s /p right hemicolectomy with side to side anastamosis POD #1. NGT and JEANIE drain are in place. She is being followed by surgery as well as GI. Consider resuming rifaximin/lactulose once patient is able to take po. Watch closely for hepatic encephalopathy. Monitor labs closely. Currently lasix and spironalactone are on hold. Continue with insulin ss. Seema Yanez MD Hospitalist.
--- NOTE | 2016-11-21 18:44 | CP.PCM.PN ---
Subjective - Date & Time of Evaluation Date of Evaluation: 11/21/16 Time of Evaluation: 08:41 - Subjective Subjective: General Surgery Progress Note For Dr. Mahmood Patient seen and examined this Am at bedside. nurse reports no acute events overnight. NGT in place. Patient reports pain well controlled. No new complaints at this time. Patient denies BM or flatus. Debies Fevers chills, nausea vomitting chest pain or SOB Objective - Vital Signs/Intake and Output Vital Signs (last 24 hours): Temp Pulse Resp BP Pulse Ox 98.7 F 90 18 143/61 100 11/21/16 12:00 11/21/16 17:33 11/21/16 17:33 11/21/16 17:33 11/21/16 17:33 Intake and Output: 11/21/16 11/21/16 06:59 18:59 Intake Total 3050 1550 Output Total 1310 550 Balance 1740 1000 - Medications Medications: Current Medications Hydromorphone HCl (Dilaudid) 0.5 mg IVP Q4H PRN PRN Reason: Pain, severe (8-10) Last Admin: 11/21/16 02:36 Dose: 0.5 mg Sodium Chloride (Sodium Chloride 0.9%) 1,000 mls @ 125 mls/hr IV .Q8H [facility] Last Admin: 11/21/16 10:43 Dose: 125 mls/hr Insulin Human Lispro (Humalog Low) 0 units SC ACHS [facility] PRN Reason: Protocol Last Admin: 11/21/16 17:28 Dose: Not Given Ondansetron HCl (Zofran Inj) 4 mg IVP Q4H PRN PRN Reason: Nausea/Vomiting Pantoprazole Sodium (Protonix Inj) 40 mg IVP DAILY [facility] Last Admin: 11/21/16 09:29 Dose: 40 mg - Labs Labs: 11/21/16 05:00 11/21/16 05:00 PT 16.9 Seconds (9.9-11.8) H 11/21/16 05:00 INR 1.56 (0.93-1.08) H 11/21/16 05:00 APTT 39.3 Seconds (23.7-30.8) H 11/21/16 05:00 - Constitutional Appears: Non-toxic, No Acute Distress - Head Exam Head Exam: ATRAUMATIC, NORMOCEPHALIC - Eye Exam Eye Exam: EOMI, Normal appearance - ENT Exam ENT Exam: Mucous Membranes Moist, Normal Exam - Respiratory Exam Respiratory Exam: NORMAL BREATHING PATTERN - Cardiovascular Exam Cardiovascular Exam: +S1, +S2 - GI/Abdominal Exam Additional comments: Adominal dressing clean dry and intact, Belly soft non tender non firm. - Neurological Exam Neurological Exam: Alert, Awake - Psychiatric Exam Psychiatric exam: Normal Affect, Normal Mood - Skin Skin Exam: Dry, Intact Assessment and Plan - Assessment and Plan (Free Text) Assessment: This is a 76F with a PMH of DVT, HTN, DM2, cirrhosis and adenocarcinoma of the cecum who is POD#1 s/p right hemicolectomy with side to side anastamosis. VSS, HGB 8.6, Chemistry grossly normal Deny 300cc out ' Continue NGT to suction , NPO with ice chips Continue wound care Continue medical managment per primary team D/W Dr. Timoteo Saldaña PGY-1
[2016-11-22] MEDS: HYDROmorphone 0.5 mg/0.5 ml ISec IVP PRN ×2 (03:09→19:54)
[2016-11-22] MEDS: Sodium Chloride 0.9% 1,000 ML IV SCH ×3 (04:58→14:24)
[2016-11-22 07:24] LABS: MEAN CELL VOLUME 85.1 fL (80.0-105.0); MEAN CORPUSCULAR HEMOGLOBIN 27.4 pg (25.0-35.0); MEAN CORPUSCULAR HGB CONC 32.1 g/dl (31.0-37.0); MEAN PLATELET VOLUME 9.4 fl (7.0-11.0); WHITE BLOOD COUNT 12.6 10^3/ul (4.5-11.0)
[2016-11-22 07:32] LABS: INR 1.56 (0.93-1.08); PARTIAL THROMBOPLASTIN TIME 43.9 Seconds (23.7-30.8)
[2016-11-22 07:44] LABS: ALB/GLOB RATIO 0.8 (1.1-1.8); ALKALINE PHOSPHATASE 108 U/L (38-133); ALT/SGPT 35 U/L (7-56); AST/SGOT 35 U/L (15-39); BLOOD UREA NITROGEN 19 mg/dL (7-21); CALCIUM 7.5 mg/dL (8.4-10.5); CARBON DIOXIDE 23 mmol/L (21-33); CHLORIDE 111 mmol/L (98-107); GFR AFRICAN-AMERICAN > 60; GLUCOSE,RANDOM 92 mg/dL (70-110); POTASSIUM 3.4 mmol/L (3.6-5.0); SODIUM 143 mmol/L (132-148)
[2016-11-22] MEDS: Insulin Lispro (humaLOG) LOW Coverage SC SCH ×4 (08:19→22:58)
[2016-11-22] MEDS: Potassium Chloride 20 mEq 100 ML IVPB SCH ×2 (08:40→10:16)
[2016-11-22] MEDS ORDERED: Albuterol-Ipratrop 3 mg / 0.5 (3 ml) UD IH STA (10:53)
--- NOTE | 2016-11-22 11:27 | RAD ---
HISTORY: rhonchi,congested COMPARISON: No prior. FINDINGS: LUNGS: Opacity at right lung base. Nonspecific. Rule out pneumonia. Linear scar/ atelectasis at left base. PLEURA: No significant pleural effusion identified, no pneumothorax apparent. CARDIOVASCULAR: Normal heart size. Nasogastric tube extends to left upper quadrant of abdomen. Mild congestive change. OSSEOUS STRUCTURES: No significant abnormalities. VISUALIZED UPPER ABDOMEN: Normal. OTHER FINDINGS: None. IMPRESSION: Ill-defined opacity at right base. Followup. Rule out pneumonia. Nasogastric tube noted. Mild congestive change.
[2016-11-22] MEDS ORDERED: Albumin Human 5% (12.5 gm/250 ml) IV ONE (12:48)
--- NOTE | 2016-11-22 13:01 | CP.PCM.PN ---
<Abimbola Potts - Last Filed: 11/22/16 12:58> Subjective - Date & Time of Evaluation Date of Evaluation: 11/22/16 Time of Evaluation: 12:58 - Subjective Subjective: Gastroenterology Fellow/PGY4 Progress Note Patient denies abdominal pain. Nursing notes 1300cc JEANIE output overnight. Minimal NG output. No acute events overnight. A 12-point review of systems negative except for as above. Objective - Vital Signs/Intake and Output Vital Signs (last 24 hours): Temp Pulse Resp BP Pulse Ox 98.6 F 101 H 20 134/60 98 11/22/16 09:37 11/22/16 09:37 11/22/16 09:37 11/22/16 11:09 11/22/16 09:37 Intake and Output: 11/22/16 11/22/16 06:59 18:59 Intake Total 1500 Output Total 1780 Balance -280 - Medications Medications: Current Medications Albuterol/Ipratropium (Duoneb 3 Mg/0.5 Mg (3 Ml) Ud) 3 ml IH [id number] [facility] Hydromorphone HCl (Dilaudid) 0.5 mg IVP Q4H PRN PRN Reason: Pain, severe (8-10) Last Admin: 11/22/16 03:09 Dose: 0.5 mg Sodium Chloride (Sodium Chloride 0.9%) 1,000 mls @ 75 mls/hr IV .[id number] [facility] Insulin Human Lispro (Humalog Low) 0 units SC ACHS [facility] PRN Reason: Protocol Last Admin: 11/22/16 11:20 Dose: Not Given Ondansetron HCl (Zofran Inj) 4 mg IVP Q4H PRN PRN Reason: Nausea/Vomiting Oxycodone/Acetaminophen (Percocet 5/325 Mg Tab) 1 tab PO Q4H PRN PRN Reason: Pain, moderate (4-7) Stop: 11/25/16 12:45 Pantoprazole Sodium (Protonix Inj) 40 mg IVP DAILY [facility] Last Admin: 11/22/16 09:02 Dose: 40 mg - Labs Labs: 11/22/16 07:00 11/22/16 07:00 PT 16.9 Seconds (9.9-11.8) H 11/22/16 07:00 INR 1.56 (0.93-1.08) H 11/22/16 07:00 APTT 43.9 Seconds (23.7-30.8) H 11/22/16 07:00 - Constitutional Appears: Non-toxic, No Acute Distress - Head Exam Head Exam: ATRAUMATIC, NORMOCEPHALIC - Eye Exam Eye Exam: EOMI, PERRL Pupil Exam: PERRL. absent: Miosis, Mydriatic - ENT Exam ENT Exam: Mucous Membranes Moist, Normal Oropharynx Additional comments: NG tube in place right nares- scant light brown drainage - Neck Exam Neck Exam: Full ROM, Normal Inspection - Respiratory Exam Respiratory Exam: Clear to Ausculation Bilateral. absent: Rales, Rhonchi, Wheezes - Cardiovascular Exam Cardiovascular Exam: RRR, +S1, +S2. absent: Gallop, Rubs - GI/Abdominal Exam GI & Abdominal Exam: Soft, Normal Bowel Sounds. absent: Distended, Firm, Guarding, Rigid, Tenderness, Organomegaly, Rebound Additional comments: abdominal binder in place, JEANIE with serosanguinous drainage - Extremities Exam Extremities Exam: Normal Inspection. absent: Pedal Edema - Neurological Exam Neurological Exam: Alert, Awake - Psychiatric Exam Psychiatric exam: Normal Affect, Normal Mood - Skin Skin Exam: Dry, Intact, Normal Color, Warm Assessment and Plan - Assessment and Plan (Free Text) Assessment: 76 year old female with history of Hypertension, Diabetes, recently diagnosed recent diagnosis of recurrent decompensated cirrhosis 2/2 hepatic encephalopathy ([facility] [place] 3 weeks prior) and ascites (10/30), 2cm simple liver cyst, left leg DVT s/p IVC filter presenting for scheduling hemicolectomy after cecal mass showing 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 Received 2 units pRBCs and 2FFP prior to right hemicolectomy with side to side anastamosis on 11/20. Plan: >MELD 13 on admission, today 14 >high risk for decompensation in setting of cirrhosis and portal hypertension >close monitoring of fever cure and for SIRs criteria -will require panculture and diagnostic paracentesis to assess for SBP >no signs of hepatic encephalopathy at present >restart lactulose and rifaximin once tolerate PO >follow up hemicolectomy pathology >monitor NG output >monitor H/H, strict I&Os, daily PT/INR, LFTs >negative hepatitis panel, AMA, ASMA; FELICIA 1:40; pending LKM >family denies alcohol abuse >further recommendations based on clinical course <Srinivasan Hirsch - Last Filed: 11/22/16 13:40> Objective - Vital Signs/Intake and Output Vital Signs (last 24 hours): Temp Pulse Resp BP Pulse Ox 98.6 F 101 H 20 134/60 98 11/22/16 09:37 11/22/16 09:37 11/22/16 09:37 11/22/16 11:09 11/22/16 09:37 Intake and Output: 11/22/16 11/22/16 06:59 18:59 Intake Total 1500 Output Total 1780 Balance -280 - Medications Medications: Current Medications Albuterol/Ipratropium (Duoneb 3 Mg/0.5 Mg (3 Ml) Ud) 3 ml IH [id number] [facility] Hydromorphone HCl (Dilaudid) 0.5 mg IVP Q4H PRN PRN Reason: Pain, severe (8-10) Last Admin: 11/22/16 03:09 Dose: 0.5 mg Sodium Chloride (Sodium Chloride 0.9%) 1,000 mls @ 75 mls/hr IV .[id number] [facility] Last Admin: 11/22/16 13:22 Dose: 75 mls/hr Insulin Human Lispro (Humalog Low) 0 units SC ACHS [facility] PRN Reason: Protocol Last Admin: 11/22/16 11:20 Dose: Not Given Ondansetron HCl (Zofran Inj) 4 mg IVP Q4H PRN PRN Reason: Nausea/Vomiting Oxycodone/Acetaminophen (Percocet 5/325 Mg Tab) 1 tab PO Q4H PRN PRN Reason: Pain, moderate (4-7) Stop: 11/25/16 12:45 Pantoprazole Sodium (Protonix Inj) 40 mg IVP DAILY [facility] Last Admin: 11/22/16 09:02 Dose: 40 mg - Labs Labs: 11/22/16 07:00 11/22/16 07:00 PT 16.9 Seconds (9.9-11.8) H 11/22/16 07:00 INR 1.56 (0.93-1.08) H 11/22/16 07:00 APTT 43.9 Seconds (23.7-30.8) H 11/22/16 07:00 Attending/Attestation - Attestation I have personally seen and examined this patient.: Yes I have fully participated in the care of the patient.: Yes I have reviewed all pertinent clinical information, including history, physical exam and plan: Yes Notes (Text): Patient seen and examined with GI fellow. Agree with her note as documented above with the following additions/exceptions. 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 She appears comfortable this morning. NGT with minimal output. JEANIE with serosanguineous drainage. H/H stable. Would continue supportive care, monitor MELD labs, monitor for bleeding. If spikes fever, would panculture including diagnostic tap to r/o SBP. Monitor for encephalopathy, none at present. Lactulose/rifaximin when able to tolerate PO. Further postoperative management as per surgical service. She will eventually require EGD for variceal screening and repeat colonoscopy in 6-12 months for surveillance of colon cancer. Discussed with primary medical service. 11/22/16 13:37
[2016-11-22] MEDS: Albuterol-Ipratrop 3 mg / 0.5 (3 ml) UD IH SCH ×2 (14:03→19:29)
[2016-11-22] MEDS ORDERED: Vancomycin 1gm in NS 250ml 250 ML IVPB SCH (14:15)
--- NOTE | 2016-11-22 16:16 | CP.PCM.PN ---
Subjective - Date & Time of Evaluation Date of Evaluation: 11/22/16 Time of Evaluation: 16:14 - Subjective Subjective: Surgery: Dr. Mahmood Pt seen and examined. No acute overnight events. States she's feeling ok and denies abdominal pain. Admits to discomfort from NGT. Denies N/V, F/C. Objective - Vital Signs/Intake and Output Vital Signs (last 24 hours): Temp Pulse Resp BP Pulse Ox 98.6 F 101 H 20 134/60 98 11/22/16 09:37 11/22/16 09:37 11/22/16 09:37 11/22/16 11:09 11/22/16 09:37 Intake and Output: 11/22/16 11/22/16 06:59 18:59 Intake Total 1500 240 Output Total 1780 550 Balance -280 -310 - Medications Medications: Current Medications Albuterol/Ipratropium (Duoneb 3 Mg/0.5 Mg (3 Ml) Ud) 3 ml IH [id number] [facility] Last Admin: 11/22/16 14:03 Dose: 3 ml Hydromorphone HCl (Dilaudid) 0.5 mg IVP Q4H PRN PRN Reason: Pain, severe (8-10) Last Admin: 11/22/16 03:09 Dose: 0.5 mg Sodium Chloride (Sodium Chloride 0.9%) 1,000 mls @ 75 mls/hr IV .[id number] [facility] Last Admin: 11/22/16 13:22 Dose: 75 mls/hr Piperacillin Sod/Tazobactam Sod (Zosyn 3.375 In Ns 100ml) 100 mls @ 200 mls/hr IVPB Q6 [facility] PRN Reason: Protocol Stop: 11/23/16 00:29 Vancomycin HCl (Vancomycin 1gm) 250 mls @ 167 mls/hr IVPB Q12H [facility] PRN Reason: Protocol Insulin Human Lispro (Humalog Low) 0 units SC ACHS [facility] PRN Reason: Protocol Last Admin: 11/22/16 11:20 Dose: Not Given Ondansetron HCl (Zofran Inj) 4 mg IVP Q4H PRN PRN Reason: Nausea/Vomiting Oxycodone/Acetaminophen (Percocet 5/325 Mg Tab) 1 tab PO Q4H PRN PRN Reason: Pain, moderate (4-7) Stop: 11/25/16 12:45 Pantoprazole Sodium (Protonix Inj) 40 mg IVP DAILY [facility] Last Admin: 11/22/16 09:02 Dose: 40 mg - Labs Labs: 11/22/16 07:00 11/22/16 07:00 PT 16.9 Seconds (9.9-11.8) H 11/22/16 07:00 INR 1.56 (0.93-1.08) H 11/22/16 07:00 APTT 43.9 Seconds (23.7-30.8) H 11/22/16 07:00 - Constitutional Appears: No Acute Distress - Head Exam Head Exam: ATRAUMATIC, NORMOCEPHALIC - ENT Exam ENT Exam: Mucous Membranes Moist - Respiratory Exam Respiratory Exam: NORMAL BREATHING PATTERN - Cardiovascular Exam Cardiovascular Exam: Tachycardia - GI/Abdominal Exam GI & Abdominal Exam: Soft, Tenderness (around midline incision, C/D/I. Ximena drain in place on Right). absent: Distended, Rebound - Neurological Exam Neurological Exam: Alert, Awake, Oriented x3 - Skin Skin Exam: Dry, Intact, Warm Assessment and Plan - Assessment and Plan (Free Text) Assessment: 76F with cecal mass s/p R hemicolectomy; POD#2 Plan: - DC NGT - Start CLD, monitor bowel function - DC mims, monitor urine output - Will connect ximena drain to wall suction due to increased ascitic output - Cont to monitor - Encourage PT - d/w Dr. Timoteo Collazo, PGY-2 Surgery
--- NOTE | 2016-11-22 17:29 | CP.PCM.PN ---
<Glynn Melo - Last Filed: 11/22/16 17:25> Subjective - Date & Time of Evaluation Date of Evaluation: 11/22/16 Time of Evaluation: 07:30 - Subjective Subjective: Dr. Melo PGY 1 Hospitalist Note Patient seen and evaluated at bedside. She is resting comfortably in bed in no acute distress. She denies any abdominal pain but continues to state she wants to drink water. She was reminded she cannot have anything to drink until surgery removes the NG tube but can have moist mouth swabs. She denies any chest pain, SOB, cough, nausea, vomiting, or diarrhea. Objective - Vital Signs/Intake and Output Vital Signs (last 24 hours): Temp Pulse Resp BP Pulse Ox 98.6 F 101 H 20 134/60 98 11/22/16 09:37 11/22/16 09:37 11/22/16 09:37 11/22/16 11:09 11/22/16 09:37 Intake and Output: 11/22/16 11/22/16 06:59 18:59 Intake Total 1500 240 Output Total 1780 550 Balance -280 -310 - Medications Medications: Current Medications Albuterol/Ipratropium (Duoneb 3 Mg/0.5 Mg (3 Ml) Ud) 3 ml IH [id number] [facility] Last Admin: 11/22/16 14:03 Dose: 3 ml Hydromorphone HCl (Dilaudid) 0.5 mg IVP Q4H PRN PRN Reason: Pain, severe (8-10) Last Admin: 11/22/16 03:09 Dose: 0.5 mg Sodium Chloride (Sodium Chloride 0.9%) 1,000 mls @ 75 mls/hr IV .[id number] [facility] Last Admin: 11/22/16 13:22 Dose: 75 mls/hr Piperacillin Sod/Tazobactam Sod (Zosyn 3.375 In Ns 100ml) 100 mls @ 200 mls/hr IVPB Q6 [facility] PRN Reason: Protocol Stop: 11/23/16 00:29 Last Admin: 11/22/16 17:08 Dose: 200 mls/hr Vancomycin HCl (Vancomycin 1gm) 250 mls @ 167 mls/hr IVPB Q12H [facility] PRN Reason: Protocol Insulin Human Lispro (Humalog Low) 0 units SC ACHS [facility] PRN Reason: Protocol Last Admin: 11/22/16 17:09 Dose: 1 units Ondansetron HCl (Zofran Inj) 4 mg IVP Q4H PRN PRN Reason: Nausea/Vomiting Oxycodone/Acetaminophen (Percocet 5/325 Mg Tab) 1 tab PO Q4H PRN PRN Reason: Pain, moderate (4-7) Stop: 11/25/16 12:45 Pantoprazole Sodium (Protonix Inj) 40 mg IVP DAILY [facility] Last Admin: 11/22/16 09:02 Dose: 40 mg - Labs Labs: 11/22/16 07:00 11/22/16 07:00 PT 16.9 Seconds (9.9-11.8) H 11/22/16 07:00 INR 1.56 (0.93-1.08) H 11/22/16 07:00 APTT 43.9 Seconds (23.7-30.8) H 11/22/16 07:00 - Constitutional Appears: Non-toxic, No Acute Distress - Head Exam Head Exam: ATRAUMATIC, NORMOCEPHALIC - Eye Exam Eye Exam: EOMI, Normal appearance, PERRL. absent: Conjunctival injection, Scleral icterus Pupil Exam: NORMAL ACCOMODATION, PERRL - ENT Exam ENT Exam: Normal Oropharynx (poor dentition). absent: Normal Exam (NG tube in place) - Neck Exam Neck Exam: Normal Inspection. absent: Tenderness - Respiratory Exam Respiratory Exam: Rales, Rhonchi, NORMAL BREATHING PATTERN. absent: Wheezes - Cardiovascular Exam Cardiovascular Exam: REGULAR RHYTHM, +S1, +S2, Murmur (systrolic right sternal border) - GI/Abdominal Exam GI & Abdominal Exam: Soft, Tenderness (appropriately), Diminished Bowel Sounds. absent: Normal Bowel Sounds - Neurological Exam Neurological Exam: Alert, Awake, CN II-XII Intact, Oriented x3 - Psychiatric Exam Psychiatric exam: Normal Affect, Normal Mood - Skin Skin Exam: Dry, Normal Color, Warm Assessment and Plan - Assessment and Plan (Free Text) Assessment: 76 y/o F with DVT, HTN, DM2, and liver cirrhosis recently diagnosed with adenocarcinoma and tubulovillous adenoma who presents s/p right hemicolectomy with side to side anastamosis. Patient transferred to medical floor from ICU. Plan: 1) s/p Hemicolectomy with anastomosis * Surgery consulted * Patient transferred from ICU * Pain management as per surgery recs * Keep NPO till NG tube removed * Advance diet as per surgical recs * NG tube in place drained 1370mls * JEANIE drain in place drained 600 mls * abdominal binder in place * hold laxatives for bowel rest 2) Liver cirrhosis * GI consulted, help appreciated * Hep panel on previous admission negative * Paracentesis performed previous admission on 11/14/16 * JEANIE drain in place draining ascities * will restart restart lactulose and rifaximin once tolerating PO meds * Trend INR daily * monitor mental status 3) HTN * BP wnl * monitor for hypotension due to pain medication and volume loss 4) DM * A1C of 6.7 on previous admission * insulin sliding scale * regular accuchecks * hold hypoglycemic medications * target euglycemia 140-180 5) Thrombocytopenia * platelet count of 72 on admission today was 61 * given 2 units of FFP and PRBC * recheck in AM * consider transfusing 2 more units if continues to trend down 6) Electrolyte abnormality * potassium was 3.4 today * replenish as needed 7) CHF/pneumonia * patient continues to have bilateral edema and lung congestion * chest xray showed ill defined opacity at right lung base r/o pneumonia [see full report] * fluids decreased to 75mls/hr * start Vancomycin and Zosyn * F/u blood, urine, and sputum cultures * patient remains afebrile 8)PPX * scd's * anticoagulation contraindicated due to abdominal surgery * protonix Assessment and plan discussed with attending physician. <Seema Yanez - Last Filed: 11/23/16 06:53> Objective - Vital Signs/Intake and Output Vital Signs (last 24 hours): Temp Pulse Resp BP Pulse Ox 98.2 F 20 L 20 124/52 L 98 11/22/16 16:00 11/22/16 16:00 11/22/16 16:00 11/22/16 16:00 11/22/16 16:00 Intake and Output: 11/22/16 11/23/16 18:59 06:59 Intake Total 240 1020 Output Total 550 2625 Balance -310 -1605 - Medications Medications: Current Medications Albuterol/Ipratropium (Duoneb 3 Mg/0.5 Mg (3 Ml) Ud) 3 ml IH [id number] [facility] Last Admin: 11/23/16 05:54 Dose: Not Given Hydromorphone HCl (Dilaudid) 0.5 mg IVP Q4H PRN PRN Reason: Pain, severe (8-10) Last Admin: 11/22/16 19:54 Dose: 0.5 mg Sodium Chloride (Sodium Chloride 0.9%) 1,000 mls @ 75 mls/hr IV .[id number] [facility] Last Admin: 11/23/16 05:55 Dose: 75 mls/hr Vancomycin HCl (Vancomycin 1gm) 250 mls @ 167 mls/hr IVPB 0800,2000 [facility] PRN Reason: Protocol Last Admin: 11/22/16 20:13 Dose: 167 mls/hr Piperacillin Sod/Tazobactam Sod (Zosyn 3.375 In Ns 100ml) 100 mls @ 200 mls/hr IVPB Q6 [facility] PRN Reason: Protocol Stop: 12/07/16 00:01 Last Admin: 11/23/16 05:55 Dose: 200 mls/hr Insulin Human Lispro (Humalog Low) 0 units SC ACHS [facility] PRN Reason: Protocol Last Admin: 11/22/16 22:58 Dose: Not Given Ondansetron HCl (Zofran Inj) 4 mg IVP Q4H PRN PRN Reason: Nausea/Vomiting Oxycodone/Acetaminophen (Percocet 5/325 Mg Tab) 1 tab PO Q4H PRN PRN Reason: Pain, moderate (4-7) Stop: 11/25/16 12:45 Pantoprazole Sodium (Protonix Inj) 40 mg IVP DAILY [facility] Last Admin: 11/22/16 09:02 Dose: 40 mg - Labs Labs: 11/22/16 07:00 11/22/16 07:00 PT 16.9 Seconds (9.9-11.8) H 11/22/16 07:00 INR 1.56 (0.93-1.08) H 11/22/16 07:00 APTT 43.9 Seconds (23.7-30.8) H 11/22/16 07:00 Attending/Attestation - Attestation I have personally seen and examined this patient.: Yes I have fully participated in the care of the patient.: Yes I have reviewed all pertinent clinical information, including history, physical exam and plan: Yes Notes (Text): 11/22/16 76 year old female with past medical history of DVT s/p IVC filter, hypertension , diabetes, liver cirrhosis and recently diagnosed colon adenocarcinoma who is s /p right hemicolectomy with side to side anastamosis POD #2. NGT and JEANIE drain are in place. She is being followed by surgery and GI. Consider resuming rifaximin/lactulose once patient is able to take po. Watch closely for hepatic encephalopathy. Continue with insulin ss. This morning she has rhonchi on examination. CXR showed ill defined right lung opacity with congestion. Pronbp mildly elevated. Procalcitonin is ordered. Will give dose on lasix and add antibiotics for possible pneumonia. ID evaluation is requested and cultures are ordered. Seema Yanez MD Hospitalist.
[2016-11-22] MEDS ORDERED: Piperacillin/Tazobact 3.375 gm 100 ML IVPB SCH (18:00)
[2016-11-22] MEDS: Vancomycin 1gm in NS 250ml 250 ML IVPB SCH (20:13)
[2016-11-22] MEDS: Piperacillin/Tazobact 3.375 gm 100 ML IVPB SCH (23:26)
[2016-11-23] MEDS: Albuterol-Ipratrop 3 mg / 0.5 (3 ml) UD IH SCH ×4 (05:54→19:17)
[2016-11-23] MEDS: Sodium Chloride 0.9% 1,000 ML IV SCH (05:55)
[2016-11-23] MEDS: Piperacillin/Tazobact 3.375 gm 100 ML IVPB SCH ×3 (05:55→17:15)
[2016-11-23 07:58] LABS: HEMATOCRIT 27.8 % (36.0-48.0); MEAN CELL VOLUME 86.1 fL (80.0-105.0); MEAN CORPUSCULAR HEMOGLOBIN 26.9 pg (25.0-35.0); MEAN CORPUSCULAR HGB CONC 31.3 g/dl (31.0-37.0); MEAN PLATELET VOLUME 8.8 fl (7.0-11.0); WHITE BLOOD COUNT 10.1 10^3/ul (4.5-11.0)
[2016-11-23 08:10] LABS: INR 1.6 (0.93-1.08); PARTIAL THROMBOPLASTIN TIME 46.7 Seconds (23.7-30.8)
[2016-11-23 08:15] LABS: ALB/GLOB RATIO 0.8 (1.1-1.8); ALKALINE PHOSPHATASE 105 U/L (38-133); ALT/SGPT 39 U/L (7-56); AST/SGOT 50 U/L (15-39); BILIRUBIN,TOTAL 2.3 mg/dL (0.2-1.3); BLOOD UREA NITROGEN 18 mg/dL (7-21); CARBON DIOXIDE 22 mmol/L (21-33); CHLORIDE 113 mmol/L (98-107); GFR AFRICAN-AMERICAN > 60; GLUCOSE,RANDOM 141 mg/dL (70-110); POTASSIUM 3.5 mmol/L (3.6-5.0); SODIUM 144 mmol/L (132-148); TOTAL PROTEIN 4.7 g/dL (5.8-8.3)
[2016-11-23] MEDS ORDERED: Potassium Chloride 40 mEq/30 ml LIQ UD PO ONE (08:34)
[2016-11-23] MEDS: Insulin Lispro (humaLOG) LOW Coverage SC SCH ×4 (09:13→22:18)
[2016-11-23] MEDS: Vancomycin 1gm in NS 250ml 250 ML IVPB SCH ×2 (09:17→20:14)
[2016-11-23] MEDS: HYDROmorphone 0.5 mg/0.5 ml ISec IVP PRN (10:01)
[2016-11-23 11:11] LABS: HEMATOCRIT 28.8 % (36.0-48.0)
--- NOTE | 2016-11-23 11:41 | CP.PCM.PN ---
Subjective - Date & Time of Evaluation Date of Evaluation: 11/23/16 Time of Evaluation: 11:34 - Subjective Subjective: Patient seen and examined, resting comfortably sitting in chair next to bed watching tv. No acute events overnight. She complains of mild abdominal discomfort, though improved compared to yesterday. She denies nausea, vomiting , fever/chills. Still has not had bowel movement but passing gas. Tolerating clear liquid diet without difficulty. Review of vitals from today shows elevated BP. 12 point review of systems performed, negative aside from mentioned above. Objective - Vital Signs/Intake and Output Vital Signs (last 24 hours): Temp Pulse Resp BP Pulse Ox 98.5 F 98 H 20 154/71 H 98 11/23/16 08:00 11/23/16 08:00 11/23/16 08:00 11/23/16 09:14 11/23/16 08:00 Intake and Output: 11/23/16 11/23/16 06:59 18:59 Intake Total 1020 Output Total 2625 Balance -1605 - Medications Medications: Current Medications Albuterol/Ipratropium (Duoneb 3 Mg/0.5 Mg (3 Ml) Ud) 3 ml IH [id number] [facility] Last Admin: 11/23/16 07:46 Dose: 3 ml Vancomycin HCl (Vancomycin 1gm) 250 mls @ 167 mls/hr IVPB 0800,2000 [facility] PRN Reason: Protocol Last Admin: 11/23/16 09:17 Dose: 167 mls/hr Piperacillin Sod/Tazobactam Sod (Zosyn 3.375 In Ns 100ml) 100 mls @ 200 mls/hr IVPB Q6 [facility] PRN Reason: Protocol Stop: 12/07/16 00:01 Last Admin: 11/23/16 05:55 Dose: 200 mls/hr Insulin Human Lispro (Humalog Low) 0 units SC ACHS [facility] PRN Reason: Protocol Last Admin: 11/23/16 09:13 Dose: 1 units Lactulose (Enulose) 30 gm PO BID [facility] Last Admin: 11/23/16 09:13 Dose: 30 gm Ondansetron HCl (Zofran Inj) 4 mg IVP Q4H PRN PRN Reason: Nausea/Vomiting Oxycodone/Acetaminophen (Percocet 5/325 Mg Tab) 1 tab PO Q4H PRN PRN Reason: Pain, moderate (4-7) Stop: 11/25/16 12:45 Pantoprazole Sodium (Protonix Inj) 40 mg IVP DAILY [facility] Last Admin: 11/23/16 09:17 Dose: 40 mg - Labs Labs: 11/23/16 10:30 11/23/16 07:00 PT 17.3 Seconds (9.9-11.8) H 11/23/16 07:00 INR 1.60 (0.93-1.08) H 11/23/16 07:00 APTT 46.7 Seconds (23.7-30.8) H 11/23/16 07:00 - Constitutional Appears: Non-toxic, No Acute Distress - Head Exam Head Exam: NORMAL INSPECTION - Eye Exam Eye Exam: EOMI, Normal appearance - ENT Exam ENT Exam: Mucous Membranes Moist - Respiratory Exam Respiratory Exam: Rhonchi Additional comments: bilateral lung herrera - Cardiovascular Exam Cardiovascular Exam: REGULAR RHYTHM, +S1, +S2 - GI/Abdominal Exam GI & Abdominal Exam: Soft Additional comments: non-tender to palpation in four quadrants abdominal binder in place, right sided ximena drain present - Extremities Exam Extremities Exam: Normal Inspection - Skin Skin Exam: Dry, Intact, Normal Color, Warm Assessment and Plan - Assessment and Plan (Free Text) Assessment: Decompensated cirrhosis, etiology unclear but suspected GANDHI HTN DM DVT s/p IVC filter Colon cancer s/p R hemicolectomy, POD 3 Plan: - Continue with antibiotic therapy as per ID - Continue with liquid diet as tolerated, follow up surgical recommendations - Pain control - Continue with lactulose therapy for prevention of HE - Patient continues to be afebrile, monitor with low threshold for SBP evaluation given recent abdominal surgery with indewelling drain - Follow up oncology recommendations - Patient will require elective outpatient EGD for variceal screening and colonoscopy for surveillance within 6 months - No ongoing GI issues, will sign off case. Please reconsult as necessary, thank you.
--- NOTE | 2016-11-23 11:55 | CON ---
DATE: 11/23/2016 The patient is in bed, in no acute distress. Was seen in [facility], bed 2. CHIEF COMPLAINT: Weakness times several days. HISTORY OF PRESENT ILLNESS: A 76-year-old female with history of spinal stenosis and DVT, history of diabetes mellitus, who was admitted with diagnosis of colon cancer. The patient was found to have a cecal mass, had a right hemicolectomy, postop day #3, had an elevated leukocytosis postoperatively. Chest x-ray was done which showed an infiltrate. Antibiotics were started. Infectious consultation requested. REVIEW OF SYSTEMS: Reveals the patient is in overall weak and poor condition. She has low-grade fev ers, mild shortness of breath and occasional cough. No chest pain or headaches. No abdominal pain. No diarrhea or constipation. PAST MEDICAL HISTORY: Significant for DVT, spinal stenosis, diabetes mellitus. PAST SURGICAL HISTORY: Significant for IVC filter placement and tubal ligation. ALLERGIES: The patient has no known allergies. MEDICATIONS: At home include Glucophage and Aldactone and Xifaxan and Lasix. PHYSICAL EXAMINATION: GENERAL: The patient is in bed, appearing chronically ill, debilitated and weak. VITAL SIGNS: Temperature of 98, blood pressure is 150/70, respiratory rate of 20, heart rate of 101. HEENT: Unremarkable. NECK: Supple. LUNGS: Have decreased breath sounds. HEART: Normal S1, S2. ABDOMEN: There is a dressing and drainage tube is present. No rebound or guarding. LABORATORY EXAMINATION: Reveals the white count yesterday is 12,600, hemoglobin of 9, platelets of 7 0; 83% granulocytosis, 9% bands. BUN of 18, creatinine of 0.8 and the BNP is 925. Procalcitonin is 4.33. MICROBIOLOGY: MRSA is not detected from the naris. Chest x-ray shows a right lower lobe pneumonia. ASSESSMENT AND PLAN: This is a 76-year-old female with deep venous thrombosis, spinal stenosis, diab etes mellitus, now status post cecal mass, status post right hemicolectomy, postoperative day #3, wit h pathology consistent with moderately differentiated adenocarcinoma, now with sepsis with a right lo wer lobe healthcare-associated pneumonia. On vancomycin and Zosyn. Will check on the panculture res ults and follow the patient clinically with a short course of antibiotics. Will follow closely with you. Foster Sheriff MD cc: 350 TT: 11/23/2016 11:55:01 Confirmation # [id number] Dictation # [id number] mn
[2016-11-23] MEDS: Oxycodone/Acetaminophen 5/325 mg Tab PO PRN (14:39)
--- NOTE | 2016-11-23 14:57 | CP.PCM.PN ---
Subjective - Date & Time of Evaluation Date of Evaluation: 11/23/16 Time of Evaluation: 07:00 - Subjective Subjective: Surgery: Dr. Mahmood Pt seen and examined. No acute overnight events. States she feels fine and denies any abdominal pain. Admits to tolerating CLD, denies N/V, F/C. Denies flatus or BM. Objective - Vital Signs/Intake and Output Vital Signs (last 24 hours): Temp Pulse Resp BP Pulse Ox 98.5 F 98 H 20 154/71 H 98 11/23/16 08:00 11/23/16 08:00 11/23/16 08:00 11/23/16 09:14 11/23/16 08:00 Intake and Output: 11/23/16 11/23/16 06:59 18:59 Intake Total 1020 Output Total 2625 Balance -1605 - Medications Medications: Current Medications Albuterol/Ipratropium (Duoneb 3 Mg/0.5 Mg (3 Ml) Ud) 3 ml IH [id number] [facility] Last Admin: 11/23/16 13:34 Dose: 3 ml Furosemide (Lasix) 40 mg IVP Q12 [facility] Vancomycin HCl (Vancomycin 1gm) 250 mls @ 167 mls/hr IVPB 0800,2000 [facility] PRN Reason: Protocol Last Admin: 11/23/16 09:17 Dose: 167 mls/hr Piperacillin Sod/Tazobactam Sod (Zosyn 3.375 In Ns 100ml) 100 mls @ 200 mls/hr IVPB Q6 [facility] PRN Reason: Protocol Stop: 12/07/16 00:01 Last Admin: 11/23/16 12:15 Dose: 200 mls/hr Insulin Human Lispro (Humalog Low) 0 units SC ACHS [facility] PRN Reason: Protocol Last Admin: 11/23/16 12:14 Dose: 2 units Lactulose (Enulose) 30 gm PO BID [facility] Last Admin: 11/23/16 09:13 Dose: 30 gm Ondansetron HCl (Zofran Inj) 4 mg IVP Q4H PRN PRN Reason: Nausea/Vomiting Oxycodone/Acetaminophen (Percocet 5/325 Mg Tab) 1 tab PO Q4H PRN PRN Reason: Pain, moderate (4-7) Stop: 11/25/16 12:45 Last Admin: 11/23/16 14:39 Dose: 1 tab Pantoprazole Sodium (Protonix Inj) 40 mg IVP DAILY [facility] Last Admin: 11/23/16 09:17 Dose: 40 mg - Labs Labs: 11/23/16 10:30 11/23/16 07:00 PT 17.3 Seconds (9.9-11.8) H 11/23/16 07:00 INR 1.60 (0.93-1.08) H 11/23/16 07:00 APTT 46.7 Seconds (23.7-30.8) H 11/23/16 07:00 - Constitutional Appears: Well, No Acute Distress - Head Exam Head Exam: ATRAUMATIC, NORMOCEPHALIC - ENT Exam ENT Exam: Mucous Membranes Moist - Respiratory Exam Respiratory Exam: NORMAL BREATHING PATTERN - Cardiovascular Exam Cardiovascular Exam: RRR - GI/Abdominal Exam GI & Abdominal Exam: Guarding, Soft, Tenderness (around midline incision, ximena drain in place on R). absent: Distended, Rebound - Neurological Exam Neurological Exam: Alert, Awake, Oriented x3 - Skin Skin Exam: Dry, Intact, Warm Assessment and Plan - Assessment and Plan (Free Text) Assessment: 76F with colon CA s/p R hemicolectomy; POD#3 Plan: - will slowly advance diet as tolerated - ximena drain mostly draining profuse ascites; plan to clamp tomorrow morning - encourage PT - d/w Dr. Timoteo Collazo, PGY-2 Surgery
--- NOTE | 2016-11-23 17:34 | CP.PCM.PN ---
<Glynn Melo - Last Filed: 11/23/16 17:31> Subjective - Date & Time of Evaluation Date of Evaluation: 11/23/16 Time of Evaluation: 07:30 - Subjective Subjective: Dr. Melo PGY 1 Hospitalist Note Patient seen and evaluated at bedside. She notes some abdominal tenderness but says the medication is controlling it well. She reports some gas and is tolerating her diet but denies any nausea, vomiting, fever, chills, or bowel movement. She does report a cough and some SOB which is improved while sitting up. She has no other complaints at this time. Objective - Vital Signs/Intake and Output Vital Signs (last 24 hours): Temp Pulse Resp BP Pulse Ox 98.5 F 98 H 20 154/71 H 98 11/23/16 08:00 11/23/16 08:00 11/23/16 08:00 11/23/16 09:14 11/23/16 08:00 Intake and Output: 11/23/16 11/23/16 06:59 18:59 Intake Total 1020 600 Output Total 2625 650 Balance -1605 -50 - Medications Medications: Current Medications Albuterol/Ipratropium (Duoneb 3 Mg/0.5 Mg (3 Ml) Ud) 3 ml IH [id number] [facility] Last Admin: 11/23/16 13:34 Dose: 3 ml Furosemide (Lasix) 40 mg IVP Q12 [facility] Vancomycin HCl (Vancomycin 1gm) 250 mls @ 167 mls/hr IVPB 0800,2000 [facility] PRN Reason: Protocol Last Admin: 11/23/16 09:17 Dose: 167 mls/hr Piperacillin Sod/Tazobactam Sod (Zosyn 3.375 In Ns 100ml) 100 mls @ 200 mls/hr IVPB Q6 [facility] PRN Reason: Protocol Stop: 12/07/16 00:01 Last Admin: 11/23/16 17:15 Dose: 200 mls/hr Insulin Human Lispro (Humalog Low) 0 units SC ACHS [facility] PRN Reason: Protocol Last Admin: 11/23/16 17:14 Dose: 2 units Lactulose (Enulose) 30 gm PO BID [facility] Last Admin: 11/23/16 17:14 Dose: 30 gm Ondansetron HCl (Zofran Inj) 4 mg IVP Q4H PRN PRN Reason: Nausea/Vomiting Oxycodone/Acetaminophen (Percocet 5/325 Mg Tab) 1 tab PO Q4H PRN PRN Reason: Pain, moderate (4-7) Stop: 11/25/16 12:45 Last Admin: 11/23/16 14:39 Dose: 1 tab Pantoprazole Sodium (Protonix Inj) 40 mg IVP DAILY [facility] Last Admin: 11/23/16 09:17 Dose: 40 mg - Labs Labs: 11/23/16 10:30 11/23/16 07:00 PT 17.3 Seconds (9.9-11.8) H 11/23/16 07:00 INR 1.60 (0.93-1.08) H 11/23/16 07:00 APTT 46.7 Seconds (23.7-30.8) H 11/23/16 07:00 - Constitutional Appears: Non-toxic, No Acute Distress - Head Exam Head Exam: ATRAUMATIC, NORMOCEPHALIC - Eye Exam Eye Exam: EOMI, Normal appearance, PERRL Pupil Exam: NORMAL ACCOMODATION, PERRL - ENT Exam ENT Exam: Mucous Membranes Moist. absent: Normal Oropharynx (poor dentition) - Neck Exam Neck Exam: Full ROM, Normal Inspection - Respiratory Exam Respiratory Exam: Rales, Rhonchi, NORMAL BREATHING PATTERN. absent: Wheezes - Cardiovascular Exam Cardiovascular Exam: REGULAR RHYTHM, +S1, +S2, Murmur (grade 2 systolic). absent: Gallop, Rubs - GI/Abdominal Exam GI & Abdominal Exam: Soft, Tenderness, Normal Bowel Sounds Additional comments: abdominal binder in place JEANIE drain in place with serosanguinous fluid - Neurological Exam Neurological Exam: Alert, Awake, CN II-XII Intact, Oriented x3 - Psychiatric Exam Psychiatric exam: Normal Affect, Normal Mood - Skin Skin Exam: Dry, Intact, Warm Assessment and Plan - Assessment and Plan (Free Text) Assessment: 76 y/o F with DVT, HTN, DM2, and liver cirrhosis recently diagnosed with adenocarcinoma and tubulovillous adenoma who presents s/p right hemicolectomy with side to side anastamosis POD 3. Plan: 1) s/p Hemicolectomy with anastomosis * Surgery consulted * Patient on medical floor * Pain management as per surgery recs * NG tube removed and on liquid diet * Advance diet as per surgical recs * JEANIE drain in place drained 2175mls * abdominal binder in place * out of bed to chair * physical therapy eval 2) Liver cirrhosis * GI consulted, help appreciated * Hep panel on previous admission negative * Paracentesis performed previous admission on 11/14/16 * JEANIE drain in place draining ascities * restart lactulose * Trend INR daily * monitor mental status 3) HTN * BP steadily increasing * monitor for hypotension due to pain medication and volume loss * stop IV fluids 4) DM * A1C of 6.7 on previous admission * insulin sliding scale * regular accuchecks * hold hypoglycemic medications * target euglycemia 140-180 5) Thrombocytopenia * platelet count of 72 on admission today was 62 * given 2 units of FFP and PRBC * recheck in AM * consider transfusing 2 more units if continues to trend down 6) Electrolyte abnormality * potassium was 3.5 today * replenish as needed 7) CHF/pneumonia * patient continues to have bilateral edema and lung congestion * chest xray showed ill defined opacity at right lung base r/o pneumonia [see full report] * stopped IV fluids * ID consulted, help appreciated * continue Vancomycin and Zosyn * blood culture negative * f/u urine, and sputum cultures * patient remains afebrile 8)PPX * scd's * anticoagulation contraindicated due to abdominal surgery * protonix Assessment and plan discussed with attending physician. <Seema Yanez - Last Filed: 11/24/16 06:53> Objective - Vital Signs/Intake and Output Vital Signs (last 24 hours): Temp Pulse Resp BP Pulse Ox 98.5 F 98 H 20 119/56 L 98 11/23/16 08:00 11/23/16 08:00 11/23/16 08:00 11/23/16 22:17 11/23/16 08:00 Intake and Output: 11/23/16 11/24/16 18:59 06:59 Intake Total 600 60 Output Total 650 1300 Balance -50 -1240 - Medications Medications: Current Medications Albuterol/Ipratropium (Duoneb 3 Mg/0.5 Mg (3 Ml) Ud) 3 ml IH [id number] [facility] Last Admin: 11/24/16 01:35 Dose: Not Given Furosemide (Lasix) 40 mg IVP Q12 [facility] Last Admin: 11/23/16 22:17 Dose: 40 mg Vancomycin HCl (Vancomycin 1gm) 250 mls @ 167 mls/hr IVPB 0800,2000 [facility] PRN Reason: Protocol Last Admin: 11/23/16 20:14 Dose: 167 mls/hr Piperacillin Sod/Tazobactam Sod (Zosyn 3.375 In Ns 100ml) 100 mls @ 200 mls/hr IVPB Q6 [facility] PRN Reason: Protocol Stop: 12/07/16 00:01 Last Admin: 11/24/16 05:36 Dose: 200 mls/hr Insulin Human Lispro (Humalog Low) 0 units SC ACHS [facility] PRN Reason: Protocol Last Admin: 11/23/16 22:18 Dose: 2 units Lactulose (Enulose) 30 gm PO BID [facility] Last Admin: 11/23/16 17:14 Dose: 30 gm Ondansetron HCl (Zofran Inj) 4 mg IVP Q4H PRN PRN Reason: Nausea/Vomiting Oxycodone/Acetaminophen (Percocet 5/325 Mg Tab) 1 tab PO Q4H PRN PRN Reason: Pain, moderate (4-7) Stop: 11/25/16 12:45 Last Admin: 11/24/16 00:22 Dose: 1 tab Pantoprazole Sodium (Protonix Inj) 40 mg IVP DAILY [facility] Last Admin: 11/23/16 09:17 Dose: 40 mg - Labs Labs: 11/23/16 10:30 11/23/16 07:00 PT 17.3 Seconds (9.9-11.8) H 11/23/16 07:00 INR 1.60 (0.93-1.08) H 11/23/16 07:00 APTT 46.7 Seconds (23.7-30.8) H 11/23/16 07:00 Attending/Attestation - Attestation I have personally seen and examined this patient.: Yes I have fully participated in the care of the patient.: Yes I have reviewed all pertinent clinical information, including history, physical exam and plan: Yes Notes (Text): 11/23/16 76 year old female with past medical history of DVT s/p IVC filter, hypertension , diabetes, liver cirrhosis and recently diagnosed colon adenocarcinoma who is s /p right hemicolectomy with side to side anastamosis POD #3. JEANIE drain is in place. She is being followed by surgery and GI. Her lactulose is resumed. She is tolerating liquid diet. She continues to sound congested this morning. Will discontinue IVF and start lasix bid. She is also on iv antibiotics for RLL pneumonia. ID evaluation was appreciated. Will replete and repeat potassium. Seema Yanez MD Hospitalist.
[2016-11-23 23:58] LABS: LKM-1 Ab (IgG) <=20.0 U (<=20.0)
[2016-11-24] MEDS: Oxycodone/Acetaminophen 5/325 mg Tab PO PRN (00:22)
[2016-11-24] MEDS: Albuterol-Ipratrop 3 mg / 0.5 (3 ml) UD IH SCH ×4 (01:35→20:00)
--- NOTE | 2016-11-24 03:23 | CP.PCM.PN ---
Subjective - Date & Time of Evaluation Date of Evaluation: 11/24/16 Time of Evaluation: 07:30 - Subjective Subjective: General Surgery progress note for Dr. Mahmood Pt s/e at bedside this AM. JAMES. Has not had a bowel movement, 470cc of clear sero-sanguinous fluid output from the deny on suction overnight. Patient reports pain in the RLQ and grimaces when we moved the abdominal binder. Denies fevers, chills, nausea, vomiting chest pain and cough Objective - Vital Signs/Intake and Output Vital Signs (last 24 hours): Temp Pulse Resp BP Pulse Ox 98.5 F 98 H 20 119/56 L 98 11/23/16 08:00 11/23/16 08:00 11/23/16 08:00 11/23/16 22:17 11/23/16 08:00 Intake and Output: 11/23/16 11/24/16 18:59 06:59 Intake Total 600 Output Total 650 250 Balance -50 -250 - Medications Medications: Current Medications Albuterol/Ipratropium (Duoneb 3 Mg/0.5 Mg (3 Ml) Ud) 3 ml IH [id number] [facility] Last Admin: 11/24/16 01:35 Dose: Not Given Furosemide (Lasix) 40 mg IVP Q12 [facility] Last Admin: 11/23/16 22:17 Dose: 40 mg Vancomycin HCl (Vancomycin 1gm) 250 mls @ 167 mls/hr IVPB 0800,2000 [facility] PRN Reason: Protocol Last Admin: 11/23/16 20:14 Dose: 167 mls/hr Piperacillin Sod/Tazobactam Sod (Zosyn 3.375 In Ns 100ml) 100 mls @ 200 mls/hr IVPB Q6 [facility] PRN Reason: Protocol Stop: 12/07/16 00:01 Last Admin: 11/24/16 00:00 Dose: 200 mls/hr Insulin Human Lispro (Humalog Low) 0 units SC ACHS [facility] PRN Reason: Protocol Last Admin: 11/23/16 22:18 Dose: 2 units Lactulose (Enulose) 30 gm PO BID [facility] Last Admin: 11/23/16 17:14 Dose: 30 gm Ondansetron HCl (Zofran Inj) 4 mg IVP Q4H PRN PRN Reason: Nausea/Vomiting Oxycodone/Acetaminophen (Percocet 5/325 Mg Tab) 1 tab PO Q4H PRN PRN Reason: Pain, moderate (4-7) Stop: 11/25/16 12:45 Last Admin: 11/24/16 00:22 Dose: 1 tab Pantoprazole Sodium (Protonix Inj) 40 mg IVP DAILY [facility] Last Admin: 11/23/16 09:17 Dose: 40 mg - Labs Labs: 11/23/16 10:30 11/23/16 07:00 PT 17.3 Seconds (9.9-11.8) H 11/23/16 07:00 INR 1.60 (0.93-1.08) H 11/23/16 07:00 APTT 46.7 Seconds (23.7-30.8) H 11/23/16 07:00 - Constitutional Appears: Well, Non-toxic, No Acute Distress - Head Exam Head Exam: ATRAUMATIC, NORMOCEPHALIC - Eye Exam Eye Exam: Normal appearance. absent: Conjunctival injection, Scleral icterus - ENT Exam ENT Exam: Mucous Membranes Moist, Normal Oropharynx - Respiratory Exam Respiratory Exam: NORMAL BREATHING PATTERN. absent: Accessory Muscle Use, Respiratory Distress - GI/Abdominal Exam GI & Abdominal Exam: Soft, Tenderness (Exquisite tenderness in the RLQ and LLQ) . absent: Distended, Rebound Additional comments: Deny drain in the RLQ hooked to suction with 470cc sero-sanguinous fluid output overnight. Midline surgical incision well approximated with carmita - Extremities Exam Extremities Exam: Pedal Edema (trace pedal/anterior tibial pitting edema). absent: Calf Tenderness - Neurological Exam Neurological Exam: Alert, Awake, Oriented x3 - Psychiatric Exam Psychiatric exam: Normal Affect, Normal Mood - Skin Skin Exam: Dry, Normal Color, Warm Assessment and Plan - Assessment and Plan (Free Text) Assessment: 76F with colon CA s/p R hemicolectomy; POD#4 Plan: - continue to slowly advance diet as tolerated - deny drain 470 cc sero-sanguinous fluid today; D/C suction today - encourage PT - d/w Dr. Timoteo Campa, PGY1
[2016-11-24] MEDS: Piperacillin/Tazobact 3.375 gm 100 ML IVPB SCH ×5 (05:36→23:13)
[2016-11-24 07:32] LABS: ADD MANUAL DIFF? NO
[2016-11-24 07:42] LABS: BASO # 0.01 K/mm3 (0.0-2.0); BASO % 0.1 % (0.0-3.0); EOS # 0.1 (0.0-0.7); GRAN # 5.99 (1.4-6.5); GRAN % 84.3 % (50.0-68.0); LYMPH # 0.5 (1.2-3.4); LYMPH % 6.9 % (22.0-35.0); MEAN CELL VOLUME 86.7 fL (80.0-105.0); MEAN CORPUSCULAR HEMOGLOBIN 26.9 pg (25.0-35.0); MEAN PLATELET VOLUME 9.5 fl (7.0-11.0); MONO # 0.6 (0.1-0.6); MONO % 7.7 % (1.0-6.0); PLATELET COUNT 64 10^3/uL (120.0-450.0); WHITE BLOOD COUNT 7.1 10^3/ul (4.5-11.0)
[2016-11-24 07:47] LABS: INR 1.63 (0.93-1.08)
[2016-11-24 07:53] LABS: ALKALINE PHOSPHATASE 99 U/L (38-133); ALT/SGPT 34 U/L (7-56); AST/SGOT 37 U/L (15-39); BLOOD UREA NITROGEN 17 mg/dL (7-21); CALCIUM 8.4 mg/dL (8.4-10.5); CARBON DIOXIDE 26 mmol/L (21-33); CHLORIDE 112 mmol/L (95-110); GFR AFRICAN-AMERICAN > 60; GLUCOSE,RANDOM 151 mg/dL (70-110); POTASSIUM 3.1 mmol/L (3.6-5.0); SODIUM 147 mmol/L (132-148); TOTAL PROTEIN 4.9 g/dL (5.8-8.3)
[2016-11-24 07:58] LABS: ALB/GLOB RATIO 0.8 (1.1-1.8)
[2016-11-24] MEDS: Insulin Lispro (humaLOG) LOW Coverage SC SCH ×4 (08:19→22:10)
[2016-11-24] MEDS: Vancomycin 1gm in NS 250ml 250 ML IVPB SCH ×2 (08:20→21:00)
[2016-11-24] MEDS: HYDROmorphone 0.5 mg/0.5 ml ISec IVP PRN (08:34)
[2016-11-24] MEDS ORDERED: Potassium Chloride 20 mEq ER Tab PO ONE (09:03)
[2016-11-24] MEDS: Potassium Chloride 20 mEq 100 ML IVPB SCH ×2 (11:56→14:24)
--- NOTE | 2016-11-24 14:39 | PN ---
DATE: 11/24/2016 SUBJECTIVE: The patient is seen in bed earlier this morning in 368, bed 2. She is weak and had low grade fevers. No chills. No chest pain. PHYSICAL EXAMINATION: VITAL SIGNS: Temperature is 98, blood pressure is 106/90, respiratory rate of 16. HEENT: Unremarkable. NECK: Supple. LUNGS: Have decreased breath sounds. HEART: Normal S1, S2. ABDOMEN: Soft, nontender. LABORATORY DATA: Reveals a white count of 7.1, hemoglobin of 9, platelets of 64. Chemistries reveal the BUN of 17, creatinine of 1.0. Procalcitonin is 4.3. Immunology is noted. Microbiology reveals the Pseudomonas and from the urine culture Pseudomonas aeruginosa and sensitivity is noted, it is se nsitive to Cipro and cefepime and imipenem. The blood cultures are no growth. No urinalysis is avai lable. ASSESSMENT AND PLAN: A 76-year-old female with a deep venous thrombosis, ____ stenosis, diabetes charlene litus with status post cecal mass, status post right hemicolectomy, postop day #4 with pathology cons istent with moderately differentiated adenocarcinoma with sepsis with a right lower lobe healthcare-a ssociated pneumonia and Pseudomonas in the urine culture, on vancomycin and Zosyn with negative blood cultures and elevated procalcitonin. Today is day #3 of vancomycin and day #2 of Zosyn. We will or elias a urinalysis and determine if this pseudomonas in the urine is a pathogen or not. Foster Sheriff MD cc: 350 TT: 11/24/2016 14:38:44 Confirmation # [id number] Dictation # [id number] jn
--- NOTE | 2016-11-24 15:33 | CP.PCM.PN ---
Addendum entered and electronically signed by Glynn Melo DO 11/24/16 15:41: correction, urine grew P aeruginosa not E. Coli Original Note: <Glynn Melo - Last Filed: 11/24/16 15:30> Subjective - Date & Time of Evaluation Date of Evaluation: 11/24/16 Time of Evaluation: 09:00 - Subjective Subjective: Dr. Melo PGY 1 Hospitalist Note Patient seen and evaluated at bedside. She was sitting up and had finished breakfast. She says she is tolerating her diet but has not had a bowel movement. She notes some flatulence. She has some abdominal pain but it is controlled with medication. She states her breathing has improved and she no longer has a cough. She has no other complaints at this time. Objective - Vital Signs/Intake and Output Vital Signs (last 24 hours): Temp Pulse Resp BP Pulse Ox 98.5 F 95 H 20 148/72 98 11/23/16 08:00 11/24/16 06:00 11/24/16 06:00 11/24/16 11:29 11/24/16 06:00 Intake and Output: 11/24/16 11/24/16 06:59 18:59 Intake Total 60 Output Total 1300 Balance -1240 - Medications Medications: Current Medications Albuterol/Ipratropium (Duoneb 3 Mg/0.5 Mg (3 Ml) Ud) 3 ml IH [id number] [facility] Last Admin: 11/24/16 13:59 Dose: 3 ml Furosemide (Lasix) 40 mg IVP Q12 [facility] Last Admin: 11/24/16 11:29 Dose: 40 mg Hydromorphone HCl (Dilaudid) 0.5 mg IVP Q4H PRN PRN Reason: Pain, moderate (4-7) Last Admin: 11/24/16 08:34 Dose: 0.5 mg Vancomycin HCl (Vancomycin 1gm) 250 mls @ 167 mls/hr IVPB 0800,2000 [facility] PRN Reason: Protocol Last Admin: 11/24/16 08:20 Dose: 167 mls/hr Piperacillin Sod/Tazobactam Sod (Zosyn 3.375 In Ns 100ml) 100 mls @ 200 mls/hr IVPB Q6 [facility] PRN Reason: Protocol Stop: 12/07/16 00:01 Last Admin: 11/24/16 13:24 Dose: 200 mls/hr Insulin Human Lispro (Humalog Low) 0 units SC ACHS [facility] PRN Reason: Protocol Last Admin: 11/24/16 08:19 Dose: 1 units Lactulose (Enulose) 30 gm PO BID [facility] Last Admin: 11/24/16 11:28 Dose: 30 gm Ondansetron HCl (Zofran Inj) 4 mg IVP Q4H PRN PRN Reason: Nausea/Vomiting Oxycodone/Acetaminophen (Percocet 5/325 Mg Tab) 1 tab PO Q4H PRN PRN Reason: Pain, moderate (4-7) Stop: 11/25/16 12:45 Last Admin: 11/24/16 00:22 Dose: 1 tab Pantoprazole Sodium (Protonix Inj) 40 mg IVP DAILY [facility] Last Admin: 11/24/16 11:28 Dose: 40 mg - Labs Labs: 11/24/16 07:00 11/24/16 07:00 PT 17.6 Seconds (9.9-11.8) H 11/24/16 07:00 INR 1.63 (0.93-1.08) H 11/24/16 07:00 APTT 46.7 Seconds (23.7-30.8) H 11/23/16 07:00 - Constitutional Appears: Non-toxic, No Acute Distress - Head Exam Head Exam: ATRAUMATIC, NORMOCEPHALIC - Eye Exam Eye Exam: EOMI, Normal appearance, PERRL Pupil Exam: NORMAL ACCOMODATION - ENT Exam ENT Exam: Mucous Membranes Moist. absent: Normal Oropharynx (poor dentition) - Respiratory Exam Respiratory Exam: Clear to Ausculation Bilateral, Rhonchi (mild bilaterally), NORMAL BREATHING PATTERN. absent: Rales, Wheezes - Cardiovascular Exam Cardiovascular Exam: REGULAR RHYTHM, +S1, +S2. absent: Gallop, Rubs - GI/Abdominal Exam GI & Abdominal Exam: Soft, Tenderness (along surgical site). absent: Guarding - Extremities Exam Extremities Exam: Normal Capillary Refill, Pedal Edema (+2 bilaterally). absent : Tenderness - Neurological Exam Neurological Exam: Alert, Awake, CN II-XII Intact, Oriented x3 - Psychiatric Exam Psychiatric exam: Normal Affect, Normal Mood - Skin Skin Exam: Dry, Intact, Normal Color, Warm Assessment and Plan - Assessment and Plan (Free Text) Assessment: 76 y/o F with DVT, HTN, DM2, and liver cirrhosis recently diagnosed with adenocarcinoma and tubulovillous adenoma who presents s/p right hemicolectomy with side to side anastamosis POD 4. Plan: 1) s/p Hemicolectomy with anastomosis * Surgery consulted * Patient on medical floor * Pain management as per surgery recs * NG tube removed and on liquid diet * Advance diet as per surgical recs * JEANIE drain in place drained 450mls * abdominal binder in place * out of bed to chair * physical therapy eval 2) Liver cirrhosis * GI consulted, help appreciated * Hep panel on previous admission negative * Paracentesis performed previous admission on 11/14/16 * JEANIE drain in place draining ascities * continue lactulose * Trend INR daily, currently 1.63 * monitor mental status 3) HTN * BP wnl * no longer on IV fluids * Lasix 40mg IVP Q12H * monitor for hypotension due to pain medication and volume loss 4) DM * A1C of 6.7 on previous admission * insulin sliding scale * regular accuchecks * hold hypoglycemic medications * target euglycemia 140-180 5) Thrombocytopenia * platelet count of 72 on admission today was 64 * given 2 units of FFP and PRBC * likely at baseline due to liver cirrhosis * continue to trend 6) Electrolyte abnormality * potassium was 3.1 today * replenish as needed 7) CHF/pneumonia * patient continues to have bilateral edema and lung congestion * chest xray showed ill defined opacity at right lung base r/o pneumonia [see full report] * stopped IV fluids * ID consulted, help appreciated * continue Vancomycin and Zosyn * blood culture negative * f/u sputum cultures * patient remains afebrile 8)UTI * Urine culture grew E. coli * continue Zosyn * f/u repeat urine culture 9) PPX * scd's * anticoagulation contraindicated due to abdominal surgery * protonix Assessment and plan discussed with attending physician. <Seema Yanez - Last Filed: 11/24/16 16:59> Objective - Vital Signs/Intake and Output Vital Signs (last 24 hours): Temp Pulse Resp BP Pulse Ox 98.5 F 95 H 20 148/72 98 11/23/16 08:00 11/24/16 06:00 11/24/16 06:00 11/24/16 11:29 11/24/16 06:00 Intake and Output: 11/24/16 11/24/16 06:59 18:59 Intake Total 60 Output Total 1300 Balance -1240 - Medications Medications: Current Medications Albuterol/Ipratropium (Duoneb 3 Mg/0.5 Mg (3 Ml) Ud) 3 ml IH [id number] [facility] Last Admin: 11/24/16 13:59 Dose: 3 ml Furosemide (Lasix) 40 mg IVP Q12 [facility] Last Admin: 11/24/16 11:29 Dose: 40 mg Hydromorphone HCl (Dilaudid) 0.5 mg IVP Q4H PRN PRN Reason: Pain, moderate (4-7) Last Admin: 11/24/16 08:34 Dose: 0.5 mg Vancomycin HCl (Vancomycin 1gm) 250 mls @ 167 mls/hr IVPB 0800,2000 [facility] PRN Reason: Protocol Last Admin: 11/24/16 08:20 Dose: 167 mls/hr Piperacillin Sod/Tazobactam Sod (Zosyn 3.375 In Ns 100ml) 100 mls @ 200 mls/hr IVPB Q6 [facility] PRN Reason: Protocol Stop: 12/07/16 00:01 Last Admin: 11/24/16 13:24 Dose: 200 mls/hr Potassium Chloride (Potassium Chloride 20 Meq/100 Ml) 100 mls @ 50 mls/hr IVPB Q2H [facility] Stop: 11/24/16 19:44 Insulin Human Lispro (Humalog Low) 0 units SC ACHS [facility] PRN Reason: Protocol Last Admin: 11/24/16 08:19 Dose: 1 units Lactulose (Enulose) 30 gm PO BID [facility] Last Admin: 11/24/16 11:28 Dose: 30 gm Ondansetron HCl (Zofran Inj) 4 mg IVP Q4H PRN PRN Reason: Nausea/Vomiting Oxycodone/Acetaminophen (Percocet 5/325 Mg Tab) 1 tab PO Q4H PRN PRN Reason: Pain, moderate (4-7) Stop: 11/25/16 12:45 Last Admin: 11/24/16 00:22 Dose: 1 tab Pantoprazole Sodium (Protonix Inj) 40 mg IVP DAILY [facility] Last Admin: 11/24/16 11:28 Dose: 40 mg - Labs Labs: 11/24/16 07:00 11/24/16 07:00 PT 17.6 Seconds (9.9-11.8) H 11/24/16 07:00 INR 1.63 (0.93-1.08) H 11/24/16 07:00 APTT 46.7 Seconds (23.7-30.8) H 11/23/16 07:00 Attending/Attestation - Attestation I have personally seen and examined this patient.: Yes I have fully participated in the care of the patient.: Yes I have reviewed all pertinent clinical information, including history, physical exam and plan: Yes Notes (Text): 11/24/16 16:54 76 year old female with past medical history of DVT s/p IVC filter, hypertension , diabetes, liver cirrhosis and recently diagnosed colon adenocarcinoma who is s /p right hemicolectomy with side to side anastamosis POD #4. Her NGT was discontinued yesterday. Her drain is connected to suction. She is being followed by surgery. She is tolerating diet. She is on lactulose. She is on iv lasix and her lung examination has improved today. She is on iv antibiotics for RLL pneumonia as per ID. Ucx also grew Pseudomonas Aeruginosa. She received potassium supplementation for hypokalemia. Seema Yanez MD Hospitalist.
[2016-11-24] MEDS ORDERED: Potassium Chloride 20 mEq 100 ML IVPB SCH (15:45)
[2016-11-24 20:59] LABS: URINE APPEARANCE CLEAR (CLEAR); URINE BILIRUBIN NEGATIVE (NEGATIVE); URINE BLOOD MODERATE (NEGATIVE); URINE COLOR YELLOW (YELLOW); URINE GLUCOSE (UA) NEGATIVE (NEGATIVE); URINE KETONE NEGATIVE (NEGATIVE); URINE LEUKOCYTE ESTERASE SMALL Leu/uL (NEGATIVE); URINE PROTEIN NEGATIVE mg/dL (<30 mg/dL); URINE UROBILINOGEN 0.2 E.U./dL (<1 E.U./dL)
[2016-11-24 21:04] LABS: URINE AMORPHOUS SEDIMENT FEW; URINE BACTERIA MANY (NEG); URINE RBC 25 - 30 /hpf (0-2)
[2016-11-25] MEDS: HYDROmorphone 0.5 mg/0.5 ml ISec IVP PRN ×2 (00:03→06:39)
[2016-11-25] MEDS: Albuterol-Ipratrop 3 mg / 0.5 (3 ml) UD IH SCH ×4 (01:35→19:52)
[2016-11-25] MEDS: Piperacillin/Tazobact 3.375 gm 100 ML IVPB SCH ×3 (05:29→19:06)
[2016-11-25 07:07] LABS: ADD MANUAL DIFF? NO
[2016-11-25 07:19] LABS: BASO # 0.02 K/mm3 (0.0-2.0); BASO % 0.2 % (0.0-3.0); EOS % 0.2 % (1.5-5.0); GRAN # 11.43 (1.4-6.5); GRAN % 89.8 % (50.0-68.0); HEMATOCRIT 33.8 % (36.0-48.0); LYMPH # 0.5 (1.2-3.4); LYMPH % 4.1 % (22.0-35.0); MEAN CORPUSCULAR HEMOGLOBIN 27.1 pg (25.0-35.0); MEAN CORPUSCULAR HGB CONC 30.8 g/dl (31.0-37.0); MONO # 0.7 (0.1-0.6); MONO % 5.7 % (1.0-6.0); PLATELET COUNT 67 10^3/uL (120.0-450.0); RED CELL DISTRIBUTION WIDTH 27.6 % (11.5-14.5); WHITE BLOOD COUNT 12.7 10^3/ul (4.5-11.0)
[2016-11-25 07:34] LABS: ALB/GLOB RATIO 0.7 (1.1-1.8); CALCIUM 8.4 mg/dL (8.4-10.5); POTASSIUM 3.9 mmol/L (3.6-5.0); TOTAL PROTEIN 5.1 g/dL (5.8-8.3)
[2016-11-25] MEDS: Insulin Lispro (humaLOG) LOW Coverage SC SCH ×4 (08:19→22:01)
[2016-11-25] MEDS ORDERED: Potassium Chloride 20 MEQ in Dextrose 5%/0.45% NS 1,000 ML IV SCH (08:45)
[2016-11-25] MEDS ORDERED: Sodium Chloride 0.9% 500 ML IV STA (08:57)
[2016-11-25] MEDS: Vancomycin 1gm in NS 250ml 250 ML IVPB SCH ×2 (10:00→20:24)
[2016-11-25] MEDS ORDERED: Lactulose 10 gm/15 ml (Rectal Use) PR ONE (10:36)
--- NOTE | 2016-11-25 10:37 | CP.PCM.PN ---
Subjective - Date & Time of Evaluation Date of Evaluation: 11/25/16 Time of Evaluation: 10:31 - Subjective Subjective: General Surgery - Dr. Mahmood Pt S&E. Pt is lethargic at time of exam. Per nursing pt has not voided since mims removal last night. HR in 120s. IVF bolus given and orders for mims reinsertion. Objective - Vital Signs/Intake and Output Vital Signs (last 24 hours): Temp Pulse Resp BP Pulse Ox 97.9 F 121 H 20 132/64 98 11/25/16 08:21 11/25/16 08:21 11/24/16 06:00 11/25/16 09:24 11/24/16 06:00 Intake and Output: 11/25/16 11/25/16 06:59 18:59 Intake Total 750 Output Total 1200 Balance -450 - Medications Medications: Current Medications Albuterol/Ipratropium (Duoneb 3 Mg/0.5 Mg (3 Ml) Ud) 3 ml IH [id number] [facility] Last Admin: 11/25/16 07:55 Dose: 3 ml Furosemide (Lasix) 40 mg IVP Q12 [facility] Last Admin: 11/25/16 09:24 Dose: 40 mg Hydromorphone HCl (Dilaudid) 0.5 mg IVP Q4H PRN PRN Reason: Pain, moderate (4-7) Last Admin: 11/25/16 06:39 Dose: 0.5 mg Vancomycin HCl (Vancomycin 1gm) 250 mls @ 167 mls/hr IVPB 0800,2000 [facility] PRN Reason: Protocol Last Admin: 11/25/16 10:00 Dose: 167 mls/hr Piperacillin Sod/Tazobactam Sod (Zosyn 3.375 In Ns 100ml) 100 mls @ 200 mls/hr IVPB Q6 [facility] PRN Reason: Protocol Stop: 12/07/16 00:01 Last Admin: 11/25/16 05:29 Dose: 200 mls/hr Potassium Chloride 20 meq/ (Dextrose/Sodium Chloride) 1,010 mls @ 100 mls/hr IV .Q10H6M [facility] Insulin Human Lispro (Humalog Low) 0 units SC ACHS [facility] PRN Reason: Protocol Last Admin: 11/25/16 08:19 Dose: 3 units Lactulose (Enulose) 30 gm PO BID [facility] Last Admin: 11/25/16 09:25 Dose: Not Given Ondansetron HCl (Zofran Inj) 4 mg IVP Q4H PRN PRN Reason: Nausea/Vomiting Oxycodone/Acetaminophen (Percocet 5/325 Mg Tab) 1 tab PO Q4H PRN PRN Reason: Pain, moderate (4-7) Stop: 11/25/16 12:45 Last Admin: 11/24/16 00:22 Dose: 1 tab Pantoprazole Sodium (Protonix Inj) 40 mg IVP DAILY [facility] Last Admin: 11/25/16 09:25 Dose: 40 mg - Labs Labs: 11/25/16 07:05 11/25/16 07:05 PT 17.6 Seconds (9.9-11.8) H 11/24/16 07:00 INR 1.63 (0.93-1.08) H 11/24/16 07:00 APTT 46.7 Seconds (23.7-30.8) H 11/23/16 07:00 - Constitutional Appears: No Acute Distress - Head Exam Head Exam: ATRAUMATIC, NORMAL INSPECTION, NORMOCEPHALIC - Respiratory Exam Respiratory Exam: NORMAL BREATHING PATTERN. absent: Respiratory Distress - Cardiovascular Exam Cardiovascular Exam: Tachycardia - GI/Abdominal Exam GI & Abdominal Exam: Soft. absent: Distended, Guarding, Tenderness - Neurological Exam Neurological Exam: absent: Alert, Awake - Skin Skin Exam: Dry, Intact Assessment and Plan - Assessment and Plan (Free Text) Assessment: 76F with colon CA s/p R hemicolectomy; POD#5 Plan: - IVF bolus, then run at 100/hr - Reinsert Mims and continuous I/O - Clamp ximena drain, may be contributing to excess fluid loss - Close monitoring of vitals/hemodynamics - Medical management as per primary team DW Dr. Timoteo Jean-Baptiste PGY2
--- NOTE | 2016-11-25 11:46 | CT ---
PROCEDURE: CT HEAD WITHOUT CONTRAST. HISTORY: mental status change COMPARISON: None available. TECHNIQUE: Axial computed tomography images were obtained through the head/brain without intravenous contrast. Radiation dose: Total exam DLP = 725.84 mGy-cm. This CT exam was performed using one or more of the following dose reduction techniques: Automated exposure control, adjustment of the mA and/or kV according to patient size, and/or use of iterative reconstruction technique. FINDINGS: HEMORRHAGE: No no acute parenchymal, subarachnoid or extra-axial hemorrhage. BRAIN: Minor chronic periventricular white matter ischemic changes. There also appears to be a small chronic lacunar type infarct right anterior basal ganglia as well. Minor vascular calcifications are present VENTRICLES: Mild age-appropriate volume loss. . CALVARIUM: There are no acute calvarial fracture seen. PARANASAL SINUSES: The visualized paranasal sinuses are well-developed. No fluid levels seen to suggest acute sinusitis. Mild mucosal thickening left chamber sphenoid sinus as well as a few ethmoid air cells. . MASTOID AIR CELLS: Unremarkable as visualized. No inflammatory changes. OTHER FINDINGS: Orbits and contents unremarkable. IMPRESSION: No acute intracranial hemorrhage. Minor chronic white matter ischemic changes with tiny chronic right basal nuclei lacunar type infarct. Mild age-appropriate volume loss.
[2016-11-25] MEDS ORDERED: Sodium Chloride 0.9% 1,000 ML IV SCH (16:00)
--- NOTE | 2016-11-25 16:33 | CP.PCM.PN ---
<CamachoOksana - Last Filed: 11/25/16 18:29> Subjective - Date & Time of Evaluation Date of Evaluation: 11/25/16 Time of Evaluation: 08:30 - Subjective Subjective: Pt seen and evaluated at bedside. More lethargic and less responsive than day before. Unable to conduct ROS. Afebrile overnight. Objective - Vital Signs/Intake and Output Vital Signs (last 24 hours): Temp Pulse Resp BP Pulse Ox 97.9 F 121 H 20 132/64 98 11/25/16 08:21 11/25/16 08:21 11/24/16 06:00 11/25/16 09:24 11/24/16 06:00 Intake and Output: 11/25/16 11/25/16 06:59 18:59 Intake Total 750 Output Total 1200 Balance -450 - Medications Medications: Current Medications Albuterol/Ipratropium (Duoneb 3 Mg/0.5 Mg (3 Ml) Ud) 3 ml IH [id number] [facility] Last Admin: 11/25/16 13:24 Dose: 3 ml Furosemide (Lasix) 40 mg IVP Q12 [facility] Last Admin: 11/25/16 09:24 Dose: 40 mg Hydromorphone HCl (Dilaudid) 0.5 mg IVP Q4H PRN PRN Reason: Pain, moderate (4-7) Last Admin: 11/25/16 06:39 Dose: 0.5 mg Vancomycin HCl (Vancomycin 1gm) 250 mls @ 167 mls/hr IVPB 0800,2000 [facility] PRN Reason: Protocol Last Admin: 11/25/16 10:00 Dose: 167 mls/hr Piperacillin Sod/Tazobactam Sod (Zosyn 3.375 In Ns 100ml) 100 mls @ 200 mls/hr IVPB Q6 [facility] PRN Reason: Protocol Stop: 12/07/16 00:01 Last Admin: 11/25/16 12:07 Dose: 200 mls/hr Albumin Human (Albumin Human 5% (12.5 Gm/250 Ml)) 250 mls @ 3 mls/min IVPB ONCE ONE Stop: 11/25/16 17:15 Sodium Chloride (Sodium Chloride 0.9%) 1,000 mls @ 100 mls/hr IV .Q10H [facility] Insulin Human Lispro (Humalog Low) 0 units SC ACHS [facility] PRN Reason: Protocol Last Admin: 11/25/16 12:07 Dose: 2 units Ketorolac Tromethamine (Toradol) 15 mg IVP Q6H PRN PRN Reason: Pain, severe (8-10) Last Admin: 11/25/16 14:01 Dose: 15 mg Lactulose (Enulose) 30 gm PO BID [facility] Last Admin: 11/25/16 09:25 Dose: Not Given Ondansetron HCl (Zofran Inj) 4 mg IVP Q4H PRN PRN Reason: Nausea/Vomiting Pantoprazole Sodium (Protonix Inj) 40 mg IVP DAILY [facility] Last Admin: 11/25/16 09:25 Dose: 40 mg - Labs Labs: 11/25/16 07:05 11/25/16 07:05 PT 17.6 Seconds (9.9-11.8) H 11/24/16 07:00 INR 1.63 (0.93-1.08) H 11/24/16 07:00 APTT 46.7 Seconds (23.7-30.8) H 11/23/16 07:00 - Additional Findings Additional findings: - Constitutional Appears: toxic - Head Exam Head Exam: ATRAUMATIC, NORMOCEPHALIC - Eye Exam Eye Exam: EOMI - ENT Exam ENT Exam: Mucous Membranes Moist. absent: Normal Oropharynx (poor dentition) - Respiratory Exam Respiratory Exam: Clear to Ausculation Bilateral, Rhonchi (mild bilaterally), NORMAL BREATHING PATTERN. absent: Rales, Wheezes - Cardiovascular Exam Cardiovascular Exam: REGULAR RHYTHM, +S1, +S2. absent: Gallop, Rubs - GI/Abdominal Exam GI & Abdominal Exam: Soft, Tenderness (along surgical site). absent: Guarding - Extremities Exam Extremities Exam: Normal Capillary Refill, Pedal Edema (+2 bilaterally). absent : Tenderness - Neurological Exam Neurological Exam: Alert, Awake, CN II-XII Intact, Oriented x3 - Psychiatric Exam Psychiatric exam: Normal Affect, Normal Mood - Skin Skin Exam: Dry, Intact, Normal Color, Warm Assessment and Plan - Assessment and Plan (Free Text) Plan: 76 y/o F with DVT, HTN, DM2, and liver cirrhosis recently diagnosed with adenocarcinoma and tubulovillous adenoma who presents s/p right hemicolectomy with side to side anastamosis POD 5. Pt was hard to rouse and declined in mental status from yesterday Plan: Mental status change Head CT today was negative for acute causes ammonia levels ordered, first was 62, next was 60 Lactulose Pr administered today f/u repeat lactulose tomorrow AM, and repeat lactulose and add on rifaximin if needed s/p Hemicolectomy with anastomosis * Surgery consulted, Patient on medical floor * Pain management as per surgery recs, liquid diet * Advance diet as per surgical recs * JEANIE drain clamped * abdominal binder in place * out of bed to chair * physical therapy eval Liver cirrhosis * GI consulted, help appreciated * Hep panel on previous admission negative * Paracentesis performed previous admission on 11/14/16 * JEANIE drain clamped * continue lactulose * Trend INR daily, currently 1.63 * monitor mental status HTN * BP wnl * Lasix 40mg IVP Q12H * monitor for hypotension due to pain medication and volume loss Diabetes Mellitus * A1C of 6.7 on previous admission * insulin sliding scale * regular accuchecks * hold hypoglycemic medications * target euglycemia 140-180 Thrombocytopenia * platelet count of 72 on admission today was 67 * given 2 units of FFP and PRBC * likely at baseline due to liver cirrhosis * continue to trend Electrolyte abnormality * potassium was 3.9 today * replenish as needed CHF/pneumonia * bilateral edema and lung congestion * chest xray showed ill defined opacity at right lung base r/o pneumonia [see full report] * ID consulted, help appreciated * continue Vancomycin and Zosyn * blood culture negative for 72 hours * f/u sputum cultures * patient remains afebrile UTI * Urine culture grew P aeruginosa * continue Zosyn * f/u repeat urine culture * mims insterted today for urinary retention on u/s * PPX * scd's * anticoagulation contraindicated due to abdominal surgery * protonix Assessment and plan discussed with attending physician. <Seema Yanez - Last Filed: 11/25/16 20:59> Objective - Vital Signs/Intake and Output Vital Signs (last 24 hours): Temp Pulse Resp BP Pulse Ox 97.9 F 121 H 20 132/64 98 11/25/16 08:21 11/25/16 08:21 11/24/16 06:00 11/25/16 09:24 11/24/16 06:00 - Medications Medications: Current Medications Albuterol/Ipratropium (Duoneb 3 Mg/0.5 Mg (3 Ml) Ud) 3 ml IH [id number] [facility] Last Admin: 11/25/16 19:52 Dose: 3 ml Furosemide (Lasix) 40 mg IVP Q12 [facility] Last Admin: 11/25/16 09:24 Dose: 40 mg Hydromorphone HCl (Dilaudid) 0.5 mg IVP Q4H PRN PRN Reason: Pain, moderate (4-7) Last Admin: 11/25/16 06:39 Dose: 0.5 mg Vancomycin HCl (Vancomycin 1gm) 250 mls @ 167 mls/hr IVPB 0800,2000 [facility] PRN Reason: Protocol Last Admin: 11/25/16 20:24 Dose: 167 mls/hr Piperacillin Sod/Tazobactam Sod (Zosyn 3.375 In Ns 100ml) 100 mls @ 200 mls/hr IVPB Q6 [facility] PRN Reason: Protocol Stop: 12/07/16 00:01 Last Admin: 11/25/16 19:06 Dose: 200 mls/hr Sodium Chloride (Sodium Chloride 0.9%) 1,000 mls @ 100 mls/hr IV .Q10H [facility] Last Admin: 11/25/16 20:02 Dose: 100 mls/hr Insulin Human Lispro (Humalog Low) 0 units SC ACHS [facility] PRN Reason: Protocol Last Admin: 11/25/16 17:17 Dose: 3 units Ketorolac Tromethamine (Toradol) 15 mg IVP Q6H PRN PRN Reason: Pain, severe (8-10) Last Admin: 11/25/16 14:01 Dose: 15 mg Lactulose (Enulose) 30 gm PO BID [facility] Last Admin: 11/25/16 20:01 Dose: Not Given Ondansetron HCl (Zofran Inj) 4 mg IVP Q4H PRN PRN Reason: Nausea/Vomiting Pantoprazole Sodium (Protonix Inj) 40 mg IVP DAILY [facility] Last Admin: 11/25/16 09:25 Dose: 40 mg - Labs Labs: 11/25/16 07:05 11/25/16 07:05 PT 17.6 Seconds (9.9-11.8) H 11/24/16 07:00 INR 1.63 (0.93-1.08) H 11/24/16 07:00 APTT 46.7 Seconds (23.7-30.8) H 11/23/16 07:00 Attending/Attestation - Attestation I have personally seen and examined this patient.: Yes I have fully participated in the care of the patient.: Yes I have reviewed all pertinent clinical information, including history, physical exam and plan: Yes Notes (Text): 11/25/16 20:50 76 year old female with past medical history of DVT s/p IVC filter, hypertension , diabetes, liver cirrhosis and recently diagnosed colon adenocarcinoma who is s /p right hemicolectomy with side to side anastamosis POD #5. She is being followed by surgery. This morning patient is lethargic. CT head shows no acute findings. Ammonia level is elevated at 66. Will give lactulose and reassess. Resume rifaximin once patient is able to take PO. She is on iv lasix for congestion. She is on iv antibiotics for RLL pneumonia as per ID. Ucx also grew Pseudomonas Aeruginosa. Seema Yanez MD Hospitalist.
[2016-11-26] MEDS: Piperacillin/Tazobact 3.375 gm 100 ML IVPB SCH ×4 (00:31→17:32)
[2016-11-26] MEDS: Albuterol-Ipratrop 3 mg / 0.5 (3 ml) UD IH SCH ×4 (01:15→19:50)
[2016-11-26 06:03] LABS: BASO # 0.01 K/mm3 (0.0-2.0); BASO % 0.1 % (0.0-3.0); EOS % 0.1 % (1.5-5.0); GRAN # 7.13 (1.4-6.5); HEMATOCRIT 31.2 % (36.0-48.0); LYMPH # 0.4 (1.2-3.4); LYMPH % 5.1 % (22.0-35.0); MEAN CELL VOLUME 87.6 fL (80.0-105.0); MEAN CORPUSCULAR HEMOGLOBIN 27.2 pg (25.0-35.0); MEAN CORPUSCULAR HGB CONC 31.1 g/dl (31.0-37.0); MONO # 0.6 (0.1-0.6); MONO % 7.7 % (1.0-6.0); PLATELET COUNT 53 10^3/uL (120.0-450.0); RED CELL DISTRIBUTION WIDTH 27.5 % (11.5-14.5); WHITE BLOOD COUNT 8.2 10^3/ul (4.5-11.0)
[2016-11-26 06:43] LABS: ALB/GLOB RATIO 0.7 (1.1-1.8); BILIRUBIN,TOTAL 2.8 mg/dL (0.2-1.3); CALCIUM 8.7 mg/dL (8.4-10.5); POTASSIUM 3.6 mmol/L (3.6-5.0); TOTAL PROTEIN 4.8 g/dL (5.8-8.3)
[2016-11-26 07:09] LABS: ADD MANUAL DIFF? NO
--- NOTE | 2016-11-26 07:27 | CP.PCM.PN ---
Subjective - Date & Time of Evaluation Date of Evaluation: 11/26/16 Time of Evaluation: 07:26 - Subjective Subjective: Dr. Foster Mccloud PGY1 Surgery Note for Dr. Mahmood Patient is awake but is ANO only to person. Is more or less mumbling in both upper sorbian and persian without any goal oriented conversation; unable to perform subjective history taking portion of exam due to AMS. Objective - Vital Signs/Intake and Output Vital Signs (last 24 hours): Temp Pulse Resp BP Pulse Ox 97.9 F 121 H 20 145/64 98 11/25/16 08:21 11/25/16 08:21 11/24/16 06:00 11/25/16 21:58 11/24/16 06:00 Intake and Output: 11/26/16 11/26/16 06:59 18:59 Intake Total 1320 Output Total 300 Balance 1020 - Medications Medications: Current Medications Albuterol/Ipratropium (Duoneb 3 Mg/0.5 Mg (3 Ml) Ud) 3 ml IH [id number] [facility] Last Admin: 11/26/16 01:15 Dose: 3 ml Furosemide (Lasix) 40 mg IVP Q12 [facility] Last Admin: 11/25/16 21:58 Dose: 40 mg Hydromorphone HCl (Dilaudid) 0.5 mg IVP Q4H PRN PRN Reason: Pain, moderate (4-7) Last Admin: 11/25/16 06:39 Dose: 0.5 mg Vancomycin HCl (Vancomycin 1gm) 250 mls @ 167 mls/hr IVPB 0800,2000 [facility] PRN Reason: Protocol Last Admin: 11/25/16 20:24 Dose: 167 mls/hr Piperacillin Sod/Tazobactam Sod (Zosyn 3.375 In Ns 100ml) 100 mls @ 200 mls/hr IVPB Q6 [facility] PRN Reason: Protocol Stop: 12/07/16 00:01 Last Admin: 11/26/16 05:40 Dose: 200 mls/hr Sodium Chloride (Sodium Chloride 0.9%) 1,000 mls @ 100 mls/hr IV .Q10H [facility] Last Admin: 11/25/16 20:02 Dose: 100 mls/hr Insulin Human Lispro (Humalog Low) 0 units SC ACHS [facility] PRN Reason: Protocol Last Admin: 11/25/16 22:01 Dose: Not Given Ketorolac Tromethamine (Toradol) 15 mg IVP Q6H PRN PRN Reason: Pain, severe (8-10) Last Admin: 11/25/16 22:14 Dose: 15 mg Lactulose (Enulose) 30 gm PO BID [facility] Last Admin: 11/25/16 20:01 Dose: Not Given Ondansetron HCl (Zofran Inj) 4 mg IVP Q4H PRN PRN Reason: Nausea/Vomiting Last Admin: 11/26/16 00:31 Dose: 4 mg Pantoprazole Sodium (Protonix Inj) 40 mg IVP DAILY [facility] Last Admin: 11/25/16 09:25 Dose: 40 mg - Labs Labs: 11/26/16 05:00 11/26/16 06:00 PT 17.6 Seconds (9.9-11.8) H 11/24/16 07:00 INR 1.63 (0.93-1.08) H 11/24/16 07:00 APTT 46.7 Seconds (23.7-30.8) H 11/23/16 07:00 - Constitutional Appears: Non-toxic, Confused - Head Exam Head Exam: ATRAUMATIC - Eye Exam Eye Exam: EOMI Pupil Exam: PERRL - ENT Exam ENT Exam: Mucous Membranes Moist - Neck Exam Neck Exam: Full ROM. absent: Lymphadenopathy - Respiratory Exam Respiratory Exam: Rales (on the right ). absent: Respiratory Distress - Cardiovascular Exam Cardiovascular Exam: REGULAR RHYTHM, +S1, +S2 - GI/Abdominal Exam GI & Abdominal Exam: Soft, Organomegaly (liver palpable 5cm below costal margin) . absent: Distended, Tenderness Additional comments: Deny drain in the RLQ clamped. Midline surgical incision well approximated with carmita - Extremities Exam Extremities Exam: absent: Calf Tenderness - Back Exam Back Exam: absent: CVA tenderness (L), CVA tenderness (R) - Neurological Exam Neurological Exam: Awake. absent: Oriented x3 - Psychiatric Exam Additional comments: unable to assess - Skin Skin Exam: Warm Assessment and Plan - Assessment and Plan (Free Text) Assessment: 76F with colon CA s/p R hemicolectomy; POD#6 Plan: - c/w fluids at 100/hr - mims only drained 50cc over 24hr since inserted; ??hepatorenal syndrome in setting of advanced liver disease w/ acute rise in creatinine (was .8 on admission now currently 1.4 with decreased urine output)? - Clamp deny drain, may be contributing to excess fluid loss - Close monitoring of vitals/hemodynamics; tachycardic -ID on board for sepsis 2/2 to RLL PNA and possible UTI; management as per ID -AMS possibly due to elevated ammonia; most recent 60; could increase lactulose to TID instead of BID? +/-Rifamixin? - Medical management as per primary team DW Dr. Timoteo Mccloud PGY1
[2016-11-26] MEDS: Insulin Lispro (humaLOG) LOW Coverage SC SCH ×4 (07:59→22:14)
--- NOTE | 2016-11-26 08:26 | PN ---
DATE: 11/25/2016 The patient is in bed in no acute distress, nontoxic. PHYSICAL EXAMINATION: VITAL SIGNS: Temperature is 97, blood pressure is 130/70, respiratory rate of 16. HEENT: Unremarkable. NECK: Supple. LUNGS: Have decreased breath sounds. HEART: Normal S1, S2. ABDOMEN: Soft, nontender. LABORATORY DATA: Reveals a white count of 12,700, hemoglobin of 10. Chemistries reveal the BUN of 1 9, creatinine of 1.1. Urinalysis is noted. Microbiology reveals Pseudomonas aeruginosa in the urine culture. The blood cultures are reported to be negative, although there is pseudomonas in the urine culture. The urinalysis shows 10-15 WBCs. Review of systems reveals the patient to be on vancomyci n and Zosyn. The patient's procalcitonin is 4.33. ASSESSMENT AND PLAN: This is a 76-year-old female with a deep venous thrombosis and diabetes mellitu s and cecal mass, status post hemicolectomy, postop day #5, pathology consistent with moderately diff erentiated adenocarcinoma with sepsis and a right lower lobe healthcare-associated pneumonia with Pse udomonas in the urine on vancomycin and Zosyn day #3 and an elevated procalcitonin. The patient had a CAT scan of the head today. No acute hemorrhage. Abena Jean-Baptiste's note is reviewed fr om today and will follow closely with you. Overall, prognosis is quite poor for this woman who is ca chectic. Foster Sheriff MD cc: 350 TT: 11/25/2016 17:24:08 Confirmation # [id number] Dictation # [id number]
[2016-11-26] MEDS: Vancomycin 1gm in NS 250ml 250 ML IVPB SCH ×2 (09:57→22:15)
--- NOTE | 2016-11-26 16:34 | CP.PCM.PN ---
Subjective - Date & Time of Evaluation Date of Evaluation: 11/26/16 Time of Evaluation: 09:25 - Subjective Subjective: Comfortable in bed, not in distress, no fevers overnight. Objective - Vital Signs/Intake and Output Vital Signs (last 24 hours): Temp Pulse Resp BP Pulse Ox 98.4 F 108 H 18 130/62 92 L 11/26/16 06:00 11/26/16 06:00 11/26/16 06:00 11/26/16 09:56 11/26/16 06:00 Intake and Output: 11/26/16 11/26/16 06:59 18:59 Intake Total 1320 Output Total 300 Balance 1020 - Medications Medications: Current Medications Albuterol/Ipratropium (Duoneb 3 Mg/0.5 Mg (3 Ml) Ud) 3 ml IH [id number] [facility] Last Admin: 11/26/16 13:05 Dose: 3 ml Furosemide (Lasix) 40 mg IVP Q12 [facility] Last Admin: 11/26/16 09:56 Dose: 40 mg Hydromorphone HCl (Dilaudid) 0.5 mg IVP Q4H PRN PRN Reason: Pain, moderate (4-7) Last Admin: 11/25/16 06:39 Dose: 0.5 mg Vancomycin HCl (Vancomycin 1gm) 250 mls @ 167 mls/hr IVPB 0800,2000 [facility] PRN Reason: Protocol Last Admin: 11/26/16 09:57 Dose: 167 mls/hr Piperacillin Sod/Tazobactam Sod (Zosyn 3.375 In Ns 100ml) 100 mls @ 200 mls/hr IVPB Q6 [facility] PRN Reason: Protocol Stop: 12/07/16 00:01 Last Admin: 11/26/16 12:56 Dose: 200 mls/hr Insulin Human Lispro (Humalog Low) 0 units SC ACHS [facility] PRN Reason: Protocol Last Admin: 11/26/16 11:43 Dose: 3 units Ketorolac Tromethamine (Toradol) 15 mg IVP Q6H PRN PRN Reason: Pain, severe (8-10) Last Admin: 11/25/16 22:14 Dose: 15 mg Lactulose (Enulose) 30 gm PO BID [facility] Last Admin: 11/26/16 09:56 Dose: 30 gm Ondansetron HCl (Zofran Inj) 4 mg IVP Q4H PRN PRN Reason: Nausea/Vomiting Last Admin: 11/26/16 00:31 Dose: 4 mg Pantoprazole Sodium (Protonix Inj) 40 mg IVP DAILY [facility] Last Admin: 11/26/16 09:56 Dose: 40 mg Spironolactone (Aldactone) 100 mg PO DAILY [facility] Last Admin: 11/26/16 11:45 Dose: 100 mg - Labs Labs: 11/26/16 05:00 11/26/16 06:00 PT 17.6 Seconds (9.9-11.8) H 11/24/16 07:00 INR 1.63 (0.93-1.08) H 11/24/16 07:00 APTT 46.7 Seconds (23.7-30.8) H 11/23/16 07:00 - Constitutional Appears: Non-toxic, No Acute Distress - Head Exam Head Exam: NORMAL INSPECTION - ENT Exam ENT Exam: Mucous Membranes Moist - Neck Exam Neck Exam: absent: Lymphadenopathy, Meningismus - Respiratory Exam Respiratory Exam: Decreased Breath Sounds - Cardiovascular Exam Cardiovascular Exam: +S1, +S2 - GI/Abdominal Exam GI & Abdominal Exam: Soft. absent: Tenderness Assessment and Plan - Assessment and Plan (Free Text) Plan: Assessment Sepsis secondary to right lower lobe healtcare-associated pneumonia with possible gram positive cocci and/or gram negative bacilli, slowly improving colon cancer S/P right hemicolectomy Pseudomonas in the urine history of DVT DM Plan continue Vancomycin and Zosyn day 4 to complete a 4-7 day course Will monitor clinically
--- NOTE | 2016-11-26 16:53 | CP.PCM.PN ---
<Glynn Melo - Last Filed: 11/26/16 16:49> Subjective - Date & Time of Evaluation Date of Evaluation: 11/26/16 Time of Evaluation: 07:45 - Subjective Subjective: Dr. Melo PGY 1 Hospitalist Note Patient seen and evaluated at bedside. She is sitting up and eating breakfast. She reports some abdominal tenderness and continues to have flattus but denies bowel movement. She is able to tell me her name, and the president but is slow to respond and cannot tell me her location or the year. She denies any fever, chills, nausea, vomiting, or chest pain. Per nursing, the patient has been altered and developed nausea with some vomiting over night but remains afebrile. Objective - Vital Signs/Intake and Output Vital Signs (last 24 hours): Temp Pulse Resp BP Pulse Ox 98.4 F 108 H 18 130/62 92 L 11/26/16 06:00 11/26/16 06:00 11/26/16 06:00 11/26/16 09:56 11/26/16 06:00 Intake and Output: 11/26/16 11/26/16 06:59 18:59 Intake Total 1320 Output Total 300 Balance 1020 - Medications Medications: Current Medications Albuterol/Ipratropium (Duoneb 3 Mg/0.5 Mg (3 Ml) Ud) 3 ml IH [id number] [facility] Last Admin: 11/26/16 13:05 Dose: 3 ml Furosemide (Lasix) 40 mg IVP Q12 [facility] Last Admin: 11/26/16 09:56 Dose: 40 mg Hydromorphone HCl (Dilaudid) 0.5 mg IVP Q4H PRN PRN Reason: Pain, moderate (4-7) Last Admin: 11/25/16 06:39 Dose: 0.5 mg Vancomycin HCl (Vancomycin 1gm) 250 mls @ 167 mls/hr IVPB 0800,2000 [facility] PRN Reason: Protocol Last Admin: 11/26/16 09:57 Dose: 167 mls/hr Piperacillin Sod/Tazobactam Sod (Zosyn 3.375 In Ns 100ml) 100 mls @ 200 mls/hr IVPB Q6 [facility] PRN Reason: Protocol Stop: 12/07/16 00:01 Last Admin: 11/26/16 12:56 Dose: 200 mls/hr Insulin Human Lispro (Humalog Low) 0 units SC ACHS [facility] PRN Reason: Protocol Last Admin: 11/26/16 16:41 Dose: 3 units Ketorolac Tromethamine (Toradol) 15 mg IVP Q6H PRN PRN Reason: Pain, severe (8-10) Last Admin: 11/25/16 22:14 Dose: 15 mg Lactulose (Enulose) 30 gm PO BID [facility] Last Admin: 11/26/16 09:56 Dose: 30 gm Ondansetron HCl (Zofran Inj) 4 mg IVP Q4H PRN PRN Reason: Nausea/Vomiting Last Admin: 11/26/16 00:31 Dose: 4 mg Pantoprazole Sodium (Protonix Inj) 40 mg IVP DAILY [facility] Last Admin: 11/26/16 09:56 Dose: 40 mg Spironolactone (Aldactone) 100 mg PO DAILY [facility] Last Admin: 11/26/16 11:45 Dose: 100 mg - Labs Labs: 11/26/16 05:00 11/26/16 06:00 PT 17.6 Seconds (9.9-11.8) H 11/24/16 07:00 INR 1.63 (0.93-1.08) H 11/24/16 07:00 APTT 46.7 Seconds (23.7-30.8) H 11/23/16 07:00 - Constitutional Appears: Non-toxic, No Acute Distress - Head Exam Head Exam: ATRAUMATIC, NORMOCEPHALIC - Eye Exam Eye Exam: EOMI, Normal appearance, PERRL. absent: Conjunctival injection, Scleral icterus Pupil Exam: NORMAL ACCOMODATION, PERRL - ENT Exam ENT Exam: Mucous Membranes Moist. absent: Normal Oropharynx (poor dentition) - Respiratory Exam Respiratory Exam: Clear to Ausculation Bilateral, NORMAL BREATHING PATTERN. absent: Rales, Rhonchi, Wheezes - Cardiovascular Exam Cardiovascular Exam: REGULAR RHYTHM, +S1, +S2, Murmur (+2 systolic). absent: Gallop, Rubs - GI/Abdominal Exam GI & Abdominal Exam: Soft, Tenderness (RLQ), Normal Bowel Sounds. absent: Distended, Firm, Guarding - Extremities Exam Extremities Exam: Pedal Edema (+2 bilateral edema above the knee) - Neurological Exam Neurological Exam: Alert, Altered, Awake, CN II-XII Intact - Psychiatric Exam Psychiatric exam: Normal Affect, Normal Mood - Skin Skin Exam: Dry, Intact, Warm Assessment and Plan - Assessment and Plan (Free Text) Assessment: 76 y/o F with DVT, HTN, DM2, and liver cirrhosis recently diagnosed with adenocarcinoma and tubulovillous adenoma who presents s/p right hemicolectomy with side to side anastamosis POD 6. Altered mental status, and 1 episode of emesis. Plan: 1) s/p Hemicolectomy with anastomosis * Surgery consulted * Patient on medical floor * Pain management as per surgery recs * On liquid diet * Advance diet as per surgical recs * JEANIE drain clamped by surgery * abdominal binder in place * out of bed to chair * physical therapy eval 2) Altered Mental Status * Head CT negative for acute causes [see full report] * Initial ammonia level was 62, repeat was 56 this AM * Lactulose Pr administered yesterday * Continue lactulose PO and Rifaximin if needed * Hold opiates and substitute with toradol for pain 3)Liver cirrhosis * GI consulted, help appreciated * Hep panel on previous admission negative * Paracentesis performed previous admission on 11/14/16 * JEANIE drain in place draining ascities * continue lactulose * Trend INR daily, currently 1.63 * monitor mental status 4) HTN * BP wnl * no longer on IV fluids * Lasix 40mg IVP Q12H * Resume spironalactone * monitor for hypotension due to pain medication and volume loss 5) DM * A1C of 6.7 on previous admission * insulin sliding scale * regular accuchecks * hold hypoglycemic medications * target euglycemia 140-180 6) Thrombocytopenia * platelet count of 72 on admission today was 53 * given 2 units of FFP and PRBC * likely at baseline due to liver cirrhosis * continue to trend 7) Electrolyte abnormality * potassium was 3.6 today * replenish as needed 8) CHF/pneumonia * patient continues to have bilateral edema and lung congestion * chest xray showed ill defined opacity at right lung base r/o pneumonia [see full report] * stopped IV fluids * ID consulted, help appreciated * continue Vancomycin and Zosyn * blood culture negative * f/u sputum cultures * patient remains afebrile 9)UTI * Urine culture grew P. aeruginosa * continue Zosyn * f/u repeat urine culture 10) PPX * scd's * anticoagulation contraindicated due to abdominal surgery * protonix Assessment and plan discussed with attending physician. <Lnih GÓMEZ,Jimmie - Last Filed: 11/27/16 15:37> Objective - Vital Signs/Intake and Output Vital Signs (last 24 hours): Temp Pulse Resp BP Pulse Ox 97.6 F 116 H 20 134/84 95 11/27/16 06:00 11/27/16 06:00 11/27/16 06:00 11/27/16 09:33 11/27/16 06:00 Intake and Output: 11/27/16 11/27/16 06:59 18:59 Intake Total 0 Output Total 0 Balance 0 - Labs Labs: 11/27/16 06:30 11/27/16 06:30 PT 20.4 Seconds (9.9-11.8) H 11/27/16 06:30 INR 1.89 (0.93-1.08) H 11/27/16 06:30 APTT 46.7 Seconds (23.7-30.8) H 11/23/16 07:00 Attending/Attestation - Attestation I have personally seen and examined this patient.: Yes I have fully participated in the care of the patient.: Yes I have reviewed all pertinent clinical information, including history, physical exam and plan: Yes Notes (Text): 11/27/16 15:32 76 year old female with past medical history Chronic liver disease, Ascites, Hepatic encephlopathy, was recently diagnosed with DVT, she is s/p IVC filter , hypertension, diabetes, .She was recently diagnosed colon adenocarcinoma and underwent right hemicolectomy with side to side anastamosis POD #6 She is being followed by surgery. She was found to be confused due to elevated ammonia level, there is no focal deficit, more awake today, still having intermittent confusion, tolerating diet, we will continue lactulose, Prognosis is guarded.
--- NOTE | 2016-11-26 17:45 | CON ---
DATE: 11/26/2016 CHIEF COMPLAINT: Altered mental status. HISTORY OF PRESENT ILLNESS: This is a 76-year-old woman with past medical history of DVT, hypertensi on, diabetes mellitus type 2, history of liver cirrhosis, history of colon cancer, adenocarcinoma of the colon, status post right hemicolectomy. I was consulted for altered mental status, found to have a right lower lobe healthcare-associated pneumonia and gram-positive cocci and found to have pseudom onas in the urine and is on antibiotics per ID. I was consulted for altered mental status. Currentl y, she is alert, oriented to person and place, not month or year. Poor attention span as well as slo w thought process, recall at 5 minutes 0 out of 3. She probably has underlying cognitive impairment as baseline with underlying medical history. It seems that she did have a transient drop in blood pr essure as well. Currently stable at this point. She has ammonia level of 60 and is currently on lac tulose. She has electrolyte derangements. Currently, she follows simple commands. PAST MEDICAL HISTORY: History of colon cancer, adenocarcinoma status post right hemicolectomy, histo ry of hypertension, diabetes, hyperlipidemia, liver cirrhosis. REVIEW OF SYSTEMS: A 14-point review of systems is negative except for the HPI. SOCIAL HISTORY: No illicit drug use, smoking, or ETOH abuse this time. ALLERGIES: No known drug allergies. MEDICATIONS: Reviewed via nurse's reconciliation sheet. FAMILY HISTORY: Noncontributory. PHYSICAL EXAMINATION: VITAL SIGNS: Temperature of 98, pulse rate of 108, blood pressure 128/58, respiratory rate of 18, ox ygen 92% via nasal cannula. GENERAL: The patient is lying in bed in no acute distress. HEENT: Atraumatic, normocephalic. PERRLA. Extraocular muscles intact. NECK: Supple, no JVD, no adenopathy noted. LUNGS: Decreased breath sounds, bilateral scattered rhonchi. HEART: S1, S2, normal rate and rhythm. Tachycardic. No murmurs, rubs, or gallops. ABDOMEN: Soft, nontender, nondistended. Bowel sounds present. EXTREMITIES: No clubbing, no cyanosis. Peripheral pulses are 2+ felt bilaterally. NEUROLOGIC: The patient is alert, oriented to person and place, not much to month or year. Poor att ention span, slow thought process. Recall after 5 minutes is 0/3. Slow to respond to commands. [employer] Lead nial nerves II-XII are intact. Speech is hypophonic. MOTOR: Slight increased tone throughout. Moves all extremities equally. No pronator drift seen. SENSORY: Decreased light touch and pinprick up to the calves bilaterally. Decreased vibration in th e toes. Deep tendon reflexes 2+ throughout, absent at the ankles and 1 at the knees bilaterally. To es are downgoing bilaterally. COORDINATION: Tlyctu-on-ssnr intact. GAIT: Deferred for now. LABORATORIES: Sodium is 145, potassium 3.6, chloride 115, 20, BUN of 26, creatinine 1.4, random glucose of 189, ammonia 56. ASSESSMENT AND PLAN: This is a 76-year-old woman with history of deep venous thrombosis, type 2 diab etes mellitus, hypertension, history of dyslipidemia, history of adenocarcinoma of the colon, status post right hemicolectomy, which was complicated by sepsis secondary to right lower lobe healthcare-as sociated pneumonia with possible gram-positive cocci, gram-negative bacilli and with pseudomonas in t he urine. Infectious disease is on board for antibiotic coverage. I was consulted for altered menta l status and altered mental status seems more like delirium superimposed on underlying toxic metaboli c encephalopathy, underlying cognitive impairment from general medical conditions. At this time, rec ommend: 1. Monitor her ammonia level and continue lactulose since it can be a component of encephalopathy. 2. Monitor electrolytes . 3. Keep the blood pressure between 120-130 mmHg and avoid sudden drops in blood pressure, which can further cause her to be confused. 4. Avoid sedating medications and keep her frequently oriented throughout the day and avoid nighttim e interruptions. 5. Continue gastrointestinal and deep venous thrombosis prophylaxis. No further neurological workup needed at this time. CT head reviewed, showed no acute intracranial abnormalities. Thank you and please re-consult if necessary. Tal Ibanez MD cc: [phone] TT: 11/26/2016 17:44:53 Confirmation # [id number] Dictation # [id number]
[2016-11-26 20:56] VITALS: O2SAT 95
[2016-11-27] MEDS: Piperacillin/Tazobact 3.375 gm 100 ML IVPB SCH ×2 (00:30→05:31)
[2016-11-27] MEDS: Albuterol-Ipratrop 3 mg / 0.5 (3 ml) UD IH SCH ×4 (02:47→13:37)
[2016-11-27] MEDS ORDERED: Sodium Chloride 0.9% 500 ML IV STA (04:43)
[2016-11-27 06:56] LABS: ADD MANUAL DIFF? NO
[2016-11-27 07:16] LABS: INR 1.89 (0.93-1.08)
[2016-11-27 07:17] LABS: BASO # 0.02 K/mm3 (0.0-2.0); BASO % 0.2 % (0.0-3.0); GRAN % 88.8 % (50.0-68.0); HEMATOCRIT 34.1 % (36.0-48.0); LYMPH # 0.4 (1.2-3.4); LYMPH % 4.2 % (22.0-35.0); MEAN CELL VOLUME 88.1 fL (80.0-105.0); MEAN CORPUSCULAR HEMOGLOBIN 27.6 pg (25.0-35.0); MEAN CORPUSCULAR HGB CONC 31.4 g/dl (31.0-37.0); MONO # 0.7 (0.1-0.6); MONO % 6.8 % (1.0-6.0); PLATELET COUNT 56 10^3/uL (120.0-450.0); RED CELL DISTRIBUTION WIDTH 28.4 % (11.5-14.5); WHITE BLOOD COUNT 10.6 10^3/ul (4.5-11.0)
[2016-11-27 07:31] LABS: ALB/GLOB RATIO 0.7 (1.1-1.8); BILIRUBIN,TOTAL 3.3 mg/dL (0.2-1.3); CALCIUM 9.6 mg/dL (8.4-10.5); POTASSIUM 3.5 mmol/L (3.6-5.0); TOTAL PROTEIN 5.3 g/dL (5.8-8.3)
[2016-11-27] MEDS ORDERED: Sodium Chloride 0.9% 1,000 ML IV ONE (07:31)
--- NOTE | 2016-11-27 07:39 | CP.PCM.PN ---
Subjective - Date & Time of Evaluation Date of Evaluation: 11/27/16 Time of Evaluation: 07:38 - Subjective Subjective: patient remains altered; unable to answer any questions; does not know where she is date or her name; mumbling in both malagasy and telugu. unable to participate fully in ROS Objective - Vital Signs/Intake and Output Vital Signs (last 24 hours): Temp Pulse Resp BP Pulse Ox 98.0 F 112 H 19 153/86 H 95 11/26/16 16:00 11/26/16 16:00 11/26/16 16:00 11/27/16 05:29 11/26/16 16:00 Intake and Output: 11/27/16 11/27/16 06:59 18:59 Intake Total 0 Output Total 0 Balance 0 - Medications Medications: Current Medications Albuterol/Ipratropium (Duoneb 3 Mg/0.5 Mg (3 Ml) Ud) 3 ml IH [id number] [facility] Last Admin: 11/27/16 02:47 Dose: 3 ml Furosemide (Lasix) 40 mg IVP Q12 [facility] Last Admin: 11/26/16 22:14 Dose: 40 mg Hydromorphone HCl (Dilaudid) 0.5 mg IVP Q4H PRN PRN Reason: Pain, moderate (4-7) Last Admin: 11/25/16 06:39 Dose: 0.5 mg Vancomycin HCl (Vancomycin 1gm) 250 mls @ 167 mls/hr IVPB 0800,2000 [facility] PRN Reason: Protocol Last Admin: 11/26/16 22:15 Dose: 167 mls/hr Piperacillin Sod/Tazobactam Sod (Zosyn 3.375 In Ns 100ml) 100 mls @ 200 mls/hr IVPB Q6 [facility] PRN Reason: Protocol Stop: 12/07/16 00:01 Last Admin: 11/27/16 05:31 Dose: 200 mls/hr Sodium Chloride (Sodium Chloride 0.9%) 1,000 mls @ 80 mls/hr IV .[id number] ONE Stop: 11/27/16 20:00 Insulin Human Lispro (Humalog Low) 0 units SC ACHS [facility] PRN Reason: Protocol Last Admin: 11/26/16 22:14 Dose: Not Given Ketorolac Tromethamine (Toradol) 15 mg IVP Q6H PRN PRN Reason: Pain, severe (8-10) Last Admin: 11/26/16 22:15 Dose: 15 mg Lactulose (Enulose) 30 gm PO BID [facility] Last Admin: 11/26/16 17:32 Dose: 30 gm Ondansetron HCl (Zofran Inj) 4 mg IVP Q4H PRN PRN Reason: Nausea/Vomiting Last Admin: 11/26/16 00:31 Dose: 4 mg Pantoprazole Sodium (Protonix Inj) 40 mg IVP DAILY [facility] Last Admin: 11/26/16 09:56 Dose: 40 mg Spironolactone (Aldactone) 100 mg PO DAILY [facility] Last Admin: 11/26/16 11:45 Dose: 100 mg - Labs Labs: 11/27/16 06:30 11/27/16 06:30 PT 20.4 Seconds (9.9-11.8) H 11/27/16 06:30 INR 1.89 (0.93-1.08) H 11/27/16 06:30 APTT 46.7 Seconds (23.7-30.8) H 11/23/16 07:00 - Head Exam Additional comments: Head Exam: ATRAUMATIC - Eye Exam Eye Exam: EOMI Pupil Exam: PERRL - ENT Exam ENT Exam: Mucous Membranes Moist - Neck Exam Neck Exam: Full ROM. absent: Lymphadenopathy - Respiratory Exam Respiratory Exam: Rales (on the right ). absent: Respiratory Distress - Cardiovascular Exam Cardiovascular Exam: REGULAR RHYTHM, +S1, +S2 - GI/Abdominal Exam GI & Abdominal Exam: Soft, Organomegaly (liver palpable 5cm below costal margin) . absent: Distended, Tenderness Additional comments: Deny drain in the RLQ clamped. Midline surgical incision well approximated with carmita - Extremities Exam Extremities Exam: absent: Calf Tenderness - Back Exam Back Exam: absent: CVA tenderness (L), CVA tenderness (R) - Neurological Exam Neurological Exam: Awake. absent: Oriented x3; horizontal nystagmus present, + asterixis - Psychiatric Exam Additional comments: unable to assess - Skin Skin Exam: Warm Assessment and Plan - Assessment and Plan (Free Text) Assessment: 76F with colon CA s/p R hemicolectomy; POD#7 Plan: - c/w fluids at 100/hr - no urine output overnight; ??hepatorenal syndrome in setting of advanced liver disease w/ acute rise in creatinine (was .8 on admission now currently 2.3 with decreased urine output)?; vanc trough would be helpful - Clamp deny drain, may be contributing to excess fluid loss - Close monitoring of vitals/hemodynamics; tachycardic -ID on board for sepsis 2/2 to RLL PNA and possible UTI; management as per ID -AMS possibly due to elevated ammonia; could increase lactulose to TID instead of BID? +/-Rifamixin? - Medical management as per primary team DW Dr. Timoteo Mccloud PGY1
[2016-11-27 07:52] VITALS: PULSE 116; RESP 20; TEMP 97.6
[2016-11-27] MEDS ORDERED: Lactulose 10 gm/15 ml (Rectal Use) PR STA (08:26)
[2016-11-27] MEDS ORDERED: Lactulose 10 gm/15 ml (Rectal Use) PR ONE (09:07)
[2016-11-27 09:33] LABS: ARTERIAL BLOOD GAS HCO3 14.7 mmol/L (21-28); ARTERIAL BLOOD GAS O2 CAPACITY 14.4 mL/dl (16-24); ARTERIAL BLOOD GAS O2 CONTENT 13.8 ML/dl (15-23); ARTERIAL BLOOD GAS PH 7.36 (7.35-7.45); CARBOXYHEMOGLOBIN 2.7 % (0.5-1.5); HHB 4.2 % (0-5); METHEMOGLOBIN 1.2 % (0.0-3.0)
[2016-11-27 09:35] VITALS: BP 134/84
[2016-11-27 10:05] LABS: URINE BILIRUBIN NEGATIVE (NEGATIVE); URINE BLOOD MODERATE (NEGATIVE); URINE GLUCOSE (UA) NEGATIVE (NEGATIVE); URINE KETONE TRACE mg/dL (NEGATIVE); URINE LEUKOCYTE ESTERASE TRACE Leu/uL (NEGATIVE); URINE PROTEIN 30 mg/dL (<30 mg/dL); URINE UROBILINOGEN 0.2 E.U./dL (<1 E.U./dL)
[2016-11-27 10:06] LABS: URINE APPEARANCE SL CLOUDY (CLEAR); URINE COLOR YELLOW (YELLOW)
--- NOTE | 2016-11-27 10:13 | RAD ---
HISTORY: Shortness of breath COMPARISON: No prior. FINDINGS: LUNGS: There is diffuse patchy airspace disease in both lungs, worse since prior examination. . PLEURA: No significant pleural effusion identified, no pneumothorax apparent. CARDIOVASCULAR: Normal. OSSEOUS STRUCTURES: No significant abnormalities. VISUALIZED UPPER ABDOMEN: Normal. OTHER FINDINGS: None. IMPRESSION: Worsening diffuse multifocal airspace disease.
[2016-11-27 10:30] LABS: URINE BACTERIA MOD (NEG); URINE WBC 15 - 20 /hpf (0-6)
--- NOTE | 2016-11-27 11:23 | CP.PCM.CON ---
History of Present Illness - History of Present Illness History of Present Illness: Palliative consult requested by Dr Melton Reason: Goals of care/comfort care discussion 76 year old female with cecal mass admitted after s/p right hemicolectomy with side to side anastamosis. Pathology moderately differentiated adenocarcinoma. Presents now in hepatorenal failure Ammonia level 168. PMHX: non alcoholic liver cirrhosis, RICKY, DVT, DM, HTN,ascites. Social History: Former smoker, no alcohol or drug use. , lives with spouse. Family History: Non contributory. Advance Care Planning: The patient does not have an Advanced Directive. Family has made her DNR/DNI. Review of Systems: Unable to obtain, patient is altered, non verbal Past Patient History - Infectious Disease Hx of Infectious Diseases: None - Tetanus Immunizations Tetanus Immunization: Unknown - Past Medical History & Family History Past Medical History?: Yes - Past Social History Smoking Status: Former Smoker - CARDIAC Hx Cardiac Disorders: Yes Hx Hypertension: Yes - PULMONARY Hx Respiratory Disorders: Yes (SMOKED CIGARETTES PPD QUIT 15 YRS AGO) - NEUROLOGICAL Hx Neurological Disorder: No - HEENT Hx HEENT Problems: No - RENAL Hx Chronic Kidney Disease: No - ENDOCRINE/METABOLIC Hx Diabetes Mellitus Type 2: Yes - HEMATOLOGICAL/ONCOLOGICAL Hx Blood Disorders: Yes (HEPATIC ENCEPHALOPATHY) Hx Anemia: Yes Hx Cancer: Yes (COLON CA) - INTEGUMENTARY Hx Dermatological Problems: No - MUSCULOSKELETAL/RHEUMATOLOGICAL Hx Musculoskeletal Disorders: Yes Hx Falls: Yes Hx Fractures: Yes (RIGHT LEG FX) Hx Unsteady Gait: Yes (CANE WALKER) - GASTROINTESTINAL Hx Gastrointestinal Disorders: Yes (POST HEMICOLECTOMY- 11-20-16) Hx Gall Bladder Disease: Yes (cholelithiasis) Hx Liver Failure: Yes Other/Comment: Liver Cirrhosis-PARACENTESIS - GENITOURINARY/GYNECOLOGICAL Hx Genitourinary Disorders: No - PSYCHIATRIC Hx Emotional Abuse: No Hx Physical Abuse: No Hx Substance Use: No - SURGICAL HISTORY Hx Surgeries: Yes (POST HEMICOLECTOMY 11-20-16) Other/Comment: DVT WITH IVC FILTER - ANESTHESIA Hx Anesthesia Reactions: No Hx Malignant Hyperthermia: No Meds Allergies/Adverse Reactions: Allergies Allergy/AdvReac Type Severity Reaction Status Date / Time No Known Allergies Allergy Verified 11/20/16 18:44 - Medications Medications: Current Medications Albuterol/Ipratropium (Duoneb 3 Mg/0.5 Mg (3 Ml) Ud) 3 ml IH [id number] [facility] Last Admin: 11/27/16 11:11 Dose: 3 ml Furosemide (Lasix) 40 mg IVP Q12 [facility] Last Admin: 11/26/16 22:14 Dose: 40 mg Hydromorphone HCl (Dilaudid) 0.5 mg IVP Q4H PRN PRN Reason: Pain, moderate (4-7) Last Admin: 11/25/16 06:39 Dose: 0.5 mg Piperacillin Sod/Tazobactam Sod (Zosyn 2.25 Gm In 0.9% 100 Ml) 100 mls @ 100 mls/hr IVPB Q8 [facility] PRN Reason: Protocol Stop: 11/27/16 22:59 Insulin Human Lispro (Humalog Low) 0 units SC ACHS [facility] PRN Reason: Protocol Last Admin: 11/26/16 22:14 Dose: Not Given Lactulose (Enulose) 30 gm PO BID [facility] Last Admin: 11/26/16 17:32 Dose: 30 gm Ondansetron HCl (Zofran Inj) 4 mg IVP Q4H PRN PRN Reason: Nausea/Vomiting Last Admin: 11/26/16 00:31 Dose: 4 mg Pantoprazole Sodium (Protonix Inj) 40 mg IVP DAILY [facility] Last Admin: 11/27/16 09:34 Dose: 40 mg Spironolactone (Aldactone) 100 mg PO DAILY [facility] Last Admin: 11/26/16 11:45 Dose: 100 mg Physical Exam - Constitutional Appears: Chronically Ill - Head Exam Head Exam: NORMAL INSPECTION - Eye Exam Eye Exam: Normal appearance Pupil Exam: NORMAL ACCOMODATION - ENT Exam ENT Exam: Mucous Membranes Moist - Neck Exam Neck exam: Positive for: Normal Inspection - Respiratory Exam Respiratory Exam: Decreased Breath Sounds Additional comments: irregular,shallow breathing - Cardiovascular Exam Cardiovascular Exam: Tachycardia, +S1, +S2 - GI/Abdominal Exam GI & Abdominal Exam: Diminished Bowel Sounds, Distended - Exam Additional comments: oliguria - Extremities Exam Extremities exam: Positive for: pedal edema, pedal pulses present - Neurological Exam Neurological exam: Altered - Skin Skin Exam: Dry, Warm - Additional Findings Additional findings: Palliative performance scale rating 20% Results - Vital Signs Recent Vital Signs: Last Vital Signs Temp 97.6 F 11/27/16 06:00 Pulse 116 H 11/27/16 06:00 Resp 20 11/27/16 06:00 BP 134/84 11/27/16 09:33 Pulse Ox 95 11/27/16 06:00 - Labs Result Diagrams: 11/27/16 06:30 11/27/16 06:30 Labs: Laboratory Results - last 24 hr 11/27/16 11/27/16 11/27/16 06:30 07:30 09:30 WBC 10.6 D RBC 3.87 Hgb 10.7 L Hct 34.1 L MCV 88.1 MCH 27.6 MCHC 31.4 RDW 28.4 H Plt Count 56 L Gran % 88.8 H Lymph % (Auto) 4.2 L [place] % (Auto) 6.8 H Eos % (Auto) 0.0 L Baso % (Auto) 0.2 Gran # 9.40 H Lymph # 0.4 L [place] # 0.7 H Eos # 0.0 Baso # 0.02 PT 20.4 H INR 1.89 H pCO2 26 L pO2 67.0 L HCO3 14.7 L ABG pH 7.36 ABG Total CO2 15.5 L ABG O2 Saturation 95.6 ABG O2 Content 13.8 L ABG Base Excess -9.4 L ABG Hemoglobin 10.6 L ABG Carboxyhemoglobin 2.7 H POC ABG HHb (Measured) 4.2 ABG Methemoglobin 1.2 ABG O2 Capacity 14.4 L Hgb O2 Saturation 92.0 L FiO2 40.0 Sodium 148 Potassium 3.5 L Chloride 117 H Carbon Dioxide 17 L Anion Gap 18 BUN 34 H Creatinine 2.3 H Est GFR ( Amer) 25 Est GFR (Non-Af Amer) 21 Random Glucose 212 H Calcium 9.6 Total Bilirubin 3.3 H AST 55 H ALT 41 Alkaline Phosphatase 113 Ammonia 168 H* Total Protein 5.3 L Albumin 2.2 L Globulin 3.1 Albumin/Globulin Ratio 0.7 L Urine Color Urine Appearance Urine pH Ur Specific [place] Urine Protein Urine Glucose (UA) Urine Ketones Urine Blood Urine Nitrate Urine Bilirubin Urine Urobilinogen Ur Leukocyte Esterase Urine RBC Urine WBC Ur Epithelial Cells Urine Bacteria Ur Random Creatinine Ur Random Sodium Ur Random Potassium Vancomycin Trough 52.3 H* 11/27/16 09:53 WBC RBC Hgb Hct MCV MCH MCHC RDW Plt Count Gran % Lymph % (Auto) [place] % (Auto) Eos % (Auto) Baso % (Auto) Gran # Lymph # [place] # Eos # Baso # PT INR pCO2 pO2 HCO3 ABG pH ABG Total CO2 ABG O2 Saturation ABG O2 Content ABG Base Excess ABG Hemoglobin ABG Carboxyhemoglobin POC ABG HHb (Measured) ABG Methemoglobin ABG O2 Capacity Hgb O2 Saturation FiO2 Sodium Potassium Chloride Carbon Dioxide Anion Gap BUN Creatinine Est GFR ( Amer) Est GFR (Non-Af Amer) Random Glucose Calcium Total Bilirubin AST ALT Alkaline Phosphatase Ammonia Total Protein Albumin Globulin Albumin/Globulin Ratio Urine Color Yellow Urine Appearance Sl cloudy Urine pH 5.0 Ur Specific [place] 1.025 Urine Protein 30 H Urine Glucose (UA) Negative Urine Ketones Trace H Urine Blood Moderate H Urine Nitrate Negative Urine Bilirubin Negative Urine Urobilinogen 0.2 Ur Leukocyte Esterase Trace H Urine RBC 10 - 15 Urine WBC 15 - 20 Ur Epithelial Cells 10 - 12 Urine Bacteria Mod Ur Random Creatinine 80 Ur Random Sodium 18 Ur Random Potassium 60.0 Vancomycin Trough Assessment & Plan - Assessment and Plan (Free Text) Assessment: 76 year old female hepatorenal failure, cirrhosis, adenocarcinoma of colon s/p right ry colectomy, ascites. Family at bedside.They have spoke with attending physician and are aware that the patient is in liver/renal failure and is likely to succumb to her illness. Resuscitation status discussed at length. Family agreed to making patient DNR/ DNI. Family offered option for continued supportive care, lactulose enema's, antibiotics, IV fluids. and daughter do not want these interventions. Family asking that all supportive measure(lab work, x rays,)be stopped. Comfort care/hospice services explained in detail questions answered. Family agreeable to speaking with patient account liaison. Time spent in discussion with family regarding goals of care, comfort care, end of life counseling 60 minutes Plan: Hospice evaluation for GIP services DNR/DNI
[2016-11-27] MEDS: HYDROmorphone 0.5 mg/0.5 ml ISec IVP PRN (11:57)
[2016-11-27] MEDS ORDERED: HYDROmorphone 0.5 mg/0.5 ml ISec IVP PRN (12:06)
[2016-11-27] MEDS ORDERED: Piperacillin/Tazobact 2.25gm 100 ML IVPB SCH (14:00)
--- NOTE | 2016-11-27 14:10 | CP.PCM.DIS ---
<Glynn Melo - Last Filed: 11/27/16 17:29> Provider - Provider Date of Admission: 11/20/16 12:45 Attending physician: Jimmie Melton MD Primary care physician: NO PRIMARY CARE PROVIDER Consults: Dr. Maddy Sommer Time Spent in preparation of Discharge (in minutes): 45 Hospital Course - Lab Results Lab Results: Micro Results 11/22/16 14:43 Blood Blood Culture - Preliminary NO GROWTH AFTER 4 DAYS 11/22/16 14:15 Blood Blood Culture - Preliminary NO GROWTH AFTER 4 DAYS 11/22/16 15:00 Urine,Blanton Urine Culture - Final Pseudomonas Aeruginosa 11/20/16 12:50 Naris MRSA Culture (Admit) - Final MRSA NOT DETECTED Most Recent Lab Values WBC 10.6 10^3/ul (4.5-11.0) D 11/27/16 06:30 RBC 3.87 10^6/uL (3.5-6.1) 11/27/16 06:30 Hgb 10.7 gm/dL (12.0-16.0) L 11/27/16 06:30 Hct 34.1 % (36.0-48.0) L 11/27/16 06:30 MCV 88.1 fL (80.0-105.0) 11/27/16 06:30 MCH 27.6 pg (25.0-35.0) 11/27/16 06:30 MCHC 31.4 g/dl (31.0-37.0) 11/27/16 06:30 RDW 28.4 % (11.5-14.5) H 11/27/16 06:30 Plt Count 56 10^3/uL (120.0-450.0) L 11/27/16 06:30 MPV 9.0 fl (7.0-11.0) 11/26/16 05:00 Gran % 88.8 % (50.0-68.0) H 11/27/16 06:30 Lymph % (Auto) 4.2 % (22.0-35.0) L 11/27/16 06:30 Irion % (Auto) 6.8 % (1.0-6.0) H 11/27/16 06:30 Eos % (Auto) 0.0 % (1.5-5.0) L 11/27/16 06:30 Baso % (Auto) 0.2 % (0.0-3.0) 11/27/16 06:30 Gran # 9.40 (1.4-6.5) H 11/27/16 06:30 Lymph # 0.4 (1.2-3.4) L 11/27/16 06:30 Irion # 0.7 (0.1-0.6) H 11/27/16 06:30 Eos # 0.0 (0.0-0.7) 11/27/16 06:30 Baso # 0.02 K/mm3 (0.0-2.0) 11/27/16 06:30 Neutrophils % (Manual) 83 % (50.0-70.0) H 11/21/16 05:00 Band Neutrophils % 9 % (0-2) H 11/21/16 05:00 Lymphocytes % (Manual) 3 % (22.0-35.0) L 11/21/16 05:00 Monocytes % (Manual) 5 % (1.0-6.0) 11/21/16 05:00 Platelet Evaluation Low (NORMAL) 11/21/16 05:00 Hypochromasia 1+ 11/21/16 05:00 Poikilocytosis (manual Slight 11/21/16 05:00 Anisocytosis (manual) 1+ 11/21/16 05:00 PT 20.4 Seconds (9.9-11.8) H 11/27/16 06:30 INR 1.89 (0.93-1.08) H 11/27/16 06:30 APTT 46.7 Seconds (23.7-30.8) H 11/23/16 07:00 pCO2 26 mm/Hg (35-45) L 11/27/16 09:30 pO2 67.0 mm/Hg (80-100) L 11/27/16 09:30 HCO3 14.7 mmol/L (21-28) L 11/27/16 09:30 ABG pH 7.36 (7.35-7.45) 11/27/16 09:30 ABG Total CO2 15.5 mmol.L (22-28) L 11/27/16 09:30 ABG O2 Saturation 95.6 % (95-98) 11/27/16 09:30 ABG O2 Content 13.8 ML/dl (15-23) L 11/27/16 09:30 ABG Base Excess -9.4 mmol/L (-2.0-3.0) L 11/27/16 09:30 ABG Hemoglobin 10.6 g/dL (11.7-17.4) L 11/27/16 09:30 ABG Carboxyhemoglobin 2.7 % (0.5-1.5) H 11/27/16 09:30 POC ABG HHb (Measured) 4.2 % (0-5) 11/27/16 09:30 ABG Methemoglobin 1.2 % (0.0-3.0) 11/27/16 09:30 ABG O2 Capacity 14.4 mL/dl (16-24) L 11/27/16 09:30 Hgb O2 Saturation 92.0 % (95.0-98.0) L 11/27/16 09:30 FiO2 40.0 % 11/27/16 09:30 Sodium 148 mmol/L (132-148) 11/27/16 06:30 Potassium 3.5 mmol/L (3.6-5.0) L 11/27/16 06:30 Chloride 117 mmol/L (98-107) H 11/27/16 06:30 Carbon Dioxide 17 mmol/L (21-33) L 11/27/16 06:30 Anion Gap 18 (10-20) 11/27/16 06:30 BUN 34 mg/dL (7-21) H 11/27/16 06:30 Creatinine 2.3 mg/dL (0.5-1.4) H 11/27/16 06:30 Est GFR ( Amer) 11/27/16 06:30 Est GFR (Non-Af Amer) 11/27/16 06:30 POC Glucose (mg/dL) 251 mg/dL (65-110) H 11/25/16 21:55 Random Glucose 212 mg/dL (70-110) H 11/27/16 06:30 Calcium 9.6 mg/dL (8.4-10.5) 11/27/16 06:30 Phosphorus 3.1 mg/dL (2.5-4.5) 11/20/16 11:30 Magnesium 1.8 mg/dL (1.7-2.2) 11/20/16 11:30 Total Bilirubin 3.3 mg/dL (0.2-1.3) H 11/27/16 06:30 AST 55 U/L (15-39) H 11/27/16 06:30 ALT 41 U/L (7-56) 11/27/16 06:30 Alkaline Phosphatase 113 U/L (38-133) 11/27/16 06:30 Ammonia 168 umol/L (9-33) H* 11/27/16 06:30 NT-Pro-B Natriuret Pep 925 pg/mL (0-450) H 11/22/16 07:00 Total Protein 5.3 g/dL (5.8-8.3) L 11/27/16 06:30 Albumin 2.2 g/dL (3.0-4.8) L 11/27/16 06:30 Globulin 3.1 gm/dL 11/27/16 06:30 Albumin/Globulin Ratio 0.7 (1.1-1.8) L 11/27/16 06:30 Triglycerides 49 mg/dL (35-160) 11/21/16 05:00 Cholesterol < 50 mg/dL (130-200) L 11/21/16 05:00 LDL Cholesterol Direct < 30 mg/dL (0-129) 11/21/16 05:00 HDL Cholesterol 17 mg/dL (29-60) L 11/21/16 05:00 Procalcitonin 4.33 NG/ML (0.19-0.49) H 11/22/16 07:00 Urine Color Yellow (YELLOW) 11/27/16 09:53 Urine Appearance Sl cloudy (CLEAR) 11/27/16 09:53 Urine pH 5.0 (4.7-8.0) 11/27/16 09:53 Ur Specific Douglas 1.025 (1.005-1.035) 11/27/16 09:53 Urine Protein 30 mg/dL (<30 mg/dL) H 11/27/16 09:53 Urine Glucose (UA) Negative mg/dL (NEGATIVE) 11/27/16 09:53 Urine Ketones Trace mg/dL (NEGATIVE) H 11/27/16 09:53 Urine Blood Moderate (NEGATIVE) H 11/27/16 09:53 Urine Nitrate Negative (NEGATIVE) 11/27/16 09:53 Urine Bilirubin Negative (NEGATIVE) 11/27/16 09:53 Urine Urobilinogen 0.2 E.U./dL (<1 E.U./dL) 11/27/16 09:53 Ur Leukocyte Esterase Trace Bri/uL (NEGATIVE) H 11/27/16 09:53 Urine RBC 10 - 15 /hpf (0-2) 11/27/16 09:53 Urine WBC 15 - 20 /hpf (0-6) 11/27/16 09:53 Ur Epithelial Cells 10 - 12 /hpf (0-5) 11/27/16 09:53 Amorphous Sediment Few 11/24/16 20:00 Urine Bacteria Mod (NEG) 11/27/16 09:53 Urine Other Uyeast 11/24/16 20:00 Ur Random Creatinine 80 mg/dL 11/27/16 09:53 Ur Random Sodium 18 meq/L 11/27/16 09:53 Ur Random Potassium 60.0 meq/L 11/27/16 09:53 Vancomycin Trough 52.3 ug/mL (5.0-10.0) H* 11/27/16 07:30 Liver/Kid Microsomes Ab <=20.0 U (<=20.0) 11/21/16 05:00 Blood Type O POSITIVE 11/20/16 06:30 Blood Type Confirm O POSITIVE 11/20/16 06:50 Antibody Screen Negative 11/20/16 06:30 Crossmatch See Detail 11/20/16 06:30 BBK History Checked No verified bt 11/20/16 06:30 - Hospital Course Hospital Course: HPI: Patient is a 76 y/o F with PMH of DVT, HTN, DM2, and liver cirrhosis who presents s/p right hemicolectomy with side to side anastamosis. Recently she was hospitalized for altered mental status and was admitted for hepatic encephalopathy. 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 Today she was scheduled for an elective right hemicolectomy with side to side anastamosis which was completed. She was seen and evaluated in the PACU. She was somnolent but able to answer some questions. She reported diffuse abdominal pain. A thorough review of systems could not be performed due to somnolence. Patient is a 76 y/o F who presented s/p right hemicolectomy with side to side anastamosis. Path specimen showed moderately differentiated adenocarcinoma arising in villous adenoma. Her JEANIE drain was in place which continually drained her ascities and albumin was replaced. She continued to thirdspace into her lungs, abdomen, and lower extremities. She developed worsening SOB and was given diuretics but needed gentle hydration due to volume loss through JEANIE drain. Her urine output continually declined. Patient had history of liver cirrhosis and developed worsening liver function. She developed altered mental status and a head CT was performed which was negative for acute changes. An initial ammonia level was ordered which showed a level of 62. She was started on lactulose enema. Family was consulted and as per patient' s wishes prior to surgery, she was made DNR/DNI and hospice was requested. She was discharged to hospice service. This is a brief summary of the patient's stay. For more detail see patient's full chart. - Date & Time of H&P Date of H&P: 11/20/16 Time of H&P: 12:59 Discharge Exam - Head Exam Head Exam: NORMAL INSPECTION - Eye Exam Eye Exam: Normal appearance, PERRL Pupil Exam: PERRL - ENT Exam ENT Exam: Mucous Membranes Moist. absent: Normal Oropharynx (poor dentition) - Respiratory Exam Respiratory Exam: Rales, Rhonchi. absent: NORMAL BREATHING PATTERN (tachypnic) - Cardiovascular Exam Cardiovascular Exam: REGULAR RHYTHM, +S1, +S2 - GI/Abdominal Exam GI & Abdominal Exam: Distended, Tenderness - Extremities Exam Extremities exam: pedal edema, pedal pulses present - Neurological Exam Neurological exam: Altered - Skin Skin Exam: Dry, Intact, Warm Discharge Plan - Follow Up Plan Condition: SERIOUS Disposition: HOSPICE - MEDICAL FACILITY Instructions: Hospice (DC), Hospice Care (GEN), Altered Mental Status (GEN) Additional Instructions: DISCHARGE TO HOSPICE CARE. COMFORT CARE. Referrals: PCP,NO [Primary Care Provider] - <Jimmie Melton MD - Last Filed: 11/27/16 17:55> Provider - Provider Date of Admission: 11/20/16 12:45 Attending physician: Jimmie Melton MD Primary care physician: NO PRIMARY CARE PROVIDER Hospital Course - Lab Results Lab Results: Micro Results 11/22/16 14:43 Blood Blood Culture - Final NO GROWTH AFTER 5 DAYS 11/22/16 14:43 Blood Gram Stain - Final TEST NOT PERFORMED 11/22/16 14:15 Blood Blood Culture - Final NO GROWTH AFTER 5 DAYS 11/22/16 14:15 Blood Gram Stain - Final TEST NOT PERFORMED 11/22/16 15:00 Urine,Blanton Urine Culture - Final Pseudomonas Aeruginosa 11/20/16 12:50 Naris MRSA Culture (Admit) - Final MRSA NOT DETECTED Most Recent Lab Values WBC 10.6 10^3/ul (4.5-11.0) D 11/27/16 06:30 RBC 3.87 10^6/uL (3.5-6.1) 11/27/16 06:30 Hgb 10.7 gm/dL (12.0-16.0) L 11/27/16 06:30 Hct 34.1 % (36.0-48.0) L 11/27/16 06:30 MCV 88.1 fL (80.0-105.0) 11/27/16 06:30 MCH 27.6 pg (25.0-35.0) 11/27/16 06:30 MCHC 31.4 g/dl (31.0-37.0) 11/27/16 06:30 RDW 28.4 % (11.5-14.5) H 11/27/16 06:30 Plt Count 56 10^3/uL (120.0-450.0) L 11/27/16 06:30 MPV 9.0 fl (7.0-11.0) 11/26/16 05:00 Gran % 88.8 % (50.0-68.0) H 11/27/16 06:30 Lymph % (Auto) 4.2 % (22.0-35.0) L 11/27/16 06:30 Irion % (Auto) 6.8 % (1.0-6.0) H 11/27/16 06:30 Eos % (Auto) 0.0 % (1.5-5.0) L 11/27/16 06:30 Baso % (Auto) 0.2 % (0.0-3.0) 11/27/16 06:30 Gran # 9.40 (1.4-6.5) H 11/27/16 06:30 Lymph # 0.4 (1.2-3.4) L 11/27/16 06:30 Irion # 0.7 (0.1-0.6) H 11/27/16 06:30 Eos # 0.0 (0.0-0.7) 11/27/16 06:30 Baso # 0.02 K/mm3 (0.0-2.0) 11/27/16 06:30 Neutrophils % (Manual) 83 % (50.0-70.0) H 11/21/16 05:00 Band Neutrophils % 9 % (0-2) H 11/21/16 05:00 Lymphocytes % (Manual) 3 % (22.0-35.0) L 11/21/16 05:00 Monocytes % (Manual) 5 % (1.0-6.0) 11/21/16 05:00 Platelet Evaluation Low (NORMAL) 11/21/16 05:00 Hypochromasia 1+ 11/21/16 05:00 Poikilocytosis (manual Slight 11/21/16 05:00 Anisocytosis (manual) 1+ 11/21/16 05:00 PT 20.4 Seconds (9.9-11.8) H 11/27/16 06:30 INR 1.89 (0.93-1.08) H 11/27/16 06:30 APTT 46.7 Seconds (23.7-30.8) H 11/23/16 07:00 pCO2 26 mm/Hg (35-45) L 11/27/16 09:30 pO2 67.0 mm/Hg (80-100) L 11/27/16 09:30 HCO3 14.7 mmol/L (21-28) L 11/27/16 09:30 ABG pH 7.36 (7.35-7.45) 11/27/16 09:30 ABG Total CO2 15.5 mmol.L (22-28) L 11/27/16 09:30 ABG O2 Saturation 95.6 % (95-98) 11/27/16 09:30 ABG O2 Content 13.8 ML/dl (15-23) L 11/27/16 09:30 ABG Base Excess -9.4 mmol/L (-2.0-3.0) L 11/27/16 09:30 ABG Hemoglobin 10.6 g/dL (11.7-17.4) L 11/27/16 09:30 ABG Carboxyhemoglobin 2.7 % (0.5-1.5) H 11/27/16 09:30 POC ABG HHb (Measured) 4.2 % (0-5) 11/27/16 09:30 ABG Methemoglobin 1.2 % (0.0-3.0) 11/27/16 09:30 ABG O2 Capacity 14.4 mL/dl (16-24) L 11/27/16 09:30 Hgb O2 Saturation 92.0 % (95.0-98.0) L 11/27/16 09:30 FiO2 40.0 % 11/27/16 09:30 Sodium 148 mmol/L (132-148) 11/27/16 06:30 Potassium 3.5 mmol/L (3.6-5.0) L 11/27/16 06:30 Chloride 117 mmol/L (98-107) H 11/27/16 06:30 Carbon Dioxide 17 mmol/L (21-33) L 11/27/16 06:30 Anion Gap 18 (10-20) 11/27/16 06:30 BUN 34 mg/dL (7-21) H 11/27/16 06:30 Creatinine 2.3 mg/dL (0.5-1.4) H 11/27/16 06:30 Est GFR ( Amer) 25 11/27/16 06:30 Est GFR (Non-Af Amer) 21 11/27/16 06:30 POC Glucose (mg/dL) 251 mg/dL (65-110) H 11/25/16 21:55 Random Glucose 212 mg/dL (70-110) H 11/27/16 06:30 Calcium 9.6 mg/dL (8.4-10.5) 11/27/16 06:30 Phosphorus 3.1 mg/dL (2.5-4.5) 11/20/16 11:30 Magnesium 1.8 mg/dL (1.7-2.2) 11/20/16 11:30 Total Bilirubin 3.3 mg/dL (0.2-1.3) H 11/27/16 06:30 AST 55 U/L (15-39) H 11/27/16 06:30 ALT 41 U/L (7-56) 11/27/16 06:30 Alkaline Phosphatase 113 U/L (38-133) 11/27/16 06:30 Ammonia 248 umol/L (9-33) H* 11/27/16 14:10 NT-Pro-B Natriuret Pep 925 pg/mL (0-450) H 11/22/16 07:00 Total Protein 5.3 g/dL (5.8-8.3) L 11/27/16 06:30 Albumin 2.2 g/dL (3.0-4.8) L 11/27/16 06:30 Globulin 3.1 gm/dL 11/27/16 06:30 Albumin/Globulin Ratio 0.7 (1.1-1.8) L 11/27/16 06:30 Triglycerides 49 mg/dL (35-160) 11/21/16 05:00 Cholesterol < 50 mg/dL (130-200) L 11/21/16 05:00 LDL Cholesterol Direct < 30 mg/dL (0-129) 11/21/16 05:00 HDL Cholesterol 17 mg/dL (29-60) L 11/21/16 05:00 Procalcitonin 4.33 NG/ML (0.19-0.49) H 11/22/16 07:00 Urine Color Yellow (YELLOW) 11/27/16 09:53 Urine Appearance Sl cloudy (CLEAR) 11/27/16 09:53 Urine pH 5.0 (4.7-8.0) 11/27/16 09:53 Ur Specific Douglas 1.025 (1.005-1.035) 11/27/16 09:53 Urine Protein 30 mg/dL (<30 mg/dL) H 11/27/16 09:53 Urine Glucose (UA) Negative mg/dL (NEGATIVE) 11/27/16 09:53 Urine Ketones Trace mg/dL (NEGATIVE) H 11/27/16 09:53 Urine Blood Moderate (NEGATIVE) H 11/27/16 09:53 Urine Nitrate Negative (NEGATIVE) 11/27/16 09:53 Urine Bilirubin Negative (NEGATIVE) 11/27/16 09:53 Urine Urobilinogen 0.2 E.U./dL (<1 E.U./dL) 11/27/16 09:53 Ur Leukocyte Esterase Trace Bri/uL (NEGATIVE) H 11/27/16 09:53 Urine RBC 10 - 15 /hpf (0-2) 11/27/16 09:53 Urine WBC 15 - 20 /hpf (0-6) 11/27/16 09:53 Ur Epithelial Cells 10 - 12 /hpf (0-5) 11/27/16 09:53 Amorphous Sediment Few 11/24/16 20:00 Urine Bacteria Mod (NEG) 11/27/16 09:53 Urine Other Uyeast 11/24/16 20:00 Ur Random Creatinine 80 mg/dL 11/27/16 09:53 Ur Random Sodium 18 meq/L 11/27/16 09:53 Ur Random Potassium 60.0 meq/L 11/27/16 09:53 Vancomycin Trough 52.3 ug/mL (5.0-10.0) H* 11/27/16 07:30 Liver/Kid Microsomes Ab <=20.0 U (<=20.0) 11/21/16 05:00 Blood Type O POSITIVE 11/20/16 06:30 Blood Type Confirm O POSITIVE 11/20/16 06:50 Antibody Screen Negative 11/20/16 06:30 Crossmatch See Detail 11/20/16 06:30 BBK History Checked No verified bt 11/20/16 06:30 Attending/Attestation - Attestation I have personally seen and examined this patient.: Yes I have fully participated in the care of the patient.: Yes I have reviewed all pertinent clinical information, including history, physical exam and plan: Yes
--- NOTE | 2016-11-27 16:26 | CP.PCM.PN ---
Subjective - Date & Time of Evaluation Date of Evaluation: 11/27/16 Time of Evaluation: 10:00 - Subjective Subjective: Noted patient to be poorly responsive. Patient has not had urine output since last night and of note her Ammonia level is very elevated at 168 this morning. No fevers, no diarrhea noted overnight. Objective - Vital Signs/Intake and Output Vital Signs (last 24 hours): Temp Pulse Resp BP Pulse Ox 97.6 F 116 H 20 134/84 95 11/27/16 06:00 11/27/16 06:00 11/27/16 06:00 11/27/16 09:33 11/27/16 06:00 Intake and Output: 11/27/16 11/27/16 06:59 18:59 Intake Total 0 Output Total 0 Balance 0 - Labs Labs: 11/27/16 06:30 11/27/16 06:30 PT 20.4 Seconds (9.9-11.8) H 11/27/16 06:30 INR 1.89 (0.93-1.08) H 11/27/16 06:30 APTT 46.7 Seconds (23.7-30.8) H 11/23/16 07:00 - Constitutional Appears: Other (poorly responsive) - Head Exam Head Exam: NORMAL INSPECTION - Neck Exam Neck Exam: absent: Meningismus - Respiratory Exam Respiratory Exam: Decreased Breath Sounds - Cardiovascular Exam Cardiovascular Exam: +S1, +S2 - GI/Abdominal Exam GI & Abdominal Exam: Soft. absent: Tenderness Assessment and Plan - Assessment and Plan (Free Text) Plan: Assessment Probable acute hepatorenal syndrome in a patient with liver cirrhosis probable decompensation, in acute renal failure Sepsis secondary to right lower lobe healthcare-associated pneumonia with possible gram positive cocci and/or gram negative bacilli colon cancer S/P right hemicolectomy Pseudomonas in the urine history of DVT DM Plan we have discontinued Vancomycin because of the renal failure and the high Vancomycin trough; on Zosyn day 5 discussed with the family regarding the dire situation because of the high ammonia levels which the liver is unable to process - has been started on Lactulose Discussed with Dr. Linh Samuel Patient for hospice care Prognosis is grave
== END 2016-11-27 14:05 | disposition hospice, inpatient (51) | DRG 329 ==
LOC: SDS 06:06 → CCU 12:45 → 3RNO 11-21 19:59
PROVIDERS: ADMIT Surgery; ATTEND Internal Medicine
PROC: 30233N1 Transfusion of Nonautologous Red Blood Cells into Peripheral Vein, Percutaneous Approach (ICD-10-PCS; 2016-11-20)
PROC: 30233K1 Transfusion of Nonautologous Frozen Plasma into Peripheral Vein, Percutaneous Approach (ICD-10-PCS; 2016-11-20)
PROC: 0DTF0ZZ Resection of Right Large Intestine, Open Approach (ICD-10-PCS; principal; 2016-11-21)
PROC: 0DBL0ZZ Excision of Transverse Colon, Open Approach (ICD-10-PCS; 2016-11-21)
DX: C18.0 Malignant neoplasm of cecum (principal); A41.9 Sepsis, unspecified organism; K76.7 Hepatorenal syndrome; N17.9 Acute kidney failure, unspecified; J18.9 Pneumonia, unspecified organism; G92 Toxic encephalopathy; R18.8 Other ascites; R64 Cachexia; K76.6 Portal hypertension; N39.0 Urinary tract infection, site not specified; D69.6 Thrombocytopenia, unspecified; K74.60 Unspecified cirrhosis of liver; I10 Essential (primary) hypertension; Y95 Nosocomial condition; E11.9 Type 2 diabetes mellitus without complications; Z86.718 Personal history of other venous thrombosis and embolism; Z87.891 Personal history of nicotine dependence; Z85.038 Personal history of other malignant neoplasm of large intestine; Z90.49 Acquired absence of other specified parts of digestive tract; Z66 Do not resuscitate; E78.5 Hyperlipidemia, unspecified; E87.6 Hypokalemia; M48.00 Spinal stenosis, site unspecified; K72.90 Hepatic failure, unspecified without coma; R00.0 Tachycardia, unspecified; D12.3 Benign neoplasm of transverse colon; K75.81 Nonalcoholic steatohepatitis (NASH); R41.0 Disorientation, unspecified; D64.9 Anemia, unspecified; Z87.81 Personal history of (healed) traumatic fracture; R26.81 Unsteadiness on feet; K80.20 Calculus of gallbladder without cholecystitis without obstruction; B96.5 Pseudomonas (aeruginosa) (mallei) (pseudomallei) as the cause of diseases classified elsewhere; K76.89 Other specified diseases of liver; I50.9 Heart failure, unspecified

== ENCOUNTER 2016-11-27 14:09 | Inpatient (IN) | payer OTHER ==
[2016-11-16 11:01] VITALS: BMI 26.0
--- NOTE | 2016-11-27 14:14 | CP.PCM.HP ---
<Glynn Melo - Last Filed: 11/27/16 17:14> History of Present Illness - History of Present Illness History of Present Illness: HPI: Patient is a 76 y/o F with PMH of DVT, HTN, DM2, and liver cirrhosis who presents s/p right hemicolectomy with side to side anastamosis. During hospital stay, patient had worsening renal function as well as liver failure. Patient developed worsening edema and developed hyperammonemia and altered mental status. Her medical status was discussed with family. Patient requested DNR/DNI prior to procedure. Patient was placed on inpatient hospice and accepted by [facility]. PMD: None Past Med Hx: DM2, HTN, Liver cirrhosis Past Surg Hx: Paricentesis, IVC filter placement, right hemicolectomy with side to side anastamosis Social Hx: Denies alcohol, tobacco, or drug use Allergies: NKDA Present on Admission - Present on Admission Any Indicators Present on Admission: Yes Urinary Catheter: Yes Review of Systems - Review of Systems Systems not reviewed;Unavailable: Altered Mental Status Past Patient History - Infectious Disease Hx of Infectious Diseases: None - Tetanus Immunizations Tetanus Immunization: Unknown - Past Medical History & Family History Past Medical History?: Yes - Past Social History Smoking Status: Former Smoker Chewing Tobacco Use: No Cigar Use: No Alcohol: None Drugs: Denies Home Situation {Lives}: With Family - CARDIAC Hx Cardiac Disorders: Yes Hx Hypertension: Yes - PULMONARY Hx Respiratory Disorders: Yes (SMOKED CIGARETTES PPD QUIT 15 YRS AGO) - NEUROLOGICAL Hx Neurological Disorder: No - HEENT Hx HEENT Problems: No - RENAL Hx Chronic Kidney Disease: No - ENDOCRINE/METABOLIC Hx Diabetes Mellitus Type 2: Yes - HEMATOLOGICAL/ONCOLOGICAL Hx Blood Disorders: Yes (HEPATIC ENCEPHALOPATHY) Hx Anemia: Yes Hx Cancer: Yes (COLON CA) - INTEGUMENTARY Hx Dermatological Problems: No - MUSCULOSKELETAL/RHEUMATOLOGICAL Hx Musculoskeletal Disorders: Yes Hx Falls: Yes Hx Fractures: Yes (RIGHT LEG FX) Hx Unsteady Gait: Yes (CANE WALKER) - GASTROINTESTINAL Hx Gastrointestinal Disorders: Yes (POST HEMICOLECTOMY- 11-20-16) Hx Gall Bladder Disease: Yes (cholelithiasis) Hx Liver Failure: Yes Other/Comment: Liver Cirrhosis-PARACENTESIS - GENITOURINARY/GYNECOLOGICAL Hx Genitourinary Disorders: No - PSYCHIATRIC Hx Emotional Abuse: No Hx Physical Abuse: No Hx Substance Use: No - SURGICAL HISTORY Hx Surgeries: Yes (POST HEMICOLECTOMY 11-20-16) Other/Comment: DVT WITH IVC FILTER - ANESTHESIA Hx Anesthesia Reactions: No Hx Malignant Hyperthermia: No Meds Allergies/Adverse Reactions: Allergies Allergy/AdvReac Type Severity Reaction Status Date / Time No Known Allergies Allergy Verified 11/20/16 18:44 Physical Exam - Constitutional Appears: Toxic, Older Than Stated Age, Cachectic - Head Exam Head Exam: ATRAUMATIC, NORMOCEPHALIC - Eye Exam Eye Exam: Normal appearance, PERRL Pupil Exam: PERRL - ENT Exam ENT Exam: Mucous Membranes Moist. absent: Normal Oropharynx (poor dentition) - Neck Exam Neck exam: Positive for: Tenderness - Respiratory Exam Respiratory Exam: Decreased Breath Sounds, Rales, Rhonchi. absent: NORMAL BREATHING PATTERN (tachypnic) - Cardiovascular Exam Cardiovascular Exam: Tachycardia, +S1, +S2, Systolic Murmur (grade 2 ) - GI/Abdominal Exam GI & Abdominal Exam: Distended, Tenderness - Extremities Exam Extremities exam: Positive for: pedal edema. Negative for: tenderness - Neurological Exam Neurological exam: Altered - Skin Skin Exam: Dry, Intact, Warm Assessment & Plan - Assessment and Plan (Free Text) Assessment: 76 y/o F who presents with renal and liver failure for inpatient hospice. Plan: 1) Palliative care * Keep patient comfortable * Support for family * Morphine [employer] * Ativan for seizure prevention * Tylenol PRN fever * Scopalamine for secretions * no lab draws * mims for measuring output Assessment and plan discussed with attending physician. <Linh GÓMEZ,Jimmie - Last Filed: 11/27/16 17:53> Results - Vital Signs Recent Vital Signs: Last Vital Signs Temp Pulse Resp 22 11/27/16 15:35 BP Pulse Ox Attending/Attestation - Attestation I have personally seen and examined this patient.: Yes I have fully participated in the care of the patient.: Yes I have reviewed all pertinent clinical information: Yes Notes (Text): 76 year old female with past medical history of diabetes, hypertension, anemia , chronic iver cirrhosis ,DVT,SP IVC filter was recently diagnosed with poorly differentiated adenocarcinoma, underwent resection of tumour this admission, was found to be unresponsive due to hepatic encephlopathy, ,was also found to be in oligo uric renal failure, fluid overload and metabolic acidosis due to renal failure.Patient family has decided to opt for hospice and comfort measure. and family has decided to make patient DNR and DNI as per her wishes and do not want any aggressive intervention, hey have refused Lactulose, and dialysis.We will make patient DNR /DNI and will start on comfort measure. Prognosis is guarded. Management plan was discussed in detail with patient family. Education was provided.
[2016-11-27] MEDS ORDERED: Morphine PCA 1 mg/ml (25ml) 25 ML IV PRN ×3 (14:18→15:59)
[2016-11-27] MEDS ORDERED: Scopolamine 1.5 mg/24 hr Patch TD SCH (14:30)
[2016-11-27 15:42] VITALS: RESP 22
--- NOTE | 2016-11-27 21:06 | CON ---
DATE: 11/27/2016 The patient is a 76-year-old female with past medical history of hypertension, diabetes, liver cirrho sis, previous DVT, admitted after elective right hemicolectomy with [id number] anastomosis after be ing diagnosed to have adenocarcinoma on recent admission. Nephrology service consulted for acute jeanette al failure. The patient's hospital course has been complicated by development of healthcare-associated pneumonia; was being treated with vancomycin and Zosyn, with chest x-ray showing right base opacity. The patient's mental status noted to have worsened over the last 2 days, although as recently as yest erday the patient was eating, per family members. REVIEW OF SYSTEMS: Limited, as the patient has altered mental status and cannot answer any questions . CENTRAL NERVOUS SYSTEM: As noted above, with altered mental status since the past 2 days. VITALS: This morning, blood pressure 153/86, heart rate 116, respirations 20, O2 sat at time of exam 89% on 5 L O2 via nasal cannula. EXAMINATION: GENERAL: The patient appears agitated; not conversing. HEENT: Moist mucous membranes. No significant JVD elevation. CHEST: Rales appreciated. No wheezes, no overt rhonchi. HEART: Tachycardic. No rubs, no gallops. ABDOMEN: Soft, mildly distended, mildly tender. GENITOURINARY: No bladder distention. EXTREMITIES: Markedly edematous bilateral legs. SKIN: No cyanosis. Hands mildly cool to touch. NEUROLOGIC EXAMINATION: Unable to assess for asterixis, as the patient is not able to follow command s. EYE EXAMINATION: The patient mildly icteric. LABORATORIES: This morning, WBC 10.6, hemoglobin 10.77, hematocrit 34.1, platelets 56. Chemistry Pa laura: Sodium 148, potassium 3.5, chloride 117, bicarb 17, BUN 34, creatinine 2.3, glucose 212, calciu m 9.6. T-bili 3.3, ammonia level 168, albumin 2.2. INR 1.89. ABG: pH 7.36, pCO2 of 26, pO2 of 67, bicarb 14.7. Vancomycin trough level 52.3. UA: Urine specific gravity 1.025. Trace leukocyte est erase, moderate bacteria, 15-20 WBCs per high powered field, 10-15 RBCs per high powered field. Urin e microscopy directly observed occasional granular casts, occasional renal tubular epithelial cells, granular debris present. ASSESSMENT: 1. Acute renal failure. Multiple nephrotoxic insults. The patient was on vancomycin with very high trough level, possibly causing vancomycin-induced acute kidney injury. Furthermore, the patient was getting ketorolac for pain relief at regular intervals, which can cause afferent arterial vasoconstri ction, and thus add to renal insult. Furthermore, the patient was being diuresed aggressively with I V Lasix 40 mg q.12 hours, as well as Aldactone that was started yesterday. The patient now with anur ic renal failure not responding to increased doses of IV diuretics. Fractional excretion of sodium 0 .3% despite being given IV Lasix this morning represents a possibility of hepatorenal syndrome/preren al etiology. However, the patient has strong perfusing blood pressures that argue against this, and has signs of volume overload with pulmonary edema on exam. Urine microscopy showing some indication of tubular injury with the presence of renal tubular epithelial cells, although this is not definitiv e. Aggressive diuresis could have triggered hepatorenal syndrome. However, this is a diagnosis of e xclusion that would require us to volume resuscitate with albumin infusion, which is not possible at this point given the patient's pulmonary edema and new DNI status, as albumin infusion would worsened what appears to be at this point, pulmonary edema/decompensated congestive heart failure. As this i s an acute insult with serum creatinine having jumped from 1.4 to 2.3 in 1 day. It is feasible that this can be reversed, however, given anuric status, the patient would likely need to be initiated on hemodialysis support until renal function recovers. However, at this point, the patient's family is refusing further intervention, and only wishing for comfort care. 2. Decompensated congestive heart failure. Echo done last month showed evidence of diastolic dysfunc tion, preserved ejection fraction. The patient is volume overloaded, however, is not responding to d iuretics in the setting of anuric acute renal failure. If the patient remains anuric, dialysis would be the only option for volume removal. 3. Hypertension. Blood pressure mildly elevated actually argues against hepatorenal syndrome. Never theless, is volume overloaded and needs volume removal. 4. Healthcare-associated pneumonia. The patient was getting vancomycin 1 g q. 12 hours; was likely t oo high of a dose given elderly status and decreased renal clearance in this setting. Zosyn dose dec reased today in the setting of renal failure. 5. Metabolic acidosis. pH this morning was stable at 736. With the patient having adequate respirat ory compensation, cannot give bicarb at this point, as this would cause increased volume load. Howev er, it is not needed unless pH were to drop below 7.20. 6. Hypernatremia. The patient with approximately 1.6 L free water deficit should be given D5W at 40 mL per hour. 7. Hyperammonemia causing hepatic encephalopathy, marked jump in ammonia level in 1 day of unclear et iology. The patient unable to get p.o. lactulose, as concern for gastrointestinal bleeding with a hi story of varices if NG tube were to be placed. The primary team had ordered rectal lactulose. Hemod ialysis can remove ammonia, however, this would not be standard treatment for hepatic encephalopathy, as ammonia level would just rebound after dialysis is stopped. Nevertheless, family wanting comfort measures only, and not wanting to treat the hepatic encephalopathy. Critical care time spent in reviewing the patient's records, speaking with primary team, speaking wit h palliative care nurse practitioner, and discussion with family, over 45 minutes. You Sommer MD cc: [id number] TT: 11/27/2016 21:06:20 Confirmation # [id number] Dictation # [id number] shakira
--- NOTE | 2016-11-27 23:33 | CP.PCM.PRO ---
Pronouncement of Note - Clinical Findings Physical Exam: No Response Verbal/Painful Stimuli, Absent Peripheral Pulses{ Carotid & Femoral}, Absent Heart & Breath Sounds, No Pupillary Light Reflex, No Corneal Reflex, Pupils Fixed & Dilated, Absence of Vital Signs - Pronouncement Time Time of Pronouncement of : 23:20 - Notifications Pronouncement Notifications: Family Notified (At bedside.), Atending Notified ( I am covering.) Rigging Slinger Notified: No - Autopsy Autopsy Requested: No - [place] [id number]
--- NOTE | 2016-12-05 16:11 | CP.PCM.DIS ---
<Glynn Melo - Last Filed: 12/05/16 16:07> Provider - Provider Date of Admission: 11/27/16 14:09 Attending physician: Jimmie Melton MD Primary care physician: NO PRIMARY CARE PROVIDER Time Spent in preparation of Discharge (in minutes): 35 Hospital Course - Hospital Course Hospital Course: HPI: Patient is a 76 y/o F with PMH of DVT, HTN, DM2, and liver cirrhosis who presents s/p right hemicolectomy with side to side anastamosis. During hospital stay, patient had worsening renal function as well as liver failure. Patient developed worsening edema and developed hyperammonemia and altered mental status. Her medical status was discussed with family. Patient requested DNR/DNI prior to procedure. Patient was placed on inpatient hospice and accepted by [facility]. Hospital Course: Patient was admitted for inpatient hospice through [facility]. Palliative care given to patient. She remained somnolent and minimally responsive. During her stay she became less responsive and passed peacefully over night. Patient . - Date & Time of H&P Date of H&P: 11/27/16 Time of H&P: 14:14 Discharge Exam - Head Exam Head Exam: ATRAUMATIC, NORMOCEPHALIC - Eye Exam Eye Exam: Normal appearance (unresponsive) - Cardiovascular Exam Cardiovascular Exam: absent: REGULAR RHYTHM (no heart beat) Discharge Plan - Follow Up Plan Condition: Disposition: WITH WITHOUT AUTOPSY Instructions: Altered Mental Status (GEN) Referrals: PCP,NO [Primary Care Provider] - <Jimmie Melton MD - Last Filed: 12/06/16 07:31> Provider - Provider Date of Admission: 11/27/16 14:09 Attending physician: Jimmie Melton MD Primary care physician: NO PRIMARY CARE PROVIDER Attending/Attestation - Attestation I have personally seen and examined this patient.: Yes I have fully participated in the care of the patient.: Yes I have reviewed all pertinent clinical information, including history, physical exam and plan: Yes Notes (Text): 12/06/16 07:29 76 year old female with past medical history of diabetes, hypertension, anemia , chronic iver cirrhosis ,DVT,SP IVC filter was recently diagnosed with poorly differentiated adenocarcinoma, underwent resection of tumour this admission, was found to be unresponsive due to hepatic encephlopathy, ,was also found to be in oligo uric renal failure, fluid overload and metabolic acidosis due to renal failure.Patient family has decided to opt for hospice and comfort measure. and family decided to make patient DNR and DNI as per her wishes and do not want any aggressive intervention, hey have refused Lactulose, and dialysis.Patient was started on comfort measures, she was found to be pulseless and there was no breathing at night and was pronounce by house physician.
== END 2016-11-27 23:30 | DRG 374 ==
LOC: 3RNO 14:09
PROVIDERS: ADMIT Internal Medicine; ATTEND Internal Medicine
DX: C18.0 Malignant neoplasm of cecum (principal); J18.9 Pneumonia, unspecified organism; K76.7 Hepatorenal syndrome; I50.43 Acute on chronic combined systolic (congestive) and diastolic (congestive) heart failure; N17.9 Acute kidney failure, unspecified; E87.0 Hyperosmolality and hypernatremia; I11.0 Hypertensive heart disease with heart failure; E11.9 Type 2 diabetes mellitus without complications; D64.9 Anemia, unspecified; E87.2 Acidosis; K72.90 Hepatic failure, unspecified without coma; K74.60 Unspecified cirrhosis of liver; Y95 Nosocomial condition; Z66 Do not resuscitate; Z51.5 Encounter for palliative care; Z86.718 Personal history of other venous thrombosis and embolism; Z90.49 Acquired absence of other specified parts of digestive tract; R41.82 Altered mental status, unspecified; Z87.891 Personal history of nicotine dependence; Z87.81 Personal history of (healed) traumatic fracture; R26.81 Unsteadiness on feet; K80.20 Calculus of gallbladder without cholecystitis without obstruction; R00.0 Tachycardia, unspecified; R01.1 Cardiac murmur, unspecified